=== PATIENT | female | born 1985 | race Caucasian/White ===

== ENCOUNTER 2019-08-21 18:49 | Emergency (ER) | payer OTHER ==
--- NOTE | 2019-08-21 20:11 | RAD REPORT ---
EXAM DESCRIPTION: US - OB Limited - 08/21/2019 8:02 pm CLINICAL HISTORY: VAGINAL BLEEDING age. COMPARISON: No comparisons FINDINGS: A limited examination was requested. A single gestation is identified with crown-rump melissa th of 4.6 cm corresponding to 11 weeks 1 day gestational age. Heart rate is 164, normal. A moderate s ized subchorionic bleed is probably present along the inferior aspect of the sac.
[2019-08-21 20:24] LABS: Absolute Lymphocytes (CBC) 2.7 K/uL (0.7-4.9); Basophils % 0.7 % (0-1.3); Hematocrit 39.9 % (36.0-45.0); MPV 7.8 fL (7.6-11.3); RBC Red Blood Cell Count 4.79 M/uL (3.86-4.86)
[2019-08-21 21:41] LABS: BUN Blood Urea Nitrogen 10 mg/dL (7-18); Bicarbonate 28 mmol/L (21-32); Glucose Level 70 mg/dL (74-106); HCG, Quantitative 34567 mIU/mL (1-3); Potassium 3.8 mmol/L (3.5-5.1); Sodium Level 138 mmol/L (136-145)
--- NOTE | 2019-08-21 22:15 | EDPHYS ---
Physician Documentation [facility] Name: Gracy Lay Age: 33 yrs Sex: Female : 1985 Arrival Date: 08/21/2019 Time: 18:50 Bed 4 Private MD: ED Physician Dank Dolan HPI: 08/21 22:19 This 33 yrs old Female presents to ER via Ambulatory with complaints of tw4 Vaginal Bleeding, + Preg <12wks. 22:19 The patient presents to the emergency department with vaginal bleeding. The estimated tw4 gestational age is 12 weeks. course: care: at a clinic. The patient has not experienced similar symptoms in the past. 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 - Social history:: Smoking status: Patient uses tobacco products, smokes one-half pack cigarettes per day. - Ebola Screening: : No symptoms or risks identified at this time. ROS: 22:19 Constitutional: Negative for fever, chills, and weight loss, Eyes: Negative for injury, tw4 pain, redness, and discharge, Cardiovascular: Negative for chest pain, palpitations, and edema, Respiratory: Negative for shortness of breath, cough, wheezing, and pleuritic chest pain, Abdomen/GI: Negative for abdominal pain, nausea, vomiting, diarrhea, and constipation. 22:19 : Positive for vaginal bleeding, Negative for injury or acute deformity, urinary symptoms, urinary frequency, small amounts, hematuria, pelvic pain, flank pain, burning with urination. Exam: 22:19 Constitutional: This is a well developed, well nourished patient who is awake, alert, tw4 and in no acute distress. Head/Face: Normocephalic, atraumatic. Chest/axilla: Normal chest wall appearance and motion. Nontender with no deformity. No lesions are appreciated. Cardiovascular: Regular rate and rhythm with a normal S1 and S2. No gallops, murmurs, or rubs. Normal PMI, no JVD. No pulse deficits. Respiratory: Lungs have equal breath sounds bilaterally, clear to auscultation and percussion. No rales, rhonchi or wheezes noted. No increased work of breathing, no retractions or nasal flaring. Abdomen/GI: Soft, non-tender, with normal bowel sounds. No distension or tympany. No guarding or rebound. No evidence of tenderness throughout. Back: No spinal tenderness. No costovertebral tenderness. Full range of motion. 22:19 : Pelvic Exam: The exam is refused by the patient/guardian. The risks and consequences are understood by the patient. Vital Signs: 18:52 BP 133 / 89; Pulse 92; Resp 16; Temp 98.1; Pulse Ox 100% on R/A; Weight 113.4 kg; la1 Height 5 ft. 5 in. (165.10 cm); 20:42 BP 126 / 87; Pulse 87; Resp 18; Pulse Ox 97% on R/A; ea 22:09 BP 129 / 90; Pulse 88; Resp 16; Temp 98.2; Pulse Ox 99% on R/A; Pain 0/10; ak1 18:52 Body Mass Index 41.60 (113.40 kg, 165.10 cm) la1 MDM: 19:43 Patient medically screened. tw4 22:19 Differential diagnosis: [place] do[place], ectopic . Data reviewed: vital signs, tw4 nurses notes. Data reviewed: lab test result(s), CBC, white blood cell count, hemoglobin, hematocrit, platelets, electrolytes, sodium, potassium, chloride, serum bicarbonate, BUN, creatinine, serum glucose, radiologic studies, ultrasound. Counseling: I had a detailed discussion with the patient and/or guardian regarding: the historical points, exam findings, and any diagnostic results supporting the discharge/admit diagnosis, lab results, radiology results. Special discussion: I discussed with the patient/guardian in detail that at this point there is no indication for admission to the hospital. It is understood, however, that if the symptoms persist or worsen the patient needs to return immediately for re-evaluation. 08/21 19:22 Order name: Quantitative Hcg [facility] 08/21 19:22 Order name: Abo/rh Typing; Complete Time: 22:17 [facility] 08/21 19:22 Order name: Basic Metabolic Panel [facility] 08/21 19:22 Order name: CBC with Diff 4 08/21 22:15 Order name: Urine Dipstick--Ancillary (enter results) 2 08/21 22:15 Order name: Urine --Ancillary (enter results) 2 08/21 19:22 Order name: Labs collected and sent; Complete Time: 20:10 tw4 08/21 19:22 Order name: NPO; Complete Time: 20:11 4 08/21 19:22 Order name: Urine Dipstick-Ancillary (obtain specimen); Complete Time: 22:09 4 08/21 19:25 Order name: US OB Limited; Complete Time: 21:56 tw4 Administered Medications: No medications were administered Point of Care Testing: Urine : 22:09 hCG Reading: Positive; ak1 Disposition: 08/21/19 22:14 Discharged to Home. Impression: Threatened . - Condition is Stable. - Discharge Instructions: Pelvic Rest, Threatened Miscarriage, Vaginal Bleeding During , First Trimester, Threatened Miscarriage, [id number]. - Work release form, Medication Reconciliation Form, Thank You Letter, Antibiotic Education, Prescription Opioid Use form. - Follow up: Private Physician; When: Upon discharge from the Emergency Department; Reason: Recheck today's complaints, Continuance of care. - Problem is new. - Symptoms have improved. Signatures: Dispatcher [employer] EDMS Denton Crowley RN RN andrew1 Bozena Fernandez RN RN ak1 Dank Dolan MD MD tw4 Corrections: (The following items were deleted from the chart) 20:11 19:22 IV Saline Lock ordered. tw4 ak1 22:33 22:14 08/21/2019 22:14 Discharged to Home. Impression: Threatened . Condition ak1 is Stable. Forms are Medication Reconciliation Form, Thank You Letter, Antibiotic Education, Prescription Opioid Use. Follow up: Private Physician; When: Upon discharge from the Emergency Department; Reason: Recheck today's complaints, Continuance of care. Problem is new. Symptoms have improved. tw4
--- NOTE | 2019-08-21 22:15 | ER ---
Nurse's Notes [facility] Name: Gracy Lay Age: 33 yrs Sex: Female : 1985 Arrival Date: 08/21/2019 Time: 18:50 Bed 4 Private MD: Diagnosis: Threatened Presentation: 08/21 18:53 Presenting complaint: Patient states: I am about 11 weeks and having vaginal la1 bleeding that started today. Transition of care: patient was not received from another setting of care. Onset of symptoms was August 21, 2019. Risk Assessment: Do you want to hurt yourself or someone else? Patient reports no desire to harm self or others. Initial Sepsis Screen: Does the patient meet any 2 criteria? No. Patient's initial sepsis screen is negative. Does the patient have a suspected source of infection? No. Patient's initial sepsis screen is negative. Care prior to arrival: None. 18:53 Method Of Arrival: Ambulatory la1 18:53 Acuity: ERNESTO 3 la1 Triage Assessment: 19:57 General: Appears in no apparent distress. Behavior is calm, cooperative. 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 - Social history:: Smoking status: Patient uses tobacco products, smokes one-half pack cigarettes per day. - Ebola Screening: : No symptoms or risks identified at this time. Screenin:10 Abuse screen: Denies threats or abuse. Denies injuries from another. Nutritional ak1 screening: No deficits noted. Tuberculosis screening: No symptoms or risk factors identified. Fall Risk None identified. Assessment: 19:56 Reassessment: pt in US at this time. General:. ak1 20:08 Obstetrical Assessment: pt c/o vaginal bleeding since 1800. pt stated US told her the ak1 baby was active and with a 156 heart beat. . Pain: Denies pain. : Reports vaginal bleeding that is bright red, with clots, light flow, since 1800 pt denies heavy lifting, denies sexual intercourse. 20:42 Reassessment: Patient and/or family updated on plan of care and expected duration. Pain ea level reassessed. Patient is alert, oriented x 3, equal unlabored respirations, skin warm/dry/pink. 22:33 Reassessment: Patient appears in no apparent distress at this time. No changes from ak1 previously documented assessment. Patient and/or family updated on plan of care and expected duration. Pain level reassessed. Patient is alert, oriented x 3, equal unlabored respirations, skin warm/dry/pink. Patient denies pain at this time. Patient states feeling better. Patient states symptoms have improved. pt has not changed her pad since being in the ER.. Vital Signs: 18:52 BP 133 / 89; Pulse 92; Resp 16; Temp 98.1; Pulse Ox 100% on R/A; Weight 113.4 kg; la1 Height 5 ft. 5 in. (165.10 cm); 20:42 BP 126 / 87; Pulse 87; Resp 18; Pulse Ox 97% on R/A; ea 22:09 BP 129 / 90; Pulse 88; Resp 16; Temp 98.2; Pulse Ox 99% on R/A; Pain 0/10; ak1 18:52 Body Mass Index 41.60 (113.40 kg, 165.10 cm) la1 Vitals: 19:57 Heart Tones N/A. ak1 ED Course: 18:50 Patient arrived in ED. as 18:52 Arm band placed on right wrist. la1 18:53 Triage completed. la1 19:25 Dank Dolan MD is Attending Physician. tw4 19:52 Bozena Fernandez, ELIF is Primary Nurse. ak1 20:02 US OB Limited In Process Unspecified. EDMS 20:08 Initial lab(s) drawn, by me, sent to lab. Missed attempt(s): 22 gauge in right ak1 antecubital area. Bleeding controlled, band aid applied, catheter tip intact. 20:10 Patient has correct armband on for positive identification. Bed in low position. Call ak1 light in reach. Side rails up X 1. Warm blanket given. 20:24 CBC with Diff Sent. ds4 20:24 Basic Metabolic Panel Sent. ds4 20:24 Abo/rh Typing Sent. ds4 20:24 Quantitative Hcg Sent. ds4 20:56 Patient did not have IV access during this emergency room visit. lab called for ak1 recollect. 22:23 No provider procedures requiring assistance completed. ak1 Administered Medications: No medications were administered Point of Care Testing: Urine : 22:09 hCG Reading: Positive; ak1 Outcome: 22:09 Condition: stable ak1 22:14 Discharge ordered by . tw4 22:23 Discharged to home ambulatory, with family. ak1 22:23 Discharge instructions given to patient, Instructed on discharge instructions, follow up and referral plans. safe sex practices, Demonstrated understanding of instructions, follow-up care. 22:33 Patient left the ED. ak1 Signatures: Dispatcher [employer] EDMS Daniela Hunter Donovan ds4 Denton Crowley RN RN la1 Krenek, Amber, RN RN ak1 Minerva Blanco RN RN ea Wadley, Terrence, MD MD tw4
[2019-08-21 22:17] LABS: Urine Blood NEGATIVE (NEG); Urine Glucose NEGATIVE (NEG); Urine Protein NEGATIVE (NEG); Urine Specific Gravity 1.025 (1.005-1.030); Urine pH 6.5 (5.0-7.0)
[2019-08-21 23:33] VITALS: BP 129/90; TEMP 98.2; O2SAT 99
== END 2019-08-21 22:33 | disposition home or self-care (01) ==
LOC: ER 18:49
DX: O20.0 Threatened abortion (principal); O24.911 Unspecified diabetes mellitus in pregnancy, first trimester; O99.331 Smoking (tobacco) complicating pregnancy, first trimester; F17.210 Nicotine dependence, cigarettes, uncomplicated; Z79.4 Long term (current) use of insulin; Z3A.12 12 weeks gestation of pregnancy
CPT/HCPCS: 36415; 76815; 80048; 81003; 81025; 84702; 85025; 86900; 86901; 99284

== ENCOUNTER 2019-10-22 16:32 | Emergency (ER) | payer OTHER ==
--- OUTSIDE RECORDS SUMMARY | 2019-10-22 16:33 | XMS REPORT ---
:1985 [facility] Address [address] [place] [address] [address] [place] [address] Care Team Providers Name Role Phone Unavailable Unavailable Unavailable Problems This patient has no known problems. Allergies, Adverse Reactions, Alerts This patient has no known allergies or adverse reactions. Medications This patient has no known medications. Encounters Start End Encounter Admission Attending Care Care Encounter Date/Time Date/Time Type Type Clinicians Facility Department ID 2019-09-08 2019-09-08 Outpatient [facility] [id number] 09:01:00 09:01:00
--- NOTE | 2019-10-22 17:59 | EDPHYS ---
Physician Documentation [facility] Name: Gracy Lay Age: 34 yrs Sex: Female : 1985 Arrival Date: 10/22/2019 Time: 16:33 Bed 9 Private MD: ED Physician Brody Baumann HPI: 10/22 17:57 This 34 yrs old Female presents to ER via Ambulatory with complaints of Flu kb Symptoms. 17:57 The patient or guardian reports cough, that is intermittent, described as moderate, kb with no sputum, flu symptoms, low-grade fever, myalgias. Onset: The symptoms/episode began/occurred yesterday. Severity of symptoms: At their worst the symptoms were moderate, in the emergency department the symptoms are unchanged. Modifying factors: The symptoms are alleviated by nothing, the symptoms are aggravated by nothing. Associated signs and symptoms: Pertinent positives: earache, fever, rhinorrhea, sore throat. The patient has not experienced similar symptoms in the past. The patient has not recently seen a physician. Pt reports she has had flu like symptoms since yesterday. Sore throat, fever, chills, cough, congestion, bilateral ear pain and runny nose. 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 - Coronavirus screen:: The patient has NOT traveled to [place], [place], or [place] in the past 14 days. Proceed with normal triage process as indicated. The patient has NOT had contact with known/suspected case of Coronavirus? Proceed with normal triage procedures. - Social history:: Smoking status: Patient reports the use of cigarette tobacco products, smokes one-half pack cigarettes per day. - Ebola Screening: : Patient negative for fever greater than or equal to 101.5 degrees Fahrenheit, and additional compatible Ebola Virus Disease symptoms Patient denies exposure to infectious person Patient denies travel to an Ebola-affected area in the 21 days before illness onset No symptoms or risks identified at this time. ROS: 17:56 Neck: Negative for injury, pain, and swelling, Cardiovascular: Negative for chest pain, kb palpitations, and edema, Abdomen/GI: Negative for abdominal pain, nausea, vomiting, diarrhea, and constipation, Back: Negative for injury and pain, : Negative for injury, bleeding, discharge, and swelling, MS/Extremity: Negative for injury and deformity, Skin: Negative for injury, rash, and discoloration, Neuro: Negative for headache, weakness, numbness, tingling, and seizure. 17:56 Constitutional: Positive for body aches, chills, fatigue, fever, malaise. 17:56 ENT: Positive for ear pain, rhinorrhea, sore throat. 17:56 Respiratory: Positive for cough, Negative for dyspnea on exertion, hemoptysis, orthopnea, pleurisy, shortness of breath, sputum production, wheezing. Exam: 17:56 Constitutional: This is a well developed, well nourished patient who is awake, alert, kb and in no acute distress. Head/Face: Normocephalic, atraumatic. Neck: Trachea midline, no thyromegaly or masses palpated, and no cervical lymphadenopathy. Supple, full range of motion without nuchal rigidity, or vertebral point tenderness. No Meningismus. Chest/axilla: Normal chest wall appearance and motion. Nontender with no deformity. No lesions are appreciated. Cardiovascular: Regular rate and rhythm with a normal S1 and S2. No gallops, murmurs, or rubs. Normal PMI, no JVD. No pulse deficits. Respiratory: Lungs have equal breath sounds bilaterally, clear to auscultation and percussion. No rales, rhonchi or wheezes noted. No increased work of breathing, no retractions or nasal flaring. Abdomen/GI: Soft, non-tender, with normal bowel sounds. No distension or tympany. No guarding or rebound. No evidence of tenderness throughout. Skin: Warm, dry with normal turgor. Normal color with no rashes, no lesions, and no evidence of cellulitis. MS/ Extremity: Pulses equal, no cyanosis. Neurovascular intact. Full, normal range of motion. Neuro: Awake and alert, GCS 15, oriented to person, place, time, and situation. Cranial nerves II-XII grossly intact. Motor strength 5/5 in all extremities. Sensory grossly intact. Cerebellar exam normal. Normal gait. 17:56 ENT: External ear(s): are unremarkable, Ear canal(s): are normal, TM's: are normal, Nose: is normal, Mouth: is normal, Posterior pharynx: Airway: normal, no evidence of obstruction, Tonsils: with erythema, Uvula: normal, midline, swelling, that is mild, erythema, that is moderate. Vital Signs: 16:49 BP 125 / 76; Pulse 98; Resp 20; Temp 97.1; Pulse Ox 99% ; Weight 118.39 kg; Height 5 ss ft. 5 in. (165.10 cm); Pain 5/10; 16:49 Body Mass Index 43.43 (118.39 kg, 165.10 cm) ss MDM: 16:55 Patient medically screened. kb 17:56 Data reviewed: vital signs, nurses notes. Data interpreted: Pulse oximetry: on room air kb is 99 %. Interpretation: normal. Counseling: I had a detailed discussion with the patient and/or guardian regarding: the historical points, exam findings, and any diagnostic results supporting the discharge/admit diagnosis, lab results, the need for outpatient follow up, to return to the emergency department if symptoms worsen or persist or if there are any questions or concerns that arise at home. 10/22 16:54 Order name: Flu; Complete Time: 17:53 ss 10/22 16:54 Order name: Strep; Complete Time: 17:53 ss Administered Medications: No medications were administered Disposition: 21:12 Co-signature as Attending Physician, Brody Baumann MD I agree with the assessment and kdr plan of care. Disposition: 10/22/19 17:58 Discharged to Home. Impression: Streptococcal pharyngitis. - Condition is Stable. - Discharge Instructions: Strep Throat, [id number]. - Prescriptions for Amoxicillin 875 mg Oral Tablet - take 1 tablet by ORAL route every 12 hours for 10 days; 20 tablet. - Medication Reconciliation Form, Thank You Letter, Antibiotic Education, Prescription Opioid Use form. - Follow up: Emergency Department; When: As needed; Reason: Worsening of condition. Follow up: Private Physician; When: 2 - 3 days; Reason: Recheck today's complaints, Continuance of care, Re-evaluation by your physician. Signatures: Dispatcher [employer] EDMS Ronak Montenegroistin, CONTINUOUS DRIER HELPER-C CONTINUOUS DRIER HELPER-Ckb Brody Baumann MD MD [facility] Sally Reddy, CONTINUOUS DRIER HELPER-C CONTINUOUS DRIER HELPER-Csnw Verito Virk RN RN ss Corrections: (The following items were deleted from the chart) 18:12 17:58 10/22/2019 17:58 Discharged to Home. Impression: Streptococcal pharyngitis. ss Condition is Stable. Forms are Medication Reconciliation Form, Thank You Letter, Antibiotic Education, Prescription Opioid Use. Follow up: Emergency Department; When: As needed; Reason: Worsening of condition. Follow up: Private Physician; When: 2 - 3 days; Reason: Recheck today's complaints, Continuance of care, Re-evaluation by your physician. kb
--- NOTE | 2019-10-22 17:59 | ER ---
Nurse's Notes [facility] Name: Gracy Lay Age: 34 yrs Sex: Female : 1985 Arrival Date: 10/22/2019 Time: 16:33 Bed 9 Private MD: Diagnosis: Streptococcal pharyngitis Presentation: 10/22 16:42 Presenting complaint: Patient states: Started having cough, congestion, sore throat, ss body aches, ear pain and headache yesterday. Fever unknown. Transition of care: patient was not received from another setting of care. Onset of symptoms was October 21, 2019. Risk Assessment: Do you want to hurt yourself or someone else? Patient reports no desire to harm self or others. Initial Sepsis Screen: Does the patient meet any 2 criteria? No. Patient's initial sepsis screen is negative. Does the patient have a suspected source of infection? No. Patient's initial sepsis screen is negative. Care prior to arrival: None. 16:42 Method Of Arrival: Ambulatory 16:42 Acuity: ERNESTO 4 ss Triage Assessment: 16:49 General: Appears comfortable, Behavior is calm, cooperative. Pain: Complains of pain in ss right ear and left ear Pain does not radiate. Pain currently is 5 out of 10 on a pain scale. at worst was 5 out of 10 on a pain scale. 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 - Coronavirus screen:: The patient has NOT traveled to [place], [place], or [place] in the past 14 days. Proceed with normal triage process as indicated. The patient has NOT had contact with known/suspected case of Coronavirus? Proceed with normal triage procedures. - Social history:: Smoking status: Patient reports the use of cigarette tobacco products, smokes one-half pack cigarettes per day. - Ebola Screening: : Patient negative for fever greater than or equal to 101.5 degrees Fahrenheit, and additional compatible Ebola Virus Disease symptoms Patient denies exposure to infectious person Patient denies travel to an Ebola-affected area in the 21 days before illness onset No symptoms or risks identified at this time. Screenin:07 Abuse screen: Denies threats or abuse. Denies injuries from another. Nutritional ss screening: No deficits noted. Tuberculosis screening: Never had TB. Fall Risk None identified. Assessment: 18:00 General: Appears uncomfortable, Behavior is calm, cooperative, Reports chills for 12-24 ss hours, fever for 12-24 hours, feeling ill for 12-24 hours, fatigue for 12-24 hours. Neuro: Level of Consciousness is awake, alert, obeys commands, Oriented to person, place, time, situation. Cardiovascular: Capillary refill < 3 seconds is brisk in bilateral fingers. Respiratory: Airway is patent Respiratory effort is even, unlabored, Respiratory pattern is regular, symmetrical. EENT: Reports sore throat. Derm: Skin is intact, is healthy with good turgor, Skin is pink, warm \T\ dry. normal. Vital Signs: 16:49 BP 125 / 76; Pulse 98; Resp 20; Temp 97.1; Pulse Ox 99% ; Weight 118.39 kg; Height 5 ss ft. 5 in. (165.10 cm); Pain 5/10; 16:49 Body Mass Index 43.43 (118.39 kg, 165.10 cm) ss ED Course: 16:33 Patient arrived in ED. ag5 16:48 Triage completed. ss 16:51 Arm band placed on right wrist. ss 16:55 Ariadne Montenegro FNP-C is PHCP. kb 16:55 Brody Baumann MD is Attending Physician. kb 17:53 PHCP role handed off by Ariadne Montenegro FNP-C snw 17:53 Sally Reddy FNP-C is PHCP. snw 17:55 Ariadne Montenegro FNP-C is PHCP. kb 18:06 Verito Virk, ELIF is Primary Nurse. ss 18:07 Patient has correct armband on for positive identification. Bed in low position. Call ss light in reach. 18:07 No provider procedures requiring assistance completed. Patient did not have IV access ss during this emergency room visit. Administered Medications: No medications were administered Outcome: 17:58 Discharge ordered by . kb 18:07 Condition: good ss 18:07 Discharge instructions given to patient, family, Instructed on discharge instructions, follow up and referral plans. medication usage, Demonstrated understanding of instructions, follow-up care, medications, Prescriptions given X 1. 18:12 Patient left the ED. Signatures: Ariadne Montenegro, RAHAT-C CERTIFIED GENETIC COUNSELOR-Ckb Sally Reddy FNP-C CERTIFIED GENETIC COUNSELOR-Csnw Verito Virk, ELIF RN Mynor Geller ag5
[2019-10-22 18:26] VITALS: BP 125/76; TEMP 97.1; O2SAT 99
== END 2019-10-22 18:12 | disposition home or self-care (01) ==
LOC: ER 16:32
DX: J02.0 Streptococcal pharyngitis (principal)
CPT/HCPCS: 87081; 87804; 99282

== ENCOUNTER 2023-07-27 18:40 | Emergency (ER) | payer BC, OTHER ==
--- OUTSIDE RECORDS SUMMARY | 2023-07-27 18:48 | XMS REPORT | Continuity of Care Document ---
:1985 Author Organization [facility] t Address [address] [place] [address] [address] [place] [address] Care Team Providers Name Role Phone PCP, UNKNOWN Primary Care Physician Unavailable Dewayne Campuzano Attending Clinician Unavailable Julia Tineo Attending Clinician Unavailable DOMINGO LOVELACE Attending Clinician Unavailable Anuj Mauricio Attending Clinician Unavailable JESSICA GOMEZ Attending Clinician Unavailable Jessica Ingram Attending Clinician Doctor Unassigned, [place] Attending Clinician Unavailable FRITZ ALEGRIA Attending Clinician Unavailable AMAURY FIGUEROA Attending Clinician Unavailable ASHLIE BARRIOS Attending Clinician Unavailable Johanna Sultana DO Attending Clinician Aslhie Barrios MD Attending Clinician Lani Garrison Attending Clinician Unavailable Agustín ASENCIO, Aida Ruth Attending Clinician Unavailable WILDA HSIEH Attending Clinician Unavailable Jordy FLOOR LAYER APPRENTICE, Wilda Attending Clinician Ebrahim FLOOR LAYER APPRENTICE, Destiny Attending Clinician MUNA LIVINGSTON Attending Clinician Unavailable James Watson DO Attending Clinician [place] EATON, Domingo Attending Clinician Dasha EATON, [place] Attending Clinician Enoc Wilder MD Attending Clinician Licha ASENCIO, Deisy Montalvo Attending Clinician Unavailable Only, Jadon Test Attending Clinician Unavailable KNOW, DOES_NOT Attending Clinician Unavailable Chey Perez Attending Clinician SHELBY MENDOZA Attending Clinician Unavailable Dewayne Campuzano Admitting Clinician Unavailable Julia Tineo Admitting Clinician Unavailable DOMINGO LOVELACE Admitting Clinician Unavailable Anuj Mauricio Admitting Clinician Unavailable JESSICA GOMEZ Admitting Clinician Unavailable ASHLIE BARRIOS Admitting Clinician Unavailable Ashlie Barrios MD Admitting Clinician Enoc Wilder MD Admitting Clinician Domingo Lovelace MD Admitting Clinician Payers Payer Name Policy Type Policy Number Effective Date Expiration Date [facility] [id number] 2019 CHOICE MEDICAID 00:00:00 [facility] [id number] 2023 00:00:00 COMMERCIAL [id number] 2023 NON-CONTRACT 00:00:00 GENERIC MEDICAID [facility] [id number] 2019 00:00:00 Problems Condition Condition Condition Status Onset Resolution Last Treating Co mments Source Name Details Category Date Date Treatment Clinician Date Atypical Atypical Disease Active Unive rs chest pain chest pain 8-17 it y of 00:00: [place] 00 Medical Branch Elevated Elevated Disease Active Unive rs brain brain 8-17 ity of [place] c peptide c peptide 00 Medi rocío (BNP) (BNP) Branch level level Severe Severe Disease Active Univers pre-eclamp pre-eclamp 8-16 it y of duyen, duyen, 00:00: [place] 00 Me dical condition condition Bran ch or or complicati complicati on on SOB SOB Disease Active Univers (shortness (shortness 8-16 it y of of breath[place] of breath[place] Anemia due Anemia due Disease Active Overview : Univers to acute to acute 05-12 Formattin ity of blood loss blood loss 00:00: g of this [place] note Medical might be Branch different from the original. Post on 05/04 Tonsillar Tonsillar Disease Active 2019-09 Overview: Univers bleed bleed 0-27 Formattin ity of 00:00: g of this [place] 00 note Medical might be Branch different from the original. Added automatic ally from request for surgery [id number] [id number] Diagnosis Active 2018-092019-09-08 Memoria Active 11-01 09:42:00 l 08/31/2019 00:00: [place] [address] UTI in UTI in Disease Active 2018-09 Overview: Univer s 0-21 Formattin i ty of 00:00: g of this [place] 00 note Medical might be Branch different from the original. Pending silvia Obesity in Obesity in Disease Active 2018-09 U nivers 0-17 ity of 00:00: [place] 00 Medical Branch Diabetes Diabetes Disease Active 2018-09 Overview: Un candi mellitus mellitus 0-17 Formattin ity of complicati complicati 00:00: g of this [facility] ng 00 note Medical , , might be Branch antepartum antepartum different from the original. Currently novolog on sliding scale Hypertensi Hypertensi Disease Active 2018-09 Overview : Univers on in on in 0-17 Formattin ity of , , 00:00: g of this [place] pre-existi pre-existi 00 note Me dical ng, ng, might be Branch antepartum antepartum different from the original. Currently on labetalol History of History of Disease Active 2018-09 Overview : Univers cerclage, cerclage, 0-17 Formattin i ty of currently currently 00:00: [place] of this [place] 00 note Medica l might be Branch different from the original. With 2012 History of History of Disease Active 2018-09 U nivers 0-17 ity of section section 00:00: [place] 00 Medical Branch Multiparit Multiparit Disease Active 2018-09 U nivers y y 0-17 ity of 00:00: Medical Branch History of History of Disease Active 2018-09 Overview : Univers herpes herpes 0-17 Formattin ity of genitalis genitalis 00:00: [place] of this [place] 00 note Medical might be Branch different from the original. suppressi on at 36 weeks Diabetes Diabetes Disease Active 2018-09 Overview: Un candi mellitus mellitus 0-17 Formattin ity of complicati complicati 00:00: g of this [place] ng ng 00 note Medical , , might be Branch antepartum antepartum different from the original. Currently novolog on sliding scale Cervical Cervical Disease Active Overview: Un candi dysplasia dysplasia 3-01 Formattin i ty of 00:00: g of this [place] 00 note Medical might be Branch different from the original. cold knife cone Recurrent Recurrent Disease Active Uni vers boils boils 8-15 ity of 00:00: [place] 00 Medical Branch Lipidosis Lipidosis Disease Active Uni vers due to due to 8-15 ity of diabetes diabetes 00:00: [place] mellitus mellitus 00 Medica l Branch Recurrent Recurrent Disease Active Uni vers boils boils 8-15 ity of 00:00: [place] 00 Medical Branch STEPHANIE STEPHANIE Disease Active Overview: Univer s (obstructi (obstructi Formattin ity of ve sleep ve sleep g of this [place]adon as apnea) apnea) note Medical might be Branch different from the original. on BIPAP GERD GERD Disease Active Univers (gastroeso (gastroeso it y of phageal phageal [place] reflux reflux Medical disease) disease) Branch Tobacco Tobacco Disease Active [facility] use [place] Asthma Asthma Disease Active Univers ity of [facility] Branch Type 2 Type 2 Disease Active Overview: Univer s diabetes diabetes Formattin ity of mellitus mellitus g of this [place] as without without note Medical complicati complicati might be Branch on, on, different without without from the long-term long-term original. 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 Patient Patient Problem Active 2019-09-10 Me gonzaleza currently currently 23:35:57 l Rios n (finding) (finding) Active Problem 09/10/2019 [facility] Diabetes Diabetes Problem Active 2019-09-10 Memoria mellitus mellitus 23:35:57 l (disorder) (disorder) He rmann Active Problem 09/10/2019 [facility] Hypertensi Hypertens Problem Active 2019-09-10 Memoria ve girma 23:35:57 l disorder, disorder, Herm kuldip systemic systemic arterial arterial (disorder) (disorder) Active Problem 09/10/2019 [facility] Allergies, Adverse Reactions, Alerts Allergy Allergy Status Severity Reaction(s) Onset Inactive Treating Comm ents Source Name Type Date Date Clinician hydrocod DA Active U Hives 2022-09 [facility] one 0-18 00:00: 00 acetamin DA Active U Hives 2022-09 [facility] ophen 0-18 00:00: 00 metformi DA Active U Vomiting 2022-09 [facility] n 0-18 00:00: 00 insulin DA Active U Hives 2022-09 [facility] lispro 0-18 00:00: 00 insulin DA Active U Hives 2022-09 [facility] regular 0-18 00:00: 00 insulin DA Active U Hives 2022-09 [facility] regular 0-13 00:00: 00 hydrocod DA Active U Hives 2022-09 [facility] one 0-13 00:00: 00 acetamin DA Active U Hives 2022-09 [facility] ophen 0-13 00:00: 00 metformi DA Active U Vomiting 2022-09 [facility] n 0-13 00:00: 00 insulin DA Active U Hives 2022-09 [facility] lispro 0-13 00:00: 00 METFORMI DRUG Active Med Diarrhea 2021-09 Univ s N INGREDI 0-18 ity of 00:00: [place] 00 Medical [place] Metformi Propensi Active Nausea 2021-09 Univer s n ty to and/or 0-18 ity of adverse Vomiting 00:00: [place] reaction 00 [facility] insulin DA Active [facility] HIVES [facility] lispro 8-07 Clear 00:00: [place] 00 [facility] insulin DA Active MO HIVES [facility] isophane 8-07 Clear (NPH) 00:00: Ce[place] 00 [facility] insulin DA Active MO HIVES [facility] regular 8-07 Clear 00:00: Ceja 00 [facility] insulin DA Active MO HIVES [facility] lispro 7-18 Clear 00:00: Ce[place] 00 [facility] insulin DA Active MO HIVES 2019-09 [facility] isophane 0-26 Clear (NPH) 00:00: Ce[place] 00 [facility] insulin DA Active MO HIVES 2019-09 [facility] regular 0-26 Clear 00:00: Ceja 00 [facility] insulin DA Active MO 2019-09 [facility] isophane 0-26 [place] (NPH) 00:00: d 00 [facility] insulin DA Active MO 2019-09 [facility] regular 0-26 [place] 00:00: d 00 [facility] INSULIN DRUG Active Rash 2013-09 Univers LISPRO INGREDI 2-01 ity of 00:00: [place] 00 [facility] INSULIN DRUG Active Rash 2013-09 Univers NPH 2-01 ity of ISOPH 00:00: [place] U-100 00 [facility] INSULIN DRUG Active Rash 2013-09 Univers REGULAR 2-01 ity of HUMAN 00:00: [place] 00 [facility] Insulin Propensi Active Rash 2013-09 Univers Lispro ty to 2-01 ity of adverse 00:00: [place] reaction 00 [facility] Insulin Propensi Active Rash 2013-09 Univers Nph ty to 2-01 ity of Isoph adverse 00:00: [place] U-100 reaction 00 [facility] Insulin Propensi Active Rash 2013-09 Univers Regular ty to 2-01 ity of Human adverse 00:00: [place] reaction 00 [facility] insulin DA Active U 2013-09 [facility] lispro 1-18 [place] 00:00: d 00 [facility] insulin DA Active U 2013-09 [facility] isophane 1-18 [facility] (NPH) 00:00: d 00 [facility] insulin DA Active U 2013-09 [facility] regular 10-14 [facility] 00:00: d 00 [facility] insulin DA Active U BRUISE, RASH 2013-09 [facility] lispro 10-14 [facility] 00:00: d 00 [facility] insulin DA Active U RASH, BRUISE 2013-09 [facility] isophane 10-14 [facility] (NPH) 00:00: d 00 [facility] insulin DA Active U RASH, BRUISE 2013-09 [facility] regular 10-14 [facility] 00:00: d 00 [facility] HumaLOG HumaLOG Active Memoria l [place] HumuLIN HumuLIN Active Memoria N N l [place] Social History Social Habit Start Date Stop Date Quantity Comments Source History of tobacco 1999-07-13 Cigarette Smoker University of use 00:00:00 [facility] ASSERTION [facility] Gender identity [facility] Sexual [facility] History of Social 2023-06-18 2023-06-18 Univers ity of function 00:00:00 00:00:00 [facility] Alcohol intake 2023-04-30 2023-04-30 Current University of 00:00:00 00:00:00 non-drinker of [facility] alcohol (finding) Branch Exposure to 2022-07-04 2022-07-14 Not sure University SARS-CoV-2 (event) 00:00:00 08:20:00 [facility] Cigarettes smoked 2022-05-12 2022-05-12 Univers ity of current (pack per 00:00:00 00:00:00 ) - Reported Branch Cigarette 2022-05-12 2022-05-12 University of pack-years 00:00:00 00:00:00 [facility] Tobacco use and 2022-05-12 2022-05-12 Smokeless tobacco Un iversity of exposure 00:00:00 00:00:[address] [facility] Tobacco Comment 2022-05-12 2022-05-12 cut back - 4 Univers ity of 00:00:00 00:00:00 cigarettes daily [facility] dical [place] Social History 2019-09-06 2019-09-06 [facility] gina 21:47:11 21:47:11 [birth year] Universit y of 00:00:00 00:00:00 [facility] Smoking Status Start Date Stop Date Source Smokes tobacco daily 2022-05-12 00:00:[address] [facility] Medications Ordered Filled Start Stop Current Ordering Indication Dosage Frequency Signature Comments Components Source Medication Medication Date Date Medication? Clinician (SIG) Name Name lisdexamfet 2022-0 2022- No 40mg Take 40 mg Univers amine 04-30-04 by mouth ity of (VYVANSE) 10:23: 00:00 every [place] 40 mg 27 :00 morning. Medical capsule Branch lisdexamfet 0 2022- No 40mg Take 40 mg Univers amine 04-30 by mouth ity of (VYVANSE) 10:23: 00:00 every [place] 40 mg 27 :00 morning. Medical capsule Branch fenofibrate 0 Yes 145mg Take 1 Uni vers (TRICOR) 8-04 tablet by ity of 145 mg 00:00: mouth in [place] tablet 00 the Medical morning. Branch semaglutide 0 Yes inject Univ ers (OZEMPIC) 1 8-04 under the ity of mg/dose (2 00:00: skin. [place] mg/1.5 mL) 00 Medical PnIj Branch dextroamphe 0 Yes Take by Uni vers tamine-amph 8-04 mouth. ity of etamine 00:00: [place] (MYDAYIS) 00 Medical 12.5 mg Branch CT24 fenofibrate 0 Yes 145mg Take 1 Uni vers (TRICOR) 8-04 tablet by ity of 145 mg 00:00: mouth in [place] tablet 00 the Medical morning. Branch semaglutide 0 Yes inject Univ ers (OZEMPIC) 1 8-04 under the ity of mg/dose (2 00:00: skin. [place] mg/1.5 mL) 00 Medical PnIj Branch dextroamphe 0 Yes Take by Uni vers tamine-amph 8-04 mouth. ity of etamine 00:00: [place] (MYDAYIS) 00 Medical 12.5 mg Branch CT24 fenofibrate 2022-0 Yes 145mg Take 1 Uni vers (TRICOR) 8-04 tablet by ity of 145 mg 00:00: mouth in [place] tablet 00 the Medical morning. Branch semaglutide 3-0 Yes inject Univ ers (OZEMPIC) 1 8-04 under the ity of mg/dose (2 00:00: skin. [place] mg/1.5 mL) 00 Medical PnIj Branch dextroamphe 3-0 Yes Take by Uni vers tamine-amph 8-04 mouth. ity of etamine 00:00: [place] (MYDAYIS) 00 Medical 12.5 [address] Branch [address]24 fenofibrate 3-0 Yes 145mg Take 1 Uni vers (TRICOR) 8-04 tablet by ity of 145 mg 00:00: mouth in [place] tablet 00 the Medical morning. Branch semaglutide 3-0 Yes inject Univ ers (OZEMPIC) 1 8-04 under the ity of mg/dose (2 00:00: skin. [place] mg/1.5 mL) 00 Medical PnIj Branch dextroamphe 3-0 Yes Take by Uni vers tamine-amph 8-04 mouth. ity of etamine 00:00: [place] (MYDAYIS) 00 Medical 12.5 mg Branch [address]24 fenofibrate 3-0 Yes 145mg Take 1 Uni vers (TRICOR) 8-04 tablet by ity of 145 mg 00:00: mouth in [place] tablet 00 the Medical morning. Branch semaglutide 3-0 Yes inject Univ ers (OZEMPIC) 1 8-04 under the ity of mg/dose (2 00:00: skin. [place] mg/1.5 mL) 00 Medical PnIj Branch dextroamphe 3-0 Yes Take by Uni vers tamine-amph 8-04 mouth. ity of etamine 00:00: [place] (MYDAYIS) 00 Medical 12.5 mg Branch CT24 fenofibrate 3-0 Yes 145mg Take 1 Uni vers (TRICOR) 8-04 tablet by ity of 145 mg 00:00: mouth in [place] tablet 00 the Medical morning. Branch semaglutide 3-0 Yes inject Univ ers (OZEMPIC) 1 8-04 under the ity of mg/dose (2 00:00: skin. [place] mg/1.5 mL) 00 Medical PnIj Branch dextroamphe 3-0 Yes Take by Uni vers tamine-amph 8-04 mouth. ity of etamine 00:00: [place] (MYDAYIS) 00 Medical 12.5 mg Branch CT24 fenofibrate 3-0 Yes 145mg Take 1 Uni vers (TRICOR) 8-04 tablet by ity of 145 mg 00:00: mouth in [place] tablet 00 the Medical morning. Branch semaglutide 2022-0 Yes inject Univ ers (OZEMPIC) 1 8-04 under the ity of mg/dose (2 00:00: skin. [place] mg/1.5 mL) 00 Medical PnIj Branch dextroamphe 2022-0 Yes Take by Uni vers tamine-amph 8-04 mouth. ity of etamine 00:00: [place] (MYDAYIS) 00 Medical 12.5 mg Branch CT24 fenofibrate 2022-0 Yes 145mg Take 1 Uni vers (TRICOR) 8-04 tablet by ity of 145 mg 00:00: mouth in [place] tablet 00 the Medical morning. Branch semaglutide 2022-0 Yes inject Univ ers (OZEMPIC) 1 8-04 under the ity of mg/dose (2 00:00: skin. [place] mg/1.5 mL) 00 Medical PnIj Branch dextroamphe 2022-0 Yes Take by Uni vers tamine-amph 8-04 mouth. ity of etamine 00:00: [place] (MYDAYIS) 00 Medical 12.5 mg Branch CT24 aspirin 81 2021-09- No 81mg Take 81 mg Univers mg chewable 0-18 10-18 by mouth ity of tablet 08:59: 00:00 daily. [place] 28 :00 Medical Branch aspirin 81 2021-09- No 81mg Take 81 mg Univers mg chewable 0-18 10-18 by mouth ity of tablet 08:59: 00:00 daily. [place] 28 :00 Medical Branch amitriptyli 2021-09- No 100mg Take 100 Univers ne 100 mg 0-18 10-18 mg by ity of tablet 08:58: 00:00 mouth [place] 36 :00 daily. Medical Branch amitriptyli 2021-09- No 100mg Take 100 Univers ne 100 mg 0-18 10-18 mg by ity of tablet 08:58: 00:00 mouth [place] 36 :00 daily. Medical Branch Fenofibrate 2021-09- No Take by Un candi 160 mg 0-18 10-18 mouth ity of tablet 08:57: 00:00 daily. [place] 31 :00 Medical Branch Fenofibrate 2021-09- No Take by Un candi 160 mg 0-18 10-18 mouth ity of tablet 08:57: 00:00 daily. [place] 31 :00 Medical Branch labetalol 2021-09- No Take by Univ ers HCl 0-18 10-18 mouth. ity of (LABETALOL 08:56: 00:00 [place] ORAL) 30 :00 Medical Branch labetalol 2021-09- No Take by Univ ers HCl 0-18 10-18 mouth. ity of (LABETALOL 08:56: 00:00 [place] ORAL) 30 :00 Medical Branch lisinopriL 2021-09 Yes 40mg Take 40 mg U nivers 40 mg 0-18 by mouth ity of tablet 08:33: in the [place] [address] morning. Medical Branch lisinopriL 2021- Yes 40mg Take 40 mg U nivers 40 mg 0-18 by mouth ity of tablet 08:33: in the [place] [address] morning. Medical Branch lisinopriL 2021- Yes 40mg Take 40 mg U nivers 40 mg 0-18 by mouth ity of tablet 08:33: in the [place] [address] morning. Medical Branch lisinopriL 2021- Yes 40mg Take 40 mg U nivers 40 mg 0-18 by mouth ity of tablet 08:33: in the [place] [address] morning. Medical Branch lisinopriL 2021- Yes 40mg Take 40 mg U nivers 40 mg 0-18 by mouth ity of tablet 08:33: in the [place] [address] morning. Medical Branch lisinopriL 2021- Yes 40mg Take 40 mg U nivers 40 mg 0-18 by mouth ity of tablet 08:33: in the [place] [address] morning. Medical Branch lisinopriL 2021- Yes 40mg Take 40 mg U nivers 40 mg 0-18 by mouth ity of tablet 08:33: in the [place] [address] morning. Medical Branch lisinopriL 2021- Yes 40mg Take 40 mg U nivers 40 mg 0-18 by mouth ity of tablet 08:33: in the [place] [address] morning. Medical Branch lisinopriL 2021-1 Yes 40mg Take 40 mg U nivers 40 mg 0-18 by mouth ity of tablet 08:33: in the [place] [address] morning. Medical Branch lisinopriL 2021-1 Yes 40mg Take 40 mg U nivers 40 mg 0-18 by mouth ity of tablet 08:33: in the [place] [address] morning. Medical Branch dapaglifloz 2-1 Yes 10mg Take 1 Univ ers in 0-18 tablet by ity of (FARXIGA) 00:00: [place] 10 mg 00 the Medical tablet morning. Branch dapaglifloz 2-1 Yes 10mg Take 1 Univ ers in 0-18 tablet by ity of (FARXIGA) 00:00: [place] 10 mg 00 the Medical tablet morning. Branch dapaglifloz 2-1 Yes 10mg Take 1 Univ ers in 0-18 tablet by ity of (FARXIGA) 00:00: [place] 10 mg 00 the Medical tablet morning. Branch dapaglifloz 2-1 Yes 10mg Take 1 Univ ers in 0-18 tablet by ity of (FARXIGA) 00:00: [place] 10 mg 00 the Medical tablet morning. Branch dapaglifloz 2022-1 Yes 10mg Take 1 Univ ers in 0-18 tablet by ity of (FARXIGA) 00:00: [place] 10 mg 00 the Medical tablet morning. Branch dapaglifloz 2-1 Yes 10mg Take 1 Univ ers in 0-18 tablet by ity of (FARXIGA) 00:00: [place] 10 mg 00 the Medical tablet morning. Branch dapaglifloz 2022-1 Yes 10mg Take 1 Univ ers in 0-18 tablet by ity of (FARXIGA) 00:00: [place] 10 mg 00 the Medical tablet morning. Branch dapaglifloz 2022-1 Yes 10mg Take 1 Univ ers in 0-18 tablet by ity of (FARXIGA) 00:00: [place] 10 mg 00 the Medical tablet morning. Branch dapaglifloz 2022-1 Yes 10mg Take 1 Univ ers in 0-18 tablet by ity of (FARXIGA) 00:00: [place] 10 mg 00 the Medical tablet morning. Branch dapaglifloz 2022-1 Yes 10mg Take 1 Univ ers in 0-18 tablet by ity of (FARXIGA) 00:00: [place] 10 mg 00 the Medical tablet morning. Branch labetalol Yes Take by Unive rs HCl 8-18 mouth. ity of (LABETALOL 10:35: [place] ORAL) Medical Branch Fenofibrate Yes Take by Uni vers 160 mg 8-18 mouth ity of tablet 10:35: daily. Medical Branch lisdexamfet Yes 40mg Take 40 mg Univers amine 8-18 by mouth ity of (VYVANSE) 10:35: every [place] 40 mg 04 morning. Medical capsule Branch amitriptyli Yes 100mg Take 100 U nivers ne 100 mg 8-18 mg by ity of tablet 10:35: mouth [place] 04 daily. Medical Branch aspirin 81 Yes 81mg Take 81 mg U nivers mg chewable 8-18 by mouth ity of tablet 10:35: daily. Medical Branch LANSOPRAZOL Yes 15mg Take 15 mg Univers E ORAL 8-18 by mouth ity of 10:35: daily. Medical Branch Yes Take by Univer s vit/iron 8-18 mouth. ity of fum/folic 10:35: [place] ac (RIGHT 04 Medical STEP Branch VITAMINS ORAL) lisdexamfet Yes 40mg Take 40 mg Univers amine 8-18 by mouth ity of (VYVANSE) 10:35: every [place] 40 mg 04 morning. Medical capsule Branch LANSOPRAZOL Yes 15mg Take 15 mg Univers E ORAL 8-18 by mouth ity of 10:35: daily. Medical Branch Yes Take by Univer s vit/iron 8-18 mouth. ity of fum/folic 10:35: [place] ac (RIGHT 04 Medical STEP Branch VITAMINS ORAL) lisdexamfet Yes 40mg Take 40 mg Univers amine 8-18 by mouth ity of (VYVANSE) 10:35: every [place] 40 mg 04 morning. Medical capsule Branch LANSOPRAZOL Yes 15mg Take 15 mg Univers E ORAL 8-18 by mouth ity of 10:35: daily. Medical Branch 2022-0 Yes Take by Univer s vit/iron 8-18 mouth. ity of fum/folic 10:35: [facility] ([address] VITAMINS ORAL) LANSOPRAZOL 0 Yes 15mg Take 15 mg Univers E ORAL 8-18 by mouth ity of 10:35: daily. [address] Yes Take by Univer s vit/iron 8-18 mouth. ity of fum/folic 10:35: [facility] ([address] VITAMINS ORAL) LANSOPRAZOL 0 Yes 15mg Take 15 mg Univers E ORAL 8-18 by mouth ity of 10:35: daily. [address] Yes Take by Univer s vit/iron 8-18 mouth. ity of fum/folic 10:35: [facility] ([address] VITAMINS ORAL) LANSOPRAZOL 0 Yes 15mg Take 15 mg Univers E ORAL 8-18 by mouth ity of 10:35: daily. [address] Yes Take by Univer s vit/iron 8-18 mouth. ity of fum/folic 10:35: [facility] ([address] VITAMINS ORAL) LANSOPRAZOL Yes 15mg Take 15 mg Univers E ORAL 8-18 by mouth ity of 10:35: daily. [address] Yes Take by Univer s vit/iron 8-18 mouth. ity of fum/folic 10:35: [facility] ([address] VITAMINS ORAL) LANSOPRAZOL 0 Yes 15mg Take 15 mg Univers E ORAL 8-18 by mouth ity of 10:35: daily. [address] Yes Take by Univer s vit/iron 8-18 mouth. ity of fum/folic 10:35: [facility] ([address] VITAMINS ORAL) LANSOPRAZOL 0 Yes 15mg Take 15 mg Univers E ORAL 8-18 by mouth ity of 10:35: daily. [address] Yes Take by Univer s vit/iron 8-18 mouth. ity of fum/folic 10:35: [facility] ([address] VITAMINS ORAL) LANSOPRAZOL Yes 15mg Take 15 mg Univers E ORAL 8-18 by mouth ity of 10:35: daily. [place] [address] Medical Branch LANSOPRAZOL Yes 15mg Take 15 mg Univers E ORAL 8-18 by mouth ity of 10:35: daily. [place] [address] Medical Branch Yes Take by Univer s vit/iron 8-18 mouth. ity of fum/folic 10:35: [place] ac (RIGHT 04 Medical STEP Branch VITAMINS ORAL) LANSOPRAZOL Yes 15mg Take 15 mg Univers E ORAL 8-18 by mouth ity of 10:35: daily. [place] [address] Medical [place] Yes Take by Univer s vit/iron 8-18 mouth. ity of fum/folic 10:35: [place] ac (RIGHT 04 Medical STEP Branch VITAMINS ORAL) pioglitazon 2021- No 30mg Take 30 mg Univers e (ACTOS) 05-14 by mouth ity o f 30 mg 08:58: 00:00 daily. [place] tablet 21 :00 Medical Branch insulin 2021- No inject Univers aspart Soln 05-14 under the it y of injection 08:58: 00:00 skin [place] 21 :00 before Medical meals. Branch dapaglifloz 2021- No Take by Un candi in 05-14 mouth ity of (FARXIGA) 08:58: 00:00 daily. [place] 10 mg 21 :00 Medical tablet Branch amLODIPine Yes [id number] 5mg Take 1 U nivers 5 mg tablet 8-18 tablet by ity of 00:00: mouth in [place] 00 the Medical morning. Branch butalbital- Yes [id number] 1{tbl} Take 1 [facility] acetaminoph 8-18 tablet by ity of en-caff 00:00: mouth [place] 50-325-40 00 every 4 Medical mg tablet (four) Branch hours as needed (headaches ). ferrous Yes [id number] 325mg Take 1 Un candi sulfate 325 8-18 tablet by ity of mg (65 mg 00:00: mouth in [facility] iron) 00 the Medical tablet morning Branch and 1 tablet in the evening. glipiZIDE 5 Yes [id number] 2.5mg Take 0.5 [facility] mg tablet 8-18 tablets by ity of 00:00: mouth 2 [place] 00 (two) Medical times [place] daily before breakfast and dinner. amLODIPine 2021- No [id number] 5mg Take 1 [facility] 5 mg tablet 8-18 10-18 tablet by it y of 00:00: 00:00 mouth in [place] 00 :00 the Medical morning. Branch butalbital- 2021- No [id number] 1{tbl} Take 1 [facility] acetaminoph 8-18 10-18 tablet by it y of en-caff 00:00: 00:00 mouth [place] 50-325-40 00 :00 every 4 Medical mg tablet (four) Branch hours as needed (headaches ). ferrous 2021- No [id number] 325mg Take 1 U nivers sulfate 325 8-18 10-18 tablet by it y of mg (65 mg 00:00: 00:00 mouth in [place] iron) 00 :00 the Medical tablet morning Branch and 1 tablet in the evening. glipiZIDE 5 2021- No [id number] 2.5mg Take 0.5 [facility] mg tablet 8-18 10-18 tablets by ity of 00:00: 00:00 mouth 2 [place] 00 :00 (two) Medical times [place] daily before breakfast and dinner. amLODIPine No [id number] 5mg Take 1 [facility] 5 mg tablet 8-18 10-18 tablet by it y of 00:00: 00:00 mouth in [place] 00 :00 the Medical morning. [facility] No [id number] 1{tbl} Take 1 [facility] acetaminoph 8-18 10-18 tablet by it y of en-caff 00:00: 00:00 mouth [place] 50-325-40 00 :00 every 4 Medical mg tablet (four) Branch hours as needed (headaches ). ferrous 2021- No [id number] 325mg Take 1 U nivers sulfate 325 8-18 10-18 tablet by it y of mg (65 mg 00:00: 00:00 mouth in [place] iron) 00 :00 the Medical tablet morning Branch and 1 tablet in the evening. glipiZIDE 5 2021- No [id number] 2.5mg Take 0.5 [facility] mg tablet 05-14-18 tablets by ity of 00:00: 00:00 mouth 2 [place] 00 :00 (two) Medical times Branch daily before breakfast and dinner. magnesium 2021- No 2g/h 2 g/hr (50 U nivers sulfate in 05-13 mL/hr), IV it y of water for 17:15: 05:14 Infusion, [place] injection 00 :00 CONTINUOUS Medi rocío 20 gram/500 , Starting Br anch mL (4 %) IV on Wed infusion 05/13/22 at 1215, Until [place] 05/14/22 at 0014, SOM furosemide 2021- No 20mg 20 mg, Univ ers (LASIX) 05-13 Slow IV ity of injection 15:00: 15:03 Push, [place] 20 mg 00 :00 ONCE, 1 Medical dose, On Branch Wed05/13/22 at 1000, Routine KCL 2021- No 40meq 40 mEq, Univers (KLOR-CON 05-13 Oral, ity of M20) tablet 15:00: 15:04 ONCE, 1 [place] 40 mEq 00 :00 dose, On Medical Wed Branch 05/13/22 at 1000, Routine amLODIPine Yes 5mg 5 mg, Univer s (NORVASC) 05-13 Oral, ity of tablet 5 mg 14:00: DAILY, [place] 00 First dose Medical on Wed Branch 05/13/22 at 0900, Until Discontinu ed, Routine D5W 0.45% Yes 1000mL at 75 Unive rs NaCl 05-13 mL/hr, ity of (1/2NS) IV 13:15: 1,000 mL, [place] infusion 00 IV Medical 1,000 mL Infusion, Branch CONTINUOUS , Starting on Wed05/13/22 at 0815, Until Discontinu ed, Routine ferrous Yes 325mg 325 mg, Univer s sulfate 05-13 Oral, TID ity of tablet 325 13:00: MEALS, [place] mg 00 First dose Medical on Wed Branch 05/13/22 at 0800, Until Discontinu ed, Routine glipiZIDE 2022-0 Yes 2.5mg 2.5 mg, [facility] ers (GLUCOTROL) 05-13 Oral, ity of tablet 2.5 12:30: BIDAC, [place] mg 00 First dose Medical on Wed05/13/22 at 0730, Until Discontinu ed, Routine acetaminoph 2021-0 Yes 650mg 650 mg, Un candi en 05-13 Oral, ity of (TYLENOL) 05:26: Q6HPRN, [place] tablet 650 29 Starting Medic al mg on Wed05/13/22 at 0026, Until Discontinu ed, Routine, Alternate with ibuprofen for pain scale 4-6 ibuprofen 2021-0 Yes 600mg 600 mg, [facility] ers (IBU) 05-13 Oral, ity of tablet 600 05:26: Q6HPRN, [place] mg 29 Starting Medical on Wed05/13/22 at 0026, Until Discontinu ed, Routine, Pain (scale 4-6) aspirin 2021-0 Yes 81mg 81 mg, [facility] chewable 05-13 Oral, QAM ity of tablet 81 02:45: WITH [place] mg 00 BREAKFAST, Medical First dose Branch on Wed05/12/22 at 2145, Until Discontinu ed, Routine labetaloL 0 Yes 200mg 200 mg, [facility] ers (NORMODYNE) 05-13 Oral, Q6H, it y of tablet 200 02:45: First dose [place] mg 00 on Wed Medical 05/12/22 at Branch 2145, Until Discontinu ed, Routine furosemide 0 2021- No 20mg 20 mg, [facility] ers (LASIX) 05-13 Slow IV ity of injection 02:00: 02:13 Push, [place] 20 mg 00 :00 ONCE, 1 Medical dose, On Branch 05/12/22 at 2100, Routine iopamidol 0 2021- No [id number] 60mL 60 mL, Univers (ISOVUE 05-13 Intravenou ity o f 370-500 mL) 01:47: 01:48 s, ONCE, 1 [place] injection 00 :00 dose, On Medica l 60 mL [facility] 05/12/22 at 2100, Routine D5W 0.45% 0 2021- No 1000mL at 75 [facility] ers NaCl 8-16 08-17 mL/hr, ity of (1/2NS) IV 23:00: 01:10 1,000 mL, [place] infusion 00 :26 IV Medical 1,000 mL Infusion, Branch CONTINUOUS , Starting on Wed05/12/22 at 1800, Until Wed05/12/22 at 2010, SOM magnesium 2021-0 202- No 2g/h 2 g/hr (50 U nivers sulfate in 05-12 08-17 mL/hr), IV it y of water for 23:00: 10:59 Infusion, [place] injection 00 :00 CONTINUOUS Medi rocío 20 gram/500 , Starting Br anch mL (4 %) IV on Wed infusion 05/12/22 at 1800, Until Wed05/13/22 at 0559, SOM butalbital- 0 Yes 1{tbl} 1 tablet, [facility] acetaminoph 05-12 Oral, ity of en-caff 22:54: Q4HPRN, [place] (ESGIC) 04 Starting Medical 50-325-40 on Wed Branch mg tablet 1 05/12/22 at tablet 1754, Until Discontinu ed, Routine, headaches calcium 2021-0 Yes 1000mg 1,000 mg, Uni vers gluconate 05-12 Slow IV ity of 100 mg/mL 22:50: Push, PRN [place] as (10%) 12 - SEE Medical injection INSTRUCTIO Bran ch 1,000 mg NS, Starting on Wed05/12/22 at 1750, Until Discontinu ed, Routine, magnesium toxicity magnesium 2021-0 Yes 4g 32.48 mEq Uni vers sulfate 4 -16 (4 g), ity of mEq/mL (50 22:50: Slow IV [place] %) 12 [place], PRN Medical injection - SEE Branch 32.48 mEq INSTRUCTIO NS, Starting on Wed05/12/22 at 1750, Until Discontinu ed, Routine, For seizure activity (patient not on magnesium sulfate) magnesium 2021-0 Yes 2g 16.24 mEq Uni vers sulfate 4 8-16 (2 g), ity of mEq/mL (50 22:50: Slow IV [place] %) 12 [place], PRN Medical injection - SEE Branch 16.24 mEq INSTRUCTIO NS, 2 doses, Starting on Wed05/12/22 at 1750, Until Discontinu ed, Routine, For seizure activity (patient already on magnesium sulfate) insulin Yes inject [facility] aspart Soln 5-10 under the ity of injection 15:11: skin [place] 54 before Medical meals. Branch aspirin 81 0 Yes 81mg Take 81 mg U nivers mg chewable 5-10 by mouth ity of tablet 15:11: daily. [place] [address] Medical [place] 0 Yes Take by Univer s vit/iron 5-10 mouth. ity of fum/folic 15:11: [facility] (RIGHT 54 Medical STEP Branch VITAMINS ORAL) insulin Yes inject Univers aspart Soln 5-10 under the ity of injection 15:11: skin [place] 54 before Medical meals. Branch aspirin 81 0 Yes 81mg Take 81 mg U nivers mg chewable 5-10 by mouth ity of tablet 15:11: daily. [address] 0 Yes Take by Univer s vit/iron 5-10 mouth. ity of fum/folic 15:11: [facility] (RIGHT 54 Medical STEP Branch VITAMINS ORAL) insulin Yes inject Univers aspart Soln 5-10 under the ity of injection 15:11: skin [place] [address] before Medical meals. Branch aspirin 81 0 Yes 81mg Take 81 mg U nivers mg chewable 5-10 by mouth ity of tablet 15:11: daily. [address] Yes Take by Univer s vit/iron 5-10 mouth. ity of fum/folic 15:11: [facility] (RIGHT 54 Medical STEP Branch VITAMINS ORAL) labetalol Yes Take by Unive rs HCl 5-10 mouth. ity of (LABETALOL 15:09: [place] ORAL) Medical Branch labetalol Yes Take by Unive rs HCl 5-10 mouth. ity of (LABETALOL 15:09: [place] ORAL) Medical Branch labetalol Yes Take by Unive rs HCl 5-10 mouth. ity of (LABETALOL 15:09: [place] ORAL) [address] [place] [address] neomycin-po Yes [id number] 3[drp] Place 3 Univers lymyxin-hyd 5-10 Drops in ity of rocortisone 00:00: right ear [place] otic 00 4 (four) Medical solution times Branch daily. neomycin-po Yes [id number] 3[drp] Place 3 Univers lymyxin-hyd 5-10 Drops in ity of rocortisone 00:00: right ear [place] otic 00 4 (four) Medical solution times Branch daily. neomycin-po Yes [id number] 3[drp] Place 3 Univers lymyxin-hyd 5-10 Drops in ity of rocortisone 00:00: right ear [place] otic 00 4 (four) Medical solution times Branch daily. neomycin-po No [id number] 3[drp] Place 3 Univers lymyxin-hyd 5-10 08-18 Drops in ity of rocortisone 00:00: 00:00 right ear [place] otic 00 :00 4 (four) Medical solution times Branch daily. LEVEMIR Yes INJECT 30 Unive rs FLEXTOUCH 4-27 UNITS ity of U-100 00:00: UNDER THE [place] INSULN 100 00 SKIN EVERY Med ical unit/mL (3 MORNING Branch mL) AND 35 injection UNITS UNDER THE SKIN EVERY EVENING. LEVEMIR Yes INJECT 30 Unive rs FLEXTOUCH 4-27 UNITS ity of U-100 00:00: UNDER THE [place] INSULN 100 00 SKIN EVERY Med ical unit/mL (3 MORNING Branch mL) AND 35 injection UNITS UNDER THE SKIN EVERY EVENING. LEVEMIR Yes INJECT 30 Unive rs FLEXTOUCH 4-27 UNITS ity of U-100 00:00: UNDER THE [place] INSULN 100 00 SKIN EVERY Med ical unit/mL (3 MORNING Branch mL) AND 35 injection UNITS UNDER THE SKIN EVERY EVENING. LEVEMIR 2021- No INJECT 30 Univ ers FLEXTOUCH 4-27 08-18 UNITS ity of U-100 00:00: 00:00 UNDER THE [place] INSULN 100 00 :00 SKIN EVERY Med ical unit/mL (3 MORNING Branch mL) AND 35 injection UNITS UNDER THE SKIN EVERY EVENING. NOVOLOG Yes INJECT 50 Unive rs FLEXPEN 4-26 TO 60 ity of U-100 00:00: UNITS [place] INSULIN 100 00 UNDER THE Med ical unit/mL (3 SKIN THREE Bra nch mL) TIMES injection DAILY. NOVOLOG Yes INJECT 50 Unive rs FLEXPEN 4-26 TO 60 ity of U-100 00:00: UNITS [place] INSULIN 100 00 UNDER THE Med ical unit/mL (3 SKIN THREE Bra nch mL) TIMES injection DAILY. NOVOLOG Yes INJECT 50 Unive rs FLEXPEN 4-26 TO 60 ity of U-100 00:00: UNITS [place] INSULIN 100 00 UNDER THE Med ical unit/mL (3 SKIN THREE Bra nch mL) TIMES injection DAILY. NOVOLOG No INJECT 50 Univ ers FLEXPEN 4-26 08-18 TO 60 ity of U-100 00:00: 00:00 UNITS [place] INSULIN 100 00 :00 UNDER THE Med ical unit/mL (3 SKIN THREE Bra nch mL) TIMES injection DAILY. atorvastati 2019-09 Yes 40mg 40 mg, Univ ers n (LIPITOR) 0-28 Oral, QHS, it y of tablet 40 02:00: First dose [place] mg 00 on [facility] 07/23/20 Branch at 2100, Until Discontinu ed, Routine oxyCODONE-a 2019-09 Yes [id number] 1{tbl} Take 1 Un candi cetaminophe 0-28 tablet by ity of n 00:00: mouth [place] (PERCOCET) 00 every 6 Medica l 5-325 mg (six) Branch per tablet hours as needed for Pain (scale 7-10). Indication s: acute pain oxyCODONE-a 2019-09 Yes [id number] 1{tbl} Take 1 Un candi cetaminophe 0-28 tablet by ity of n 00:00: mouth [place] (PERCOCET) 00 every 6 Medica l 5-325 mg (six) Branch per tablet hours as needed for Pain (scale 7-10). Indication s: acute pain oxyCODONE-a 2019-09 Yes 4647 1{tbl} Take 1 Un candi cetaminophe 0-28 tablet by ity of n 00:00: mouth [place] (PERCOCET) 00 every 6 Medica l 5-325 mg (six) Branch per tablet hours as needed for Pain (scale 7-10). Indication s: acute pain oxyCODONE-a 2019-09 Yes 4647 1{tbl} Take 1 Un candi cetaminophe 0-28 tablet by ity of n 00:00: mouth [place] (PERCOCET) 00 every 6 Medica l 5-325 mg (six) Branch per tablet hours as needed for Pain (scale 7-10). Indication s: acute pain oxyCODONE-a 2019-09 Yes 4647 1{tbl} Take 1 Un candi cetaminophe 0-28 tablet by ity of n 00:00: mouth [place] (PERCOCET) 00 every 6 Medica l 5-325 mg (six) Branch per tablet hours as needed for Pain (scale 7-10). Indication s: acute pain oxyCODONE-a 2019-09 Yes 4647 1{tbl} Take 1 Un candi cetaminophe 0-28 tablet by ity of n 00:00: mouth [place] (PERCOCET) 00 every 6 Medica l 5-325 mg (six) Branch per tablet hours as needed for Pain (scale 7-10). Indication s: acute pain oxyCODONE-a 2019-09 No 4647 1{tbl} Take 1 U nivers cetaminophe 0-28 10-18 tablet by it y of n 00:00: 00:00 mouth [place] (PERCOCET) 00 :00 every 6 Medica l 5-325 mg (six) Branch per tablet hours as needed for Pain (scale 7-10). Indication s: acute pain oxyCODONE-a 2019-09 No 4647 1{tbl} Take 1 U nivers cetaminophe 0-28 10-18 tablet by it y of n 00:00: 00:00 mouth [place] (PERCOCET) 00 :00 every 6 Medica l 5-325 mg (six) Branch per tablet hours as needed for Pain (scale 7-10). Indication s: acute pain oxyCODONE-a 2019-09 No 4647 1{tbl} Take 1 U nivers cetaminophe 0-28 10-28 tablet by it y of n 00:00: 00:00 mouth [place] (PERCOCET) 00 :00 every 6 Medica l 5-325 mg (six) Branch per tablet hours as needed for Pain (scale 7-10). Indication s: acute pain pioglitazon 2019-09 Yes 30mg Take 30 mg Univers e (ACTOS) 0-27 by mouth ity of 30 mg 17:33: daily. [place] tablet 16 Medical Branch labetalol 2019-09 Yes Take by Unive rs HCl 0-27 mouth. ity of (LABETALOL 17:33: [place] ORAL) 16 Medical Branch insulin 2019-09 Yes inject Univers aspart Soln 0-27 under the ity of injection 17:33: skin [place] 16 before Medical meals. Branch Fenofibrate 2019-09 Yes Take by Uni vers 160 mg 0-27 mouth ity of tablet 17:33: daily. [place] 16 Medical Branch lisdexamfet 2019-09 Yes 40mg Take 40 mg Univers amine 0-27 by mouth ity of (VYVANSE) 17:33: every [place] 40 mg 16 morning. Medical capsule Branch dapaglifloz 2019-09 Yes Take by Uni vers in 0-27 mouth ity of (FARXIGA) 17:33: daily. [place] 10 mg 16 Medical tablet Branch amitriptyli 2019-09 Yes 100mg Take 100 U nivers ne 100 mg 0-27 mg by ity of tablet 17:33: mouth [place] 16 daily. Medical Branch aspirin 81 2019-09 Yes 81mg Take 81 mg U nivers mg chewable 0-27 by mouth ity of tablet 17:33: daily. [place] [address] Medical Branch LANSOPRAZOL 2019-09 Yes 15mg Take 15 mg Univers E ORAL 0-27 by mouth ity of 17:33: daily. [place] [address] Medical Branch pioglitazon 2019-09 Yes 30mg Take 30 mg Univers e (ACTOS) 0-27 by mouth ity of 30 mg 17:33: daily. [place] tablet 16 Medical Branch labetalol 2019-09 Yes Take by Unive rs HCl 0-27 mouth. ity of (LABETALOL 17:33: [place] ORAL) 16 Medical Branch insulin 2019-09 Yes inject Univers aspart Soln 0-27 under the ity of injection 17:33: skin [place] 16 before Medical meals. Branch Fenofibrate 2019-09 Yes Take by Uni vers 160 mg 0-27 mouth ity of tablet 17:33: daily. [place] [address] Medical Branch lisdexamfet 2019-09 Yes 40mg Take 40 mg Univers amine 0-27 by mouth ity of (VYVANSE) 17:33: every [place] 40 mg 16 morning. Medical capsule Branch dapaglifloz 2019-09 Yes Take by Uni vers in 0-27 mouth ity of (FARXIGA) 17:33: daily. [place] 10 mg 16 Medical tablet Branch amitriptyli 2019-09 Yes 100mg Take 100 U nivers ne 100 mg 0-27 mg by ity of tablet 17:33: mouth [place] 16 daily. Medical Branch aspirin 81 2019-09 Yes 81mg Take 81 mg U nivers mg chewable 0-27 by mouth ity of tablet 17:33: daily. [place] [address] Medical Branch LANSOPRAZOL 2019-09 Yes 15mg Take 15 mg Univers E ORAL 0-27 by mouth ity of 17:33: daily. [place] [address] Medical Branch pioglitazon 2019-09 Yes 30mg Take 30 mg Univers e (ACTOS) 0-27 by mouth ity of 30 mg 17:33: daily. [place] tablet 16 Medical Branch labetalol 2019-09 Yes Take by Unive rs HCl 0-27 mouth. ity of (LABETALOL 17:33: [place] ORAL) 16 Medical Branch insulin 2019-09 Yes inject Univers aspart Soln 0-27 under the ity of injection 17:33: skin [place] 16 before Medical meals. Branch Fenofibrate 2019-09 Yes Take by Uni vers 160 mg 0-27 mouth ity of tablet 17:33: daily. [place] [address] Medical Branch lisdexamfet 2019-09 Yes 40mg Take 40 mg Univers amine 0-27 by mouth ity of (VYVANSE) 17:33: every [place] 40 mg 16 morning. Medical capsule Branch dapaglifloz 2019-09 Yes Take by Uni vers in 0-27 mouth ity of (FARXIGA) 17:33: daily. [place] 10 mg 16 Medical tablet Branch amitriptyli 2019-09 Yes 100mg Take 100 U nivers ne 100 mg 0-27 mg by ity of tablet 17:33: mouth [place] 16 daily. Medical Branch aspirin 81 2019-09 Yes 81mg Take 81 mg U nivers mg chewable 0-27 by mouth ity of tablet 17:33: daily. [place] [address] Medical Branch LANSOPRAZOL 2019-09 Yes 15mg Take 15 mg Univers E ORAL 0-27 by mouth ity of 17:33: daily. [place] [address] Medical Branch pioglitazon 2019-09 Yes 30mg Take 30 mg Univers e (ACTOS) 0-27 by mouth ity of 30 mg 17:33: daily. [place] tablet 16 Medical Branch labetalol 2019-09 Yes Take by Unive rs HCl 0-27 mouth. ity of (LABETALOL 17:33: [place] ORAL) 16 Medical Branch insulin 2019-09 Yes inject Univers aspart Soln 0-27 under the ity of injection 17:33: skin [place] 16 before Medical meals. Branch Fenofibrate 2019-09 Yes Take by Uni vers 160 mg 0-27 mouth ity of tablet 17:33: daily. [place] 16 Medical Branch lisdexamfet 2019-09 Yes 40mg Take 40 mg [facility] amine 0-27 by mouth ity of (VYVANSE) 17:33: every [place] 40 mg 16 morning. Medical capsule Branch dapaglifloz 2019-09 Yes Take by Uni vers in 0-27 mouth ity of (FARXIGA) 17:33: daily. [place] 10 mg 16 Medical tablet Branch amitriptyli 2019-09 Yes 100mg Take 100 U nivers ne 100 mg 0-27 mg by ity of tablet 17:33: mouth [place] 16 daily. Medical Branch aspirin 81 2019-09 Yes 81mg Take 81 mg U nivers mg chewable 0-27 by mouth ity of tablet 17:33: daily. [place] [address] Medical Branch LANSOPRAZOL 2019-09 Yes 15mg Take 15 mg Univers E ORAL 0-27 by mouth ity of 17:33: daily. [place] [address] Medical Branch pioglitazon 2019-09 Yes 30mg Take 30 mg Univers e (ACTOS) 0-27 by mouth ity of 30 mg 17:33: daily. [place] tablet 16 Medical Branch labetalol 2019-09 Yes Take by Unive rs HCl 0-27 mouth. ity of (LABETALOL 17:33: [place] ORAL) 16 Medical Branch insulin 2019-09 Yes inject [facility] aspart Soln 0-27 under the ity of injection 17:33: skin [place] 16 before Medical meals. Branch Fenofibrate 2019-09 Yes Take by Uni vers 160 mg 0-27 mouth ity of tablet 17:33: daily. [place] [address] Medical Branch lisdexamfet 2019-09 Yes 40mg Take 40 mg Univers amine 0-27 by mouth ity of (VYVANSE) 17:33: every [place] 40 mg 16 morning. Medical capsule Branch dapaglifloz 2019-09 Yes Take by Uni vers in 0-27 mouth ity of (FARXIGA) 17:33: daily. [place] 10 mg 16 Medical tablet Branch amitriptyli 2019-09 Yes 100mg Take 100 U nivers ne 100 mg 0-27 mg by ity of tablet 17:33: mouth [place] 16 daily. Medical Branch aspirin 81 2019-09 Yes 81mg Take 81 mg U nivers mg chewable 0-27 by mouth ity of tablet 17:33: daily. [address] LANSOPRAZOL 2019-09 Yes 15mg Take 15 mg Univers E ORAL 0-27 by mouth ity of 17:33: daily. [address] lisinopriL 2019-09 Yes 10mg 10 mg, Unive rs (PRINIVIL,Z 0-27 Oral, ity of ESTRIL) 14:00: DAILY, [place] tablet 10 00 First dose Medi rocío mg on [facility] 07/23/20 at 0900, Until Discontinu ed, Routine fenofibrate 2019-09 Yes 134mg 134 mg, Un candi micronized 0-27 Oral, ity of (LOFIBRA) 14:00: DAILY, [place] capsule 134 00 First dose Me dical mg on [facility] 07/23/20 at 0900, Until Discontinu ed docusate 2019-09 Yes 100mg 100 mg, Unive rs (COLACE) 0-27 Oral, BID, ity o f capsule 100 13:00: First dose [place] mg 00 on [facility] 07/23/20 Branch at 0800, Until Discontinu ed, Routine heparin 2019-09 Yes 5000U 5,000 Univers (porcine) 0-27 Units, ity of injection 13:00: Subcut[place]o [place] 5,000 Units 00 us, Q12H, Med ical First dose Branch on [facility] 07/23/20 at 0800, Until Discontinu ed, Routine pioglitazon 2019-09 Yes 30mg Take 30 mg Univers e (ACTOS) 0-27 by mouth ity of 30 mg 12:33: daily. [place] tablet Medical [place] Fenofibrate 2019-09 Yes Take by Uni vers 160 mg 0-27 mouth ity of tablet 12:33: daily. [address] lisdexamfet 2019-09 Yes 40mg Take 40 mg Univers amine 0-27 by mouth ity of (VYVANSE) 12:33: every [place] 40 mg 16 morning. [facility] capsule Branch dapaglifloz 2019-09 Yes Take by Uni vers in 0-27 mouth ity of (FARXIGA) 12:33: daily. [place] 10 mg 16 Medical tablet Branch amitriptyli 2019- Yes 100mg Take 100 U nivers ne 100 mg 0-27 mg by ity of tablet 12:33: mouth [place] 16 daily. Medical Branch LANSOPRAZOL 2019- Yes 15mg Take 15 mg Univers E ORAL 0-27 by mouth ity of 12:33: daily. [place] [address] Medical Branch pioglitazon 2019- Yes 30mg Take 30 mg Univers e (ACTOS) 0-27 by mouth ity of 30 mg 12:33: daily. [place] tablet 16 Medical Branch Fenofibrate 2019-09 Yes Take by Uni vers 160 mg 0-27 mouth ity of tablet 12:33: daily. [place] [address] Medical Branch lisdexamfet 2019-09 Yes 40mg Take 40 mg Univers amine 0-27 by mouth ity of (VYVANSE) 12:33: every [place] 40 mg 16 morning. Medical capsule Branch dapaglifloz 2019-09 Yes Take by Uni vers in 0-27 mouth ity of (FARXIGA) 12:33: daily. [place] 10 mg 16 Medical tablet Branch amitriptyli 2019- Yes 100mg Take 100 U nivers ne 100 mg 0-27 mg by ity of tablet 12:33: mouth [place] 16 daily. Medical Branch LANSOPRAZOL 2019-09 Yes 15mg Take 15 mg Univers E ORAL 0-27 by mouth ity of 12:33: daily. [place] [address] Medical Branch pioglitazon 2019- Yes 30mg Take 30 mg Univers e (ACTOS) 0-27 by mouth ity of 30 mg 12:33: daily. [place] tablet 16 Medical Branch Fenofibrate 2019-09 Yes Take by Uni vers 160 mg 0-27 mouth ity of tablet 12:33: daily. [place] [address] Medical Branch lisdexamfet 2019- Yes 40mg Take 40 mg Univers amine 0-27 by mouth ity of (VYVANSE) 12:33: every [place] 40 mg 16 morning. Medical capsule Branch dapaglifloz 2019-09 Yes Take by Uni vers in 0-27 mouth ity of (FARXIGA) 12:33: daily. [place] 10 mg 16 Medical tablet Branch amitriptyli 2019- Yes 100mg Take 100 U nivers ne 100 mg 0-27 mg by ity of tablet 12:33: mouth [place] 16 daily. Medical Branch LANSOPRAZOL 2019-09 Yes 15mg Take 15 mg Univers E ORAL 0-27 by mouth ity of 12:33: daily. [place] 16 Medical Branch HYDROcodone 2019-09- No 5mg 5 mg, Univ ers -acetaminop 0-27 10-27 Oral, ity of hen (HYCET) 12:15: 11:14 ONCE, 1 [place] 7.5-325 00 :00 dose, Tu Medical mg/15 mL 07/23/20 Branch solution 5 at 0715, mg Routine, PACU dexamethaso 2019-09 Yes 4mg 4 mg, IV Un candi ne 0-27 Piggyback, ity of (DECADRON 11:00: Q6H, First [place] PHOSPHATE) 00 dose on Medica l 4 mg in Wed Branch NaCl 0.9% 07/23/20 (NS) at 0600, piggyback Until Discontinu ed, 50 mL lactated 2019-09 Yes 1000mL at 42 Univer s ringers IV 0-27 mL/hr, ity of infusion 10:00: 1,000 mL, [place] 1,000 mL 00 IV Medical Infusion, Branch CONTINUOUS , Starting Wed07/23/20 at 0500, Until Discontinu ed, Routine, PACU HYDROmorpho 2019-09 Yes .2mg 0.2 mg, Uni vers ne 0-27 Slow IV ity of (DILAUDID) 09:54: Push, [place] injection 27 Q5MIN PRN, Medi rocío 0.2 mg 10 doses, Branch Starting Wed07/23/20 at 0454, Until Discontinu ed, Routine, Pain (scale 7-10), PACU
Us e approved by (Faculty): PACU USE -ANESTHESI A SERVICE-HY DROMORPHON E INJECTIONS ondansetron 2019-09 Yes 4mg 4 mg, Slow Univers (ZOFRAN 0-27 IV Push, ity of (PF)) 09:54: PRN, 1 [place] injection 4 27 dose, Medical mg Starting Branch e 07/23/20 at 0454, Until Discontinu ed, Routine, Nausea and Vomiting (N/V), PACU FENTanyl PF 2019-09- No 25ug 25 mcg, Un candi (SUBLIMAZE 0-27 10-27 Slow IV ity o f (PF)) 09:54: 10:20 Push, [place] injection 27 :00 Q5MIN PRN, Medi rocío 25 mcg 4 doses, Branch Starting Wed07/23/20 at 0454, Until Wed07/23/20 at 0520, Routine, Pain (scale 4-6), PACU NaCl 0.9% 2019-09 Yes 1000mL at 150 Univ ers (NS) IV 0-27 mL/hr, IV ity of infusion 09:45: Infusion, [place] 1,000 mL 00 CONTINUOUS Medic al , Starting Branch 07/23/20 at 0445, Until Discontinu ed, Routine morpHINE 2019-09- No 2mg 2 mg, Slow Un candi injection 2 07-25 IV Push, ity of mg 09:36: 08:35 Q4HPRN, [place] 13 :13 Starting Medical [facility] 07/23/20 at 0436, Until [place] 07/25/20 at 0335, Routine, Pain (scale 4-6), Pain (scale 7-10) oxyCODONE-a 2019-09 Yes 4647 1{tbl} 1 tablet, Univers cetaminophe 0-27 Oral, ity of n 09:35: Q4HPRN, [place] (PERCOCET) 07 Starting Medic al 5-325 mg [facility] per tablet 07/23/20 1 tablet at 0435, Until Discontinu ed, Routine, Pain (scale 4-6) ondansetron 2019-09 Yes 4mg 4 mg, Slow Univers (ZOFRAN 0-27 IV Push, ity of (PF)) 09:34: Q6HPRN, [place] injection 4 09 Starting Medi rocío mg [facility] Branch 07/23/20 at 0434, Until Discontinu ed, Routine, Nausea and Vomiting (N/V) naloxone 2019-09 Yes .4mg 0.4 mg, Univer s (NARCAN) 0-27 Slow IV ity of injection 09:34: Push, PRN Jadon as 0.4 mg 09 - SEE Medical INSTRUCTIO Branch NS, Starting 07/23/20 at 0434, Until Discontinu ed, Routine, Sedation/R espiratory Depression , See admin instructio ns. oxymetazoli 2019-09 Yes PRN, Univer s ne 0-27 Starting ity of (OXYMETAZOL 09:00: Tue [place] INE HCL) 00 07/23/20 Medical 0.05 % at 0400, Branch nasal spray Until Discontinu ed, Routine, Intra-op methylPREDN 2019-09 Yes [id number] Take by Univers ISolone 0-26 mouth ity of (MEDROL, 00:00: SEE-INSTRU Jadon as EVER,) 4 mg 00 CTIONS. Medica l tablets follow Branch package directions methylPREDN 2019-09 Yes [id number] Take by Univers ISolone 0-26 mouth ity of (MEDROL, 00:00: SEE-INSTRU Jadon as EVER,) 4 mg 00 CTIONS. Medica l tablets follow Branch package directions methylPREDN 2019-09 Yes [id number] Take by Univers ISolone 0-26 mouth ity of (MEDROL, 00:00: SEE-INSTRU Jadon as EVER,) 4 mg 00 CTIONS. Medica l tablets follow Branch package directions methylPREDN 2019-09 Yes [id number] Take by Univers ISolone 0-26 mouth ity of (MEDROL, 00:00: SEE-INSTRU Jadon as EVER,) 4 mg 00 CTIONS. Medica l tablets follow Branch package directions methylPREDN 2019-09 Yes [id number] Take by Univers ISolone 0-26 mouth ity of (MEDROL, 00:00: SEE-INSTRU Jadon as EVER,) 4 mg 00 CTIONS. Medica l tablets follow Branch package directions methylPREDN 2019-09 Yes [id number] Take by Univers ISolone 0-26 mouth ity of (MEDROL, 00:00: SEE-INSTRU Jadon as EVER,) 4 mg 00 CTIONS. Medica l tablets follow Branch package directions methylPREDN 2019-09- No [id number] Take by [facility] ISolone 0-26 08-18 mouth ity of (MEDROL, 00:00: 00:00 SEE-INSTRU [place] EVER,) 4 mg 00 :00 CTIONS. Medica l tablets follow Branch package directions aspirin 81 2019-09 Yes 81mg Take 81 mg U nivers mg chewable 0-23 by mouth ity of tablet 18:36: daily. [address] LANSOPRAZOL 2019-09 Yes 15mg Take 15 mg Univers E ORAL 0-23 by mouth ity of 18:36: daily. [place] [address] Medical Branch pioglitazon 2019-09 Yes 30mg Take 30 mg Univers e (ACTOS) 0-23 by mouth ity of 30 mg 18:36: daily. [place] tablet 38 Medical Branch labetalol 2019-09 Yes Take by Unive rs HCl 0-23 mouth. ity of (LABETALOL 18:36: [place] ORAL) 38 Medical Branch insulin 2019-09 Yes inject Univers aspart Soln 0-23 under the ity of injection 18:36: skin [place] 38 before Medical meals. Branch Fenofibrate 2019-09 Yes Take by Uni vers 160 mg 0-23 mouth ity of tablet 18:36: daily. [place] [address] Medical Branch lisdexamfet 2019-09 Yes 40mg Take 40 mg Univers amine 0-23 by mouth ity of (VYVANSE) 18:36: every [place] 40 mg 38 morning. Medical capsule Branch dapaglifloz 2019-09 Yes Take by Uni vers in 0-23 mouth ity of (FARXIGA) 18:36: daily. [place] 10 mg 38 Medical tablet Branch amitriptyli 2019-09 Yes 100mg Take 100 U nivers ne 100 mg 0-23 mg by ity of tablet 18:36: mouth [place] 38 daily. Medical Branch HYDROcodone 2019-09 2020- No 1{tbl} 1 tablet, Univers -acetaminop 0-23 10-23 Oral, ity of hen (NORCO 16:30: 17:12 ONCE, 1 Jadon as 5) 5-325 mg 00 :00 dose, Wed Med ical tablet 1 07/19/20 Branch tablet at 1130, Routine, PACU labetaloL 2019-09 Yes 5mg 5 mg, Slow Un candi (NORMODYNE) 0-23 IV Push, ity of injection 5 16:25: Q5MIN PRN, [place] mg 14 2 doses, Medical Starting Branch 07/19/20 at 1125, Until Discontinu ed, Routine, For HTN SBP>160 or DBP>90 and HR>80. Treat pain to less than 5/10 first, PACU HYDROmorpho 2019-09 Yes .2mg 0.2 mg, Uni vers ne 0-23 Slow IV ity of (DILAUDID) 16:25: Push, [place] injection 14 Q5MIN PRN, Medi rocío 0.2 mg 10 doses, Branch Starting Wed07/19/20 at 1125, Until Discontinu ed, Routine, Pain (scale 7-10), PACU
Us e approved by (Faculty): PACU USE -ANESTHESI A SERVICE-HY DROMORPHON E INJECTIONS ondansetron 2019-09 Yes 4mg 4 mg, Slow Univers (ZOFRAN 0-23 IV Push, ity of (PF)) 16:25: PRN, 1 [place] injection 4 14 dose, Medical mg Starting Branch Wed07/19/20 at 1125, Until Discontinu ed, Routine, Nausea and Vomiting (N/V), PACU FENTanyl PF 2019-09 2020- No 25ug 25 mcg, Un candi (SUBLIMAZE 0-23 10-23 Slow IV ity o f (PF)) 16:25: 17:21 Push, [place] injection 14 :00 Q5MIN PRN, Medi rocío 25 mcg 4 doses, Branch Starting Wed07/19/20 at 1125, Until Wed07/19/20 at 1221, Routine, Pain (scale 4-6), PACU bacitracin 2019-09 Yes PRN, Univers 500 unit/g 0-23 Starting ity o f ointment 15:58: Fri [place] pkt 00 07/19/20 Medical at 1058, Branch Until Discontinu ed, Routine, Intra-op oxyCODONE-a 2019-09 Yes [id number] 1{tbl} Take 1 Un candi cetaminophe 0-23 tablet by ity of n 00:00: mouth [place] (PERCOCET) 00 every 6 Medica l 5-325 mg (six) Branch per tablet hours as needed for Pain (scale 7-10). Indication s: acute pain oxyCODONE-a 2019-09 Yes 4647 1{tbl} Take 1 Un candi cetaminophe 0-23 tablet by ity of n 00:00: mouth [place] (PERCOCET) 00 every 6 Medica l 5-325 mg (six) Branch per tablet hours as needed for Pain (scale 7-10). Indication s: acute pain oxyCODONE-a 2019-09 2020- No 4647 1{tbl} Take 1 U nivers cetaminophe 0-23 10-28 tablet by it y of n 00:00: 00:00 mouth [place] (PERCOCET) 00 :00 every 6 Medica l 5-325 mg (six) Branch per tablet hours as needed for Pain (scale 7-10). Indication s: acute pain fluticasone 2020-0 Yes [id number] 1{spray Use 1 Univers propionate 06-25 } [place] in ity of 50 00:00: each [place] mcg/actuati 00 nostril 2 Med ical on nasal (two) Branch spray times daily. fluticasone 2020-0 Yes [id number] 1{spray Use 1 Univers propionate 06-25 } [place] in ity of 50 00:00: each [place] mcg/actuati 00 nostril 2 Med ical on nasal (two) Branch spray times daily. fluticasone 2020-0 Yes [id number] 1{spray Use 1 Univers propionate 06-25 } [place] in ity of 50 00:00: each [place] mcg/actuati 00 nostril 2 Med ical on nasal (two) Branch spray times daily. fluticasone 2020-0 Yes [id number] 1{spray Use 1 Univers propionate 06-25 } [place] in ity of 50 00:00: each [place] mcg/actuati 00 nostril 2 Med ical on nasal (two) Branch spray times daily. fluticasone 2020-0 Yes [id number] 1{spray Use 1 Univers propionate 06-25 } [place] in ity of 50 00:00: each [place] mcg/actuati 00 nostril 2 Med ical on nasal (two) Branch spray times daily. fluticasone 2020-0 Yes [id number] 1{spray Use 1 [facility] propionate 06-25 } [place] in ity of 50 00:00: each [place] mcg/actuati 00 nostril 2 Med ical on nasal (two) Branch spray times daily. fluticasone 2020-0 Yes [id number] 1{spray Use 1 [facility] propionate 06-25 } [place] in ity of 50 00:00: each [place] mcg/actuati 00 nostril 2 Med ical on nasal (two) Branch spray times daily. fluticasone 2020-0 Yes [id number] 1{spray Use 1 Univers propionate 06-25 } [place] in ity of 50 00:00: each [place] mcg/actuati 00 nostril 2 Med ical on nasal (two) Branch spray times daily. fluticasone 2020-0 Yes [id number] 1{spray Use 1 Univers propionate 06-25 } [place] in ity of 50 00:00: each [place] mcg/actuati 00 nostril 2 Med ical on nasal (two) Branch spray times daily. fluticasone 2020-0 Yes [id number] 1{spray Use 1 Univers propionate 06-25 } [place] in ity of 50 00:00: each [place] mcg/actuati 00 nostril 2 Med ical on nasal (two) Branch spray times daily. fluticasone 2020-0 Yes [id number] 1{spray Use 1 Univers propionate 06-25 } [place] in ity of 50 00:00: each [place] mcg/actuati 00 nostril 2 Med ical on nasal (two) Branch spray times daily. fluticasone 2020-0 Yes [id number] 1{spray Use 1 Univers propionate 06-25 } [place] in ity of 50 00:00: each [place] mcg/actuati 00 nostril 2 Med ical on nasal (two) Branch spray times daily. fluticasone 2020-0 Yes [id number] 1{spray Use 1 [facility] propionate 06-25 } [place] in ity of 50 00:00: each [place] mcg/actuati 00 nostril 2 Med ical on nasal (two) Branch spray times daily. fluticasone 2020-0 Yes [id number] 1{spray Use 1 [facility] propionate 06-25 } [place] in ity of 50 00:00: each [place] mcg/actuati 00 nostril 2 Med ical on nasal (two) Branch spray times daily. fluticasone 2020-0 Yes [id number] 1{spray Use 1 [facility] propionate 06-25 } [place] in ity of 50 00:00: each [place] mcg/actuati 00 nostril 2 Med ical on nasal (two) Branch spray times daily. fluticasone 2020-0 Yes [id number] 1{spray Use 1 [facility] propionate 06-25 } [place] in ity of 50 00:00: each [place] mcg/actuati 00 nostril 2 Med ical on nasal (two) Branch spray times daily. fluticasone 2020-0 Yes [id number] 1{spray Use 1 [facility] propionate 06-25 } [place] in ity of 50 00:00: each [place] mcg/actuati 00 nostril 2 Med ical on nasal (two) Branch spray times daily. fluticasone 2020-0 Yes [id number] 1{spray Use 1 [facility] propionate 06-25 } [place] in ity of 50 00:00: each [place] mcg/actuati 00 nostril 2 Med ical on nasal (two) Branch spray times daily. fluticasone 2020-0 Yes [id number] 1{spray Use 1 [facility] propionate 06-25 } [place] in ity of 50 00:00: each [place] mcg/actuati 00 nostril 2 Med ical on nasal (two) Branch spray times daily. fluticasone 2020-0 Yes [id number] 1{spray Use 1 [facility] propionate 06-25 } [place] in ity of 50 00:00: each [place] mcg/actuati 00 nostril 2 Med ical on nasal (two) Branch spray times daily. fluticasone 2020-0 Yes [id number] 1{spray Use 1 [facility] propionate 06-25 } [place] in ity of 50 00:00: each [place] mcg/actuati 00 nostril 2 Med ical on nasal (two) Branch spray times daily. fluticasone 2020-0 Yes [id number] 1{spray Use 1 [facility] propionate 06-25 } [place] in ity of 50 00:00: each [place] mcg/actuati 00 nostril 2 Med ical on nasal (two) Branch spray times daily. fluticasone 2020-0 Yes [id number] 1{spray Use 1 Univers propionate 9 } [place] in ity of 50 00:00: each [place] mcg/actuati 00 nostril 2 Med ical on nasal (two) Branch spray times daily. fluticasone 2020-0 Yes [id number] 1{spray Use 1 Univers propionate 9 } [place] in ity of 50 00:00: each [place] mcg/actuati 00 nostril 2 Med ical on nasal (two) Branch spray times daily. fluticasone 2020-0 Yes [id number] 1{spray Use 1 Univers propionate 900 } [place] in ity of 50 00:00: each [place] mcg/actuati 00 nostril 2 Med ical on nasal (two) Branch spray times daily. fluticasone 2019-0 Yes [id number] 1{spray Use 1 [facility] propionate 06-25 } [place] in ity of 50 00:00: each [place] mcg/actuati 00 nostril 2 Med ical on nasal (two) Branch spray times daily. fluticasone 2019-0 Yes [id number] 1{spray Use 1 [facility] propionate 06-25 } [place] in ity of 50 00:00: each [place] mcg/actuati 00 nostril 2 Med ical on nasal (two) Branch spray times daily. fluticasone Yes [id number] 1{spray Use 1 [facility] propionate 06-25 } [place] in ity of 50 00:00: each [place] mcg/actuati 00 nostril 2 Med ical on nasal (two) Branch spray times daily. Hydralazine 2018-09 No Notes: Dk dwight 2-13 (Same as: l 19:44: Apresoline ) Push over 5 minutes Labetalol 2018-09 No 10 mg, 2 Dk dwight 2-13 mL, Route: l 19:44: IVP, Drug form: INJ, Q5Min, Dosing Weight 118, kg, PRN Elevated BP, Start date: 09/08/19 13:44:00 MANAGER SURGICAL, Duration: 5 doses or times, Stop date: 09/09/19 0:00:00 MANAGER SURGICAL, 0 Acetaminoph 2018-09 No Notes: Max Memoria en 2-13 acetaminop l 19:44: hen 4000 [place] 00 mg/day (4 gm/day). (Same as: Tylenol Extra Strength) Ibuprofen 2018-09 No 600 mg, Memor ia 2-13 Route: PO, l 19:44: Drug form: Lance 00 TAB, Q6H, Dosing Weight 118, kg, PRN Pain Score 1-3, Start date: 09/08/19 13:44:00 MANAGER SURGICAL, Duration: 30 day, Stop date: 10/08/19 13:43:00 MANAGER SURGICAL Oxycodone 2018-09 No Notes: Memori a Hydrochlori 2-13 (Same as: l de 5 MG 19:44: Roxicodone Herm kuldip Oral Tablet 00 ) Hydromorpho 2018-09 No Notes: Dk dwight ne 2-13 Same as l 19:44: Dilaudid [place] Flumazenil 2018-09 No Notes: Memor ia 2-13 (Same as: l 19:44: Romazicon) [place] Naloxone 2018-09 No Notes: Memoria 2-13 Same as l 19:44: Narcan [place] Ondansetron 2018-09 No Notes: Dk dwight 2-13 (Same as: l 19:44: Zofran) [place] 00 MEDICATION WASTE Product Size: 4 mg Product Wasted: ___ mg Promethazin 2018-09 No 6.25 mg, Me moria e 2- Route: l 19:44: IVPB, [place] 00 ONCE, Dosing Weight 118, kg, PRN Nausea & Vomiting, Start date: 09/08/19 13:44:00 MANAGER SURGICAL Hydralazine 2018-09 No Notes: Dk dwight 2-13 (Same as: l 19:44: Apresoline [place] ) Push over 5 minutes Labetalol 2018-09 No 10 mg, 2 Dk dwight 2-13 mL, Route: l 19:44: IVP, Drug [place] 00 form: INJ, Q5Min, Dosing Weight 118, kg, PRN Elevated BP, Start date: 09/08/19 13:44:00 MANAGER SURGICAL, Duration: 5 doses or times, Stop date: 09/09/19 0:00:00 MANAGER SURGICAL, 0 Acetaminoph 2018-09 No Notes: Max Memoria en 2-13 acetaminop l 19:44: hen 4000 [place] 00 mg/day (4 gm/day). (Same as: Tylenol Extra Strength) Ibuprofen 2018-09 No 600 mg, Memor ia 2-13 Route: PO, l 19:44: Drug form: [place] 00 TAB, Q6H, Dosing Weight 118, kg, PRN Pain Score 1-3, Start date: 09/08/19 13:44:00 MANAGER SURGICAL, Duration: 30 day, Stop date: 10/08/19 13:43:00 MANAGER SURGICAL Oxycodone 2018-09 No Notes: Memori a Hydrochlori 2-13 (Same as: l de 5 MG 19:44: Roxicodone Herm kuldip Oral Tablet 00 ) Hydromorpho 2018-09 No Notes: Dk [place]ight ne 2-13 Same as l 19:44: Dilaudid Flumazenil 2018-09 No Notes: Memor ia 2-13 (Same as: l 19:44: Romazicon) Naloxone 2018-09 No Notes: Memoria 2-13 Same as l 19:44: Narcan Ondansetron 2018-09 No Notes: Dk dwight 2-13 (Same as: l 19:44: Zofran) MEDICATION WASTE Product Size: 4 mg Product Wasted: ___ mg Promethazin 2018-09 No 6.25 mg, Me moria e 2- Route: l 19:44: IVPB, ONCE, Dosing Weight 118, kg, PRN Nausea & Vomiting, Start date: 09/08/19 13:44:00 MANAGER SURGICAL phenylephri 2018-09 No Route: IV, Memoria ne (ANES) 2-13 Drug form: l 18:59: INJ, ONCE, Stop date: 09/08/19 12:59:00 MANAGER SURGICAL ondansetron 2018-09 No Route: IV, Memoria (ANES) 2-13 Drug form: l 18:59: INJ, ONCE, Stop date: 09/08/19 12:59:00 MANAGER SURGICAL phenylephri 2018-09 No Route: IV, Memoria ne (ANES) 2-13 Drug form: l 18:59: INJ, ONCE, Stop date: 09/08/19 12:59:00 MANAGER SURGICAL ondansetron 2018-09 No Route: IV, Memoria (ANES) 2-13 Drug form: l 18:59: INJ, ONCE, [place] 00 Stop date: 09/08/19 12:59:00 MANAGER SURGICAL dexamethaso 2018-09 No Route: IV, Memoria ne (ANES) 2-13 Drug form: l 18:58: INJ, ONCE, Stop date: 09/08/19 12:58:00 MANAGER SURGICAL dexamethaso 2018-09 No Route: IV, Memoria ne (ANES) 2-13 Drug form: l 18:58: INJ, ONCE, [place] 00 Stop date: 09/08/19 12:58:00 MANAGER SURGICAL fentaNYL 2018-09 No Route: Memoria (ANES) 2-13 INTRATHECA l 18:53: L, Drug [place] 00 form: INJ, ONCE, Stop date: 09/08/19 12:53:00 MANAGER SURGICAL fentaNYL 2018-09 No Route: Memoria (ANES) 2-13 INTRATHECA l 18:53: L, Drug [place] 00 form: INJ, ONCE, Stop date: 09/08/19 12:53:00 MANAGER SURGICAL bupivacaine 2018-09 No Route: Dk dwight (ANES) 2-13 INTRATHECA l 18:25: L, Drug [place] 00 Form: INJ, ONCE, Stop date: 09/08/19 12:25:00 MANAGER SURGICAL bupivacaine 2018-09 No Route: Dk dwight (ANES) 2-13 INTRATHECA l 18:25: L, Drug [place] 00 Form: INJ, ONCE, Stop date: 09/08/19 12:25:00 MANAGER SURGICAL Lactated 2018-09 No Route: IV, Mem oria Ringers 2-13 Total l Injection 17:15: Volume: [place] nn IV (ANES) 00 1,000, 1000 mL Start date: 09/08/19 11:15:00 MANAGER SURGICAL, Stop date: 09/08/19 12:15:00 MANAGER SURGICAL Lactated 2018-09 No Route: IV, Mem oria Ringers 2-13 Total l Injection 17:15: Volume: [place] nn IV (ANES) 00 1,000, 1000 mL Start date: 09/08/19 11:15:00 MANAGER SURGICAL, Stop date: 09/08/19 12:15:00 MANAGER SURGICAL Calcium 2018-09 No 1,000 mL, Memor ia Chloride 2-13 Rate: 75 l 0.0014 15:56: ml/hr, Lance MEQ/ML / 00 Infuse Potassium over: 13.3 Chloride hr, Route: 0.004 IV, Dosing MEQ/ML / Weight 118 Sodium kg, Total Chloride Volume: 0.103 1,000, MEQ/ML / Start Sodium date: Lactate 09/08/19 0.028 9:56:00 MEQ/ML MANAGER SURGICAL, Injectable Duration: Solution 30 day, Stop date: 10/08/19 9:55:00 MANAGER SURGICAL, 2.37, m2, 0 Calcium 2018-09 No 1,000 mL, Memor ia Chloride 2-13 Rate: 75 l 0.0014 15:56: ml/hr, [place] MEQ/ML / 00 Infuse Potassium over: 13.3 Chloride hr, Route: 0.004 IV, Dosing MEQ/ML / Weight 118 Sodium kg, Total Chloride Volume: 0.103 1,000, MEQ/ML / Start Sodium date: Lactate 09/08/19 0.028 9:56:00 MEQ/ML MANAGER SURGICAL, Injectable Duration: Solution 30 day, Stop date: 10/08/19 9:55:00 MANAGER SURGICAL, 2.37, m2, 0 Aspirin 81 2018-09 Yes 81 mg = 1 Me moria MG Enteric 2-11 tab, PO, l Coated 21:40: Daily, # [place] Tablet 00 90 tab, 3 Refill(s) Vitamin D3 2018-09 Yes 50,000 Memor ia 50,000 intl 2-11 IntlUnit = l units oral 21:40: 1 cap, PO, H ermann capsule 00 QTue, # 12 cap, 0 Refill(s) Aspirin 81 2018-09 Yes 81 mg = 1 Me moria MG Enteric 2-11 tab, PO, l Coated 21:40: Daily, # [place] Tablet 00 90 tab, 3 Refill(s) Vitamin D3 2018-09 Yes 50,000 Memor ia 50,000 intl 2-11 IntlUnit = l units oral 21:40: 1 cap, PO, H ermann capsule 00 QTue, # 12 cap, 0 Refill(s) 3 ML 2018-09 Yes 40 unit, Memoria Insulin, 2-11 SUB-Q, l Aspart, 21:39: TID-Before Herm kuldip Human 100 00 Meals, 0 UNT/ML Pen Refill(s) Injector [NovoLog] 3 ML 2018-09 Yes 30 unit, Memoria insulin 2-11 SUB-Q, l detemir 100 21:39: Bedtime, # [place] UNT/ML 00 3 mL, 3 Prefilled Refill(s) Syringe [Levemir] 3 ML 2018-09 Yes 40 unit, Memoria Insulin, 2-11 SUB-Q, l Aspart, 21:39: TID-Before Herm kuldip Human 100 00 Meals, 0 UNT/ML Pen Refill(s) Injector [NovoLog] 3 ML 2018-09 Yes 30 unit, Memoria insulin 2-11 SUB-Q, l detemir 100 21:39: Bedtime, # [place] UNT/ML 00 3 mL, 3 Prefilled Refill(s) Syringe [Levemir] labetalol 2018-09 Yes 100 mg = 1 Me moria 100 mg oral 2-11 tab, PO, l tablet 21:38: BID, # 180 [place] nn 00 tab, 0 Refill(s) labetalol 2018-09 Yes 100 mg = 1 Me moria 100 mg oral 2-11 tab, PO, l tablet 21:38: BID, # 180 [place] nn 00 tab, 0 Refill(s) Nitrofurant 2018-09 Yes [id number] 100mg Take 1 Univers oin&Nit. 0-21 capsule by ity o f [place] 00:[place]: mouth 2 [place] (MACROBID) 00 (two) Medical 100 mg times Branch capsule daily. Nitrofurant 2018-09 Yes [id number] 100mg Take 1 Univers oin&Nit. 0-21 capsule by ity o f [place] 00:[place]: mouth [place] (MACROBID) 00 (two) Medical 100 mg times Branch capsule daily. Nitrofurant 2018-09 Yes [id number] 100mg Take 1 Univers oin&Nit. 0-21 capsule by ity o f [place] 00:00: mouth 2 [place] (MACROBID) 00 (two) Medical 100 mg times Branch capsule daily. Nitrofurant 2018-09 Yes [id number] 100mg Take 1 Univers oin&Nit. 0-21 capsule by ity o f [place] 00:00: mouth 2 [place] (MACROBID) 00 (two) Medical 100 mg times Branch capsule daily. Nitrofurant 2018-09 Yes [id number] 100mg Take 1 Univers oin&Nit. 0-21 capsule by ity o f [place] 00:00: mouth 2 [place] (MACROBID) 00 (two) Medical 100 mg times Branch capsule daily. Nitrofurant 2018-09 Yes [id number] 100mg Take 1 Univers oin&Nit. 0-21 capsule by ity o f [place] 00:00: mouth 2 [place] (MACROBID) 00 (two) Medical 100 mg times Branch capsule daily. Nitrofurant 2018-09 Yes [id number] 100mg Take 1 Univers oin&Nit. 0-21 capsule by ity o f [place] 00:00: mouth 2 [place] (MACROBID) 00 (two) Medical 100 mg times Branch capsule daily. Nitrofurant 2018-09 Yes [id number] 100mg Take 1 Univers oin&Nit. 0-21 capsule by ity o f [place] 00:00: mouth 2 [place] (MACROBID) 00 (two) Medical 100 mg times Branch capsule daily. Nitrofurant 2018-09 Yes [id number] 100mg Take 1 Univers oin&Nit. 0-21 capsule by ity o f [place] 00:00: mouth 2 [place] (MACROBID) 00 (two) Medical 100 mg times Branch capsule daily. Nitrofurant 2018-09 Yes [id number] 100mg Take 1 Univers oin&Nit. 0-21 capsule by ity o f [place] 00:00: mouth 2 [place] (MACROBID) 00 (two) Medical 100 mg times Branch capsule daily. Nitrofurant 2018-09 Yes [id number] 100mg Take 1 Univers oin&Nit. 0-21 capsule by ity o f [place] 00:00: mouth 2 [place] (MACROBID) 00 (two) Medical 100 mg times Branch capsule daily. Nitrofurant 2018-09 Yes [id number] 100mg Take 1 Univers oin&Nit. 0-21 capsule by ity o f [place] 00:00: mouth 2 [place] (MACROBID) 00 (two) Medical 100 mg times Branch capsule daily. Nitrofurant 2018-09 Yes [id number] 100mg Take 1 [facility] oin&Nit. 0-21 capsule by ity o f [place] 00:00: mouth 2 [place] (MACROBID) 00 (two) Medical 100 mg times Branch capsule daily. Nitrofurant 2018-09 Yes [id number] 100mg Take 1 Univers oin&Nit. 0-21 capsule by ity o f [place] 00:00: mouth 2 [place] (MACROBID) 00 (two) Medical 100 mg times Branch capsule daily. Nitrofurant 2018-09 Yes [id number] 100mg Take 1 [facility] oin&Nit. 0-21 capsule by ity o f [place] 00:00: mouth 2 [place] (MACROBID) 00 (two) Medical 100 mg times Branch capsule daily. Nitrofurant 2018-09 Yes [id number] 100mg Take 1 [facility] oin&Nit. 0-21 capsule by ity o f [place] 00:00: mouth 2 [place] (MACROBID) 00 (two) Medical 100 mg times Branch capsule daily. Nitrofurant 2018-09 Yes [id number] 100mg Take 1 [facility] oin&Nit. 0-21 capsule by ity o f [place] 00:00: mouth 2 [place] (MACROBID) 00 (two) Medical 100 mg times Branch capsule daily. Nitrofurant 2018-09- No [id number] 100mg Take 1 Univers oin&Nit. 0-21 08-18 capsule by ity of [place] 00:00: 00:00 mouth 2 [place] as (MACROBID) 00 :00 (two) Medical 100 mg times Branch capsule daily. pioglitazon 2018-09 Yes 30mg Take 30 mg Univers e (ACTOS) 0-17 by mouth ity of 30 mg 18:56: daily. [place] tablet 24 [facility] Branch labetalol 2018-09 Yes Take by Unive rs HCl 0-17 mouth. ity of (LABETALOL 18:56: [place] ORAL) 24 [facility] Branch insulin 2018-09 Yes inject Univers aspart Soln 0-17 under the ity of injection 18:56: skin [place] 24 before Medical meals. Branch pioglitazon 2018-09 Yes 30mg Take 30 mg Univers e (ACTOS) 0-17 by mouth ity of 30 mg 18:56: daily. [place] tablet 24 [facility] Branch labetalol 2018-09 Yes Take by Unive rs HCl 0-17 mouth. ity of (LABETALOL 18:56: [place] ORAL) 24 [facility] Branch insulin 2018-09 Yes inject Univers aspart Soln 0-17 under the ity of injection 18:56: skin [place] 24 before Medical meals. Branch pioglitazon 2018-09 Yes 30mg Take 30 mg Univers e (ACTOS) 0-17 by mouth ity of 30 mg 18:56: daily. [place] tablet 24 [facility] Branch labetalol 2018-09 Yes Take by Unive rs HCl 0-17 mouth. ity of (LABETALOL 18:56: [place] ORAL) 24 [facility] Branch insulin 2018-09 Yes inject Univers aspart Soln 0-17 under the ity of injection 18:56: skin [place] 24 before Medical meals. Branch pioglitazon 2018- Yes 30mg Take 30 mg Univers e (ACTOS) 0-17 by mouth ity of 30 mg 18:56: daily. [place] tablet 24 Medical Branch labetalol 2018-09 Yes Take by Unive rs HCl 0-17 mouth. ity of (LABETALOL 18:56: [place] ORAL) 24 Medical Branch insulin 2018- Yes inject Univers aspart Soln 0-17 under the ity of injection 18:56: skin [place] 24 before Medical meals. Branch pioglitazon 2018-09 Yes 30mg Take 30 mg Univers e (ACTOS) 0-17 by mouth ity of 30 mg 18:56: daily. [place] tablet 24 Medical Branch labetalol 2018-09 Yes Take by Unive rs HCl 0-17 mouth. ity of (LABETALOL 18:56: [place] ORAL) 24 Medical Branch insulin 2018-09 Yes inject Univers aspart Soln 0-17 under the ity of injection 18:56: skin [place] 24 before Medical meals. Branch pioglitazon 2018-09 Yes 30mg Take 30 mg Univers e (ACTOS) 0-17 by mouth ity of 30 mg 18:56: daily. [place] tablet 24 Medical Branch labetalol 2018-09 Yes Take by Unive rs HCl 0-17 mouth. ity of (LABETALOL 18:56: [place] ORAL) 24 Medical Branch insulin 2018-09 Yes inject Univers aspart Soln 0-17 under the ity of injection 18:56: skin [place] 24 before Medical meals. Branch pioglitazon 2018- Yes 30mg Take 30 mg Univers e (ACTOS) 0-17 by mouth ity of 30 mg 18:56: daily. [place] tablet 24 Medical Branch labetalol 2018-09 Yes Take by Unive rs HCl 0-17 mouth. ity of (LABETALOL 18:56: [place] ORAL) 24 [facility] insulin 2018- Yes inject [facility] aspart Soln 0-17 under the ity of injection 18:56: skin [place] 24 before Medical meals. Branch pioglitazon 2018-09 Yes 30mg Take 30 mg [facility] e (ACTOS) 0-17 by mouth ity of 30 mg 18:56: daily. [place] tablet 24 [facility] labetalol 2018-09 Yes Take by [facility] rs HCl 0-17 mouth. ity of (LABETALOL 18:56: [place] ORAL) 24 [facility] insulin 2018-09 Yes inject [facility] aspart Soln 0-17 under the ity of injection 18:56: skin [place] 24 before Medical meals. Branch lancets 2018-09 Yes Check [facility] ers (FREESTYLE 0-17 blood ity of LANCETS) 28 00:00: glucose 4x [place] gauge Misc 00 daily Medical Branch blood sugar 2018-09 Yes Check [facility] diagnostic 0-17 blood ity of (FREESTYLE 00:00: glucose 4x [place] LITE 00 daily Medical STRIPS) Branch strip Blood-Gluco 2018-09 Yes Check [facility] se Meter 0-17 blood ity of (FREESTYLE 00:00: glucose 4x [place] LITE METER) 00 daily Medical Kit Branch lancets 2018-09 Yes Check [facility] ers (FREESTYLE 0-17 blood ity of LANCETS) 28 00:00: glucose 4x [place] gauge Misc 00 daily Medical Branch blood sugar 2018-09 Yes Check [facility] diagnostic 0-17 blood ity of (FREESTYLE 00:00: glucose 4x [place] LITE 00 daily Medical STRIPS) Branch strip Blood-Gluco 2018-09 Yes Check [facility] se Meter 0-17 blood ity of (FREESTYLE 00:00: glucose 4x [place] LITE METER) 00 daily Medical Kit [facility] lancets 2018-09 Yes Check [facility] ers (FREESTYLE 0-17 blood ity of LANCETS) 28 00:00: glucose 4x [place] gauge Misc 00 daily Medical Branch blood sugar 2018-09 Yes Check [facility] diagnostic 0-17 blood ity of (FREESTYLE 00:00: glucose 4x [place] LITE 00 daily Medical STRIPS) Branch strip Blood-Gluco 2018-09 Yes Check [facility] se Meter 0-17 blood ity of (FREESTYLE 00:00: glucose 4x [place] LITE METER) 00 daily Medical Kit Branch lancets 2018-09 Yes Check [facility] ers (FREESTYLE 0-17 blood ity of LANCETS) 28 00:00: glucose 4x [place] gauge Misc 00 daily Medical Branch blood sugar 2018-09 Yes Check [facility] diagnostic 0-17 blood ity of (FREESTYLE 00:00: glucose 4x [place] LITE 00 daily Medical STRIPS) Branch strip Blood-Gluco 2018-09 Yes Check [facility] se Meter 0-17 blood ity of (FREESTYLE 00:00: glucose 4x [place] LITE METER) 00 daily Medical Kit [facility] lancets 2018-09 Yes Check [facility] ers (FREESTYLE 0-17 blood ity of LANCETS) 28 00:00: glucose 4x [place] gauge Misc 00 daily Medical Branch blood sugar 2018-09 Yes Check [facility] diagnostic 0-17 blood ity of (FREESTYLE 00:00: glucose 4x [place] LITE 00 daily Medical STRIPS) Branch strip Blood-Gluco 2018-09 Yes Check [facility] se Meter 0-17 blood ity of (FREESTYLE 00:00: glucose 4x [place] LITE METER) 00 daily Medical Kit Branch lancets 2018-09 Yes Check [facility] ers (FREESTYLE 0-17 blood ity of LANCETS) 28 00:00: glucose 4x [place] gauge Misc 00 daily Medical [facility] blood sugar 2018-09 Yes Check [facility] diagnostic 0-17 blood ity of (FREESTYLE 00:00: glucose 4x [place] LITE 00 daily Medical STRIPS) Branch strip Blood-Gluco 2018-09 Yes Check [facility] se Meter 0-17 blood ity of (FREESTYLE 00:00: glucose 4x [place] LITE METER) 00 daily Medical Kit Branch lancets 2018-09 Yes Check [facility] ers (FREESTYLE 0-17 blood ity of LANCETS) 28 00:00: glucose 4x [place] gauge Misc 00 daily Medical Branch blood sugar 2018-09 Yes Check [facility] diagnostic 0-17 blood ity of (FREESTYLE 00:00: glucose 4x [place] LITE 00 daily Medical STRIPS) Branch strip Blood-Gluco 2018-09 Yes Check [facility] se Meter 0-17 blood ity of (FREESTYLE 00:00: glucose 4x [place] LITE METER) 00 daily Medical Kit Branch lancets 2018-09 Yes Check [facility] ers (FREESTYLE 0-17 blood ity of LANCETS) 28 00:00: glucose 4x [place] gauge Misc 00 daily Medical Branch blood sugar 2018-09 Yes Check [facility] diagnostic 0-17 blood ity of (FREESTYLE 00:00: glucose 4x [place] LITE 00 daily Medical STRIPS) Branch strip Blood-Gluco 2018-09 Yes Check [facility] se Meter 0-17 blood ity of (FREESTYLE 00:00: glucose 4x [place] LITE METER) 00 daily Medical Kit Branch lancets 2018-09 Yes Check [facility] ers (FREESTYLE 0-17 blood ity of LANCETS) 28 00:00: glucose 4x [place] gauge Misc 00 daily Medical Branch blood sugar 2018-09 Yes Check [facility] diagnostic 0-17 blood ity of (FREESTYLE 00:00: glucose 4x [place] LITE 00 daily Medical STRIPS) Branch strip Blood-Gluco 2018-09 Yes Check [facility] se Meter 0-17 blood ity of (FREESTYLE 00:00: glucose 4x [place] LITE METER) daily Medical Kit Branch lancets 2018-09 Yes Check [facility] ers (FREESTYLE 0-17 blood ity of LANCETS) 28 00:00: glucose 4x [place] gauge Misc 00 daily Medical Branch blood sugar 2018-09 Yes Check [facility] diagnostic 0-17 blood ity of (FREESTYLE 00:00: glucose 4x [place] LITE 00 daily Medical STRIPS) Branch strip Blood-Gluco 2018-09 Yes Check [facility] se Meter 0-17 blood ity of (FREESTYLE 00:00: glucose 4x [place] LITE METER) 00 daily Medical Kit Branch lancets 2018-09 Yes Check [facility] ers (FREESTYLE 0-17 blood ity of LANCETS) 28 00:00: glucose 4x [place] gauge Misc 00 daily Medical Branch blood sugar 2018-09 Yes Check [facility] diagnostic 0-17 blood ity of (FREESTYLE 00:00: glucose 4x [place] LITE 00 daily Medical STRIPS) Branch strip Blood-Gluco 2018-09 Yes Check [facility] se Meter 0-17 blood ity of (FREESTYLE 00:00: glucose 4x [place] LITE METER) 00 daily Medical Kit Branch lancets 2018-09 Yes Check [facility] ers (FREESTYLE 0-17 blood ity of LANCETS) 28 00:00: glucose 4x [place] gauge Misc 00 daily Medical Branch blood sugar 2018-09 Yes Check [facility] diagnostic 0-17 blood ity of (FREESTYLE 00:00: glucose 4x [place] LITE 00 daily Medical STRIPS) Branch strip lancets 2018-09 Yes Check [facility] ers (FREESTYLE 0-17 blood ity of LANCETS) 28 00:00: glucose 4x [place] gauge Misc 00 daily Medical Branch blood sugar 2018-09 Yes Check [facility] diagnostic 0-17 blood ity of (FREESTYLE 00:00: glucose 4x [place] LITE 00 daily Medical STRIPS) Branch strip Blood-Gluco 2018-09 Yes Check [facility] se Meter 0-17 blood ity of (FREESTYLE 00:00: glucose 4x [place] LITE METER) 00 daily Medical Kit Branch Blood-Gluco 2018-09 Yes Check [facility] se Meter 0-17 blood ity of (FREESTYLE 00:00: glucose 4x [place] LITE METER) 00 daily Medical Kit Branch lancets 2018-09 Yes Check [facility] ers (FREESTYLE 0-17 blood ity of LANCETS) 28 00:00: glucose 4x [place] gauge Misc 00 daily Medical Branch blood sugar 2018-09 Yes Check [facility] diagnostic 0-17 blood ity of (FREESTYLE 00:00: glucose 4x [place] LITE 00 daily Medical STRIPS) Branch strip Blood-Gluco 2018-09 Yes Check [facility] se Meter 0-17 blood ity of (FREESTYLE 00:00: glucose 4x [place] LITE METER) 00 daily Medical Kit [facility] blood sugar 2018-09 Yes Check [facility] diagnostic 0-17 blood ity of (FREESTYLE 00:00: glucose 4x [place] LITE 00 daily Medical STRIPS) Branch strip Blood-Gluco 2018-09 Yes Check [facility] se Meter 0-17 blood ity of (FREESTYLE 00:00: glucose 4x [place] LITE METER) 00 daily Medical Kit Branch lancets 2018-09 Yes Check [facility] ers (FREESTYLE 0-17 blood ity of LANCETS) 28 00:00: glucose 4x [place] gauge Misc 00 daily Medical Branch blood sugar 2018-09 Yes Check [facility] diagnostic 0-17 blood ity of (FREESTYLE 00:00: glucose 4x [place] LITE 00 daily Medical STRIPS) Branch strip Blood-Gluco 2018-09 Yes Check [facility] se Meter 0-17 blood ity of (FREESTYLE 00:00: glucose 4x [place] LITE METER) 00 daily Medical Kit [facility] blood sugar 2018-09 Yes Check [facility] diagnostic 0-17 blood ity of (FREESTYLE 00:00: glucose 4x [place] LITE 00 daily Medical STRIPS) Branch strip Blood-Gluco 2018-09 Yes Check [facility] se Meter 0-17 blood ity of (FREESTYLE 00:00: glucose 4x [place] LITE METER) 00 daily Medical Kit [place] blood sugar 2018-09 Yes Check [facility] diagnostic 0-17 blood ity of (FREESTYLE 00:00: glucose 4x [place] LITE 00 daily Medical STRIPS) Branch strip Blood-Gluco 2018-09 Yes Check [facility] se Meter 0-17 blood ity of (FREESTYLE 00:00: glucose 4x [place] LITE METER) 00 daily Medical Kit [place] blood sugar 2018-09 Yes Check [facility] diagnostic 0-17 blood ity of (FREESTYLE 00:00: glucose 4x [place] LITE 00 daily Medical STRIPS) Branch strip Blood-Gluco 2018-09 Yes Check [facility] se Meter 0-17 blood ity of (FREESTYLE 00:00: glucose 4x [place] LITE METER) 00 daily Medical Kit [place] blood sugar 2018-09 Yes Check [facility] diagnostic 0-17 blood ity of (FREESTYLE 00:00: glucose 4x [place] LITE 00 daily Medical STRIPS) Branch strip Blood-Gluco 2018-09 Yes Check [facility] se Meter 0-17 blood ity of (FREESTYLE 00:00: glucose 4x [place] LITE METER) 00 daily Medical Kit Branch blood sugar 2018-09 Yes Check [facility] diagnostic 0-17 blood ity of (FREESTYLE 00:00: glucose 4x [place] LITE 00 daily Medical STRIPS) Branch strip Blood-Gluco 2018-09 Yes Check [facility] se Meter 0-17 blood ity of (FREESTYLE 00:00: glucose 4x [place] LITE METER) 00 daily Medical Kit Branch lancets 2018-09 Yes Check [facility] ers (FREESTYLE 0-17 blood ity of LANCETS) 28 00:00: glucose 4x [place] gauge Misc 00 daily Medical Branch blood sugar 2018-09 Yes Check [facility] diagnostic 0-17 blood ity of (FREESTYLE 00:00: glucose 4x [place] LITE 00 daily Medical STRIPS) Branch strip blood sugar 2018-09 Yes Check [facility] diagnostic 0-17 blood ity of (FREESTYLE 00:00: glucose 4x [place] LITE 00 daily Medical STRIPS) Branch strip Blood-Gluco 2018-09 Yes Check [facility] se Meter 0-17 blood ity of (FREESTYLE 00:00: glucose 4x [place] LITE METER) 00 daily Medical Kit Branch Blood-Gluco 2018-09 Yes Check [facility] se Meter 0-17 blood ity of (FREESTYLE 00:00: glucose 4x [place] LITE METER) 00 daily Medical Kit Branch blood sugar 2018-09 Yes Check [facility] diagnostic 0-17 blood ity of (FREESTYLE 00:00: glucose 4x [place] LITE 00 daily Medical STRIPS) Branch strip Blood-Gluco 2018-09 Yes Check [facility] se Meter 0-17 blood ity of (FREESTYLE 00:00: glucose 4x [place] LITE METER) 00 daily Medical Kit Branch blood sugar 2018-09 Yes Check [facility] diagnostic 0-17 blood ity of (FREESTYLE 00:00: glucose 4x [place] LITE 00 daily Medical STRIPS) Branch strip Blood-Gluco 2018-09 Yes Check [facility] se Meter 0-17 blood ity of (FREESTYLE 00:00: glucose 4x [place] LITE METER) 00 daily Medical Kit Branch blood sugar 2018-09 Yes Check [facility] diagnostic 0-17 blood ity of (FREESTYLE 00:00: glucose 4x [place] LITE 00 daily Medical STRIPS) Branch strip Blood-Gluco 2018-09 Yes Check [facility] se Meter 0-17 blood ity of (FREESTYLE 00:00: glucose 4x [place] LITE METER) 00 daily Medical Kit [facility] blood sugar 2018-09 Yes Check [facility] diagnostic 0-17 blood ity of (FREESTYLE 00:00: glucose 4x [place] LITE 00 daily Medical STRIPS) Branch strip Blood-Gluco 2018-09 Yes Check [facility] se Meter 0-17 blood ity of (FREESTYLE 00:00: glucose 4x [place] LITE METER) 00 daily Medical Kit Branch blood sugar 2018-09 Yes Check [facility] diagnostic 0-17 blood ity of (FREESTYLE 00:00: glucose 4x [place] LITE 00 daily Medical STRIPS) Branch strip Blood-Gluco 2018-09 Yes Check [facility] se Meter 0-17 blood ity of (FREESTYLE 00:00: glucose 4x [place] LITE METER) 00 daily Medical Kit Branch lancets 2018-09 Yes Check [facility] ers (FREESTYLE 0-17 blood ity of LANCETS) 28 00:00: glucose 4x [place] gauge Misc 00 daily Medical Branch blood sugar 2018-09 Yes Check [facility] diagnostic 0-17 blood ity of (FREESTYLE 00:00: glucose 4x [place] LITE 00 daily Medical STRIPS) Branch strip Blood-Gluco 2018-09 Yes Check [facility] se Meter 0-17 blood ity of (FREESTYLE 00:00: glucose 4x [place] LITE METER) 00 daily Medical Kit Branch lancets 2018-09- No Check [facility] vers (FREESTYLE 0-17 08-18 blood ity of LANCETS) 28 00:00: 00:00 glucose 4x [place] gauge Misc 00 :00 daily Medical Branch traMADOL Yes [id number] 50mg Take 1 [facility] vers (ULTRAM) 50 1-27 tablet by ity of mg tablet 00:00: mouth [place] 00 every 6 Medical (six) Branch hours as needed for Pain (scale 4-6). traMADOL Yes [id number] 50mg Take 1 [facility] vers (ULTRAM) 50 1-27 tablet by ity of mg tablet 00:00: mouth [place] 00 every 6 Medical (six) Branch hours as needed for Pain (scale 4-6). traMADOL Yes [id number] 50mg Take 1 [facility] vers (ULTRAM) 50 1-27 tablet by ity of mg tablet 00:00: mouth [place] 00 every 6 Medical (six) Branch hours as needed for Pain (scale 4-6). traMADOL 2019-0 Yes [id number] 50mg Take 1 [facility] vers (ULTRAM) 50 1-27 tablet by ity of mg tablet 00:00: mouth [place] 00 every 6 Medical (six) Branch hours as needed for Pain (scale 4-6). traMADOL 2019-0 Yes [id number] 50mg Take 1 [facility] vers (ULTRAM) 50 1-27 tablet by ity of mg tablet 00:00: mouth [place] 00 every 6 Medical (six) Branch hours as needed for Pain (scale 4-6). traMADOL 2019-0 Yes [id number] 50mg Take 1 [facility] vers (ULTRAM) 50 1-27 tablet by ity of mg tablet 00:00: mouth [place] 00 every 6 Medical (six) Branch hours as needed for Pain (scale 4-6). traMADOL 2018-0 Yes [id number] 50mg Take 1 [facility] vers (ULTRAM) 50 1-27 tablet by ity of mg tablet 00:00: mouth [place] 00 every 6 Medical (six) Branch hours as needed for Pain (scale 4-6). traMADOL 2018-0 Yes [id number] 50mg Take 1 [facility] vers (ULTRAM) 50 1-27 tablet by ity of mg tablet 00:00: mouth [place] 00 every 6 Medical (six) Branch hours as needed for Pain (scale 4-6). traMADOL 2018-0 Yes [id number] 50mg Take 1 [facility] vers (ULTRAM) 50 1-27 tablet by ity of mg tablet 00:00: mouth [place] 00 every 6 Medical (six) Branch hours as needed for Pain (scale 4-6). traMADOL 2019-0 Yes [id number] 50mg Take 1 [facility] vers (ULTRAM) 50 1-27 tablet by ity of mg tablet 00:00: mouth [place] 00 every 6 Medical (six) Branch hours as needed for Pain (scale 4-6). traMADOL 2019-0 Yes [id number] 50mg Take 1 [facility] vers (ULTRAM) 50 1-27 tablet by ity of mg tablet 00:00: mouth [place] 00 every 6 Medical (six) Branch hours as needed for Pain (scale 4-6). traMADOL 2019-0 Yes [id number] 50mg Take 1 [facility] vers (ULTRAM) 50 1-27 tablet by ity of mg tablet 00:00: mouth [place] 00 every 6 Medical (six) Branch hours as needed for Pain (scale 4-6). traMADOL Yes [id number] 50mg Take 1 [facility] vers (ULTRAM) 50 1-27 tablet by ity of mg tablet 00:00: mouth [place] 00 every 6 Medical (six) Branch hours as needed for Pain (scale 4-6). traMADOL Yes [id number] 50mg Take 1 [facility] vers (ULTRAM) 50 1-27 tablet by ity of mg tablet 00:00: mouth [place] 00 every 6 Medical (six) Branch hours as needed for Pain (scale 4-6). traMADOL Yes [id number] 50mg Take 1 [facility] vers (ULTRAM) 50 1-27 tablet by ity of mg tablet 00:00: mouth [place] 00 every 6 Medical (six) Branch hours as needed for Pain (scale 4-6). traMADOL Yes [id number] 50mg Take 1 [facility] vers (ULTRAM) 50 1-27 tablet by ity of mg tablet 00:00: mouth [place] 00 every 6 Medical (six) Branch hours as needed for Pain (scale 4-6). traMADOL Yes [id number] 50mg Take 1 [facility] vers (ULTRAM) 50 1-27 tablet by ity of mg tablet 00:00: mouth [place] 00 every 6 Medical (six) Branch hours as needed for Pain (scale 4-6). traMADOL 2021- No [id number] 50mg Take 1 [facility] (ULTRAM) 50 1-27 08-18 tablet by it y of mg tablet 00:00: 00:00 mouth [place] 00 :00 every 6 Medical (six) Branch hours as needed for Pain (scale 4-6). lisinopril 2014-09 Yes [id number] 3 daily U nivers (PRINIVIL,Z 2-15 ity of ESTRIL) 10 00:00: [place] mg tablet 00 Medical Branch lisinopril 2014-09 Yes [id number] 3 daily U nivers (PRINIVIL,Z 2-15 ity of ESTRIL) 10 00:00: [place] mg tablet 00 Medical Branch lisinopril 2014-09 Yes [id number] 3 daily U nivers (PRINIVIL,Z 2-15 ity of ESTRIL) 10 00:00: [place] mg tablet 00 Medical [place] lisinopril 2014-09 Yes [id number] 3 daily U nivers (PRINIVIL,Z 2-15 ity of ESTRIL) 10 00:00: [place] mg tablet Medical [place] lisinopril 2014-09 Yes [id number] 3 daily U nivers (PRINIVIL,Z 2-15 ity of ESTRIL) 10 00:00: [place] mg tablet Medical [place] lisinopril 2014-09 Yes [id number] 3 daily U nivers (PRINIVIL,Z 2-15 ity of ESTRIL) 10 00:00: [place] mg tablet Medical [place] lisinopril 2014-09 Yes [id number] 3 daily U nivers (PRINIVIL,Z 2-15 ity of ESTRIL) 10 00:00: [place] mg tablet [facility] lisinopril 2014-09 Yes [id number] 3 daily U nivers (PRINIVIL,Z 2-15 ity of ESTRIL) 10 00:00: [place] mg tablet [facility] lisinopril 2014-09 Yes [id number] 3 daily U nivers (PRINIVIL,Z 2-15 ity of ESTRIL) 10 00:00: [place] mg tablet [facility] lisinopril 2014-09 Yes [id number] 3 daily U nivers (PRINIVIL,Z 2-15 ity of ESTRIL) 10 00:00: [place] mg tablet [facility] lisinopril 2014-09 Yes [id number] 3 daily U nivers (PRINIVIL,Z 2-15 ity of ESTRIL) 10 00:00: [place] mg tablet Medical [place] lisinopril 2014-09 Yes [id number] 3 daily U nivers (PRINIVIL,Z 2-15 ity of ESTRIL) 10 00:00: [place] mg tablet Medical [place] lisinopril 2014-09 Yes [id number] 3 daily U nivers (PRINIVIL,Z 2-15 ity of ESTRIL) 10 00:00: [place] mg tablet Medical [place] lisinopril 2014-09 Yes [id number] 3 daily U nivers (PRINIVIL,Z 2-15 ity of ESTRIL) 10 00:00: [place] mg tablet Medical [place] lisinopril 2014-09 Yes [id number] 3 daily U nivers (PRINIVIL,Z 2-15 ity of ESTRIL) 10 00:00: [place] mg tablet 00 Medical Branch lisinopril 2014- Yes [id number] 3 daily U nivers (PRINIVIL,Z 2-15 ity of ESTRIL) 10 00:00: [place] mg tablet 00 Medical Branch lisinopril 2014-09 Yes [id number] 3 daily U nivers (PRINIVIL,Z 2-15 ity of ESTRIL) 10 00:00: [place] mg tablet 00 Medical Branch lisinopril 2014-09 2022- No [id number] 3 daily Univers (PRINIVIL,Z 2-15 08-18 ity of ESTRIL) 10 00:00: 00:00 [place] mg tablet 00 :00 Medical Branch blood sugar Yes bid Univer s diagnostic 4-09 ity of (EMBRACE 00:00: [place] PRO TEST 00 Medical STRIPS) Branch strip blood sugar Yes bid Univer s diagnostic 4-09 ity of (EMBRACE 00:00: [place] PRO TEST 00 Medical STRIPS) Branch strip blood sugar Yes bid Univer s diagnostic 4-09 ity of (EMBRACE 00:00: [place] PRO TEST 00 Medical STRIPS) Branch strip blood sugar Yes bid Univer s diagnostic 4-09 ity of (EMBRACE 00:00: [place] PRO TEST 00 Medical STRIPS) Branch strip blood sugar Yes bid Univer s diagnostic 4-09 ity of (EMBRACE 00:00: [place] PRO TEST 00 Medical STRIPS) Branch strip blood sugar Yes bid Univer s diagnostic 4-09 ity of (EMBRACE 00:00: [place] PRO TEST 00 Medical STRIPS) Branch strip blood sugar Yes bid Univer s diagnostic 4-09 ity of (EMBRACE 00:00: [place] PRO TEST 00 Medical STRIPS) Branch strip blood sugar Yes bid Univer s diagnostic 4-09 ity of (EMBRACE 00:00: [place] PRO TEST 00 Medical STRIPS) Branch strip blood sugar Yes bid Univer s diagnostic 4-09 ity of (EMBRACE 00:00: [place] PRO TEST 00 Medical STRIPS) Branch strip blood sugar Yes bid Univer s diagnostic 4-09 ity of (EMBRACE 00:00: [place] PRO TEST 00 Medical STRIPS) Branch strip blood sugar Yes bid Univer s diagnostic 4-09 ity of (EMBRACE 00:00: [place] PRO TEST 00 Medical STRIPS) Branch strip blood sugar Yes bid Univer s diagnostic 4-09 ity of (EMBRACE 00:00: [place] PRO TEST 00 Medical STRIPS) Branch strip blood sugar Yes bid Univer s diagnostic 4-09 ity of (EMBRACE 00:00: [place] PRO TEST 00 Medical STRIPS) Branch strip blood sugar Yes bid Univer s diagnostic 4-09 ity of (EMBRACE 00:00: [place] PRO TEST 00 Medical STRIPS) Branch strip blood sugar Yes bid Univer s diagnostic 4-09 ity of (EMBRACE 00:00: [place] PRO TEST 00 Medical STRIPS) Branch strip blood sugar Yes bid Univer s diagnostic 4-09 ity of (EMBRACE 00:00: [place] PRO TEST 00 Medical STRIPS) Branch strip blood sugar Yes bid Univer s diagnostic 4-09 ity of (EMBRACE 00:00: [place] PRO TEST 00 Medical STRIPS) Branch strip blood sugar Yes bid Univer s diagnostic 4-09 ity of (EMBRACE 00:00: [place] PRO TEST 00 Medical STRIPS) Branch strip blood sugar Yes bid Univer s diagnostic 4-09 ity of (EMBRACE 00:00: [place] PRO TEST 00 Medical STRIPS) Branch strip blood sugar Yes bid Univer s diagnostic 4-09 ity of (EMBRACE 00:00: [place] PRO TEST 00 Medical STRIPS) Branch strip blood sugar Yes bid Univer s diagnostic 4-09 ity of (EMBRACE 00:00: [place] PRO TEST 00 Medical STRIPS) Branch strip blood sugar Yes bid Univer s diagnostic 4-09 ity of (EMBRACE 00:00: [place] PRO TEST 00 Medical STRIPS) Branch strip blood sugar Yes bid Univer s diagnostic 4-09 ity of (EMBRACE 00:00: [place] PRO TEST 00 Medical STRIPS) Branch strip blood sugar Yes bid Univer s diagnostic 4-09 ity of (EMBRACE 00:00: [place] PRO TEST 00 Medical STRIPS) Branch strip blood sugar Yes bid Univer s diagnostic 4-09 ity of (EMBRACE 00:00: [place] PRO TEST 00 Medical STRIPS) Branch strip blood sugar Yes bid Univer s diagnostic 4-09 ity of (EMBRACE 00:00: [place] PRO TEST 00 Medical STRIPS) Branch strip blood sugar Yes bid Univer s diagnostic 4-09 ity of (EMBRACE 00:00: [place] PRO TEST 00 Medical STRIPS) Branch strip blood sugar Yes bid Univer s diagnostic 4-09 ity of (EMBRACE 00:00: [place] PRO TEST 00 Medical STRIPS) Branch strip blood sugar Yes bid Univer s diagnostic 4-09 ity of (EMBRACE 00:00: [place] PRO TEST 00 Medical STRIPS) Branch strip atorvastati Yes 40mg Take 1 Tab Univers n (LIPITOR) 3-26 by mouth ity of 40 mg 00:00: at [place] tablet 00 bedtime. Medical Branch atorvastati Yes 40mg Take 1 Tab Univers n (LIPITOR) 3-26 by mouth ity of 40 mg 00:00: at [place] tablet 00 bedtime. Medical Branch atorvastati Yes 40mg Take 1 Tab Univers n (LIPITOR) 3-26 by mouth ity of 40 mg 00:00: at [place] tablet 00 bedtime. Medical Branch atorvastati 0 Yes 40mg Take 1 Tab Univers n (LIPITOR) 3-26 by mouth ity of 40 mg 00:00: at [place] tablet 00 bedtime. Medical Branch atorvastati 0 Yes 40mg Take 1 Tab Univers n (LIPITOR) 3-26 by mouth ity of 40 mg 00:00: at [place] tablet 00 bedtime. Medical Branch atorvastati 0 Yes 40mg Take 1 Tab Univers n (LIPITOR) 3-26 by mouth ity of 40 mg 00:00: at [place] tablet 00 bedtime. Medical Branch atorvastati 0 Yes 40mg Take 1 Tab Univers n (LIPITOR) 3-26 by mouth ity of 40 mg 00:00: at [place] tablet 00 bedtime. Medical Branch atorvastati 0 Yes 40mg Take 1 Tab Univers n (LIPITOR) 3-26 by mouth ity of 40 mg 00:00: at [place] tablet 00 bedtime. Medical Branch atorvastati 0 Yes 40mg Take 1 Tab Univers n (LIPITOR) 3-26 by mouth ity of 40 mg 00:00: at [place] tablet 00 bedtime. Medical Branch atorvastati 0 Yes 40mg Take 1 Tab Univers n (LIPITOR) 3-26 by mouth ity of 40 mg 00:00: at [place] tablet 00 bedtime. Medical Branch atorvasta Yes 40mg Take 1 Tab Univers n (LIPITOR) 3-26 by mouth ity of 40 mg 00:00: at [place] tablet 00 bedtime. Medical Branch atorvasta Yes 40mg Take 1 Tab Univers n (LIPITOR) 3-26 by mouth ity of 40 mg 00:00: at [place] tablet 00 bedtime. Medical Branch atorvasta Yes 40mg Take 1 Tab Univers n (LIPITOR) 3-26 by mouth ity of 40 mg 00:00: at [place] tablet 00 bedtime. Medical Branch atorvasta Yes 40mg Take 1 Tab Univers n (LIPITOR) 3-26 by mouth ity of 40 mg 00:00: at [place] tablet 00 bedtime. Medical Branch atorvasta Yes 40mg Take 1 Tab Univers n (LIPITOR) 3-26 by mouth ity of 40 mg 00:00: at [place] tablet 00 bedtime. Medical Branch atorvasta Yes 40mg Take 1 Tab Univers n (LIPITOR) 3-26 by mouth ity of 40 mg 00:00: at [place] tablet 00 bedtime. Medical Branch atorvasta Yes 40mg Take 1 Tab Univers n (LIPITOR) 3-26 by mouth ity of 40 mg 00:00: at [place] tablet 00 bedtime. Medical Branch atorvasta Yes 40mg Take 1 Tab Univers n (LIPITOR) 3-26 by mouth ity of 40 mg 00:00: at [place] tablet 00 bedtime. Medical Branch atorvastati 2021- No 40mg Take 1 Tab Univers n (LIPITOR) 3-26 10-18 by mouth ity of 40 mg 00:00: 00:00 at [place] tablet 00 :00 bedtime. Medical Branch atorvastati 2021- No 40mg Take 1 Tab Univers n (LIPITOR) 3-26 10-18 by mouth ity of 40 mg 00:00: 00:00 at [place] tablet 00 :00 bedtime. Medical Branch Vital Signs Vital Name Observation Time Observation Value Comments Source Systolic blood 2023-06-18 18:18:00 138 mm[Hg] [facility]ity [facility] pressure [place] [facility] Diastolic blood 2023-06-18 18:18:00 91 mm[Hg] [facility] rs[facility] pressure [place] [facility] Heart rate 2023-06-18 18:18:00 77 /min [facility] [place] [facility] Body temperature 2023-06-18 18:18:00 36.78 Ann [facility] [place] [facility] Respiratory rate 2023-06-18 18:18:00 18 /min [facility] [place] [facility] Body height 2023-06-18 18:18:00 165.1 cm [facility] [place] [facility] Body weight 2023-06-18 18:18:00 103.692 kg [facility] [place] [facility] BMI 2023-06-18 18:18:00 38.04 kg/m2 [facility] [place] [facility] Oxygen saturation in 2023-06-18 18:18:00 100 /min [facility] Arterial blood by [facility] Pulse oximetry Branch Systolic blood 2023-04-30 14:55:00 110 mm[Hg] Univer sity of pressure [place] [facility] Diastolic blood 2023-04-30 14:55:00 75 mm[Hg] Unive rsity of pressure [place] [facility] Heart rate 2023-04-30 14:55:00 96 /min [facility] [place] [facility] Body temperature 2023-04-30 14:55:00 36.56 [facility] [place] [facility] Respiratory rate 2023-04-30 14:55:00 16 /min [facility] [place] [facility] Body height 2023-04-30 14:55:00 165.1 cm [facility] [place] [facility] Body weight 2023-04-30 14:55:00 107.049 kg [facility] [place] [facility] Branch BMI 2023-04-30 14:55:00 39.27 kg/m2 [facility] Oxygen saturation in 2023-04-30 14:55:00 96 /min [facility] Arterial blood by [employer] rocío Pulse oximetry Branch Systolic blood 2022-07-14 13:38:00 122 mm[Hg] [facility] Diastolic blood 2022-07-14 13:38:00 82 mm[Hg] Unive [facility] Heart rate 2022-07-14 13:38:00 78 /min [facility] Oxygen saturation in 2022-07-14 13:38:00 97 /min [facility] Arterial blood by [facility] rocío Pulse oximetry Branch Systolic blood 2022-05-14 12:30:00 148 mm[Hg] [facility] Diastolic blood 2022-05-14 12:30:00 74 mm[Hg] Unive [facility] Heart rate 2022-05-14 12:30:00 67 /min [facility] Body temperature 2022-05-14 12:30:00 36.61 Ann [facility] Respiratory rate 2022-05-14 12:30:00 16 /min [facility] Oxygen saturation in 2022-05-14 12:30:00 95 /min [facility] Arterial blood by [facility] Pulse oximetry Branch Body weight 2022-05-12 21:44:00 130.182 kg [facility] BMI 2022-05-12 21:44:00 47.76 kg/m2 [facility] Systolic blood 2022-03-18 14:07:00 130 mm[Hg] [facility] Diastolic blood 2022-03-18 14:07:00 80 mm[Hg] [facility]ive [facility] Heart rate 2022-03-18 14:07:00 112 /min [facility] Body temperature 2022-03-18 14:07:00 36.94 Ann [facility] Respiratory rate 2022-03-18 14:07:00 19 /min [facility] Body height 2022-03-18 14:07:00 165.1 cm [facility] Body weight 2022-03-18 14:07:00 129.23 kg [facility] BMI 2022-03-18 14:07:00 47.41 kg/m2 [facility] Oxygen saturation in 2022-03-18 14:07:00 97 /min [facility] Arterial blood by [facility] Pulse oximetry Branch Systolic blood 2022-02-03 20:08:00 124 mm[Hg] [facility] Diastolic blood 2022-02-03 20:08:00 81 mm[Hg] [facility] Heart rate 2022-02-03 20:08:00 93 /min [facility] Body temperature 2022-02-03 20:08:00 36.78 Ann [facility] Respiratory rate 2022-02-03 20:08:00 17 /min [facility] Body height 2022-02-03 20:08:00 165.1 cm [facility] Body weight 2022-02-03 20:08:00 125.788 kg [facility] BMI 2022-02-03 20:08:00 46.15 kg/m2 [facility] Oxygen saturation in 2022-02-03 20:08:00 98 /min [facility]ial blood by [facility] [employer] [facility] rocío Pulse oximetry Branch Respiratory rate 2020-07-23 16:46:00 18 /min [facility] Oxygen saturation in 2020-07-23 16:46:00 97 /min [facility] [place] [facility] Pulse oximetry Branch Body height 2020-07-23 15:35:00 165.1 cm [facility] Body weight 2020-07-23 15:35:00 114.76 kg [facility] BMI 2020-07-23 15:35:00 42.10 kg/m2 [facility] Systolic blood 2020-07-23 13:09:00 133 mm[Hg] [facility] Diastolic blood 2020-07-23 13:09:00 86 mm[Hg] [facility] Heart rate 2020-07-23 13:09:00 104 /min [facility] Body temperature 2020-07-23 13:09:00 36.89 Ann [facility] Systolic blood 2020-07-19 17:55:00 110 mm[Hg] [facility] Diastolic blood 2020-07-19 17:55:00 60 mm[Hg] [facility] Respiratory rate 2020-07-19 17:55:00 16 /min [facility] Oxygen saturation in 2020-07-19 17:55:00 96 /min [facility] Arterial blood by [facility] rocío Pulse oximetry Branch Heart rate 2020-07-19 17:45:00 88 /min [facility] Body temperature 2020-07-19 16:20:00 36 Ann [facility] Body height 2020-07-19 13:38:00 165.1 cm [facility] Body weight 2020-07-19 13:38:00 114.9 kg [facility] BMI 2020-07-19 13:38:00 42.15 kg/m2 [facility] Systolic blood 2020-07-19 17:55:00 110 mm[Hg] [facility] Diastolic blood 2020-07-19 17:55:00 60 mm[Hg] [facility] Respiratory rate 2020-07-19 17:55:00 16 /min [facility] Oxygen saturation in 2020-07-19 17:55:00 96 /min [facility] Arterial blood by [facility] Pulse oximetry Branch Heart rate 2020-07-19 17:45:00 88 /min [facility] Body temperature 2020-07-19 16:20:00 36 Ann [facility] Body height 2020-07-19 13:38:00 165.1 cm [facility] Body weight 2020-07-19 13:38:00 114.9 kg [facility] BMI 2020-07-19 13:38:00 42.15 kg/m2 [facility] Body temperature 2020-06-25 14:28:00 36.67 Ann [facility] Body height 2020-06-25 14:28:00 165.1 cm [facility] Body weight 2020-06-25 14:28:00 114.851 kg [facility] BMI 2020-06-25 14:28:00 42.13 kg/m2 [facility] Body temperature 2020-06-25 14:28:00 36.67 Ann [facility] Body height 2020-06-25 14:28:00 165.1 cm [facility] Body weight 2020-06-25 14:28:00 114.851 kg [facility] BMI 2020-06-25 14:28:00 42.13 kg/m2 [facility] Respitory Rate 2019-09-08 20:46:00 Memori al [facility] Systolic (mm Hg) 2019-09-08 20:46:00 Dk rial Lance Diastolic (mm Hg) 2019-09-08 20:46:00 Mem orial [facility] Heart Rate 2019-09-08 20:46:00 [facility] [place] Respitory Rate 2019-09-08 20:30:00 [facility] [place] Systolic (mm Hg) 2019-09-08 20:30:00 Dk [facility] [place] Diastolic (mm Hg) 2019-09-08 20:30:00 Mem orial [place] Respitory Rate 2019-09-08 20:15:00 Memori al [facility] Systolic (mm Hg) 2019-09-08 20:15:00 Dk rial [place] Diastolic (mm Hg) 2019-09-08 20:15:00 Mem orial [facility] Height 2019-09-08 15:26:00 165.1 cm [facility] [place] Weight 2019-09-08 15:26:00 [facility] [place] BMI Calculated 2019-09-08 15:26:00 Memori [facility] Heart Rate 2019-09-08 15:26:00 [facility] Height 2019-09-06 21:49:00 165.1 cm [facility] [place] Weight 2019-09-06 21:49:00 [facility] [place] BMI Calculated 2019-09-06 21:49:00 [facility] [place] Procedures Procedure Date / Time Performing Clinician Source Performed TRANSTHORACIC ECHO (TTE) 2023-07-02 19:21:00 Jessica Gomez [facility] [place] CONSENT/REFUSAL FOR 2023-06-18 17:14:05 Doctor Unassigned, [facility] DIAGNOSIS AND TREATMENT [place] [facility] TROPONIN I 2022-05-14 13:12:00 Lul [facility] POCT GLUCOSE (AUTOMATED) 2022-05-14 12:55:00 Ashlie Barrios [facility] TROPONIN I 2022-05-14 09:21:00 Lul [facility] BASIC METABOLIC PANEL (NA, 2022-05-14 09:21:00 Dorita Duffy [facility] K, CL, CO2, GLUCOSE, BUN, Medica l Branch CREATININE, CA) N-TERMINAL PRO-BNP 2022-05-14 09:21:00 Fritz Alegria [facility] POCT GLUCOSE (AUTOMATED) 2022-05-14 07:10:00 Ashlie Barrios [facility] TROPONIN I 2022-05-14 04:53:00 Lul [facility] POCT GLUCOSE (AUTOMATED) 2022-05-14 02:13:00 Ashlie Barrios [facility] TROPONIN I 2022-05-14 01:05:00 Lul [facility] TROPONIN I 2022-05-13 21:42:00 Lul [facility] TROPONIN I 2022-05-13 17:19:00 Lul [facility] TRANSTHORACIC ECHO (TTE) 2022-05-13 15:01:00 Forrest Mccarty [facility] TROPONIN I 2022-05-13 13:19:00 Lul [facility] POCT GLUCOSE (AUTOMATED) 2022-05-13 12:35:00 Ashlie Barrios [facility] MAGNESIUM 2022-05-13 09:34:00 Lul [facility] TROPONIN I 2022-05-13 09:34:00 Lul [facility] COMP. METABOLIC PANEL 2022-05-13 09:34:00 Forrest Mccarty [facility] ([id number]) [facility] CBC WITH DIFF 2022-05-13 09:34:00 Lul [facility] N-TERMINAL PRO-BNP 2022-05-13 09:34:00 Forrest Mccarty [facility] TROPONIN I 2022-05-13 05:29:00 Lul fernando [facility] HB ECG ROUTINE & RHYTHM 2022-05-13 05:07:50 Forrest Mccarty [facility] CREATINE KINASE 2022-05-13 02:45:00 Lul [facility] TROPONIN I 2022-05-13 02:45:00 Lul [facility] IRON PANEL 2022-05-13 02:45:00 Lul [facility] PROTHROMBIN TIME / INR 2022-05-13 02:45:00 Forrest Mccarty [facility] PROCALCITONIN 2022-05-13 02:45:00 Lul [facility] CT CHEST PULMONARY 2022-05-13 01:54:51 Adum, Ashlie Holman [facility] ANGIOGRAM Medical Branch POCT GLUCOSE (AUTOMATED) 2022-05-13 01:14:00 Adum, Ashlie Menendez [facility] URINALYSIS 2022-05-13 00:26:00 [facility]W 2022-05-12 23:55:00 Adum, [facility] COVID-19 (ID NOW RAPID 2022-05-12 23:38:00 Adum, Ashlie Holman [facility] TESTING) Medical Branch LAB ONLY COVID 2022-05-12 23:38:00 [facility] & RHYTHM 2022-05-12 23:15:33 Adum, Ashlie Holman [facility] Medical [place] SGOT (ASPARTATE AMINO 2022-05-12 23:11:00 Adum, Ashlie Holman [facility] TRANSFER) Medical Branch CREATININE 2022-05-12 23:11:00 [facility] PHOS[facility]ORUS 2022-05-12 23:11:00 Lul [facility] ALANINE AMINO 2022-05-12 23:11:00 Adum, Ashlie Manda [facility] TRANSFERASE(SGPT Medical Branch LACTATE DEHYDROGENASE 2022-05-12 23:11:00 Adum, Ashlie [facility] URIC ACID 2022-05-12 23:11:00 Adum, [facility] MAGNESIUM 2022-05-12 23:11:00 Lul fernando [facility] FERRITIN SERUM 2022-05-12 23:11:00 Lul [facility] TROPONIN I 2022-05-12 23:11:00 Lul fernando [facility] THYROID STIMULATING 2022-05-12 23:11:00 Forrest Mccarty [facility] HORMONE [facility] Branch BASIC METABOLIC PANEL (NA, 2022-05-12 23:11:00 Forrest Mccarty [facility] K, CL, CO2, GLUCOSE, BUN, Medica Branch CREATININE, CA) LIPID PANEL ([id number])(TOTAL 2022-05-12 23:11:00 Forrest Mccarty [facility] CHOLESTEROL, [facility] TRIGLYCERIDES, HDL) SEDIMENTATION RATE 2022-05-12 23:11:00 Lul fernando [facility] CBC WITH DIFF 2022-05-12 23:11:00 Ashlie Barrios [facility] GLYCOSYLATED HEMOGLOBIN 2022-05-12 23:11:00 Lul [facility] (A1C) [facility] N-TERMINAL PRO-BNP 2022-05-12 23:11:00 Lul fernando [facility] CONSENT/REFUSAL FOR 2022-05-12 21:34:39 Doctor Unassigned, [facility] DIAGNOSIS AND TREATMENT [place] [facility] [id number] 2022-05-04 00:00:00 [facility] [id number] 2022-05-04 00:00:00 [facility] Clear [facility] POCT MOLECULAR STREP 2022-03-18 14:23:00 [facility] TEST 2020-07-23 08:03:00 Cira Anton [facility] HB ABO GROUPING 2020-07-23 07:37:00 Desean Cira [facility] COVID-19 (ID NOW RAPID 2020-07-23 07:35:00 Cira Anton [facility] TESTING) Medical Branch BASIC METABOLIC PANEL (NA, 2020-07-23 07:30:00 Nano Lou [facility] K, CL, CO2, GLUCOSE, BUN, Medica l Branch CREATININE, CA) CBC WITH DIFF 2020-07-23 07:30:[address] [facility] CONSENT/REFUSAL FOR 2020-07-19 13:15:11 Doctor Unassigned, Unive [facility] DIAGNOSIS AND TREATMENT [place] [facility] ASSIGNMENT OF BENEFITS 2020-07-19 13:00:57 [facility] [place] [facility] DAY SURGERY - [place] 2020-07-19 05:01:00 Doctor [facility], [facility] [place] [facility] DISCLOSURE AND CONSENT, 2020-06-25 05:01:00 Doctor Unassigned, U [facility] MEDICAL AND SURGICAL [place] [facility] PROCEDURES [id number] 2020-02-02 00:00:00 MAXBA [facility] [id number] 2020-02-02 00:00:00 MAXBA [facility] Cerclage [facility] section [facility] Cholecystectomy [facility] Cone biopsy of cervix [facility] Encounters Start End Encounter Admission Attending Care Care Encounter Source Date/Time Date/Time Type Type Clinicians Facility Department ID 2023-07-14 Inpatient Elective Justen [facility] Surgical [id number] [facility] 07:15:00 Dewayne Service 09 2022-05-03 Inpatient PAM SilveiraCL MEDI.01 [id number] [facility] 20:29:00 Julia [id number] [facility] 2021-07-26 Emergency [facility] [id number] Univers 01:11:30 [facility] 2021-07-26 Emergency [facility] [id number] Univers 01:10:30 [facility] 2021-07-25 Outpatient Nely LOVELACE [facility] DSU [id number] Univers 20:02:22 DOMINGO [facility] 2020-07-22 Inpatient HCAMN JOVANA [id number] [facility] 09:56:00 05 [facility] 2020-02-01 Inpatient PAM DelacruzCL LD [id number] [facility] 16:55:00 Anuj 60 [facility] 2023-07-14 2023-07-15 Inpatient Elective Justen, [facility] Surgical [id number] [facility] 07:15:00 13:37:[address] [facility] 09 2023-07-02 2023-07-02 Outpatient R [facility] [id number] Univers 13:55:11 23:59:[address] [facility] 2023-07-02 2023-07-02 Hospital [facility] 1.2.840.114 [id number] Univers 13:55:11 23:59:00 Encounter Jessica Holman STEFAN [id number] ity of [place] 4.2.7.2.686 [facility] [id number] [facility] 850 Branch 2023-06-18 2023-06-18 Office [facility] 1.2.840.114 [id number] Univers 13:00:00 13:30:00 Visit Jessica Holman ODALYSPEC [id number] ity of [place] 4.2.7.2.686 [facility] [id number] [facility] AND [address] [facility] 2023-06-18 2023-06-18 Outpatient R [facility] [id number] Univers 13:00:00 13:00:[address] [facility] 2023-06-18 2023-06-18 Orders Doctor VANESSA 1.2.840.114 [id number] Univers 00:00:00 00:00:00 Only Unassigned, KAREN [id number] ity of [place] [facility] 4.2.7.2.686 Jadon [id number] [facility] 009 Branch 2023-06-18 2023-06-18 Telephone [facility] [id number] Univers 00:00:00 00:00:00 Jessica Holman ODALYSPEC [id number] ity of [place] 4.2.7.2.686 [facility] [id number] [facility] AND [address] [facility] 2023-06-18 2023-06-18 Patient [facility] 1.2.840.114 [id number] Univers 00:00:00 00:00:00 Secure Msg Jessica Holman MULTISPEC [id number] it[place] [id number] [facility] AND [address] DIABETES CLINIC 2023-04-30 2023-04-30 [facility] [id number] Univers 10:00:00 10:46:57 JESSICA [facility] 2023-04-30 2023-04-[address] [facility] 1.2.840.114 [id number] Univers 10:00:00 10:46:57 Visit Jessica Holman [facility] 350.1.13.10 it y of [place].2.[place].2.686 [place] [id number] [address] OFFICE BUILDING 2023-03-26 2023-03-26 Outpatient R HENRY [facility] [id number] Univers 10:30:00 10:30:00 SINJU [facility] 2022-07-14 2022-07-14 Outpatient R ARNIE [facility] [id number] Univers 08:40:00 16:25:08 JESSICA [facility] 2022-07-14 2022-07-14 [facility] 1.2.840.114 [id number] Univers 08:40:00 16:25:08 Visit Jessica Holman [facility] [id number] i ty of [place] 4.2.7.2.686 [facility] [id number] Md dical [address] 2022-06-30 2022-06-30 Outpatient R RAJI [facility] [id number] Univers 14:00:00 14:00:00 SENDIL [facility] 2022-05-12 2022-05-14 Outpatient X MELLO [facility] MANUEL [id number] Univers 16:49:00 10:35:00 ASHLIE [facility] 2022-05-12 2022-05-14 Emergency Johanna Sultana [facility] 1.2.8 40.114 [id number] Univers 16:49:00 10:35:00 Ashlie [facility] [id number] ity [facility] 4.2.7.2.686 [facility] [id number] [facility] 083 Branch 2022-05-04 2022-05-07 Inpatient EM Maximos, HCACL OBPP [id number] [facility] 14:51:00 12:52:00 Anuj 13 [facility] 2022-05-04 2022-05-07 Inpatient EM Maximos, HCACL OBPP [id number] [facility] 14:51:00 12:52:00 Anuj [id number] [facility] 2022-04-13 2022-04-14 Emergency EM Garrison, HCACL GELA [id number] [facility] 21:27:00 00:23:00 Lani 90 [facility] 2022-04-13 2022-04-13 Emergency EM Maximos, HCACL [facility] [id number] [facility] 21:27:00 21:27:00 Anuj [id number] [facility] 2022-03-19 2022-03-19 Telephone VANESSA Randolph [id number] Univers 00:00:00 00:00:00 Aida JONES 350.1.13.10 i ty [facility] 4.2.7.2.686 Jadon as [id number] [facility] 019 Branch 2022-03-18 2022-03-18 Outpatient R JORDY [facility] [id number] Univers 09:00:00 09:50:[address] [facility] 2022-03-18 2022-03-18 Urgent Jordy, [facility] 1.2.840.114 [id number] Univers 09:00:00 09:20:00 Care [facility] [id number] it y of [place] 4.2.7.2.686 Jadon as KIKE?BLEA [id number] [address] MEDICAL OFFICE BUILDING 2022-02-03 2022-02-03 Urgent Wilda Hsieh [facility] 1.2.840.114 [id number] Univers 15:20:00 15:40:00 [facility] 350.1.13.10 ity of [place] 4.2.7.2.686 Jadon as KIKE?BLEA [id number] Md jas [facility] [address] MEDICAL OFFICE BUILDING 2022-02-03 2022-02-03 Outpatient R JORDY [facility] [id number] Univers 15:20:00 15:20:00 [facility]DA [facility] 2020-12-27 2020-12-27 [facility] [id number] Univers 09:40:00 09:40:00 MUNA [facility] 2020-12-17 2020-12-[address] [facility] 1.2.840.114 [id number] Univers 00:00:00 00:00:00 Outreach James MCDANIEL 350.1.13.10 i ty of [facility] 4.2.7.2.[place] [id number] Md jas [address] 2020-07-24 2020-07-24 Telephone [facility] 1.2.840.114 [id number] Univers 00:00:00 00:00:00 Domingo DENISE 350.1.13.10 i ty of [facility] [place].7.2.[place] [id number] [facility] [address] 2020-07-23 2020-07-23 [facility] 1.2.8 40.114 [id number] Univers 00:18:00 12:33:00 Enoc Wilder 350.1.13.10 ity of [facility] 4.2.7.2.686 Jadon as [id number] [facility] [address] [place] 2020-07-22 2020-07-22 Telephone [facility] 1.2.840.114 [id number] Univers 00:00:00 00:00:00 Domingo DENISE 350.1.13.10 i ty of [facility] [place].7.2.[place] [id number] [facility] [address] 2020-07-19 2020-07-19 [facility] Yani Lovelace [id number] 08:00:00 13:15:00 Encounter Domingo Jones 350.1.13.10 Hospital 4.2.7.2.686 [id number] [facility] 2020-07-19 2020-07-19 [facility] Yani Lovelace [id number] [facility] 08:00:00 13:15:00 Encounter Domingo Jones 350.1.13.10 ity of Hospital 4.2.7.2.686 Jadon as [id number] [facility] [address] 2020-07-19 2020-07-19 Orders Doctor VANESSA 1.2.840.114 [id number] Univers 00:00:00 00:00:00 Only Unassigned, KAREN 350.1.13.10 ity of [place] [facility] 4.2.7.2.686 Jadon as [id number] [address] 2020-07-16 2020-07-16 Letter VANESSA Hurt 1.2.840.114 [id number] 00:00:00 00:00:00 (Out) Deisy Montalvo KAREN 350.1.13.10 HOSPITAL 4.2.7.2.686 [id number] 2020-07-16 2020-07-16 Letter VANESSA Hurt 1.2.840.114 [id number] Univers 00:00:00 00:00:00 (Out) Deisy ALVAREZY 350.1.13.10 it y of HOSPITAL 4.2.7.2.686 Jadon as [id number] [facility] [address] [place] 2020-07-16 2020-07-16 Patient Doctor VANESSA 1.2.840.114 [id number] Univers 00:00:00 00:00:00 Secure Msg Unassigned, KAREN 350.1.13.10 ity of [place] [facility] 4.2.7.2.686 Jadon as [id number] [address] 2020-07-15 2020-07-15 Laboratory Only, Jadon [facility] 1.2.840.114 [id number] 10:33:00 10:48:00 Only Test HEALTH 350.1.13.10 [place] 4.2.7.2.686 [facility] [id number] Primary & 357 Specialty Care 2020-07-15 2020-07-15 Laboratory Only, Jadon Test [facility] 1.2.840. 114 [id number] Univers 10:33:00 10:48:00 Only Domingo Lovelace HEALTH 350.1.13.10 ity of [place] 4.2.7.[address] [place] [address] [id number] [facility] Primary & 357 Branch Specialty Care 2020-07-15 2020-07-15 Outpatient Nely ALBANIA [facility] [id number] Univers 10:30:00 10:30:[address] [facility] 2020-07-01 2020-07-[address] [facility] 1.2.840.114 [id number] 00:00:00 00:00:00 Domingo HEALTH 350.1.13.[address] [place] [address] [place] [address] [id number] Primary & 144 Specialty Care 2020-07-01 2020-07-[address] [facility] 1.2.840.114 [id number] Univers 00:00:00 00:00:00 Domingo HEALTH 350.1.13.10 it y of [place] 4.2.7.[address] [place] [address] [id number] [facility] Primary & 144 Branch Specialty Care 2020-06-25 2020-06-[address] [facility] 1.2.840.114 [id number] 09:21:31 14:48:47 Visit Domingo HEALTH 350.1.13.10 [place] [address] [place] [address] [id number] Primary & 144 Specialty Care 2020-06-25 2020-06-[address] [facility] 1.2.840.114 [id number] [address] [facility] 09:21:31 14:48:47 Visit [facility] [id number] it y of [place] [id number] [place] [address] [phone] [facility] 2020-06-25 2020-06-25 [facility] [id number] [facility] 09:30:00 09:30:[address] [facility] 2020-06-25 2020-06-25 Orders Doctor MENDEZ [id number] [facility] 00:00:00 00:00:00 Only Unassigned, KAREN 350.1.13.10 ity of [place] [facility] 4.2.7.2.686 Jadon as [phone] [address] 2020-04-27 2020-04-27 Outpatient REJI, PAMCL ADMI [id number] [facility] 11:34:00 11:34:00 [facility]NOT [facility] 2019-09-08 2019-09-09 [facility] [id number] [facility] 15:01:00 05:59:00 Surgery [facility] 00 [facility] 2019-09-08 2019-09-09 Day Critical access hospital [id number] [facility] 15:01:00 05:59:[address] 2019-09-08 2019-09-08 Outpatient Chey Perez [facility] [id number] 09:01:00 23:59:00 M 00 2019-09-08 2019-09-08 Outpatient [facility] 7500 [facility] 09:01:00 09:01:00 2019-07-13 2019-07-13 [facility] [id number] [facility] 13:30:00 15:18:41 SHELBY herrera o f [facility] Results Test Description Test Time Test Comments Results Result Comments Source Glucose Fingerstick 2023-07-14 12:19:00 Test Item Value Reference Range Interpretation Comme nts Glucose Fingerstick (test code = 189 mg/dL 70-115 CONCESSIONIST MARICRUZ Pughy WGLUC) ELIF or Glucose [id number] 10:06:00 Test Item Value Reference Range Interpretation Comments Glucose Fingerstick 175 mg/dL 70-115 CONCESSIONIST Nancie (test code = WGLUC) Boris Glucose [id number] 07:17:00 Test Item Value Reference Range Interpretation Comments Glucose Fingerstick 102 mg/dL 70-115 CONCESSIONIST [place] (test code = WGLUC) Eshiet XR chest [id number] 12:57:00 [facility] [address] [place], [place] [address] Patient Name: TARSHA DE LA TORRE Medical Record#: [id number] Address: [address] [place] [address] City/State/Zip: [place] [address]: Dewayne Campuzano MD Insurance: [employer] are /Age/Sex: 1985/37/F Self Pay Admit/Reg Date: 07/07/[address]: Dewayne Campuzano MD Location: [facility]/ PCP: PCP,UNKNOWN Date of Service: 07/09/23 Order (s): XR ch est 1V CPT Code: 32168 Report Number: [id number] Reason for Exam: PRE OP Location Code: D4 EXAMINATION: XR CHEST 1 VIEW CLINICAL INDICATION: Female, 37 years year old with PRE OP COMPARISON: None. FINDINGS: Single view(s) of the chest submitted. Support Devices: None. Heart: Cardiac silhouette is normal in size. Mediastinum: Mediastinal contours are normal. Lungs: Pulmonary vessels are normal in size. Suspected trace left pleural effusion or atelectasis/scarring. No other focal consolidation. Pleura: No pleural effusion is identified. No pneumothorax is present. Bones: Visualized skeleton is intact. IMPRESSION: Suspected trace left pleural effusion or atelectasis/scarring. No evidence of focalconsolidation. Electronically signed by: Hernesto Reddy MD 07/09/2023 12:55 PM CDT Dictated By: Hernesto Reddy MD 07/09/23 1236 Signed By: Hernesto Reddy MD 07/09/23 1257 TD/TT: 07/09/23 1236 Tech: TSM07 cc: BENEDICTO; PCPUNK* PCP,UNKNOWN ; JANUSZ [facility] Blood Count Auto Diff 2023-07-09 12:15:00 Test Item Value Reference Range Interpretation Comments White Blood Count (test code = 6.3 x10 3/uL 4.4-10.5 N WBCT) Red Blood Count (test code = 4.52 x10 6/uL 3.75-5.20 N RBC) Hemoglobin (test code = HGBT) 12.3 g/dL 12.2-14.8 N Hematocrit (test code = HCTT) 37.0 % 36.5-44.4 N Mean Corpuscular Volume (test 81.90 fL 80.00-100.00 N code = MCV) Mean Corpuscular Hemoglobin 27.2 pg 27.0-32.5 N (test code = MCH) Mean Corpuscular HGB Conc (test 33.20 g/dL 32.00-37.50 N code = MCHC) RDW Coefficient of Variation 12.8 % 11.5-14.5 N (test code = RDWCV) Platelet Count (test code = 272 x10 3/uL 140.0-440.0 N PLTT) Mean Platelet Volume (test code 8.9 fL = MPV) Immature Granulocytes % (Auto) 0.5 % 0.0-5.0 N (test code = IMMGRAN%) Neutrophils % (Auto) (test code 60.2 % 36.0-70.0 N = NE%) Lymphocytes % (Auto) (test code 30.0 % 12.0-44.0 N = LY%) Monocytes % (Auto) (test code = 7.3 % 0.0-11.0 N MO%) Eosinophils % (Auto) (test code 1.4 % 0.0-7.0 N = EO%) Basophils % (Auto) (test code = 0.6 % 0.0-2.0 N BA%) Immature Granulocytes # (Auto) 0.03 x10 3/uL (test code = IMMGRAN#) Neutrophils # (Auto) (test code 3.8 x10 3/uL 1.6-7.4 N = NE#) Lymphocytes # (Auto) (test code 1.89 x10 3/uL 0.50-4.60 N = LY#) Monocytes # (Auto) (test code = 0.46 x10 3/uL 0.00-1.20 N MO#) Eosinophils # (Auto) (test code 0.09 x10 3/uL 0.00-0.74 N = EO#) Basophils # (Auto) (test code = 0.04 x10 3/uL 0.00-0.21 N BA#) nRBC Abs (test code = NRBCA) 0 nRBC Pct (test code = NRBCP) 0 % Prothrombin Time [id number] 12:15:00 Test Item Value Reference Range Interpretation Comments Prothrombin Time 11.1 Seconds 9.3-12.1 N (test code = PT) INR (test code = 1.1 ratio 0.9-1.2 N Reference I nterval is INR) for non-anticoagula robert patients.Sugges robert INR Therapeutic Range for Vitamin K antogonistthera py:LEV ELS OFTHERAPY INDICATIONS TAR GET INR RANGEStanda rd Dose Venous Thrombosis, 2.0 - 3.0 Atrial Fibrilla tion, Pulmonary Embolism.High D ose Valvular Heart Disease, 2.5 - 3.5 Mechanical Hear t, Intracardiac Thrombosis. Partial Thromboplastin [id number] 12:15:00 Test Item Value Reference Range Interpretation Comments Partial Thromboplastin Time 30.9 Seconds 23.9-32.8 N (test code = PTT) HCG, Serum Qual (LAB)2023-07-09 12:15:00 Test Item Value Reference Range Interpretation Comments HCG, Serum Qual (LAB) (test code = Negative Negative HCGQ) Basic Metabolic [id number] 12:15:00 Test Item Value Reference Range Interpretation Comments SODIUM (test code = 137.0 mmol/L 136.0-145.0 N NA) Potassium,K (test 3.9 mmol/L 3.0-5.1 N code = K) Chloride (test code 107 mmol/L 98-107 N = CL) Carbon Dioxide (test 26 mmol/L 20-31 N code = CO2) Anion Gap (test code 4 mmol/L 5-15 L = GAP) Blood Urea Nitrogen 14 mg/dL 9-23 N (test code = BUN) Creatinine (test 0.68 mg/dL 0.55-1.02 N code = CREATT) Creatinine Clr Calc 137.10 mL/min Pharmacy (test code = CRCLPHA) Estimated Glomerular 116 See_Comment Reporte d eGFR is Filt Rate (test code based o n the CKD-EPI = EGFR.XX) 2020 equation thatdoes not us e a race coefficien t. Additional information can be found at:[email or web address] cb_eg fr_summary_[email or web address] r5.pd f ([email or web address]) [Automated mess age] The system Exhibition [employer] generated this result transmit robert reference range : >=90 ml/min/1.7 3m2. The reference r silvestre was not used to interpret this result as normal/abnormal . BUN/Creatinine Ratio 21 ratio 10-20 H (test code = BCRATIO) Glucose (test code = 105 mg/dL 74-106 N GLU) Osmolality,Calculate 284.0 d (test code = OSMOC) Calcium (test code = 9.2 mg/dL 8.3-10.6 N CA) Transthoracic echo (TTE)2023-07-02 21:22:05 Test Item Value Reference Range Interpretation Comments Height (test code = 65 in 6201836767) Weight (test code = 228 lbs 7026199882) Systolic BP (test code = 124 mmHg 4074207693) Diastolic BP (test code 74 mmHg = 9765545310) Heart Rate (test code = 103 bpm 6974891371) BSA (test code = 2.09 m2 3182429843) Ao root diam (test code 2.90 cm = 6011029667) Aortic root (test code = 2.9 cm 0169996900) Ao root annulus (test 2.9 cm code = 7154231120) LA size (test code = 3.8 cm 8690719172) LVIDD (test code = 4.20 cm 8015780574) Left Ventricular End 78.2 mL Diastolic Volume by Teichholz Method (test code = 8808285) IVS (test code = 1.04 cm 2037358352) Interventricular Septum 1.04 cm Diastolic Thickness by 2D (test code = 5101993) LVPWD (test code = 1.01 cm 7121682432) PW (test code = 1.01 cm 0.6-1.3 5895869465) EF(Teich) (test code = 57.60 % 3181068234) LVIDS (test code = 2.90 cm 7640666785) Left Ventricular End 33.1 mL Systolic Volume by Teichholz Method (test code = 5836845) FS (test code = 30 % 6745316691) EF - 2D (test code = 57.60 % 76048074) LVOT diameter (test code 2.02 cm = 6688041059) LVOT area (test code = 3.20 cm2 9692211016) MV Prop V (test code = 82.90 cm/s 7491145258) MV Peak E Nile (test code 68.7 cm/s = 5328099465) MV Peak A Nile (test code 79.7 cm/s = 9963101851) E/A ratio (test code = 0.86 ratio 4976621534) E wave decelartion time 0.11 s (test code = 5632628107) LAV(MOD-sp4) (test code 38.50 mL = 9360482932) Aortic valve mean 99.7 cm/s velocity (test code = 2717422605) Ao peak nile (test code = 138.4 cm/s 0933824313) Ao VTI (test code = 24.9 cm 2676120418) Ao max PG (test code = 7.70 mm[Hg] 7124213758) AV peak gradient (test 7.7 mmHg code = 6659549273) AV mean gradient (test 4.4 mmHg code = 3635996690) LVOT stroke volume (test 72.50 cm3 code = 3541115881) LVOT peak nile (test code 123.2 cm/s = 7304840063) LVOT mn grad (test code 2.7 mmHg = 6757261179) AV LVOT peak gradient 6.1 mmHg (test code = 7506667391) LVOT peak VTI (test code 22.6 cm = 7355055970) AV area by cont VTI 2.9 cm2 (test code = 5806135053) AV area peak nile (test 2.9 cm2 code = 9062856285) LV V1 mean (test code = 75.50 cm/s 7785394567) AV valve area (test code 2.90 cm2 = 5837953618) Tapse (test code = 1.97 cm 0416643496) Radiology Study observation (narrative) (test code = 02030-6) COLE (test code = COLE) ?Left?Ventricle: Left ventricle size is normal. Normal wall thickness. Normal wall motion. Normal systolic function with a visually estimated EF of 60 - 65%. Indeterminate diastolic function. ?Pericardium: No pericardial effusion. ?Tricuspid?Valve: Insufficient tricuspid regurgitation jet to estimate RVSP . ?RA pressure is 0-5 mmHg. Left VentricleLeft ventricle size is normal. Normal wall thickness. Normal wall motion. Normal systolic function with a visually estimated EF of 60 - 65%. Indeterminate diastolic function.Right VentricleRight ventricle size is normal. Normal systolic function.Left AtriumLeft atrium size is normal.Right AtriumRight atrium size is normal.IVC/SVCIVC diameter is less than or equal to 21 mm and decreases greater than 50% during inspiration; therefore the estimated right atrial pressure is normal (~0-5 mmHg).Mitral ValveMitral valve structure is normal. Trace transvalvular regurgitation.Tricusp id ValveTricuspid valve structure is normal. Trace transvalvular regurgitation. Insufficient tricuspid regurgitation jet to estimate RVSP . RA pressure is 0-5 mmHg.Aortic ValveAortic valve opens well.Pulmonic ValveNot well visualized. Trace transvalvular regurgitation.Ascendi ng AortaNormal sized aorta.PericardiumNo pericardial effusion.Study DetailsStudy quality was adequate. A complete echocardiogram was performed using 2D, color flow Doppler and spectral Doppler. The apical, parasternal and subcostal views were obtained. [facility] GLUCOSE (AUTOMATED)2022-05-14 13:19:04 Test Item Value Reference Range Interpretation Comments POCT GLU (test code = 8404453765) 151 mg/dL 70-110 H Lab Interpretation (test code = Abnormal 45937-9) [facility] GLUCOSE (AUTOMATED)2022-05-14 07:12:21 Test Item Value Reference Range Interpretation Comments POCT GLU (test code = 8719423155) 138 mg/dL 70-110 H Lab Interpretation (test code = Abnormal 84051-0) [facility] GLUCOSE (AUTOMATED)2022-05-14 02:16:08 Test Item Value Reference Range Interpretation Comments POCT GLU (test code = 0627744379) 99 mg/dL 70-110 Lab Interpretation (test code = Normal 95231-5) [facility] 17:18:18 Test Item Value Reference Range Interpretation Comments Height (test code = in 6163766627) Weight (test code = lbs 0958393564) Systolic BP (test code = mmHg 2161295130) Diastolic BP (test code mmHg = 1898004433) Heart Rate (test code = bpm 6862429465) BSA (test code = 2.31 m2 8703174136) Ao root annulus (test 3.1 cm code = 4233261154) Ao root diam (test code 3.10 cm = 1746679658) Aortic root (test code = 3.1 cm 5560477691) LVOT diameter (test code 2.01 cm = 0109620883) LVIDD (test code = 5.40 cm 0109665326) IVS (test code = 1.32 cm 0902702658) Interventricular Septum 1.32 cm Diastolic Thickness by 2D (test code = 3654377) LVPWD (test code = 1.33 cm 2203728976) PW (test code = 1.33 cm 0.6-1.3 6297508701) EF(Teich) (test code = 64.60 % 0221124590) LVIDS (test code = 3.50 cm 6880803781) FS (test code = 36 % 5717397725) EF - 2D (test code = 64.60 % 63867852) LA size (test code = 3.9 cm 8906833945) Pulmonic Regurgitant End 119.4 cm/s Max Velocity (test code = 0192194193) LAV(MOD-sp4) (test code 68.20 mL = 6859458387) E wave decelartion time 0.19 s (test code = 1684072380) MV Peak E Nile (test code 113.2 cm/s = 4279648633) MV stenosis pressure 1/2 58.2 ms time (test code = 8344965868) MV Peak A Nile (test code 101.2 cm/s = 9458894496) E/A ratio (test code = ratio 0964938812) MV Prop V (test code = 61.70 cm/s 7254463107) MV E/e' septal (test 10.9 cm/s code = 2438348323) Tapse (test code = 2.5 cm 7994147853) LVOT stroke volume (test 92.80 cm3 code = 8411182188) LVOT peak nile (test code 146.8 cm/s = 0392309530) LVOT mn grad (test code mmHg = 9714444552) AV LVOT peak gradient mmHg (test code = 3189006707) LVOT peak VTI (test code 29.4 cm = 2163628673) LV V1 mean (test code = 85.40 cm/s 2384247774) Aortic valve mean 139.0 cm/s velocity (test code = 0878964869) Ao peak nile (test code = 212.2 cm/s 5076064324) Ao VTI (test code = 42.9 cm 9290201961) AV area by cont VTI 2.2 cm2 (test code = 9961260465) AV area peak nile (test 2.2 cm2 code = 9209499830) Ao max PG (test code = 18.00 mm[Hg] 2129805056) AV peak gradient (test mmHg code = 5011012660) AV valve area (test code 2.16 cm2 = 8580150389) AV mean gradient (test mmHg code = 7294598486) Radiology Study observation (narrative) (test code = 09093-6) COLE (test code = COLE) Formatting of this result is different from the original. ?Left?Ventricle: Left ventricle size is normal. Normal wall thickness. Normal wall motion. Normal systolic function with a visually estimated EF of 60 - 65%. Indeterminate diastolic function. ?Tricuspid?Valve: Insufficient regurgant jet to estimate RVSP. ?RA pressure is 0-5 mmHg. ?Pericardium: Trivial pericardial effusion present. Left VentricleLeft ventricle size is normal. Normal wall thickness. Normal wall motion. Normal systolic function with a visually estimated EF of 60 - 65%. Indeterminate diastolic function.Right VentricleRight ventricle size is normal. Normal systolic function.Left AtriumLeft atrium size is normal.Right AtriumRight atrium size is normal. There is a prominent Eustachian valve.Mitral ValveMitral valve structure is normal. Trace transvalvular regurgitation.Tricusp id ValveTricuspid valve structure is normal. Trace transvalvular regurgitation. Insufficient regurgant jet to estimate RVSP. RA pressure is 0-5 mmHg.Aortic ValveAortic valve opens well.Pulmonic ValveNot well visualized. Mild transvalvular regurgitation.Ascendi ng AortaAorta is normal in size.PericardiumTrivi al pericardial effusion present.Study DetailsStudy quality was adequate. A complete echocardiogram was performed using 2D, color flow Doppler and spectral Doppler. [facility]22-[facility]13 12:47:19 Test Item Value Reference Range Interpretation Comments POCT GLU (test code = 7375910818) 178 mg/dL 70-110 H Lab Interpretation (test code = Abnormal 80397-5) [facility] [id number] 06:26:48 Test Item Value Reference Interpretation Comments Range TROPONIN I (test 0.006 ng/mL See_Comment [Automated code = 8088545075) message] The system which generated this result transmitted reference range : <=0.034. The reference range was not used to interpret this result as normal/abnormal . COLE (test code = Reference (Normal) COLE) Range (defined by the 99th percentile reference limit): <= 0.034 ng/mL Note: Cardiac troponin begins to rise 3-4 hours after the onset of ischemia. Repeat in 4-6 hours if the sample was drawn within 3-4 hours of the onset of the symptom and found normal. Diagnosis of myocardial injury is made with acute changes in cTn concentrations with at least one serial sample above the 99th percentile upper reference limit (URL), taken together with the patient's clinical presentation. Biotin has been reported to cause a negative bias, interpret results relative to patient's use of biotin. Lab Interpretation Normal (test code = 84868-6) [facility]ERR[facility]IN [id number] 01:57:20 Test Item Value Reference Range Interpretation Comments FERRITIN (test code = 46.4 ng/mL 6-137 0793273104) COLE (test code = COLE) Biotin has been reported to cause a negative bias, interpret results relative to patient's use of biotin. Lab Interpretation (test Normal code = 91244-9) [facility] HospitalGLYCOSYLATED [facility]EMOGLOBIN (A1C)2022-05-13 01:56:35 Test Item Value Reference Range Interpretation Comments HGB A1C (test code = 6.7 % 4-5.7 H 4548-4) COLE (test code = COLE) Reference RangesNormal: <5.7%Prediabetes: 5.7 - 6.4%Diabetes: > 6.5% Lab Interpretation (test Abnormal code = 19036-0) [facility] HospitalTHY[facility]ID STIMULATING [id number] 01:52:23 Test Item Value Reference Range Interpretation Comments TSH (test code = See_Comment [Automated message] 2554036303) The system Exhibition A generated this result transmitted ref erence range: 0.45 - 4 .70 mIU/L. The refe rence range was not u sed to interpret this result as normal/abnor mal. Lab Interpretation (test Normal code = 06564-2) [facility] HospitalSEDIMENTATION [id number] 01:38:29 Test Item Value Reference Range Interpretation Comments ESR (test code = See_Comment H [Automated message] 9618541653) The system [employer]hibition A generated this result transmitted ref erence range: 0 - 20 m m/HR. The reference r silvestre was not used to interpret this result as normal/abnor mal. Lab Interpretation (test Abnormal code = 37773-5) [facility]TR[facility] [id number] 01:34:20 Test Item Value Reference Interpretation Comments Range TROPONIN I (test 0.007 ng/mL See_Comment [Automated code = 3260146814) message] The system which generated this result transmitted reference range : <=0.034. The reference range was not used to interpret this result as normal/abnormal . COLE (test code = Reference (Normal) COLE) Range (defined by the 99th percentile reference limit): <= 0.034 ng/mL Note: Cardiac troponin begins to rise 3-4 hours after the onset of ischemia. Repeat in 4-6 hours if the sample was drawn within 3-4 hours of the onset of the symptom and found normal. Diagnosis of myocardial injury is made with acute changes in cTn concentrations with at least one serial sample above the 99th percentile upper reference limit (URL), taken together with the patient's clinical presentation. Biotin has been reported to cause a negative bias, interpret results relative to patient's use of biotin. Lab Interpretation Normal (test code = 79605-7) [facility] HospitalN-TERMINAL [id number] 01:31:17 Test Item Value Reference Range Interpretation Comments NT-proBNP (test code 436 pg/mL See_Comment H [Autom ated = 5956187786) message] The system which generated this result transmitted reference range : <=125. The reference range was not used to interpret this result as normal/abnormal . COLE (test code = COLE) Biotin has been reported to cause a negative bias, interpret results relative to patient's use of biotin. Lab Interpretation Abnormal (test code = 53378-4) [facility] HospitalLIPID PANEL (17152)(TOTAL CHOLESTEROL, TRIGLYCERIDES, HDL)2022-05-13 01:22:20 Test Item Value Reference Range Interpretation Comments CHOL (test code = 172 mg/dL 120-200 6100217133) HDL (test code = 35 mg/dL See_Comment L [Automated message] 2777303997) The system Exhibition A generated this result transmit robert reference range : >=50. The refer ence range was not u sed to interpret th is result as normal/abnormal . HDLC RATIO (test code = See_Comment H [Au tomated message] 9434517383) The system Exhibition A generated this result transmit robert reference range : <=4.5. The refe rence range was not u sed to interpret th is result as normal/abnormal . TRIG (test code = 322 mg/dL 30-170 H 6958812528) LDL CHOL (test code = 73 mg/dL See_Comment [Auto mated message] 67464-6) The system Exhibition A generated this result transmit robert reference range : <=160. The refe rence range was not u sed to interpret th is result as normal/abnormal . VLDL (test code = 64 mg/dL 5-60 H 7017983897) Lab Interpretation (test Abnormal code = 19769-6) [facility]UM2022-08-17 01:22:00 Test Item Value Reference Range Interpretation Comments MAGNESIUM (test code = 2072691458) 1.6 mg/dL 1.7-2.4 L Lab Interpretation (test code = Abnormal 21173-8) [facility] (NA, K, CL, CO2, GLUCOSE, BUN, CREATININE, CA)2022-05-13 01:22:00 Test Item Value Reference Range Interpretation Comments NA (test code = 139 mmol/L 135-145 2586565748) K (test code = 4.0 mmol/L 3.5-5 6887131428) CL (test code = 108 mmol/L 98-108 7650582346) CO2 TOTAL (test code 26 mmol/L 23-31 = 6156410501) AGAP (test code = 2-16 9612771317) BUN (test code = 16 mg/dL 7-23 8239378593) GLUCOSE (test code = 109 mg/dL 70-110 7466056502) CREATININE (test code 0.65 mg/dL 0.5-1.04 = 2808003410) CALCIUM (test code = 8.7 mg/dL 8.6-10.6 1120804279) eGFR (test code = mL/min/1.73m2 5344876313) COLE (test code = COLE) Association of Glomerular Filtration Rate (GFR) and Staging of Kidney Disease* + + +- +| GFR (mL/min/1.73 m2) ?| With Kidney Damage ?| ?Without Kidney Damage+ ------+ ----+ ------+| ?>90 ?| ?Stage one ?| ? Normal ?+ -+ + -+| ?60-89 ?| ?Stage two ?| ? Decreased GFR ? + + +- +| ?30-59 ?| ?Stage three ?| ? Stage three ? + + +- +| ?15-29 ?| ?Stage four ? | ? Stage four ?+ -+ + -+| ?<15 (or dialysis) ? ?| ?Stage five ? | ? Stage five ?+ -+ + -+ *Each stage assumes the associated GFR level has been in effect for at least three months. ?Stages 1 to 5, with or without kidney disease, indicate chronic kidney disease. Notes: Determination of stages one and two (with eGFR >59mL/min/1.73 m2) requires estimation of kidney damage for at least three months as defined by structural or functional abnormalities of the kidney, manifested by either:Pathological abnormalities or Markers of kidney damage (including abnormalities in the composition of the blood or urine or abnormalities in imaging tests). [facility]2022-[facility]-17 01:21:39 Test Item Value Reference Range Interpretation Comments PHOSPHORUS (test code = 9900552725) 4.1 mg/dL 2.5-5 Lab Interpretation (test code = Normal 03552-8) [facility]2022-05-13 01:16:45 Test Item Value Reference Range Interpretation Comments POCT GLU (test code = 7870521972) 134 mg/dL 70-110 H Lab Interpretation (test code = Abnormal 59411-1) [facility] HospitalCBC with [id number] 00:55:21 Test Item Value Reference Range Interpretation Comments WBC (test code = See_Comment [Automated 6690-2) message] The sy stem which generated this result transmitted reference range : 4.30 - 11.10 10*3/?L. The reference range was not used to interpret this result as normal/abnormal . RBC (test code = See_Comment L [Automated 789-8) message] The sy stem which generated this result transmitted reference range : 3.93 - 5.25 10*6/?L. The reference range was not used to interpret this result as normal/abnormal . HGB (test code = 7.6 g/dL 11.6-15 L 718-7) HCT (test code = 24.7 % 35.7-45.2 L 4544-3) MCV (test code = 81.8 fL 80.6-95.5 787-2) MCH (test code = 25.2 pg 25.9-32.8 L 785-6) MCHC (test code = 30.8 g/dL 31.6-35.1 L 786-4) RDW-SD (test code = 42.4 fL 39-49.9 35290-1) RDW-CV (test code = 14.7 % 12-15.5 788-0) PLT (test code = See_Comment H [Automated 777-3) message] The sy stem which generated this result transmitted reference range : 166 - 358 10*3/ ?L. The reference r silvestre was not used to interpret this result as normal/abnormal . MPV (test code = 9.6 fL 9.5-12.9 54149-6) NRBC/100 WBC (test See_Comment [Automat ed code = 0946431448) message] The system which generated this result transmitted reference range : 0.0 - 10.0 /100 WBCs. The refer ence range was not u sed to interpret th is result as normal/abnormal . NRBC x10^3 (test code See_Comment [Auto mated = 2389460395) message] The s ystem which generated this result transmitted reference range : 10*3/?L. The reference range was not used to interpret this result as normal/abnormal . SEG % (test code = 57 % 33-76 20159-1) BAND % (test code = 7 % 0-1 H 47591-1) LYMPH % (test code = 21 % 14-54 02759-6) MONO % (test code = 8 % 0-4 H 82072-9) EOS % (test code = 7 % 0-3 H 70267-6) ANC (test code = 5.38 10*3/uL 1.88-7.09 753-4) POLYCHROMASIA (test 2+ See_Comment [Automa robert code = 74659-2) message] The system which generated this result transmitted reference range : 2+. The referen ce range was not u sed to interpret th is result as normal/abnormal . TOXIC CHANGES (test Present A code = 803-7) Lab Interpretation Abnormal (test code = 11762-5) [facility]2022-[facility]-13 00:20:12 Test Item Value Reference Range Interpretation Comments LDH (test code = 9166769994) 404 U/L 120-246 H Lab Interpretation (test code = Abnormal 72840-1) [facility] Hospital[facility] Acid [id number] 00:19:52 Test Item Value Reference Range Interpretation Comments URIC ACID (test code = 6389392783) 5.2 mg/dL 2.9-6 Lab Interpretation (test code = Normal 20513-4) [facility] (Asparate Amino Transfer)2022-05-13 00:19:52 Test Item Value Reference Range Interpretation Comments AST(SGOT) (test code = 7821058618) 32 U/L 13-40 Lab Interpretation (test code = Normal 80306-6) [facility]o Transferase (SGPT)2022-05-13 00:19:52 Test Item Value Reference Range Interpretation Comments ALTv (test code = 1742-6) 37 U/L 5-35 H Lab Interpretation (test code = Abnormal 32642-2) [facility] HospitalCreatinine [id number] 00:19:32 Test Item Value Reference Range Interpretation Comments CREATININE (test code 0.66 mg/dL 0.5-1.04 = 3381974096) eGFR (test code = mL/min/1.73m2 8493682965) COLE (test code = COLE) Association of Glomerular Filtration Rate (GFR) and Staging of Kidney Disease* + + +- +| GFR (mL/min/1.73 m2) ?| With Kidney Damage ?| ?Without Kidney Damage+ ------+ ----+ ------+| ?>90 ?| ?Stage one ?| ? Normal ?+ -+ + -+| ?60-89 ?| ?Stage two ?| ? Decreased GFR ? + + +- +| ?30-59 ?| ?Stage three ?| ? Stage three ? + + +- +| ?15-29 ?| ?Stage four ? | ? Stage four ?+ -+ + -+| ?<15 (or dialysis) ? ?| ?Stage five ? | ? Stage five ?+ -+ + -+ *Each stage assumes the associated GFR level has been in effect for at least three months. ?Stages 1 to 5, with or without kidney disease, indicate chronic kidney disease. Notes: Determination of stages one and two (with eGFR >59mL/min/1.73 m2) requires estimation of kidney damage for at least three months as defined by structural or functional abnormalities of the kidney, manifested by either:Pathological abnormalities or Markers of kidney damage (including abnormalities in the composition of the blood or urine or abnormalities in imaging tests). [facility]2022-[facility] 14:11:00 Test Item Value Reference Range Interpretation Comments SURGICAL (test code = SR) R UN DATE: 05/06/22 [place] - LAB PAGE 1 RUN TIME: 1411 Specimen Inquiry RUN USER: INTERFACE P ATIENT: TARSHA SAUCEDO LOC: [place] U #: [id number] AGE/SX: 36/F ROOM: [facility] RE05/04/22REG DR: Anuj Mauricio MD : 86 BED: 1 DIS: STATUS: ADM IN TLOC: SPEC #: [id number] RECD: 05/05/22 STATUS: GORDY RE #: [id number] MARIANO: 05/04/22- SUBM DR: Anuj Mauricio MD ENTERED: 05/05/22 SP TYPE: SURGICAL OTHR DR: Julia Tineo MD ORDERED: 45417/2, 02443, ANATOMIC SPEC COPIES TO: Julia Tineo MD [address] [place] [address] Anuj Mauricio MD [address] [facility] [address] [place] [address] PROCEDURES: 18170 (05/05/22) 22009 (05/05/22) TISSUES: 2. FALLOPIAN TUBE NOS - BI LAT A. 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 Fallopian tube, left, tubal ligation: Complete cross-section of fallopian tube. Fallopian tube, right, tubal ligation: Complete cross-section of fallopian tube. GROSS DESCRIPTION Received in formalin labeled placenta is a 690 g 17 x 15 x 3.4 cm placenta. The fetalsurface is bluegray with winding vessels on the surface. The maternal surface is partiallydisrupted with adherent hemorrhage. The marginally inserted three-vessel umbilical cordmeasures 17 cm in length 1.2 cm in diameter with increased twisting. The membranes arethickened and cloudy. The parenchyma is beefy red without identified lesions. Submitted(A) membranes (B) umbilical cord (C)-(E) parenchyma. Received in formalin labeled left fallopian tube is a 2.1 cm in length 1.1 cm in diameterfallopian tube segment submitted (F). Received in formalin labeled right fallopian tube CONTINUED ON NEXT PAGE R UN DATE: 05/06/22 [place] - LAB PAGE 2 RUN TIME: 1411 Specimen Inquiry RUN USER: INTERFACE S PEC #: [id number] PATIENT: TARSHA SAUCEDO #[id number] (Continued) GROSS DESCRIPTION (Continued) segment is a 2.1 cm in length 1 cm in diameter fallopian tube segment (G). Technical component performed at [facility],[address] [place] [address], [place] [address] Unless gross only, the diagnosis is based upon microscopic examination.Immunohistochemistr y: This test was developed and its performance characteristicsdetermined by this laboratory. It has not been approved nor does it need approvalby the [place] FDA. Appropriate positive and negative controls are reviewed and judgedto be acceptable. This laboratory is certified under the Clinical Laboratory ImprovementAmendments (CLIA-88) as qualified to perform high complexity clinical laboratory testing. MICROSCOPIC DESCRIPTION Sections of the umbilical cord reveal three vessels without significant inflammation. Thefetal membranes are unremarkable. The surface of the placenta does not show asignificant inflammatory infiltrate. Maturation is appropriate for gestational age. The underlying maternal decidua beneath theplacenta contains a mixed inflammatory infiltrate. The bilateral fallopian tubes are seen in complete cross-section. CLINICAL INFORMATION IUP @ 36.3 ADRI, SUNI TYPE 2 Signed SIGNATURE ON FILE Damien Olson Tim NICOLE 05/06/22 1411 END OF REPORT COMPREHENSIVE METABOLIC [id number] 08:29:00 Test Item Value Reference Range Interpretation Comments SODIUM (test code = NA) 133 mEq/L 134-147 L POTASSIUM (test code = 4.7 mEq/L 3.4-5.0 K) CHLORIDE (test code = 106 mEq/L 100-108 N CL) CARBON DIOXIDE (test 22 mEq/l 21-33 N code = CO2) ANION GAP (test code = 10 0-20 N GAP) GLUCOSE (test code = 181 mg/dL 70-110 H GLU) BLOOD UREA NITROGEN 11 mg/dL 7-18 (test code = BUN) GLOMERULAR FILTRATION 81.6 105-110 L Units of measure = RATE (test code = GFR) ml/mi n/1.73 m2 CREATININE (test code = 0.8 mg/dL 0.6-1.3 CREAT) TOTAL PROTEIN (test 5.0 g/dL 6.4-8.2 L code = PROT) ALBUMIN (test code = 2.40 g/dL 3.4-5.0 L ALB) CALCIUM (test code = 8.5 mg/dL 8.0-10.5 N CA) BILIRUBIN TOTAL (test 0.30 mg/dL 0.0-1.0 N code = BILT) SGOT/AST (test code = 29 IUnit/L 15-37 N AST) SGPT/ALT (test code = 22 IUnit/L 30-65 L ALT) ALKALINE PHOSPHATASE 87 IUnit/L 20-125 N TOTAL (test code = ALKP) CBC W/AUTO [id number] 07:26:00 Test Item Value Reference Range Interpretation Comments WHITE BLOOD CELL (test code = 13.2 x10 3/uL 4.5-11.0 H WBC) RED BLOOD CELL (test code = 3.14 x10 6/uL 3.54-5.02 L RBC) HEMOGLOBIN (test code = HGB) 8.1 g/dL 11.0-15.0 L HEMATOCRIT (test code = HCT) 24.6 % 33.0-45.0 L MEAN CELL VOLUME (test code = 78.3 fL 81.0-99.0 L MCV) MEAN CELL HGB (test code = 25.8 pg 27.0-33.0 L MCH) MEAN CELL HGB CONCETRATION 32.9 g/dL 33.0-37.0 L (test code = MCHC) RED CELL DISTRIBUTION WIDTH CV 13.3 % 11.5-14.5 N (test code = RDW) RED CELL DISTRIBUTION WIDTH SD 37.5 fL 37.0-54.0 N (test code = RDW-SD) PLATELET COUNT (test code = 199 x10 3/uL 150-400 N PLT) MEAN PLATELET VOLUME (test 11.1 fL 7.0-9.0 H code = MPV) NEUTROPHIL % (test code = NT%) 77.0 % 56.0-77.0 N IMMATURE GRANULOCYTE % (test 0.9 % 0.0-2.0 N code = IG%) LYMPHOCYTE % (test code = LY%) 14.0 % 14.0-32.0 N MONOCYTE % (test code = MO%) 7.7 % 4.8-9.0 N EOSINOPHIL % (test code = EO%) 0.1 % 0.3-3.7 L BASOPHIL % (test code = BA%) 0.3 % 0.0-2.0 N NUCLEATED RBC % (test code = 0.0 % 0-0 N NRBC%) NEUTROPHIL # (test code = NT#) 10.19 x10 3/uL 2.0-7.6 H IMMATURE GRANULOCYTE # (test 0.12 x10 3/uL 0.00-0.03 H code = IG#) LYMPHOCYTE # (test code = LY#) 1.86 x10 3/uL 1.0-3.8 N MONOCYTE # (test code = MO#) 1.02 x10 3/uL 0.1-0.8 H EOSINOPHIL # (test code = EO#) 0.01 x10 3/uL 0.0-0.2 N BASOPHIL # (test code = BA#) 0.04 x10 3/uL 0.0-0.2 N NUCLEATED RBC # (test code = 0.00 x10 3/uL 0.0-0.1 N NRBC#) MANUAL DIFF REQUIRED (test NO code = MDIFF) RAPID PLASMA [id number] 11:17:00 Test Item Value Reference Range Interpretation Comments RAPID PLASMA REAGIN (test code = NONREACTIVE NONREACTIVE RPR) AG HEPATITIS B [id number] 11:17:00 Test Item Value Reference Range Interpretation Comments AG HEPATITIS B SURFACE NON REACTIVE INDEX NonReactive (test code = HBSAG) AB HIV 1 11:17:00 Test Item Value Reference Range Interpretation Comments AB HIV 1 2 (test code = WMA09HL) Nonreactive Nonreactive URINALYSIS [id number] 20:08:00 Test Item Value Reference Range Interpretation Comments UA COLOR (test code = COLU) YELLOW YEL/STRAW UA APPEARANCE (test code = APPU) CLEAR CLEAR UA GLUCOSE DIPSTICK (test code = NEGATIVE NEGATIVE DGLUU) UA BILIRUBIN DIPSTICK (test code NEGATIVE NEGATIVE = BILU) UA KETONE DIPSTICK (test code = 1+ NEGATIVE A KETU) UA SPECIFIC GRAVITY (test code = 1.019 1.005-1.030 N SGU) UA BLOOD DIPSTICK (test code = NEGATIVE NEGATIVE ARUNA) UA PH DIPSTICK (test code = ERIC) 6.0 5.0-7.0 N UA PROTEIN DIPSTICK (test code = 1+ NEGATIVE A PROU) UA UROBILINIOGEN DIPSTICK (test 2.0 mg/dL 0.2-1.0 A code = URO) UA NITRITE DIPSTICK (test code = NEGATIVE NEGATIVE MARK) UA LEUKOCYTE ESTERASE DIPSTICK NEGATIVE NEGATIVE (test code = LEUU) UA RBC (test code = RBCU) 0-3 RBC/HPF 0-3 UA WBC NO REFLEX (test code = 0-3 WBC/HPF 0-3 WBCUCL) UA BACTERIA (test code = BACU) TRACE /HPF NONE SEEN UA SQUAMOUS CELLS (test code = 0-5 /HPF NONE SEEN SQU) UA MUCUS (test code = MUCU) TRACE /LPF NONE SEEN UR PROTEIN/CREATININE [id number] 20:08:00 Test Item Value Reference Range Interpretation Comments UR PROTEIN RANDOM 63 mg/dL (test code = PROTU) UR CREATININE 98.4 mg/dL The Reference Range and RANDOM (test code Method Per formance = CREATU) specificationsh ave not been establishe d for this fluid. The test resultshould be correlated into the clinical contex t forinterpretati on. PROTEIN/CREATININE 0.64 RATIO (test code = P/CRATIO) COMPREHENSIVE METABOLIC [id number] 20:05:00 Test Item Value Reference Range Interpretation Comments SODIUM (test code = NA) 138 mEq/L 134-147 N POTASSIUM (test code = 3.9 mEq/L 3.4-5.0 N K) CHLORIDE (test code = 108 mEq/L 100-108 N CL) CARBON DIOXIDE (test 20 mEq/l 21-33 L code = CO2) ANION GAP (test code = 14 0-20 N GAP) GLUCOSE (test code = 73 mg/dL 70-110 N GLU) BLOOD UREA NITROGEN 8 mg/dL 7-18 N (test code = BUN) GLOMERULAR FILTRATION 140.4 105-110 H Units of measure = RATE (test code = GFR) ml/mi n/1.73 m2 CREATININE (test code = 0.5 mg/dL 0.6-1.3 L CREAT) TOTAL PROTEIN (test 6.4 g/dL 6.4-8.2 N code = PROT) ALBUMIN (test code = 3.10 g/dL 3.4-5.0 L ALB) CALCIUM (test code = 8.8 mg/dL 8.0-10.5 N CA) BILIRUBIN TOTAL (test 0.40 mg/dL 0.0-1.0 N code = BILT) SGOT/AST (test code = 22 IUnit/L 15-37 N AST) SGPT/ALT (test code = 22 IUnit/L 30-65 L ALT) ALKALINE PHOSPHATASE 112 IUnit/L 20-125 N TOTAL (test code = ALKP) URIC [id number] 20:05:00 Test Item Value Reference Range Interpretation Comments URIC ACID (test code = URIC) 5.6 mg/dL 2.6-7.2 N LACTIC DEHYDROGENASE(LDH)2022-05-03 20:05:00 Test Item Value Reference Range Interpretation Comments LACTIC DEHYDROGENASE(LDH) (test 187 IUnits/L 84-246 N code = LDH) CBC W/AUTO [id number] 19:48:00 Test Item Value Reference Range Interpretation Comments WHITE BLOOD CELL (test code = 8.6 x10 3/uL 4.5-11.0 N WBC) RED BLOOD CELL (test code = 4.18 x10 6/uL 3.54-5.02 N RBC) HEMOGLOBIN (test code = HGB) 10.8 g/dL 11.0-15.0 L HEMATOCRIT (test code = HCT) 32.9 % 33.0-45.0 L MEAN CELL VOLUME (test code = 78.7 fL 81.0-99.0 L MCV) MEAN CELL HGB (test code = MCH) 25.8 pg 27.0-33.0 L MEAN CELL HGB CONCETRATION 32.8 g/dL 33.0-37.0 L (test code = MCHC) RED CELL DISTRIBUTION WIDTH CV 13.2 % 11.5-14.5 N (test code = RDW) RED CELL DISTRIBUTION WIDTH SD 37.6 fL 37.0-54.0 N (test code = RDW-SD) PLATELET COUNT (test code = 228 x10 3/uL 150-400 N PLT) MEAN PLATELET VOLUME (test code 10.6 fL 7.0-9.0 H = MPV) NEUTROPHIL % (test code = NT%) 63.0 % 56.0-77.0 N IMMATURE GRANULOCYTE % (test 0.9 % 0.0-2.0 N code = IG%) LYMPHOCYTE % (test code = LY%) 24.7 % 14.0-32.0 N MONOCYTE % (test code = MO%) 9.6 % 4.8-9.0 H EOSINOPHIL % (test code = EO%) 1.3 % 0.3-3.7 N BASOPHIL % (test code = BA%) 0.5 % 0.0-2.0 N NUCLEATED RBC % (test code = 0.0 % 0-0 N NRBC%) NEUTROPHIL # (test code = NT#) 5.40 x10 3/uL 2.0-7.6 N IMMATURE GRANULOCYTE # (test 0.08 x10 3/uL 0.00-0.03 H code = IG#) LYMPHOCYTE # (test code = LY#) 2.12 x10 3/uL 1.0-3.8 N MONOCYTE # (test code = MO#) 0.82 x10 3/uL 0.1-0.8 H EOSINOPHIL # (test code = EO#) 0.11 x10 3/uL 0.0-0.2 N BASOPHIL # (test code = BA#) 0.04 x10 3/uL 0.0-0.2 N NUCLEATED RBC # (test code = 0.00 x10 3/uL 0.0-0.1 N NRBC#) MANUAL DIFF REQUIRED (test code NO = MDIFF) [id number] 23:13:00 Test Item Value Reference Range Interpretation Comments FIBRONECTIN (test code = FFN) NEGATIVE NEGATIVE URINALYSIS [id number] 22:31:00 Test Item Value Reference Range Interpretation Comments UA COLOR (test code = COLU) YELLOW YEL/STRAW UA APPEARANCE (test code = APPU) SL CLOUDY CLEAR UA GLUCOSE DIPSTICK (test code = 1+ NEGATIVE A DGLUU) UA BILIRUBIN DIPSTICK (test code NEGATIVE NEGATIVE = BILU) UA KETONE DIPSTICK (test code = 1+ NEGATIVE A KETU) UA SPECIFIC GRAVITY (test code = 1.020 1.005-1.030 N SGU) UA BLOOD DIPSTICK (test code = NEGATIVE NEGATIVE ARUNA) UA PH DIPSTICK (test code = ERIC) 6.0 5.0-7.0 N UA PROTEIN DIPSTICK (test code = 1+ NEGATIVE A PROU) UA UROBILINIOGEN DIPSTICK (test 0.2 mg/dL 0.2-1.0 code = URO) UA NITRITE DIPSTICK (test code = NEGATIVE NEGATIVE MARK) UA LEUKOCYTE ESTERASE DIPSTICK NEGATIVE NEGATIVE (test code = LEUU) UA RBC (test code = RBCU) 0-3 RBC/HPF 0-3 UA WBC NO REFLEX (test code = 0-3 WBC/HPF 0-3 WBCUCL) UA BACTERIA (test code = BACU) 1+ /HPF NONE SEEN A UA SQUAMOUS CELLS (test code = 6-10 /HPF NONE SEEN A SQU) UA CALCIUM OXALATE CRYSTALS (test 2+ /HPF NONE SEEN A code = CAOXU) UA MUCUS (test code = MUCU) TRACE /LPF NONE SEEN POCT MOLECULAR [id number] 14:30:37 Test Item Value Reference Range Interpretation Comments POCT Molecular Strep (test code = Negative Negative 98680-3) Lab Interpretation (test code = Normal 80542-2) [facility] - ONCE [id number] 08:18:24 Test Item Value Reference Range Interpretation Comments ABO & RH (test code O POSITIVE Performe d at [facility] = 20) Laboratory Serv [facility] s [id number] Free: [phone] A No. [id number] IAT (test code = Negative Performed a t [facility] 1185) Laboratory [facility] s [address]Rbld Free: [phone] A No. [id number] [facility] Metabolic Panel (NA, K, CL, CO2, GLUCOSE, BUN, CREATININE, CA)2020-07-23 08:06:00 Test Item Value Reference Range Interpretation Comments NA (test code = 136 mmol/L 135-145 9516035426) K (test code = 4.9 mmol/L 3.5-5 1195433014) CL (test code = 102 mmol/L 98-108 1687278358) CO2 TOTAL (test code = 24 mmol/L 23-31 2568458530) AGAP (test code = 2-16 4389847823) BUN (test code = 14 mg/dL 7-23 6923787775) GLUCOSE (test code = 197 mg/dL 70-110 H 6640153815) CREATININE (test code = 0.41 mg/dL 0.5-1.04 L 0086527233) CALCIUM (test code = 9.5 mg/dL 8.6-10.6 4257849673) eGFR Calculation mL/min/1.73m2 (Non-) (test code = 8684261030) eGFR Calculation mL/min/1.73m2 () (test code = 6426811235) COLE (test code = COLE) Association of Glomerular Filtration Rate (GFR) and Staging of Kidney Disease* + --+ --+ ------+| GFR (mL/min/1.73 m2) ?| With Kidney Damage ?| ?Without Kidney Damage+ --------+ --------+ +| ?>90 ?| ?Stage one ?| ? Normal ?+ ---+ ---+ -------+| ?60-89 ?| ?Stage two ?| ? Decreased GFR ? + --+ --+ ------+| ?30-59 ?| ?Stage three ?| ? Stage three ? + --+ --+ ------+| ?15-29 ?| ?Stage four ? | ? Stage four ?+ ---+ ---+ -------+| ?<15 (or dialysis) ? ?| ?Stage five ? | ? Stage five ?+ ---+ ---+ -------+ *Each stage assumes the associated GFR level has been in effect for at least three months. ?Stages 1 to 5, with or without kidney disease, indicate chronic kidney disease. Notes: Determination of stages one and two (with eGFR >59mL/min/1.73 m2) requires estimation of kidney damage for at least three months as defined by structural or functional abnormalities of the kidney, manifested by either:Pathological abnormalities or Markers of kidney damage (including abnormalities in the composition of the blood or urine or abnormalities in imaging tests). Lab Interpretation Abnormal (test code = 21022-5) [facility] HospitalPOCT [id number] 08:03:00 Test Item Value Reference Range Interpretation Comments POCT PREG (test code = 1605) Negative On board controls acceptable with Present C Line (test code = 3574) POCT PREG LOT # (test code = HCG 8064690 3575) POCT PREG TEST DATE (test 09/26/2021 code = 3576) Lab Interpretation (test code = Normal 68246-2) [facility] HospitalCOVID[facility] (ID NOW RAPID TESTING)2020-07-23 08:01:00 Test Item Value Reference Range Interpretation Comments SARS-CoV-2 Rapid ID NOW Not Detected Not Detected (test code = 23431-4) COLE (test code = COLE) ID NOW COVID-19 Assay is an isothermal nucleic acid amplification test intended for the qualitative detection of nucleic acid from SARS-CoV-2 viral RNA in nasopharyngeal (CHEMICAL PROCESS OPERATOR) specimens. It is used under Emergency Use Authorization (EUA) by FDA. The limit of detection (LOD) of the assay is 125 Genome Equivalents/mL. A positive result is indicative of the presence of SARS-CoV-2 RNA. ?Clinical correlation with patient history and other diagnostic information is necessary to determine patient infection status. A negative (Not Detected) result does not preclude SARS-CoV-2 infection. In patients with clinical symptoms and other tests that are consistent with SARS-CoV-2 infection, negative results should be treated as presumptive negative and a new specimen should be tested with alternative PCR molecular test. Invalid: Please collect a new specimen for repeat patient testing if clinically indicated. Lab Interpretation Normal (test code = 50592-8) [facility] HospitalCB with [id number] 07:37:00 Test Item Value Reference Range Interpretation Comments WBC (test code = See_Comment H [Automated 6608-2) message] The system which generated this result transmit robert reference range : 4.30 - 11.10 10*3/?L. The reference range was not used to interpret this result as normal/abnormal . RBC (test code = See_Comment [Automated 189-8) message] The system which generated this result transmit robert reference range : 3.93 - 5.25 10*6/?L. The reference range was not used to interpret this result as normal/abnormal . HGB (test code = 13.7 g/dL 11.6-15 718-7) HCT (test code = 39.7 % 35.7-45.2 4544-3) MCV (test code = 81.7 fL 80.6-95.5 787-2) MCH (test code = 28.2 pg 25.9-32.8 785-6) MCHC (test code = 34.5 g/dL 31.6-35.1 786-4) RDW-SD (test code = 36.6 fL 39-49.9 L 87403-8) RDW-CV (test code = 12.3 % 12-15.5 788-0) PLT (test code = See_Comment [Automated 777-3) message] The system which generated this result transmit robert reference range : 166 - 358 10*3/ ?L. The reference range was not u sed to interpret th is result as normal/abnormal . MPV (test code = 9.5 fL 9.5-12.9 55110-2) NRBC/100 WBC (test See_Comment [Automat ed code = 4153846445) message] The system which generated this result transmit robert reference range : 0.0 - 10.0 /100 WBCs. The reference range was not used to interpret this result as normal/abnormal . NRBC x10^3 (test code <0.01 See_Comment [Auto mated = 6505142121) message] The system which generated this result transmit robert reference range : 10*3/?L. The reference range was not used to interpret this result as normal/abnormal . GRAN MAT (NEUT) % 86.1 % (test code = 770-8) IMM GRAN % (test code 1.10 % = 1596053117) LYMPH % (test code = 10.6 % 736-9) MONO % (test code = 1.7 % 5905-5) EOS % (test code = 0.2 % 713-8) BASO % (test code = 0.3 % 706-2) GRAN MAT x10^3(ANC) 11.47 10*3/uL 1.88-7.09 H (test code = 8844976769) IMM GRAN x10^3 (test 0.15 10*3/uL 0-0.06 H code = 7697323080) LYMPH x10^3 (test code 1.42 10*3/uL 1.32-3.29 = 731-0) MONO x10^3 (test code 0.23 10*3/uL 0.33-0.92 L = 742-7) EOS x10^3 (test code = 0.03 10*3/uL 0.03-0.39 711-2) BASO x10^3 (test code 0.04 10*3/uL 0.01-0.07 = 704-7) Lab Interpretation Abnormal (test code = 40452-4) [facility] PLASMA [id number] 10:47:00 Test Item Value Reference Range Interpretation Comments RAPID PLASMA REAGIN (test code = NONREACTIVE NONREACTIVE RPR) AG HEPATITIS B [id number] 10:47:00 Test Item Value Reference Range Interpretation Comments AG HEPATITIS B SURFACE NON REACTIVE INDEX NonReactive (test code = HBSAG) AB HIV 1 10:47:00 Test Item Value Reference Range Interpretation Comments AB HIV 1 2 (test code = NONREACTIVE INDEX NONREACTIVE HVL10BN) [id number] 09:00:00 Test Item Value Reference Range Interpretation Comments GLUBED (test code = 110 MG/DL 70-110 N Performe d by certified GLUBED) automation operator at [facility] CBC W/AUTO [id number] 08:53:00 Test Item Value Reference Range Interpretation Comments WHITE BLOOD CELL (test code = 10.28 x10 3/uL 4.5-11.0 N WBC) RED BLOOD CELL (test code = 3.49 x10 6/uL 3.54-5.02 L RBC) HEMOGLOBIN (test code = HGB) 9.6 g/dL 11.0-15.0 L HEMATOCRIT (test code = HCT) 30.0 % 33.0-45.0 L MEAN CELL VOLUME (test code = 86.0 fL 81.0-99.0 N MCV) MEAN CELL HGB (test code = 27.5 pg 27.0-33.0 N MCH) MEAN CELL HGB CONCETRATION 32.0 g/dL 33.0-37.0 L (test code = MCHC) RED CELL DISTRIBUTION WIDTH CV 13.9 % 11.5-14.5 N (test code = RDW) RED CELL DISTRIBUTION WIDTH SD 43.5 fL 37.0-54.0 N (test code = RDW-SD) PLATELET COUNT (test code = 223 x10 3/uL 150-400 N PLT) MEAN PLATELET VOLUME (test 10.2 fL 7.0-9.0 H code = MPV) NEUTROPHIL % (test code = NT%) 70.5 % 56.0-77.0 N IMMATURE GRANULOCYTE % (test 1.0 % 0.0-2.0 N code = IG%) LYMPHOCYTE % (test code = LY%) 16.1 % 14.0-32.0 N MONOCYTE % (test code = MO%) 9.8 % 4.8-9.0 H EOSINOPHIL % (test code = EO%) 2.2 % 0.3-3.7 N BASOPHIL % (test code = BA%) 0.4 % 0.0-2.0 N NUCLEATED RBC % (test code = 0.0 % 0-0 N NRBC%) NEUTROPHIL # (test code = NT#) 7.24 x10 3/uL 2.0-7.6 N IMMATURE GRANULOCYTE # (test 0.10 x10 3/uL 0.00-0.03 H code = IG#) LYMPHOCYTE # (test code = LY#) 1.66 x10 3/uL 1.0-3.8 N MONOCYTE # (test code = MO#) 1.01 x10 3/uL 0.1-0.8 H EOSINOPHIL # (test code = EO#) 0.23 x10 3/uL 0.0-0.2 H BASOPHIL # (test code = BA#) 0.04 x10 3/uL 0.0-0.2 N NUCLEATED RBC # (test code = 0.00 x10 3/uL 0.0-0.1 N NRBC#) MANUAL DIFF REQUIRED (test NO code = MDIFF) COMPREHENSIVE METABOLIC [id number] 07:55:00 Test Item Value Reference Range Interpretation Comments SODIUM (test code = NA) 141 mEq/L 134-147 N POTASSIUM (test code = 4.5 mEq/L 3.4-5.0 N K) CHLORIDE (test code = 109 mEq/L 100-108 H CL) CARBON DIOXIDE (test 26 mEq/L 21-33 N code = CO2) ANION GAP (test code = 11 0-20 N GAP) GLUCOSE (test code = 92 mg/dL 70-110 N GLU) BLOOD UREA NITROGEN 9 mg/dL 7-18 N (test code = BUN) GLOMERULAR FILTRATION 183.8 105-110 H Units of measure = RATE (test code = GFR) ml/mi n/1.73 m2 CREATININE (test code = 0.4 mg/dL 0.6-1.3 L CREAT) TOTAL PROTEIN (test 5.3 g/dL 6.4-8.2 L code = PROT) ALBUMIN (test code = 2.10 g/dL 3.4-5.0 L ALB) CALCIUM (test code = 8.4 mg/dL 8.0-10.5 N CA) BILIRUBIN TOTAL (test 0.4 MG/DL <1.5 N code = BILT) SGOT/AST (test code = 19 IUnit/L 15-37 N AST) SGPT/ALT (test code = 21 IUnit/L 15-65 N ALT) ALKALINE PHOSPHATASE 57 IUnit/L 20-125 N TOTAL (test code = ALKP) RAPID PLASMA [id number] 22:04:00 Test Item Value Reference Range Interpretation Comments RAPID PLASMA REAGIN (test code = RPR) NONREACTIVE AG HEPATITIS B [id number] 22:04:00 Test Item Value Reference Range Interpretation Comments AG HEPATITIS B SURFACE NON REACTIVE INDEX NonReactive (test code = HBSAG) AB HIV 1 22:04:00 Test Item Value Reference Range Interpretation Comments AB HIV 1 2 (test code = NONREACTIVE INDEX NONREACTIVE [id number]) [id number] 21:29:00 Test Item Value Reference Range Interpretation Comments GLUBED (test code = 149 MG/DL 70-110 H Performe d by certified GLUBED) automation operator at [facility] [id number] 18:04:00 Test Item Value Reference Range Interpretation Comments GLUBED (test code = 106 MG/DL 70-110 N Performe d by certified GLUBED) automation operator at [facility] [id number] 14:19:00 Test Item Value Reference Range Interpretation Comments GLUBED (test code = 86 MG/DL 70-110 N Performe d by certified GLUBED) automation operator at [facility] CORD VENOUS BLOOD [id number] 13:42:00 Test Item Value Reference Range Interpretation Comments CORD VENOUS PH (test code = PHCV) 7.33 7.25-7.45 N CORD VENOUS PCO2 (test code = 43 mmHg 27-49 N PCO2CV) CORD VENOUS PO2 (test code = 32 mmHg 17-41 N PO2CV) CORD VENOUS HCO3 (test code = 22.6 MMOL/L 12-28 N HCO3CV) CORD VENOUS BASE EXCESS (test -3.0 mmol/L -8.0-0.00 N code = BEXCV) CORD VENOUS 02 SAT (test code = 57 % O2SCV) CORD ARTERIAL BLOOD [id number] 13:39:00 Test Item Value Reference Range Interpretation Comments CORD BLOOD PH (test code = PH/C) 7.15 7.18-7.38 LL CORD BLOOD PCO2 (test code = 73 mmHg 32-66 H PCO2/C) CORD BLOOD PO2 (test code = 13 mmHg 6-30 N PO2/C) CORD BLOOD HCO3 (test code = 26 mmol/L 17-27 N HCO3/C) BASE EXCESS CORD (test code = -3.0 mmol/L -8.0-0.0 N BISHOP/C) O2 SATURATION (test code = O2S/C) 9 % 72-77 L RAPID PLASMA [id number] 11:42:00 Test Item Value Reference Range Interpretation Comments RAPID PLASMA REAGIN (test code = RPR) NONREACTIVE AG HEPATITIS B [id number] 11:42:00 Test Item Value Reference Range Interpretation Comments AG HEPATITIS B SURFACE NON REACTIVE INDEX NonReactive (test code = HBSAG) AB HIV 1 11:42:00 Test Item Value Reference Range Interpretation Comments AB HIV 1 2 (test code = [id number]) INDEX NONREACTIVE CBC W/AUTO [id number] 11:09:00 Test Item Value Reference Range Interpretation Comments WHITE BLOOD CELL (test code = 10.10 x10 3/uL 4.5-11.0 N WBC) RED BLOOD CELL (test code = 4.06 x10 6/uL 3.54-5.02 N RBC) HEMOGLOBIN (test code = HGB) 11.2 g/dL 11.0-15.0 N HEMATOCRIT (test code = HCT) 34.0 % 33.0-45.0 N MEAN CELL VOLUME (test code = 83.7 fL 81.0-99.0 N MCV) MEAN CELL HGB (test code = 27.6 pg 27.0-33.0 N MCH) MEAN CELL HGB CONCETRATION 32.9 g/dL 33.0-37.0 L (test code = MCHC) RED CELL DISTRIBUTION WIDTH CV 13.8 % 11.5-14.5 N (test code = RDW) RED CELL DISTRIBUTION WIDTH SD 42.4 fL 37.0-54.0 N (test code = RDW-SD) PLATELET COUNT (test code = 235 x10 3/uL 150-400 N PLT) MEAN PLATELET VOLUME (test 9.6 fL 7.0-9.0 H code = MPV) NEUTROPHIL % (test code = NT%) 69.1 % 56.0-77.0 N IMMATURE GRANULOCYTE % (test 1.3 % 0.0-2.0 N code = IG%) LYMPHOCYTE % (test code = LY%) 20.0 % 14.0-32.0 N MONOCYTE % (test code = MO%) 7.2 % 4.8-9.0 N EOSINOPHIL % (test code = EO%) 2.0 % 0.3-3.7 N BASOPHIL % (test code = BA%) 0.4 % 0.0-2.0 N NUCLEATED RBC % (test code = 0.0 % 0-0 N NRBC%) NEUTROPHIL # (test code = NT#) 6.98 x10 3/uL 2.0-7.6 N IMMATURE GRANULOCYTE # (test 0.13 x10 3/uL 0.00-0.03 H code = IG#) LYMPHOCYTE # (test code = LY#) 2.02 x10 3/uL 1.0-3.8 N MONOCYTE # (test code = MO#) 0.73 x10 3/uL 0.1-0.8 N EOSINOPHIL # (test code = EO#) 0.20 x10 3/uL 0.0-0.2 N BASOPHIL # (test code = BA#) 0.04 x10 3/uL 0.0-0.2 N NUCLEATED RBC # (test code = 0.00 x10 3/uL 0.0-0.1 N NRBC#) MANUAL DIFF REQUIRED (test NO code = MDIFF) Coronavirus 2019 nCoV [id number] 10:49:00 Test Item Value Reference Range Interpretation Comments Coronavirus 2019 nCoV Bedside (test Negative Negative code = COVNONPUIBED) Acknowledged? [id number] 09:53:00 Test Item Value Reference Range Interpretation Comments GLUBED (test code = 91 MG/DL 70-110 N Performe d by certified GLUBED) automation operator at [facility] [id number] 08:00:00 Test Item Value Reference Range Interpretation Comments GLUBED (test code = 87 MG/DL 70-110 N Performe d by certified GLUBED) automation operator at [facility] [id number] 08:00:00 Test Item Value Reference Range Interpretation Comments GLUBED (test code = 79 MG/DL 70-110 N Performe d by certified GLUBED) automation operator at [facility] [id number] 08:00:00 Test Item Value Reference Range Interpretation Comments GLUBED (test code = 166 MG/DL 70-110 H Performe d by certified GLUBED) automation operator at [facility]"
--- NOTE | 2023-07-27 20:57 | RAD REPORT ---
EXAM DESCRIPTION: US - Extremity Nonvascular Complete - 07/27/2023 7:54 pm CLINICAL HISTORY: Drainage from wound COMPARISON: None. TECHNIQUE: Real-time sonographic evaluation of the upper abdominal wall, region of incision. FINDINGS: Subcutaneous swelling with heterogeneous hyperechoic subcutaneous fat signal underlying th e incision. A lobulated hypoechoic tract extends obliquely into the depth of the subcutaneous soft ti ssues, not reaching the underlying musculature, measuring 2.0 x 0.8 x 0.6 cm. Mild adjacent hypervasc ularity. IMPRESSION: Hypoechoic tract extends obliquely into the subcutaneous soft tissues, suggestive of a s inus tract, with adjacent mild inflammatory changes. No other suspicious fluid collections.
--- NOTE | 2023-07-27 21:16 | EDPHYS ---
Physician Documentation [facility] Name: Gracy Logan Age: 37 yrs Sex: Female : 1985 Arrival Date: 07/27/2023 Time: 18:40 Bed 10 Private MD: Desire Madera C ED Physician Jonah Long HPI: 07/27 20:00 This 37 yrs old Female presents to ER via Ambulatory with complaints of Wound Infection.cp 20:00 The patient presents with cellulitis of the abdomen, right side surgical incision. cp 20:00 Description: erythematous, discharge. Onset: The symptoms/episode began/occurred today. cp Associated signs and symptoms: Pertinent positives: discharge, erythema, Pertinent negatives: fever, vomiting. Severity of symptoms: in the emergency department the symptoms are unchanged, despite home interventions. Patient reports having gastric bypass surgery 2 weeks ago. Historical: - Allergies: 19:00 insulin humalin; hb 19:00 insulin humalog; hb 19:00 metformin; hb - PMHx: 19:00 HERPES; Hypertension; Sleep Apnea; Diabetes - NIDDM; hb - Immunization history:: Adult Immunizations up to date. - Social history:: Smoking status: Patient denies any tobacco usage or history of. ROS: 20:05 Constitutional: Negative for body aches, chills, fever, poor PO intake, cp 20:05 Respiratory: Negative for cough, shortness of breath, wheezing, cp 20:05 Abdomen/GI: Negative for abdominal pain, vomiting, diarrhea, constipation, 20:05 Skin: Positive for cellulitis, of the abdomen, 20:05 Neuro: Negative for altered mental status, headache, 20:05 All other systems are negative, Exam: 20:10 Constitutional: The patient appears in no acute distress, alert, awake, non-toxic, well cp developed, well nourished, overweight 20:10 Head/Face: Normocephalic, atraumatic. cp 20:10 Eyes: Periorbital structures: appear normal, Conjunctiva: normal, no exudate, no injection, Lids and lashes: appear normal, bilaterally, 20:10 ENT: External ear(s): are unremarkable, Nose: is normal, Mouth: Lips: moist, Oral mucosa: moist, Posterior pharynx: is normal, airway is patent, 20:10 Chest/axilla: Inspection: normal, 20:10 Cardiovascular: Rate: normal, 20:10 Respiratory: the patient does not display signs of respiratory distress, Respirations: normal, no use of accessory muscles, no retractions, 20:10 Abdomen/GI: Inspection: area of surrounding erythema noted to right surgical incision, small amount purulent material expressed, mild tenderness to palpation, 20:10 Neuro: Orientation: to person, place \T\ time. Mentation: is normal, Vital Signs: 18:58 BP 123 / 85; Pulse 93; Resp 16; Temp 98.1(TE); Pulse Ox 100% on R/A; Weight 95.25 kg; hb Height 5 ft. 5 in. ; Pain 1/10; 21:27 BP 122 / 87; Pulse 89; Resp 16; Pulse Ox 99% ; cp4 18:58 Body Mass Index 34.95 (95.25 kg, 165.1 cm) hb 18:58 Pain Scale: Adult hb MDM: 19:07 Patient medically screened. cp 21:15 Data reviewed: vital signs, nurses notes, radiologic studies, ultrasound. cp 21:15 Differential diagnosis: abscess, cellulitis, seroma. I considered the following cp discharge prescriptions or medication management in the emergency department Medications were administered in the Emergency Department. See MAR. Care significantly affected by the following chronic conditions: Diabetes. Counseling: I had a detailed discussion with the patient and/or guardian regarding the historical points, exam findings, and any diagnostic results supporting the discharge/admit diagnosis, radiology results, the need for outpatient follow up, surgery, to return to the emergency department if symptoms worsen or persist or if there are any questions or concerns that arise at home. 07/27 19:55 Order name: Extremity Nonvascular Complete; Complete Time: 21:09 EDNC 07/27 21:11 Interpretation: Report reviewed. cp Administered Medications: 21:27 Drug: Bactrim - Trimethoprim-Sulfamethoxazole PO (40mg - 200mg / 5mL) 4 tsp PO once cp4 Route: PO; Disposition Summary: 07/27/23 21:16 Discharge Ordered Notes: Location: Home cp Problem: new cp Symptoms: have improved cp Condition: Stable cp Diagnosis - Cellulitis of abdominal wall cp Followup: cp - With: Private Physician - When: 2 - 3 days - Reason: Wound Recheck Discharge Instructions: - Discharge Summary Sheet cp - Cellulitis, Adult cp Forms: - Medication Reconciliation Form cp - Thank You Letter cp - Antibiotic Education cp - Prescription Opioid Use cp - Patient Portal Instructions cp - Leadership Thank You Letter cp Prescriptions: - Zofran 4 mg Oral Tablet - take 1 tablet ORAL route every 12 hours As needed; 20 tablet; Refills: 0, cp Product Selection Permitted - sulfamethoxazole-trimethoprim 200-40 mg/5 mL Oral suspension - take 20 milliliter ORAL route every 12 hours for 10 days; 400 milliliter; cp Refills: 0, Product Selection Permitted Signatures: Dispatcher [employer] EDMS Jonah Hudson PA PA cp Karen Valdez, RN RN Norma Richardson cp4 Corrections: (The following items were deleted from the chart) 19:55 19:08 Abdomen Limited+.HUMAIRA ordered. EDNC EDMS
--- NOTE | 2023-07-27 21:16 | ER ---
Nurse's Notes [facility] Name: Gracy Logan Age: 37 yrs Sex: Female : 1985 Arrival Date: 07/27/2023 Time: 18:40 Bed 10 Private MD: Desire Madera C Diagnosis: Cellulitis of abdominal wall Presentation: 07/27 18:58 Chief complaint: Had gastric bypass [address] Dewayne Campuzano, concerned for hb infection of surgical site wounds, reports drainage and redness from site. Coronavirus screen: At this time, the client does not indicate any symptoms associated with coronavirus-19. Ebola Screen: No symptoms or risks identified at this time. Initial Sepsis Screen: Does the patient meet any 2 criteria? No. Patient's initial sepsis screen is negative. Does the patient have a suspected source of infection? No. Patient's initial sepsis screen is negative. Risk Assessment: Do you want to hurt yourself or someone else? Patient reports no desire to harm self or others. Onset of symptoms was July 27, 2023. 18:58 Method Of Arrival: Ambulatory hb 18:58 Acuity: ERNESTO 4 hb Historical: - Allergies: 19:00 insulin humalin; hb 19:00 insulin humalog; hb 19:00 metformin; hb - PMHx: 19:00 HERPES; Hypertension; Sleep Apnea; Diabetes - NIDDM; hb - Immunization history:: Adult Immunizations up to date. - Social history:: Smoking status: Patient denies any tobacco usage or history of. Screenin:00 [facility] ED Fall Risk Assessment (Adult) History of falling in the last 3 months, cp4 including since admission No falls in past 3 months (0 pts) Confusion or Disorientation No (0 pts) Intoxicated or Sedated No (0 pts) Impaired Gait No (0 pts) Mobility Assist Device Used No (0 pt) Altered Elimination No (0 pt) Score/Fall Risk Level 0 - 2 = Low Risk Oriented to surroundings, Maintained a safe environment, Educated pt \T\ family on fall prevention, incl call for assistance when getting out of bed, Hourly rounding (assess needs \T\ fall precautionary measures) done. Abuse screen: Denies threats or abuse. Nutritional screening: No deficits noted. Tuberculosis screening: No symptoms or risk factors identified. Assessment: 21:00 General: Appears in no apparent distress. Behavior is calm, cooperative, appropriate cp4 for age. Pain: Complains of pain in abdomen. Vital Signs: 18:58 BP 123 / 85; Pulse 93; Resp 16; Temp 98.1(TE); Pulse Ox 100% on R/A; Weight 95.25 kg; hb Height 5 ft. 5 in. ; Pain 1/10; 21:27 BP 122 / 87; Pulse 89; Resp 16; Pulse Ox 99% ; cp4 18:58 Body Mass Index 34.95 (95.25 kg, 165.1 cm) hb 18:58 Pain Scale: Adult hb ED Course: 18:45 Patient arrived in ED. im 18:45 Desire Madera MD is Private Physician. im 18:45 Constantine Madera MD is Private Physician. im 18:50 Jonah Hudson PA is PHCP. cp 18:50 Jonah Long MD is Attending Physician. cp 19:00 Triage completed. hb 19:01 Arm band placed on. hb 19:55 Extremity Nonvascular Complete In Process Unspecified. EDMS 21:00 Norma Richardson is Primary Nurse. cp4 21:00 Bed in low position. Call light in reach. Side rails up X 1. cp4 21:27 Provided Education on: wound infection. cp4 21:27 No provider procedures requiring assistance completed. Patient did not have IV access cp4 during this emergency room visit. Administered Medications: 21:27 Drug: Bactrim - Trimethoprim-Sulfamethoxazole PO (40mg - 200mg / 5mL) 4 tsp PO once cp4 Route: PO; Medication: 21:00 VIS not applicable for this client. cp4 Outcome: 21:16 Discharge ordered by MD. cp 21:27 Discharged to home ambulatory, cp4 21:27 Condition: stable 21:27 Discharge instructions given to patient, Instructed on discharge instructions, follow up and referral plans. medication usage, Demonstrated understanding of instructions, follow-up care, medications, Prescriptions given X 2, 21:33 Patient left the ED. cp4 Signatures: Dispatcher [employer] EDVA Jonah Hudson PA PA cp Baxter, Heather, RN RN Sheron Tello Norma Richardson cp4
[2023-07-27] MEDS ORDERED: SULFAMETH/TRIMETHOPRIM 200 MG/5 ML UDBOT ONE (21:34)
[2023-07-27 21:37] VITALS: TEMP 98.1
[2023-07-27 21:38] VITALS: BP 122/87; O2SAT 99
== END 2023-07-27 21:33 | disposition home or self-care (01) ==
LOC: ER 18:40
DX: L03.311 Cellulitis of abdominal wall (principal); Z98.84 Bariatric surgery status; Z88.8 Allergy status to other drugs, medicaments and biological substances
CPT/HCPCS: 76881; 99283

== ENCOUNTER 2025-02-09 07:22 | Emergency (ER) | payer BC ==
--- OUTSIDE RECORDS SUMMARY | 2025-02-09 07:30 | XMS REPORT | Continuity of Care Document ---
Author Name Unknown Address [address] [facility]. [address] [place] [address] [facility] Address [address] [facility]. [address] [place] [address] Care Team Providers Care Coat Joiner Name Role Phone PCP, UNKNOWN Primary Care Physician Unavailab Dewayne Newsome Attending Clinician Unavailable Julia Tineo Attending Clinician UnavailDOMINGO Lai Attending Clinician Unavailable Anuj Mauricio Attending Clinician UnavailGeetha Gottlieb Attending Clinician Doctor Unassigned, [place] Attending Clinician U navailable JESSICA GAITAN Attending Clinician Unavailable Arnie INTEGRATION SOLUTION ARCHITECT, Jessica Holman Attending Clinician [phone] FRITZ ALEGRIA Attending Clinician Unavaila justina FIGUEROA KAMRONPETR Attending Clinician Unavailable ASHLIE BARRIOS Attending Clinician Unavailable Johanna Sultana DO Attending Clinician [phone] Ashlie Barrios MD Attending Clinician [phone] Lani Garrison Attending Clinician Unavailable Agustín ASENCIO, Aida Ruth Attending Clinician Unavaila WILDA Rainey Attending Clinician Unavailable Jordy INTEGRATION SOLUTION ARCHITECT, Wilda Attending Clinician [phone] Margaret GIANG, Destiny Attending Clinician [phone] MUNA LIVINGSTON Attending Clinician Unavailable James Watson DO Attending Clinician [phone] Domingo Lovelace MD Attending Clinician [phone] Paradise Lou MD Attending Clinician [phone] Enoc Wilder MD Attending Clinician [phone] Licha ASENCIO, Deisy Montalvo Attending Clinician Unavailab le Only, Jadon Test Attending Clinician Unavailable KNOW, DOES_NOT Attending Clinician Unavailable SHELBY MENDOZA Attending Clinician Unavail able Dewayne Campuzano Admitting Clinician Unavailable Julia Tineo Admitting Clinician Unavaila DOMINGO Thomas Admitting Clinician Unavailable Anuj Mauricio Admitting Clinician UnavailJESSICA Ramirez Admitting Clinician Unavailable ASHLIE BARRIOS Admitting Clinician Unavailable Ashlie Barrios MD Admitting Clinician [phone] Enoc Wilder MD Admitting Clinician [phone] Domingo Lovelace MD Admitting Clinician [phone] Payers Payer Name Policy Type Policy Number Effective Date Expirati on Date Source [employer] MEDICAID [id number] 2019 00:00:00 [place] [id number] 2019 00:00:00 Problems Condition Name Condition Details Condition Category Status Onset Date Resolution Date Last Treatment Date Treating Clinician Comments Source Atypical chest pain Atypical chest pain Disease Active 05-13 00:00: 00 [facility] Elevated brain natriureti c peptide (BNP) level Elevated brain natriureti c peptide (BNP) level Disease Active 05-13 00:00: 00 [facility] Elevated brain natriureti c peptide (BNP) level Elevated brain natriureti c peptide (BNP) level Disease Active 05-13 00:00: 00 [facility] Severe pre-eclamp duyen, condition or complicati on Severe pre-eclamp duyen, condition or complicati on Disease Active 05-12 00:00: 00 [facility] SOB (shortness of breath) SOB (shortness of breath) Disease Active 05-12 00:00: 00 [facility] Anemia due to acute blood loss Anemia due to acute blood loss Disease Active 05-12 00:00: 00 Overview: Formattin g of this note might be different from the original. Post on 05/04 [facility] Tonsillar bleed Tonsillar bleed Disease Active 2019-09 0 00:00: 00 Overview: Formattin g of this note might be different from the original. Added automatic ally from request for surgery [id number] [facility] O09.299 O09.299 Active 08/31/2019 [facility] Diagnosis Active 2018-09 2 00:00: 00 2019-09-08 09:42:00 Derek Lucas UTI in UTI in Disease Active 2018-09 0 00:00: 00 Overview: Formattin g of this note might be different from the original. Pending silvia [facility] Diabetes mellitus complicati ng , antepartum Diabetes mellitus complicati ng , antepartum Disease Active 2018-09 0 00:00: 00 Overview: Formattin g of this note might be different from the original. Currently novolog on sliding scale [facility] Hypertensi on in , pre-existi ng, antepartum Hypertensi on in , pre-existi ng, antepartum Disease Active 2018-09 00:00: 00 Overview: Formattin g of this note might be different from the original. Currently on labetalol [facility] History of cerclage, currently History of cerclage, currently Disease Active 2018-09 00:00: 00 Overview: Formattin g of this note might be different from the original. With 2013 [facility] History of section History of section Disease Active 2018-09 00:00: 00 [facility] Multiparit y Multiparit y Disease Active 2018-09 00:00: 00 [facility] History of herpes genitalis History of herpes genitalis Disease Active 2018-09 00:00: 00 Overview: Formattin g of this note might be different from the original. suppressi on at 36 weeks [facility] Diabetes mellitus complicati ng , antepartum Diabetes mellitus complicati ng , antepartum Disease Active 2018-09 00:00: 00 Overview: Formattin g of this note might be different from the original. Currently novolog on sliding scale [facility] Cervical dysplasia Cervical dysplasia Disease Active 11-25 00:00: 00 Overview: Formattin g of this note might be different from the original. 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 Problem Active 2019-09-10 23:35:57 Derek Lucas Diabetes mellitus (disorder) Diabetes mellitus (disorder) Active Problem 09/10/2019 [facility] Problem Active 2019-09-10 23:35:57 Derek Lucas Hypertensi ve disorder, systemic arterial (disorder) Hypertensi ve disorder, systemic arterial (disorder) Active Problem 09/10/2019 [facility] Problem Active 2019-09-10 23:35:57 Derek Lucas STEPHANIE (obstructi ve sleep apnea) STEPHANIE (obstructi ve sleep apnea) Disease Active Overview: Formattin g of this note might be different from the original. on BIPAP [facility] GERD (gastroeso phageal reflux disease) GERD (gastroeso phageal reflux disease) Disease Active [facility] Tobacco use in Tobacco use in Disease Active [facility] Asthma Asthma Disease Active [facility] Obesity in Obesity in Disease Resolve d 2018-0917 00:00: 00 2022-05-12 00:00:00 2022-05-12 19:07:09 [facility] Encounter for contracept girma management , unspecifie d type Encounter for contracept girma management , unspecifie d type Disease Resolve d 01-17 00:00: 00 2019-07-13 00:00:00 2019-07-13 14:18:58 [facility] Encounter for Nexplanon removal Encounter for Nexplanon removal Disease Resolve d 01-17 00:00: 00 2019-07-13 00:00:00 2019-07-13 14:19:01 [facility] Diabetes mellitus type 2, uncontroll ed, without complicati ons Diabetes mellitus type 2, uncontroll ed, without complicati ons Disease Resolve d 8-15 00:00: 00 2019-07-13 00:00:00 2022-04-12 00:19:14 Overview: Formattin g of this note might be different from the original. ICD10 Diagnosis Term Button Puncher Utility [facility] Morbid obesity Morbid obesity Disease Resolve d 2019-07-13 00:00:00 2019-07-13 14:19:44 [facility] Essential hypertensi on, benign Essential hypertensi on, benign Disease Resolve d 2019-07-13 00:00:00 2019-07-13 14:19:33 [facility] Allergies, Adverse Reactions, Alerts Allergy Name Allergy Type Status Severity Reaction(s) Onset Date Inactive Date Treating Clinician Comments Source hydrocod one DA Active U Hives 2023-1 0-18 00:00: 00 [facility] acetamin ophen DA Active U Hives 1 0-18 00:00: 00 [facility] metformi n DA Active U Vomiting 1 0-18 00:00: 00 [facility] insulin lispro DA Active U Hives 1 0-18 00:00: 00 [facility] insulin regular DA Active U Hives 1 0-18 00:00: 00 [facility] metformi n DA Active U Vomiting 2022-09 0-13 00:00: 00 [facility] insulin lispro DA Active U Hives 1 0-13 00:00: 00 [facility] insulin regular DA Active U Hives 2022-09 0-13 00:00: 00 [facility] hydrocod one DA Active U Hives 2022-09 0-13 00:00: 00 [facility] acetamin ophen DA Active U Hives 2022-09 0-13 00:00: 00 [facility] METFORMI N DRUG INGREDI Active Med Diarrhea 2021-09 0-18 00:00: 00 [facility] Metformi n Propensi ty to adverse reaction s Active Nausea and/or Vomiting 2021-09 0-18 00:00: 00 [facility] insulin lispro DA Active MO HIVES 2021-0 8-07 00:00: 00 [facility] insulin isophane (NPH) DA Active MO HIVES 2021-0 8-07 00:00: 00 [facility] insulin regular DA Active MO HIVES 2-0 8-07 00:00: 00 [facility] insulin lispro DA Active MO HIVES 2021-0 7-18 00:00: 00 [facility] insulin isophane (NPH) DA Active MO HIVES 2019-1 0-26 00:00: 00 [facility] insulin regular DA Active MO HIVES 2019-1 0-26 00:00: 00 [facility] insulin isophane (NPH) DA Active MO 2019-1 0-26 00:00: 00 [facility] insulin regular DA Active MO 2019-1 0-26 00:00: 00 [facility] INSULIN LISPRO DRUG INGREDI Active Rash 2013-09 00:00: 00 [facility] INSULIN NPH ISOPH U-100 HUMAN DRUG Active Rash 2013-09 00:00: 00 [facility] INSULIN REGULAR HUMAN DRUG Active Rash 2013-09 00:00: 00 [facility] Insulin Lispro Propensi ty to adverse reaction s Active Rash 2013-09 00:00: 00 [facility] Insulin Nph Isoph U-100 Human Propensi ty to adverse reaction s Active Rash 2013-09 00:00: 00 [facility] Insulin Regular Human Propensi ty to adverse reaction s Active Rash 2013-09 00:00: 00 [facility] insulin lispro DA Active U 2013-09 00:00: 00 [facility] insulin isophane (NPH) DA Active U 2013-09 00:00: 00 [facility] insulin regular DA Active U 2013-09 00:00: 00 [facility] insulin lispro DA Active U BRUISE, RASH 2013-09 00:00: 00 [facility] insulin isophane (NPH) DA Active U RASH, BRUISE 2013-09 00:00: 00 [facility] insulin regular DA Active U RASH, BRUISE 2013-09 00:00: 00 [facility] HumaLOG HumaLOG Active Derek Lucas HumuLIN N HumuLIN N Active Memoria lena Lucas Social History Social Habit Start Date Stop Date Quantity Comments Source History of tobacco use 1999-07-13 00:00:00 Cigarette Smoker [facility] ASSERTION [facility] History of Social function 2023-06-18 00:00:00 2023-06-18 00:00:00 [facility] Alcohol intake 2023-04-30 00:00:00 2023-04-30 00:00:00 Current non-drinker of alcohol (finding) [facility] Exposure to SARS-CoV-2 (event) 2022-07-04 00:00:00 2022-07-14 08:20:00 Not sure [facility] Social History 2019-09-06 21:47:11 2019-09-06 21:47:11 [facility] Cigarettes smoked current (pack per day) - Reported 2011-10-13 00:00:00 2011-10-13 00:00:00 [facility] Cigarette pack-years 2011-10-13 00:00:00 2011-10-13 00:00:00 [facility] Tobacco use and exposure 2011-10-13 00:00:00 2011-10-13 00:00:00 Smokeless tobacco non-user [facility] Tobacco Comment 2011-10-13 00:00:00 2011-10-13 00:00:00 10/13/2011 -cut back to 4 cigarettes daily [facility] Alcoholic beverage intake 2011-10-13 00:00:00 2011-10-13 00:00:00 Current non-drinker of alcohol (finding) [facility] Sex assigned at 1985 00:00:00 1985 00:00:00 [facility] Smoking Status Start Date Stop Date Source Smokes tobacco daily 2011-10-13 00:00:00 [facility] Medications Ordered Medication Name Filled Medication Name Start Date Stop Date Current Medication? Ordering Clinician Indication Dosage Frequency Signature (SIG) Comments Components Source lisdexamfet amine (VYVANSE) 40 mg capsule 04-30 10:23: 27 04-30 00:00 :00 No 40mg Take 40 mg by mouth every morning. [facility] fenofibrate (TRICOR) 145 mg tablet 04-30 00:00: 00 Yes 145mg Take 1 tablet by mouth in the morning. [facility] semaglutide (OZEMPIC) 1 mg/dose (2 mg/1.5 mL) PnIj 04-30 00:00: 00 Yes inject under the skin. [facility] dextroamphe tamine-amph etamine (MYDAYIS) 12.5 mg CT24 04-30 00:00: 00 Yes Take by mouth. [facility] aspirin 81 mg chewable tablet 2021-09 08:59: 28 07-14 00:00 :00 No 81mg Take 81 mg by mouth daily. [facility] amitriptyli ne 100 mg tablet 2021-09 08:58: 36 07-14 00:00 :00 No 100mg Take 100 mg by mouth daily. [facility] Fenofibrate 160 mg tablet 2021-09 08:57: 31 07-14 00:00 :00 No Take by mouth daily. [facility] labetalol HCl (LABETALOL ORAL) 2021-09 08:56: 30 07-14 00:00 :00 No Take by mouth. [facility] lisinopriL 40 mg tablet 2021-09 08:33: 27 Yes 40mg Take 40 mg by mouth in the morning. [facility] dapaglifloz in (FARXIGA) 10 mg tablet 2021-09 00:00: 00 Yes 10mg Take 1 tablet by mouth in the morning. [facility] labetalol HCl (LABETALOL ORAL) 05-14 10:35: 04 Yes Take by mouth. [facility] Fenofibrate 160 mg tablet 05-14 10:35: 04 Yes Take by mouth daily. [facility] lisdexamfet amine (VYVANSE) 40 mg capsule 05-14 10:35: 04 Yes 40mg Take 40 mg by mouth every morning. [facility] amitriptyli ne 100 mg tablet 05-14 10:35: 04 Yes 100mg Take 100 mg by mouth daily. [facility] aspirin 81 mg chewable tablet 05-14 10:35: 04 Yes 81mg Take 81 mg by mouth daily. [facility] pioglitazon e (ACTOS) 30 mg tablet 05-14 08:58: 21 05-14 00:00 :00 No 30mg Take 30 mg by mouth daily. [facility] insulin aspart Soln injection 05-14 08:58: 21 05-14 00:00 :00 No inject under the skin before meals. [facility] dapaglifloz in (FARXIGA) 10 mg tablet 05-14 08:58: 21 05-14 00:00 :00 No Take by mouth daily. [facility] amLODIPine 5 mg tablet 05-14 00:00: 00 07-14 00:00 :00 No [id number] 5mg Take 1 tablet by mouth in the morning. [facility] butalbital- acetaminoph en-caff 50-325-40 mg tablet 05-14 00:00: 00 07-14 00:00 :00 No [id number] 1{tbl} Take 1 tablet by mouth every 4 (four) hours as needed (headaches ). [facility] ferrous sulfate 325 mg (65 mg iron) tablet 05-14 00:00: 00 07-14 00:00 :00 No [id number] 325mg Take 1 tablet by mouth in the morning and 1 tablet in the evening. [facility] glipiZIDE 5 mg tablet 05-14 00:00: 00 07-14 00:00 :00 No [id number] 2.5mg Take 0.5 tablets by mouth 2 (two) times daily before breakfast and dinner. [facility] magnesium sulfate in water for injection 20 gram/500 mL (4 %) IV infusion 05-13 17:15: 00 05-14 05:14 :00 No 2g/h 2 g/hr (50 mL/hr), IV Infusion, CONTINUOUS , Starting on Wed05/13/22 at 1215, Until Wed05/14/22 at 0014, SOM [facility] furosemide (LASIX) injection 20 mg 05-13 15:00: 00 05-13 15:03 :00 No 20mg 20 mg, Slow IV Push, ONCE, 1 dose, On Wed05/13/22 at 1000, Routine [facility] KCL (KLOR-CON M20) tablet 40 mEq 05-13 15:00: 00 05-13 15:04 :00 No 40meq 40 mEq, Oral, ONCE, 1 dose, On Wed05/13/22 at 1000, Routine [facility] amLODIPine (NORVASC) tablet 5 mg 05-13 14:00: 00 Yes 5mg 5 mg, Oral, DAILY, First dose on Wed05/13/22 at 0900, Until Discontinu ed, Routine [facility] D5W 0.45% NaCl (1/2NS) IV infusion 1,000 mL 05-13 13:15: 00 Yes 1000mL at 75 mL/hr, 1,000 mL, IV Infusion, CONTINUOUS , Starting on Wed05/13/22 at 0815, Until Discontinu ed, Routine [facility] ferrous sulfate tablet 325 mg 05-13 13:00: 00 Yes 325mg 325 mg, Oral, TID MEALS, First dose on Wed05/13/22 at 0800, Until Discontinu ed, Routine [facility] glipiZIDE (GLUCOTROL) tablet 2.5 mg 05-13 12:30: 00 Yes 2.5mg 2.5 mg, Oral, BIDAC, First dose on Wed05/13/22 at 0730, Until Discontinu ed, Routine [facility] acetaminoph en (TYLENOL) tablet 650 mg 05-13 05:26: 29 Yes 650mg 650 mg, Oral, Q6HPRN, Starting on Wed05/13/22 at 0026, Until Discontinu ed, Routine, Alternate with ibuprofen for pain scale 4-6 [facility] ibuprofen (IBU) tablet 600 mg 05-13 05:26: 29 Yes 600mg 600 mg, Oral, Q6HPRN, Starting on Wed05/13/22 at 0026, Until Discontinu ed, Routine, Pain (scale 4-6) [facility] aspirin chewable tablet 81 mg 05-13 02:45: 00 Yes 81mg 81 mg, Oral, QAM WITH BREAKFAST, First dose on Wed05/12/22 at 2145, Until Discontinu ed, Routine [facility] labetaloL (NORMODYNE) tablet 200 mg 05-13 02:45: 00 Yes 200mg 200 mg, Oral, Q6H, First dose on Wed05/12/22 at 2145, Until Discontinu ed, Routine [facility] furosemide (LASIX) injection 20 mg 05-13 02:00: 00 05-13 02:13 :00 No 20mg 20 mg, Slow IV Push, ONCE, 1 dose, On Wed05/12/22 at 2100, Routine [facility] iopamidol (ISOVUE 370-500 mL) injection 60 mL 05-13 01:47: 00 05-13 01:48 :00 No [id number] 60mL 60 mL, Intravenou s, ONCE, 1 dose, On Wed05/12/22 at 2100, Routine [facility] D5W 0.45% NaCl (1/2NS) IV infusion 1,000 mL 05-12 23:00: 00 05-13 01:10 :26 No 1000mL at 75 mL/hr, 1,000 mL, IV Infusion, CONTINUOUS , Starting on Wed05/12/22 at 1800, Until Wed05/12/22 at 2010, SOM [facility] magnesium sulfate in water for injection 20 gram/500 mL (4 %) IV infusion 05-12 23:00: 00 05-13 10:59 :00 No 2g/h 2 g/hr (50 mL/hr), IV Infusion, CONTINUOUS , Starting on Wed05/12/22 at 1800, Until Wed05/13/22 at 0559, SOM [facility] butalbital- acetaminoph en-caff (ESGIC) 50-325-40 mg tablet 1 tablet 05-12 22:54: 04 Yes 1{tbl} 1 tablet, Oral, Q4HPRN, Starting on Wed05/12/22 at 1754, Until Discontinu ed, Routine, headaches [facility] calcium gluconate 100 mg/mL (10%) injection 1,000 mg 05-12 22:50: 12 Yes 1000mg 1,000 mg, Slow IV Push, PRN - SEE INSTRUCTIO NS, Starting on Wed05/12/22 at 1750, Until Discontinu ed, Routine, magnesium toxicity [facility] magnesium sulfate 4 mEq/mL (50 %) injection 32.48 mEq 05-12 22:50: 12 Yes 4g 32.48 mEq (4 g), Slow IV Push, PRN - SEE INSTRUCTIO NS, Starting on Wed05/12/22 at 1750, Until Discontinu ed, Routine, For seizure activity (patient not on magnesium sulfate) [facility] magnesium sulfate 4 mEq/mL (50 %) injection 16.24 mEq 05-12 22:50: 12 Yes 2g 16.24 mEq (2 g), Slow IV Push, PRN - SEE INSTRUCTIO NS, 2 doses, Starting on Wed05/12/22 at 1750, Until Discontinu ed, Routine, For seizure activity (patient already on magnesium sulfate) [facility] insulin aspart Soln injection 02-03 15:11: 54 Yes inject under the skin before meals. [facility] aspirin 81 mg chewable tablet 02-03 15:11: 54 Yes 81mg Take 81 mg by mouth daily. [facility] vit/iron fum/folic ac (RIGHT STEP VITAMINS ORAL) 02-03 15:11: 54 Yes Take by mouth. [facility] labetalol HCl (LABETALOL ORAL) 02-03 15:09: 38 Yes Take by mouth. [facility] neomycin-po lymyxin-hyd rocortisone otic solution 02-03 00:00: 00 05-14 00:00 :00 No [id number] 3[drp] Place 3 Drops in right ear 4 (four) times daily. [facility] LEVEMIR FLEXTOUCH U-100 INSULN 100 unit/mL (3 mL) injection 4- 00:00: 00 05-14 00:00 :00 No INJECT 30 UNITS UNDER THE SKIN EVERY MORNING AND 35 UNITS UNDER THE SKIN EVERY EVENING. [facility] NOVOLOG FLEXPEN U-100 INSULIN 100 unit/mL (3 mL) injection 01-20 00:00: 00 05-14 00:00 :00 No INJECT 50 TO 60 UNITS UNDER THE SKIN THREE TIMES DAILY. [facility] atorvastati n (LIPITOR) tablet 40 mg 2019-09 02:00: 00 Yes 40mg 40 mg, Oral, QHS, First dose on Wed07/23/20 at 2100, Until Discontinu ed, Routine [facility] oxyCODONE-a cetaminophe n (PERCOCET) 5-325 mg per tablet 2019-09 00:00: 00 07-14 00:00 :00 No [id number] 1{tbl} Take 1 tablet by mouth every 6 (six) hours as needed for Pain (scale 7-10). Indication s: acute pain [facility] pioglitazon e (ACTOS) 30 mg tablet 2019-09 17:33: 16 Yes 30mg Take 30 mg by mouth daily. [facility] labetalol HCl (LABETALOL ORAL) 2019-09 17:33: 16 Yes Take by mouth. [facility] insulin aspart Soln injection 2019-09 17:33: 16 Yes inject under the skin before meals. [facility] Fenofibrate 160 mg tablet 2019-09 17:33: 16 Yes Take by mouth daily. [facility] lisdexamfet amine (VYVANSE) 40 mg capsule 2019-09 17:33: 16 Yes 40mg Take 40 mg by mouth every morning. [facility] dapaglifloz in (FARXIGA) 10 mg tablet 2019-09 17:33: 16 Yes Take by mouth daily. [facility] amitriptyli ne 100 mg tablet 2019-09 17:33: 16 Yes 100mg Take 100 mg by mouth daily. [facility] aspirin 81 mg chewable tablet 2019-09 17:33: 16 Yes 81mg Take 81 mg by mouth daily. [facility] LANSOPRAZOL E ORAL 2019-09 17:33: 16 Yes 15mg Take 15 mg by mouth daily. [facility] lisinopriL (PRINIVIL,Z ESTRIL) tablet 10 mg 2019-09 14:00: 00 Yes 10mg 10 mg, Oral, DAILY, First dose on Wed07/23/20 at 0900, Until Discontinu ed, Routine [facility] fenofibrate micronized (LOFIBRA) capsule 134 mg 2019-09 14:00: 00 Yes 134mg 134 mg, Oral, DAILY, First dose on Wed07/23/20 at 0900, Until Discontinu ed [facility] docusate (COLACE) capsule 100 mg 2019-09 13:00: 00 Yes 100mg 100 mg, Oral, BID, First dose on Wed07/23/20 at 0800, Until Discontinu ed, Routine [facility] heparin (porcine) injection 5,000 Units 2019-09 13:00: 00 Yes 5000U 5,000 Units, Subcutaneo us, Q12H, First dose on Wed07/23/20 at 0800, Until Discontinu ed, Routine [facility] pioglitazon e (ACTOS) 30 mg tablet 2019-09 12:33: 16 Yes 30mg Take 30 mg by mouth daily. [facility] Fenofibrate 160 mg tablet 2019-09 12:33: 16 Yes Take by mouth daily. [facility] lisdexamfet amine (VYVANSE) 40 mg capsule 2019-09 12:33: 16 Yes 40mg Take 40 mg by mouth every morning. [facility] dapaglifloz in (FARXIGA) 10 mg tablet 2019-09 12:33: 16 Yes Take by mouth daily. [facility] amitriptyli ne 100 mg tablet 2019-09 12:33: 16 Yes 100mg Take 100 mg by mouth daily. [facility] LANSOPRAZOL E ORAL 2019-09 12:33: 16 Yes 15mg Take 15 mg by mouth daily. [facility] HYDROcodone -acetaminop hen (HYCET) 7.5-325 mg/15 mL solution 5 mg 2019-09 12:15: 00 07-23 11:14 :00 No 5mg 5 mg, Oral, ONCE, 1 dose, Wed07/23/20 at 0715, Routine, PACU [facility] dexamethaso ne (DECADRON PHOSPHATE) 4 mg in NaCl 0.9% (NS) piggyback 2019-09 11:00: 00 Yes 4mg 4 mg, IV Piggyback, Q6H, First dose on Wed07/23/20 at 0600, Until Discontinu ed, 50 mL [facility] lactated ringers IV infusion 1,000 mL 2019-09 10:00: 00 Yes 1000mL at 42 mL/hr, 1,000 mL, IV Infusion, CONTINUOUS , Starting Wed07/23/20 at 0500, Until Discontinu ed, Routine, PACU [facility] HYDROmorpho ne (DILAUDID) injection 0.2 mg 2019-09 09:54: 27 Yes .2mg 0.2 mg, Slow IV Push, Q5MIN PRN, 10 doses, Starting Wed07/23/20 at 0454, Until Discontinu ed, Routine, Pain (scale 7-10), PACU
Us e approved by (Faculty): PACU USE -ANESTHESI A SERVICE-HY DROMORPHON E INJECTIONS [facility] ondansetron (ZOFRAN (PF)) injection 4 mg 2019-09 09:54: 27 Yes 4mg 4 mg, Slow IV Push, PRN, 1 dose, Starting Wed07/23/20 at 0454, Until Discontinu ed, Routine, Nausea and Vomiting (N/V), PACU [facility] FENTanyl PF (SUBLIMAZE (PF)) injection 25 mcg 2019-09 09:54: 27 07-23 10:20 :00 No 25ug 25 mcg, Slow IV Push, Q5MIN PRN, 4 doses, Starting Wed07/23/20 at 0454, Until Wed07/23/20 at 0520, Routine, Pain (scale 4-6), PACU [facility] NaCl 0.9% (NS) IV infusion 1,000 mL 2019-09 09:45: 00 Yes 1000mL at 150 mL/hr, IV Infusion, CONTINUOUS , Starting Wed07/23/20 at 0445, Until Discontinu ed, Routine [facility] morpHINE injection 2 mg 2019-09 09:36: 13 07-25 08:35 :13 No 2mg 2 mg, Slow IV Push, Q4HPRN, Starting Wed07/23/20 at 0436, Until Mildred 07/25/20 at 0335, Routine, Pain (scale 4-6), Pain (scale 7-10) [facility] oxyCODONE-a cetaminophe n (PERCOCET) 5-325 mg per tablet 1 tablet 2019-09 09:35: 07 Yes [id number] 1{tbl} 1 tablet, Oral, Q4HPRN, Starting Wed07/23/20 at 0435, Until Discontinu ed, Routine, Pain (scale 4-6) [facility] ondansetron (ZOFRAN (PF)) injection 4 mg 2019-09 09:34: 09 Yes 4mg 4 mg, Slow IV Push, Q6HPRN, Starting Wed07/23/20 at 0434, Until Discontinu ed, Routine, Nausea and Vomiting (N/V) [facility] naloxone (NARCAN) injection 0.4 mg 2019-09 09:34: 09 Yes .4mg 0.4 mg, Slow IV Push, PRN - SEE INSTRUCTIO NS, Starting Wed07/23/20 at 0434, Until Discontinu ed, Routine, Sedation/R espiratory Depression , See admin instructio ns. [facility] oxymetazoli ne (OXYMETAZOL INE HCL) 0.05 % nasal spray 2019-09 09:00: 00 Yes PRN, Starting Wed07/23/20 at 0400, Until Discontinu ed, Routine, Intra-op [facility] methylPREDN ISolone (MEDROL, EVER,) 4 mg tablets 2019-09 00:00: 00 05-14 00:00 :00 No [id number] Take by mouth SEE-INSTRU CTIONS. follow package directions [facility] pioglitazon e (ACTOS) 30 mg tablet 2019-09 18:36: 38 Yes 30mg Take 30 mg by mouth daily. [facility] labetalol HCl (LABETALOL ORAL) 2019-09 18:36: 38 Yes Take by mouth. [facility] insulin aspart Soln injection 2019-09 18:36: 38 Yes inject under the skin before meals. [facility] Fenofibrate 160 mg tablet 2019-09 18:36: 38 Yes Take by mouth daily. [facility] lisdexamfet amine (VYVANSE) 40 mg capsule 2019-09 18:36: 38 Yes 40mg Take 40 mg by mouth every morning. [facility] dapaglifloz in (FARXIGA) 10 mg tablet 2019-09 18:36: 38 Yes Take by mouth daily. [facility] amitriptyli ne 100 mg tablet 2019-09 18:36: 38 Yes 100mg Take 100 mg by mouth daily. [facility] aspirin 81 mg chewable tablet 2019-09 18:36: 38 Yes 81mg Take 81 mg by mouth daily. [facility] LANSOPRAZOL E ORAL 2019-09 18:36: 38 Yes 15mg Take 15 mg by mouth daily. [facility] HYDROcodone -acetaminop hen (NORCO 5) 5-325 mg tablet 1 tablet 2019-09 16:30: 00 07-19 17:12 :00 No 1{tbl} 1 tablet, Oral, ONCE, 1 dose, Wed07/19/20 at 1130, Routine, PACU [facility] labetaloL (NORMODYNE) injection 5 mg 2019-09 16:25: 14 Yes 5mg 5 mg, Slow IV Push, Q5MIN PRN, 2 doses, Starting Wed07/19/20 at 1125, Until Discontinu ed, Routine, For HTN SBP>160 or DBP>90 and HR>80. Treat pain to less than 5/10 first, PACU [facility] HYDROmorpho ne (DILAUDID) injection 0.2 mg 2019-09 16:25: 14 Yes .2mg 0.2 mg, Slow IV Push, Q5MIN PRN, 10 doses, Starting Wed07/19/20 at 1125, Until Discontinu ed, Routine, Pain (scale 7-10), PACU
Us e approved by (Faculty): PACU USE -ANESTHESI A SERVICE-HY DROMORPHON E INJECTIONS [facility] ondansetron (ZOFRAN (PF)) injection 4 mg 2019-09 16:25: 14 Yes 4mg 4 mg, Slow IV Push, PRN, 1 dose, Starting Wed07/19/20 at 1125, Until Discontinu ed, Routine, Nausea and Vomiting (N/V), PACU [facility] FENTanyl PF (SUBLIMAZE (PF)) injection 25 mcg 2019-09 16:25: 14 07-19 17:21 :00 No 25ug 25 mcg, Slow IV Push, Q5MIN PRN, 4 doses, Starting Wed07/19/20 at 1125, Until Wed07/19/20 at 1221, Routine, Pain (scale 4-6), PACU [facility] bacitracin 500 unit/g ointment pkt 2019-09 15:58: 00 Yes PRN, Starting Wed07/19/20 at 1058, Until Discontinu ed, Routine, Intra-op [facility] oxyCODONE-a cetaminophe n (PERCOCET) 5-325 mg per tablet 2019-09 00:00: 00 07-24 00:00 :00 No [id number] 1{tbl} Take 1 tablet by mouth every 6 (six) hours as needed for Pain (scale 7-10). Indication s: acute pain [facility] fluticasone propionate 50 mcg/actuati on nasal spray 06-25 00:00: 00 Yes [id number] 1{spray } Use 1 [place] in each nostril 2 (two) times daily. [facility] Hydralazine 2018-09 19:44: 00 No Notes: (Same as: Apresoline ) Push over 5 minutes Derek Lucas Labetalol 2018-09 19:44: 00 No 10 mg, 2 mL, Route: IVP, Drug form: INJ, Q5Min, Dosing Weight 118, kg, PRN Elevated BP, Start date: 09/08/19 13:44:00 [employer]ICAL LEAD, Duration: 5 doses or times, Stop date: 09/09/19 0:00:00 [employer] SE[employer] TECH[employer]ICAL LEAD, 0 Derek Lucas Acetaminoph en 2018-09 19:44: 00 No Notes: Max acetaminop hen 4000 mg/day (4 gm/day). (Same as: Tylenol Extra Strength) Derek Lucas Ibuprofen 2018-09 19:44: 00 No 600 mg, Route: PO, Drug form: TAB, Q6H, Dosing Weight 118, kg, PRN Pain Score 1-3, Start date: 09/08/19 13:44:00 [employer]ICAL LEAD, Duration: 30 day, Stop date: 10/08/19 13:43:00 [employer]CH[employer]ICAL LEAD Derek Lucas Oxycodone Hydrochlori de 5 MG Oral Tablet 2018-09 19:44: 00 No Notes: (Same as: Roxicodone ) Derek Lucas Hydromorpho ne 2018-09 19:44: 00 No Notes: Same as Dilaudid Derek Lucas Flumazenil 2018-09 19:44: 00 No Notes: (Same as: Romazicon) Derek Lucas Naloxone 2018-09 19:44: 00 No Notes: Same as Narcan Derek Lucas Ondansetron 2018-09 19:44: 00 No Notes: (Same as: Zofran) MEDICATION WASTE Product Size: 4 mg Product Wasted: ___ mg Derek Lucas Promethazin e 2018-09 19:44: 00 No 6.25 mg, Route: IVPB, ONCE, Dosing Weight 118, kg, PRN Nausea & Vomiting, Start date: 09/08/19 13:44:00 [employer] LEAD Derek Lucas phenylephri ne ([facility]) 2018-09 18:59: 00 No Route: IV, Drug form: INJ, ONCE, Stop date: 09/08/19 12:59:00 [employer] SECTION TECH[employer]ICAL LEAD Derek Lucas ondansetron ([facility]) 2018-09 18:59: 00 No Route: IV, Drug form: INJ, ONCE, Stop date: 09/08/19 12:59:00 [employer] SECTION TECH[employer]ICAL LEAD Derek Lucas dexamethaso ne ([facility]) 2018-09 18:58: 00 No Route: IV, Drug form: INJ, ONCE, Stop date: 09/08/19 12:58:00 [employer]GAN[employer] SECTION TECHNICAL LEAD Derek Lucas fentaNYL ([facility]) 2018-09 18:53: 00 No Route: INTRATHECA L, Drug form: INJ, ONCE, Stop date: 09/08/19 12:53:00 [employer]GANIC SECTION TECHNICAL LEAD Derek Lucas bupivacaine ([facility]) 2018-09 18:25: 00 No Route: INTRATHECA L, Drug Form: INJ, ONCE, Stop date: 09/08/19 12:25:00 [employer]GAN[employer] SECTION TECHNICAL LEAD Derek Lucas Lactated Ringers Injection IV ([facility]) 1000 mL 2018-09 17:15: 00 No Route: IV, Total Volume: 1,000, Start date: 09/08/19 11:15:00 [employer] SECTION TECHNICAL LEAD, Stop date: 09/08/19 12:15:00 [employer] SE[employer] TECH[employer]ICAL LEAD Derek Lucas Calcium Chloride 0.0014 MEQ/ML / Potassium Chloride 0.004 MEQ/ML / Sodium Chloride 0.103 MEQ/ML / Sodium Lactate 0.028 MEQ/ML Injectable Solution 2018-09 15:56: 00 No 1,000 mL, Rate: 75 ml/hr, Infuse over: 13.3 hr, Route: IV, Dosing Weight 118 kg, Total Volume: 1,000, Start date: 09/08/19 9:56:00 [employer] SE[employer] TECHNICAL LEAD, Duration: 30 day, Stop date: 10/08/19 9:55:00 [employer]IC SECTION TECHNICAL LEAD, 2.37, m2, 0 Derek Lucas Aspirin 81 MG Enteric Coated Tablet 2018-09 21:40: 00 Yes 81 mg = 1 tab, PO, Daily, # 90 tab, 3 Refill(s) Derek Lucas Vitamin D3 50,000 intl units oral capsule 2018-09 21:40: 00 Yes 50,000 IntlUnit = 1 cap, PO, QTue, # 12 cap, 0 Refill(s) Derek Lucas 3 ML Insulin, Aspart, Human 100 UNT/ML Pen Injector [NovoLog] 2018-09 21:39: 00 Yes 40 unit, SUB-Q, TID-Before Meals, 0 Refill(s) Derek Lucas 3 ML insulin detemir 100 UNT/ML Prefilled Syringe [Levemir] 2018-09 21:39: 00 Yes 30 unit, SUB-Q, Bedtime, # 3 mL, 3 Refill(s) Derek Lucas labetalol 100 mg oral tablet 2018-09 21:38: 00 Yes 100 mg = 1 tab, PO, BID, # 180 tab, 0 Refill(s) Derek Lucas Nitrofurant oin&Nit. Macrocryst (MACROBID) 100 mg capsule 2018-09 00:00: 00 05-14 00:00 :00 No [id number] 100mg Take 1 capsule by mouth 2 (two) times daily. [facility] pioglitazon e (ACTOS) 30 mg tablet 2018-09 18:56: 24 Yes 30mg Take 30 mg by mouth daily. [facility] labetalol HCl (LABETALOL ORAL) 2018-09 18:56: 24 Yes Take by mouth. [facility] insulin aspart Soln injection 2018-09 18:56: 24 Yes inject under the skin before meals. [facility] lancets (FREESTYLE LANCETS) 28 gauge Misc 2018-09 00:00: 00 Yes Check blood glucose 4x daily [facility] Blood-Gluco se Meter (FREESTYLE LITE METER) Kit 2018-09 00:00: 00 Yes Check blood glucose 4x daily [facility] blood sugar diagnostic (FREESTYLE LITE STRIPS) strip 2018-09 00:00: 00 Yes Check blood glucose 4x daily [facility] Blood-Gluco se Meter (FREESTYLE LITE METER) Kit 2018-09 00:00: 00 Yes [id number] Check blood glucose 4x daily [facility] blood sugar diagnostic (FREESTYLE LITE STRIPS) strip 2018-09 00:00: 00 Yes [id number] Check blood glucose 4x daily [facility] Blood-Gluco [facility] Meter (FREESTYLE LITE METER) Kit 2018-09 00:00: 00 Yes [id number] Check blood glucose 4x daily [facility] lancets (FREESTYLE LANCETS) 28 gauge Misc 2018-09 00:00: 00 05-14 00:00 :00 No [id number] Check blood glucose 4x daily [facility] traMADOL (ULTRAM) 50 mg tablet 10-23 00:00: 00 05-14 00:00 :00 No [id number] 50mg Take 1 tablet by mouth every 6 (six) hours as needed for Pain (scale 4-6). [facility] lisinopril (PRINIVIL,Z ESTRIL) 10 mg tablet 2014-09 00:00: 00 05-14 00:00 :00 No [id number] 3 daily [facility] blood sugar diagnostic (EMBRACE PRO TEST STRIPS) strip 01-03 00:00: 00 Yes bid [facility] blood sugar diagnostic (EMBRACE PRO TEST STRIPS) strip 01-03 00:00: 00 Yes bid [facility] atorvastati n (LIPITOR) 40 mg tablet 12-20 00:00: 00 07-14 00:00 :00 No 40mg Take 1 Tab by mouth at bedtime. [facility] Vital Signs Vital Name Observation Time Observation Value Comments S laurie Systolic blood pressure 2023-06-18 18:18:00 138 mm[Hg] [facility] Diastolic blood pressure 2023-06-18 18:18:00 91 mm[Hg] [place] [facility] Heart rate 2023-06-18 18:18:00 77 /min [facility] Body temperature 2023-06-18 18:18:00 36.78 [facility] Respiratory rate 2023-06-18 18:18:00 18 /min [facility] Body height 2023-06-18 18:18:[address] [facility] Body weight 2023-06-18 18:18:[address] [facility] BMI 2023-06-18 18:18:00 38.04 kg/m2 [facility] Oxygen saturation in Arterial blood by Pulse oximetry 2023-06-18 18:18:00 100 /min [facility] Systolic blood pressure 2023-04-30 14:55:00 110 mm[Hg] [facility] Diastolic blood pressure 2023-04-30 14:55:00 75 mm[Hg] [facility] Heart rate 2023-04-30 14:55:00 96 /min [facility] Body temperature 2023-04-30 14:55:00 36.56 [facility] Respiratory rate 2023-04-30 14:55:00 16 /min [facility] Body height 2023-04-30 14:55:[address] [facility] Body weight 2023-04-30 14:55:[address] [facility] BMI 2023-04-30 14:55:00 39.27 kg/m2 [facility] Oxygen saturation in Arterial blood by Pulse oximetry 2023-04-30 14:55:00 96 /min [facility] Systolic blood pressure 2022-07-14 13:38:00 122 mm[Hg] [facility] Diastolic blood pressure 2022-07-14 13:38:00 82 mm[Hg] [facility] Heart rate 2022-07-14 13:38:00 78 /min [facility] Oxygen saturation in Arterial blood by Pulse oximetry 2022-07-14 13:38:00 97 /min [facility] Systolic blood pressure 2022-05-14 12:30:00 148 mm[Hg] [facility] Diastolic blood pressure 2022-05-14 12:30:00 74 mm[Hg] [facility] Heart rate 2022-05-14 12:30:00 67 /min [facility] Body temperature 2022-05-14 12:30:00 36.61 [facility] Respiratory rate 2022-05-14 12:30:00 16 /min [facility] Oxygen saturation in Arterial blood by Pulse oximetry 2022-05-14 12:30:00 95 /min [facility] Body weight 2022-05-12 21:44:[address] [facility] BMI 2022-05-12 21:44:00 47.76 kg/m2 [facility] Systolic blood pressure 2022-03-18 14:07:00 130 mm[Hg] [facility] Diastolic blood pressure 2022-03-18 14:07:00 80 mm[Hg] [facility] Heart rate 2022-03-18 14:07:00 112 /min [facility] Body temperature 2022-03-18 14:07:00 36.94 [facility] Respiratory rate 2022-03-18 14:07:00 19 /min [facility] Body height 2022-03-18 14:07:[address] [facility] Body weight 2022-03-18 14:07:[address] [facility] BMI 2022-03-18 14:07:00 47.41 kg/m2 [facility] Oxygen saturation in Arterial blood by Pulse oximetry 2022-03-18 14:07:00 97 /min [facility] Systolic blood pressure 2022-02-03 20:08:00 124 mm[Hg] [facility] Diastolic blood pressure 2022-02-03 20:08:00 81 mm[Hg] [facility] Heart rate 2022-02-03 20:08:00 93 /min [facility] Body temperature 2022-02-03 20:08:00 36.78 [facility] Respiratory rate 2022-02-03 20:08:00 17 /min [facility] Body height 2022-02-03 20:08:00 165.1 cm [facility] Body weight 2022-02-03 20:08:[address] [facility] BMI 2022-02-03 20:08:00 46.15 kg/m2 [facility] Oxygen saturation in Arterial blood by Pulse oximetry 2022-02-03 20:08:00 98 /min [facility] Respiratory rate 2020-07-23 16:46:00 18 /min [facility] Oxygen saturation in Arterial blood by Pulse oximetry 2020-07-23 16:46:00 97 /min [facility] Body height 2020-07-23 15:35:00 165.1 cm [facility] Body weight 2020-07-23 15:35:[address] [facility] BMI 2020-07-23 15:35:00 42.10 kg/m2 [facility] Systolic blood pressure 2020-07-23 13:09:00 133 mm[Hg] [facility] Diastolic blood pressure 2020-07-23 13:09:00 86 mm[Hg] [facility] Heart rate 2020-07-23 13:09:00 104 /min [facility] Body temperature 2020-07-23 13:09:00 36.89 [facility] Systolic blood pressure 2020-07-19 17:55:00 110 mm[Hg] [facility] Diastolic blood pressure 2020-07-19 17:55:00 60 mm[Hg] [facility] Respiratory rate 2020-07-19 17:55:00 16 /min [facility] Oxygen saturation in Arterial blood by Pulse oximetry 2020-07-19 17:55:00 96 /min [facility] Heart rate 2020-07-19 17:45:00 88 /min [facility] Body temperature 2020-07-19 16:20:00 36 Ann [facility] Body height 2020-07-19 13:38:00 165.1 cm [facility] Body weight 2020-07-19 13:38:00 114.9 kg [facility] BMI 2020-07-19 13:38:00 42.15 kg/m2 [facility] Systolic blood pressure 2020-07-19 17:55:00 110 mm[Hg] [facility] Diastolic blood pressure 2020-07-19 17:55:00 60 mm[Hg] [facility] Respiratory rate 2020-07-19 17:55:00 16 /min [facility] Oxygen saturation in Arterial blood by Pulse oximetry 2020-07-19 17:55:00 96 /min [facility] Heart rate 2020-07-19 17:45:00 88 /min [facility] Body temperature 2020-07-19 16:20:00 36 Ann [facility] Body height 2020-07-19 13:38:[address] [facility] Body weight 2020-07-19 13:38:[address] [facility] BMI 2020-07-19 13:38:00 42.15 kg/m2 [facility] Body temperature 2020-06-25 14:28:00 36.67 [facility] Body height 2020-06-25 14:28:[address] [facility] Body weight 2020-06-25 14:28:[address] [facility] BMI 2020-06-25 14:28:00 42.13 kg/m2 [facility] Body temperature 2020-06-25 14:28:00 36.67 [facility] Body height 2020-06-25 14:28:[address] [facility] Body weight 2020-06-25 14:28:[address] [facility] BMI 2020-06-25 14:28:00 42.13 kg/m2 [facility] Respitory Rate 2019-09-08 20:46:00 M emost[facility] [place] Systolic (mm Hg) 2019-09-08 20:46:00 [facility] Diastolic (mm Hg) 2019-09-08 20:46:00 [facility] [place] Heart Rate 2019-09-08 20:46:00 Jasmeet mcwilliams [place] Respitory Rate 2019-09-08 20:30:00 [facility] [place] Systolic (mm Hg) 2019-09-08 20:30:00 [facility] Diastolic (mm Hg) 2019-09-08 20:30:00 [facility] Respitory Rate 2019-09-08 20:15:00 [facility] [place] Systolic (mm Hg) 2019-09-08 20:15:00 [facility] [place] Diastolic (mm Hg) 2019-09-08 20:15:00 [facility] Height 2019-09-08 15:26:00 165.1 cm [facility] [place] Weight 2019-09-08 15:26:00 [facility] [place] BMI Calculated 2019-09-08 15:26:00 [facility] [place] Heart Rate 2019-09-08 15:26:00 [facility] [place] Height 2019-09-06 21:49:00 165.1 cm [facility] [place] Weight 2019-09-06 21:49:00 [facility] BMI Calculated 2019-09-06 21:49:00 [facility] [place] Procedures Procedure Date / Time Performed Performing Clinician Source TRANSTHORACIC ECHO (TTE) COMPLETE 2023-07-02 19:21:00 Jessica Gaitan [facility] CONSENT/REFUSAL FOR DIAGNOSIS AND TREATMENT 2023-06-18 17:14:05 Doctor Unassigned, [facility] TROPONIN I 2022-05-14 13:12:00 Forrest Mccarty [facility] POCT GLUCOSE (AUTOMATED) 2022-05-14 12:55:00 Ana Barrios [facility] TROPONIN I 2022-05-14 09:21:[address] [facility] BASIC METABOLIC PANEL (NA, K, CL, CO2, GLUCOSE, BUN, CREATININE, CA) 2022-05-14 09:21:00 Dorita Duffy [facility] N-TERMINAL PRO-BNP 2022-05-14 09:21:00 Fritz Alegria [facility] POCT GLUCOSE (AUTOMATED) 2022-05-14 07:10:00 Ana Barrios [facility] TROPONIN I 2022-05-14 04:53:00 Forrest Mccarty [facility] POCT GLUCOSE (AUTOMATED) 2022-05-14 02:13:00 Sophie Ana mccain Lena [facility] TROPONIN I 2022-05-14 01:05:00 Lul fernando [facility] TROPONIN I 2022-05-13 21:42:00 Forrest Mccarty [facility] TROPONIN I 2022-05-13 17:19:00 Forrest Mccarty [facility] TRANSTHORACIC ECHO (TTE) COMPLETE 2022-05-13 15:01:00 Lul fernando [facility] TROPONIN I 2022-05-13 13:19:00 Forrest Mccarty [facility] POCT GLUCOSE (AUTOMATED) 2022-05-13 12:35:00 Sophie Ana mccain Lena [facility] MAGNESIUM 2022-05-13 09:34:00 Lul fernando [facility] TROPONIN I 2022-05-13 09:34:00 Lul fernando [facility] COMP. METABOLIC PANEL ([id number]) 2022-05-13 09:34:00 Forrest Mccarty [facility] CBC WITH DIFF 2022-05-13 09:34:00 Forrest Mccarty [facility] N-TERMINAL PRO-BNP 2022-05-13 09:34:00 Lul [facility] TROPONIN I 2022-05-13 05:29:00 Forrest Mccarty [facility] HB ECG ROUTINE & RHYTHM STRIP 2022-05-13 05:07:50 Forrest Mccarty [facility] PROCALCITONIN 2022-05-13 02:45:00 Forrest Mccarty [facility] CREATINE KINASE 2022-05-13 02:45:00 Forrest Mccarty [facility] TROPONIN I 2022-05-13 02:45:00 Forrest Mccarty [facility] IRON PANEL 2022-05-13 02:45:00 Lul fernando [facility] PROTHROMBIN TIME / INR 2022-05-13 02:45:00 Daniel Mccarty [facility] CT CHEST PULMONARY ANGIOGRAM 2022-05-13 01:54:51 Adum, Ashlie Holman [facility] POCT GLUCOSE (AUTOMATED) 2022-05-13 01:14:00 Adum, Ana Holman [facility] URINALYSIS 2022-05-13 00:26:00 Adum, Ashlie Holman [facility] XR CHEST 1 VW 2022-05-12 23:55:00 Adum, Ashlie Holman [facility] COVID-19 (ID NOW RAPID TESTING) 2022-05-12 23:38:00 Adum, Ashlie Holman [facility] LAB ONLY COVID INTERPRETATION 2022-05-12 23:38:00 Adum, Ashlie Holman [facility] HB ECG ROUTINE & RHYTHM STRIP 2022-05-12 23:15:33 Adum, Ashlie Holman [facility] SGOT (ASPARTATE AMINO TRANSFER) 2022-05-12 23:11:00 Adum, Ashlie Holman [facility] CREATININE 2022-05-12 23:11:00 Adum, Ashlie Holman [facility] PHOSPHORUS 2022-05-12 23:11:00 Lul fernando [facility] ALANINE AMINO TRANSFERASE(SGPT 2022-05-12 23:11:00 Adum, Ashlie Holman [facility] LACTATE DEHYDROGENASE 2022-05-12 23:11:00 Adum, Ashlie Holman [facility] URIC ACID 2022-05-12 23:11:00 Adum, Ashlie Holman [facility] MAGNESIUM 2022-05-12 23:11:00 Forrest Mccarty [facility] FERRITIN SERUM 2022-05-12 23:11:[address] [facility] TROPONIN I 2022-05-12 23:11:00 Lul fernando [facility] THYROID STIMULATING HORMONE 2022-05-12 23:11:00 Forrest Mccarty [facility] BASIC METABOLIC PANEL (NA, K, CL, CO2, GLUCOSE, BUN, CREATININE, CA) 2022-05-12 23:11:00 Forrest Mccarty [facility] LIPID PANEL ([id number])(TOTAL CHOLESTEROL, TRIGLYCERIDES, HDL) 2022-05-12 23:11:00 Forrest Mccarty [facility] SEDIMENTATION RATE 2022-05-12 23:11:00 Lul [facility] CBC WITH DIFF 2022-05-12 23:11:00 Ashlie Barrios [facility] GLYCOSYLATED HEMOGLOBIN (A1C) 2022-05-12 23:11:00 Lul [facility] N-TERMINAL PRO-BNP 2022-05-12 23:11:00 Lul [facility] CONSENT/REFUSAL FOR DIAGNOSIS AND TREATMENT 2022-05-12 21:34:39 Doctor Unassigned, [facility] [id number] 2022-05-04 00:00:00 [facility] [id number] 2022-05-04 00:00:00 [facility] POCT MOLECULAR STREP 2022-03-18 14:23:00 Wilda Spence [facility] POCT TEST 2020-07-23 08:03:00 Desean Cira [facility] HB ABO GROUPING 2020-07-23 07:37:[address] [facility] COVID-19 (ID NOW RAPID TESTING) 2020-07-23 07:35:00 Cira Anton [facility] BASIC METABOLIC PANEL (NA, K, CL, CO2, GLUCOSE, BUN, CREATININE, CA) 2020-07-23 07:30:00 Paradise Lou [facility] CBC WITH DIFF 2020-07-23 07:30:00 Paradise Lou [facility] CONSENT/REFUSAL FOR DIAGNOSIS AND TREATMENT 2020-07-19 13:15:11 Doctor Unassigned, [facility] ASSIGNMENT OF BENEFITS 2020-07-19 13:00:57 Docto r Unassigned, [facility] DAY SURGERY - [place] 2020-07-19 05:01:00 Doct or Unassigned, [facility] DISCLOSURE AND CONSENT, MEDICAL AND SURGICAL PROCEDURES 2020-06-25 05:01:00 Doctor Unassigned, [facility] [id number] 2020-02-02 00:00:00 [facility] [id number] 2020-02-02 00:00:00 [facility] DATA GENERATION COMPLEX 2011-10-21 20:35:00 Geetha Longoria [facility] NM GASTRIC EMPTYING 2011-10-21 19:05:00 Pedro Longoria [facility] GASTRIC EMPTYING MEAL 2011-10-21 15:05:00 Lito Longoria [facility] Cerclage [facility] R[facility] section [facility] Cholecystectomy [facility] biopsy of cervix [place] [facility] [facility] Encounters Start Date/Time End Date/Time Encounter Type Admission Type Attending [facility] Care Facility Care Department Encounter ID Source 2023-07-14 07:15:00 Inpatient Elective Dewayne Campuzano [facility] [id number] [facility] 2022-05-03 20:29:00 Inpatient Julia Silveira HCACL MEDI.01 [id number] [facility] 2021-07-26 01:11:30 Emergency [facility] [id number] [facility] 2021-07-26 01:10:30 Emergency [facility] [id number] [facility] 2021-07-25 20:02:22 Outpatient [facility] [id number] [facility] 2020-07-22 09:56:00 Inpatient HCAMN JOVANA [id number] [facility] 2020-02-01 16:55:00 Inpatient Anuj Delacruz HCACL LD [id number] [facility] 2011-10-21 00:00:00 2024-11-11 05:40:43 Orders Only Geetha Longoria [facility] 1.2.840.114 350.1.13.10 4.2.7.2.686 [id number] [facility] 2023-07-14 07:15:00 2023-07-15 13:37:00 Inpatient Elective Dewayne Campuzano [facility] [id number] [facility] 2023-07-06 00:00:00 2023-07-06 00:00:00 Patient Secure Msg Doctor Unassigned, [place] [facility] 1.0.114 350.1.13.10 4.2.7.2.686 [id number] [facility] 2023-07-02 13:55:11 2023-07-02 23:59:00 Outpatient R JESSICA GAITAN [facility] [id number] [facility] 2023-07-02 13:55:11 2023-07-02 23:59:00 Hospital Encounter Jessica Gaitan [facility] 1.0.114 350.1.13.10 4.2.7.2.686 [id number] [facility] 2023-06-18 13:00:00 2023-06-18 13:30:00 Office Visit Jessica Gaitan [facility] 1..114 350.1.13.10 4.2.7.2.686 [id number] [facility] 2023-06-18 13:00:00 2023-06-18 13:00:00 Outpatient R JESSICA GAITAN [facility] [id number] [facility] 2023-06-18 00:00:00 2023-06-18 00:00:00 Orders Only Doctor Unassigned, [place] [facility] 1.0.114 350.1.13.10 4.2.7.2.686 [id number] [facility] 2023-06-18 00:00:00 2023-06-18 00:00:00 Telephone Jessica Gaitan [facility] 1.2840.114 350.1.13.10 4.2.7.2.686 [id number] [facility] 2023-06-18 00:00:00 2023-06-18 00:00:00 Patient Secure Msg Arnie [facility] 1.2840.114 350.1.13.10 4.2.7.2.686 [id number] [facility] 2023-04-30 10:00:00 2023-04-30 10:46:57 Outpatient R ARNIEJESSICA [facility] [id number] [facility] 2023-04-30 10:00:00 2023-04-30 10:46:57 Office Visit Arnie Jessica Holman [facility] 1..840.114 350.1.13.10 4.2.7.2.686 [id number] [facility] 2023-03-26 10:30:00 2023-03-26 10:30:00 Outpatient R AMAURY FIGUEROA [facility] [id number] [facility] 2022-07-14 08:40:00 2022-07-14 16:25:08 Outpatient R JESSICA GAITAN [facility] [id number] [facility] 2022-07-14 08:40:00 2022-07-14 16:25:08 Office Visit ThomaspatoJessica [facility] 1..840.114 350.1.13.10 4.2.7.2.686 [id number] [facility] 2022-06-30 14:00:00 2022-06-30 14:00:00 Outpatient R FRITZ ALEGRIA [facility] [id number] [facility] 2022-05-12 16:49:00 2022-05-14 10:35:00 Outpatient X ASHLIE [facility]OS [facility] [id number] [facility] 2022-05-12 16:49:00 2022-05-14 10:35:00 Emergency Johanna Sultana Vivian [facility] ..840.114 350.1.13.10 4.2.7.2.686 [id number] [facility] 2022-05-04 14:51:00 2022-05-07 12:52:00 Inpatient EM Anuj Mauricio HCACL OBPP [id number] [facility] 2022-05-04 14:51:00 2022-05-07 12:52:00 Inpatient EM Anuj Mauricio HCACL OBPP [id number] [facility] 2022-04-13 21:27:00 2022-04-14 00:23:00 Emergency EM Lani Garrison HCACL GELA [id number] [facility] 2022-04-13 21:27:00 2022-04-13 21:27:00 Emergency EM Anuj Mauricio HCACL HCACL [id number] [facility] 2022-03-19 00:00:00 2022-03-19 00:00:00 Telephone Aida Randolph [facility] .840.114 350.1.13.10 4.2.7.2.686 [id number] [facility] 2022-03-18 09:00:00 2022-03-18 09:50:49 Outpatient R WILDA SPENCE [facility] [id number] [facility] 2022-03-18 09:00:00 2022-03-18 09:20:00 Urgent Care Wilda Spence [facility]?JUSTINADesire [facility] 1..840.114 350.1.13.10 4.2.7.2.686 [id number] [facility] 2022-02-03 15:20:00 2022-02-03 15:40:00 Urgent Care Wilda Spence, Destiny [facility] 1.2.840.114 350.1.13.10 4.2.7.2.686 [id number] [facility] 2022-02-03 15:20:00 2022-02-03 15:20:00 Outpatient R JORDY WILDA [facility] [id number] [facility] 2020-12-27 09:40:00 2020-12-27 09:40:00 Outpatient Nely MUNA LIVINGSTON [facility] [id number] [facility] 2020-12-17 00:00:00 2020-12-17 00:00:00 Patient Outreach James Watson [facility] 1.2.840.114 350.1.13.10 4.2.7.2.686 [id number] [facility] 2020-07-24 00:00:00 2020-07-24 00:00:00 Telephone Domingo Lovelace [facility] 1.2.840.114 350.1.13.10 4.2.7.2.686 [id number] [facility] 2020-07-23 00:18:00 2020-07-23 12:33:00 Emergency [facility] [place], [facility] 1.2840.114 350.1.13.10 4.2.7.2.686 [id number] [facility] 2020-07-22 00:00:00 2020-07-22 00:00:00 Telephone Domingo Lovelace [facility] 1.2.840.114 350.1.13.10 4.2.7.2.686 [id number] [facility] 2020-07-19 08:00:00 2020-07-19 13:15:00 Hospital Encounter [facility] 1.2.840.114 350.1.13.10 4.2.7.2.686 [id number] 2020-07-19 08:00:00 2020-07-19 13:15:00 Hospital Encounter [facility] 1.2.840.114 350.1.13.10 4.2.7.2.686 [id number] [facility] 2020-07-19 00:00:00 2020-07-19 00:00:00 Orders Only Doctor Unassigned, [place] [facility] 1.2.840.114 350.1.13.10 4.2.7.2.686 [id number] [facility] 2020-07-16 00:00:00 2020-07-16 00:00:00 Letter (Out) [facility] 1.2.840.114 350.1.13.10 4.2.7.2.686 [id number] [id number] 2020-07-16 00:00:00 2020-07-16 00:00:00 Letter (Out) [facility] 1.2.840.114 350.1.13.10 4.2.7.2.686 [id number] [facility] 2020-07-16 00:00:00 2020-07-16 00:00:00 Patient Secure Msg Doctor Unassigned, [place] [facility] 1.2.840.114 350.1.13.10 4.2.7.2.686 [id number] [facility] 2020-07-15 10:33:00 2020-07-15 10:48:00 Laboratory Only Only, Jadon Test [facility] 1.2.840.114 350.1.13.10 4.2.7.2.686 [id number] 2020-07-15 10:33:00 2020-07-15 10:48:00 Laboratory Only Only, Jadon LovelaceCount includes the [facility] 1.2.840.114 350.1.13.10 4.2.7.2.686 [id number] [facility] 2020-07-15 10:30:00 2020-07-15 10:30:00 Outpatient Nely LOVELACE [facility] [id number] [facility] 2020-07-01 00:00:00 2020-07-01 00:00:00 Telephone [place] [facility] 1.2.840.114 350.1.13.10 4.2.7.2.686 [id number] 2020-07-01 00:00:00 2020-07-01 00:00:00 Telephone [place] Counts include 234 beds at the [facility] 1.2.840.114 350.1.13.10 4.2.7.2.686 [id number] [facility] 2020-06-25 09:21:31 2020-06-27 14:48:47 Office Visit [place] Counts include 234 beds at the [facility] 1.2.840.114 350.1.13.10 4.2.7.2.686 [id number] 2020-06-25 09:21:31 2020-06-27 14:48:47 Office Visit [place] includes the [facility] 1.2.840.114 350.1.13.10 4.2.7.2.686 [id number] [facility] 2020-06-25 09:30:00 2020-06-25 09:30:00 Outpatient Nely LOVELACE [facility] [id number] [facility] 2020-06-25 00:00:00 2020-06-25 00:00:00 Orders Only Doctor Unassigned, [place] [facility] 1.2.840.114 350.1.13.10 4.2.7.2.686 [id number] [facility] 2020-04-27 11:34:00 2020-04-27 11:34:00 Outpatient KNOW, DOES_NOT HCACL ADMI [id number] [facility] 2019-09-08 15:01:00 2019-09-09 05:59:00 Day Surgery nullFlavo r [facility] [id number] [facility] 2019-09-08 09:01:00 2019-09-08 09:01:00 Outpatient [facility] [address] [facility] 2019-07-13 13:30:00 2019-07-13 15:18:41 Outpatient R DELISA MENDOZAOLA [facility] [id number] [facility] Results Test Description Test Time Test Comments Results Result Co mments Source Glucose [id number] 10:06:00* Test Item Value Reference Range Interpretation Comme nts Glucose Fingerstick (test code = WGLUC) 175 mg/dL 70-115 CODING COMPLIANCE MANAGER Mar glendy Boris Glucose [id number] 07:17:00* Test Item Value Reference Range Interpretation Comme nts Glucose Fingerstick (test code = WGLUC) 102 mg/dL 70-115 CODING COMPLIANCE MANAGER Ble ssing Eshiet XR chest [id number] 12:57:00[facility] [address] [place], [place] [address] Patient Name: GRACY LOGAN Medical Record#: [id number] Address: [address] [place] [address] City/State/Zip: [place] [address]: Dewayne Campuzano MD Insurance: [employer] are /Age/Sex: 1985/37/F Self Pay Admit/Reg Date: 07/07/[address]: Dewayne Campuzano MD Location: [facility]/ PCP: PCP,UNKNOWN Date of Service: 07/09/23 Order (s):XR chest 1V CPT Code: 32809 Report Number: [id number] Reason for Exam: PRE OP Location Code: [...] pleural effusion or atelectasis/scarring. No evidence of focal consolidation. Electronically signed by: Hernesto Reddy MD 07/09/2023 12:55 PM CDT Dictated By: Hernesto Reddy MD 07/09/23 1236 Signed By: Hernesto Reddy MD 07/09/23 1257 TD/TT: 07/09/23 1236 Tech: TSM07 cc: CHARI07; PCPUNK* PCP,UNKNOWN ; ALVINA Beverlyrothrombin Time [id number] 12:15:00* Test Item Value Reference Range Interpretation Comme nts Prothrombin Time (test code = PT) 11.1 Seconds 9.3-12.1 N INR (test code = INR) 1.1 ratio 0.9-1.2 N Reference Interv al is for non-anticoagulated patients.Suggested INR Therapeutic Range for Vitamin K antogonisttherapy:LEV ELS OFTHERAPY INDICATIONS TARGET INR RANGEStandard Dose Venous Thrombosis, 2.0 - 3.0 Atrial Fibrillation, Pulmonary Embolism.High Dose Valvular Heart Disease, 2.5 - 3.5 Mechanical Heart, Intracardiac Thrombosis. Partial Thromboplastin [id number] 12:15:00* Test Item Value Reference Range Interpretation Comme nts Partial Thromboplastin Time (test code = PTT) 30.9 Seconds 23.9-32.8 N HCG, Serum Qual (LAB)2023-07-09 12:15:00* Test Item Value Reference Range Interpretation Comme nts HCG, Serum Qual (LAB) (test code = HCGQ) Negative Negative Basic Metabolic [id number] 12:15:00* Test Item Value Reference Range Interpretation Comme nts SODIUM (test code = NA) 137.0 mmol/L 136.0-145.0 N Potassium,K (test code = K) 3.9 mmol/L 3.0-5.1 N Chloride (test code = CL) 107 mmol/L 98-107 N Carbon Dioxide (test code = CO2) 26 mmol/L 20-31 N Anion Gap (test code = GAP) 4 mmol/L 5-15 L Blood Urea Nitrogen (test code = BUN) 14 mg/dL 9-23 N Creatinine (test code = CREATT) 0.68 mg/dL 0.55-1.02 N Creatinine Clr Calc Pharmacy (test code = CRCLPHA) 137.10 mL/min Estimated Glomerular Filt Rate (test code = EGFR.XX) 116 See_Comment Reported eGFR is based on the CKD-EPI 2020 equation thatdoes not use a race coefficient. Additional information canbe found at:[email or web address]_xm [email or web address].pd f ([email or web address].org) [Automated message] The system which generated this result transmitted reference range: >=90 ml/min/1.73m2. The reference range was not used to interpret this result as normal/abnormal. BUN/Creatinine Ratio (test code = BCRATIO) 21 ratio 10-20 H Glucose (test code = GLU) 105 mg/dL 74-106 N Osmolality,Calculate d (test code = OSMOC) 284.0 Calcium (test code = CA) 9.2 mg/dL 8.3-10.6 N Complete Blood Count Auto [id number] 12:15:00* Test Item Value Reference Range Interpretation Comme nts White Blood Count (test code = WBCT) 6.3 x10 3/uL 4.4-10.5 N Red Blood Count (test code = RBC) 4.52 x10 6/uL 3.75-5.20 N Hemoglobin (test code = HGBT) 12.3 g/dL 12.2-14.8 N Hematocrit (test code = HCTT) 37.0 % 36.5-44.4 N Mean Corpuscular Volume (yuko t code = MCV) 81.90 fL 80.00-100.00 N Mean Corpuscular Hemoglobin (test code = MCH) 27.2 pg 27.0-32.5 N Mean Corpuscular HGB Conc (t est code = MCHC) 33.20 g/dL 32.00-37.50 N RDW Coefficient of Variation (test code = RDWCV) 12.8 % 11.5-14.5 N Platelet Count (test code = PLTT) 272 x10 3/uL 140.0-440.0 N Mean Platelet Volume (test c ode = MPV) 8.9 fL Immature Granulocytes % (Aut o) (test code = IMMGRAN%) 0.5 % 0.0-5.0 N Neutrophils % (Auto) (test c ode = NE%) 60.2 % 36.0-70.0 N Lymphocytes % (Auto) (test c ode = LY%) 30.0 % 12.0-44.0 N Monocytes % (Auto) (test cod e = MO%) 7.3 % 0.0-11.0 N Eosinophils % (Auto) (test c ode = EO%) 1.4 % 0.0-7.0 N Basophils % (Auto) (test cod e = BA%) 0.6 % 0.0-2.0 N Immature Granulocytes # (Aut o) (test code = IMMGRAN#) 0.03 x10 3/uL Neutrophils # (Auto) (test c ode = NE#) 3.8 x10 3/uL 1.6-7.4 N Lymphocytes # (Auto) (test c ode = LY#) 1.89 x10 3/uL 0.50-4.60 N Monocytes # (Auto) (test cod e = MO#) 0.46 x10 3/uL 0.00-1.20 N Eosinophils # (Auto) (test c ode = EO#) 0.09 x10 3/uL 0.00-0.74 N Basophils # (Auto) (test cod e = BA#) 0.04 x10 3/uL 0.00-0.21 N nRBC Abs (test code = NRBCA) 0 nRBC Pct (test code = NRBCP) 0 % Transthoracic echo (TTE)2023-07-02 21:22:05* Test Item Value Reference Range Interpretation Comme nts Height (test code = 6742502683) 65 in Weight (test code = 1581933784) 228 lbs Systolic BP (test code = 8422374435) 124 mmHg Diastolic BP (test code = 9262562956) 74 mmHg Heart Rate (test code = 8815060643) 103 bpm BSA (test code = 9945901953) 2.09 m2 Ao root diam (test code = 9000345576) 2.90 cm Aortic root (test code = 3128265567) 2.9 cm Ao root annulus (test code = 8940769926) 2.9 cm LA size (test code = 6739134121) 3.8 cm LVIDD (test code = 6094590763) 4.20 cm Left Ventricular End Diastolic Volume by Teichholz Method (test code = 9018797) 78.2 mL IVS (test code = 7211470802) 1.04 cm Interventricular Septum Diastolic Thickness by 2D (test code = 3551581) 1.04 cm LVPWD (test code = 6918181664) 1.01 cm PW (test code = 7905448693) 1.01 cm 0.6-1.1 EF(Teich) (test code = 9628778763) 57.60 % LVIDS (test code = 6234447151) 2.90 cm Left Ventricular End Systolic Volume by Teichholz Method (test code = 9453234) 33.1 mL FS (test code = 9203015551) 30 % EF - 2D (test code = 56680195) 57.60 % LVOT diameter (test code = 7932004336) 2.02 cm LVOT area (test code = 5114154312) 3.20 cm2 MV Prop V (test code = 9673956338) 82.90 cm/s MV Peak E Nile (test code = 0215592939) 68.7 cm/s MV Peak A Nile (test code = 2581655069) 79.7 cm/s E/A ratio (test code = 5924756245) 0.86 ratio E wave decelartion time (test code = 0497499369) 0.11 s LAV(MOD-sp4) (test code = 1866522106) 38.50 mL Aortic valve mean velocity (test code = 2669300560) 99.7 cm/s Ao peak nile (test code = 8329818203) 138.4 cm/s Ao VTI (test code = 2288718197) 24.9 cm Ao max PG (test code = 3121888268) 7.70 mm[Hg] AV peak gradient (test code = 1450745644) 7.7 mmHg AV mean gradient (test code = 8912998617) 4.4 mmHg LVOT stroke volume (test code = 6486012702) 72.50 cm3 LVOT peak nile (test code = 9755428027) 123.2 cm/s LVOT mn grad (test code = 1365823629) 2.7 mmHg AV LVOT peak gradient (test code = 5759100847) 6.1 mmHg LVOT peak VTI (test code = 8898633793) 22.6 cm AV area by cont VTI (test code = 8872748043) 2.9 cm2 AV area peak nile (test code = 3175226621) 2.9 cm2 LV V1 mean (test code = 4238459971) 75.50 cm/s AV valve area (test code = 8858037525) 2.90 cm2 Tapse (test code = 7664698046) 1.97 cm Radiology Study observation (narrative) (test code = 91539-0) COLE (test code = COLE) ?Left?Ventricle: Left [...] apical, parasternal and subcostal views were obtained. [facility] GLUCOSE (AUTOMATED)2022-05-14 13:19:04* Test Item Value Reference Range Interpretation Comme nts POCT GLU (test code = 2499671948) 151 mg/dL 70-110 H Lab Interpretation (test cod e = 93184-5) Abnormal [facility] GLUCOSE (AUTOMATED)2022-05-14 07:12:21* Test Item Value Reference Range Interpretation Comme nts POCT GLU (test code = 2309686183) 138 mg/dL 70-110 H Lab Interpretation (test cod e = 49042-0) Abnormal [facility] GLUCOSE (AUTOMATED)2022-05-14 02:16:08* Test Item Value Reference Range Interpretation Comme nts POCT GLU (test code = 4017172203) 99 mg/dL 70-110 Lab Interpretation (test cod e = 81505-0) [facility] 17:18:18* Test Item Value Reference Range Interpretation Comme nts Height (test code = 1476316245) in Weight (test code = 1174454203) lbs Systolic BP (test code = 6813860428) mmHg Diastolic BP (test code = 7165498304) mmHg Heart Rate (test code = 5702673538) bpm BSA (test code = 4273345331) 2.31 m2 Ao root annulus (test code = 2950001797) 3.1 cm Ao root diam (test code = 8781054237) 3.10 cm Aortic root (test code = 7617400928) 3.1 cm LVOT diameter (test code = 8257355953) 2.01 cm LVIDD (test code = 4043256247) 5.40 cm IVS (test code = 0216249948) 1.32 cm Interventricular Septum Diastolic Thickness by 2D (test code = 5617857) 1.32 cm LVPWD (test code = 4728475813) 1.33 cm PW (test code = 1458522393) 1.33 cm 0.6-1.1 EF(Teich) (test code = 6515694169) 64.60 % LVIDS (test code = 5778442723) 3.50 cm FS (test code = 3788523511) 36 % EF - 2D (test code = 06905503) 64.60 % LA size (test code = 8012263292) 3.9 cm Pulmonic Regurgitant End Max Velocity (test code = 8645300772) 119.4 cm/s LAV(MOD-sp4) (test code = 3691229054) 68.20 mL E wave decelartion time (test code = 4847129071) 0.19 s MV Peak E Nile (test code = 3073000612) 113.2 cm/s MV stenosis pressure 1/2 time (test code = 5629815444) 58.2 ms MV Peak A Nile (test code = 2099588669) 101.2 cm/s E/A ratio (test code = 3115305800) ratio MV Prop V (test code = 1239260915) 61.70 cm/s MV E/e' septal (test code = 8415214637) 10.9 cm/s Tapse (test code = 0209140000) 2.5 cm LVOT stroke volume (test code = 7608629948) 92.80 cm3 LVOT peak nile (test code = 5655752613) 146.8 cm/s LVOT mn grad (test code = 7150165803) mmHg AV LVOT peak gradient (test code = 4957913304) mmHg LVOT peak VTI (test code = 9980617542) 29.4 cm LV V1 mean (test code = 3608235928) 85.40 cm/s Aortic valve mean velocity (test code = 8619851050) 139.0 cm/s Ao peak nile (test code = 8425424992) 212.2 cm/s Ao VTI (test code = 4780492060) 42.9 cm AV area by cont VTI (test code = 4110615758) 2.2 cm2 AV area peak nile (test code = 3443010261) 2.2 cm2 Ao max PG (test code = 0799270751) 18.00 mm[Hg] AV peak gradient (test code = 3593964078) mmHg AV valve area (test code = 2462157279) 2.16 cm2 AV mean gradient (test code = 4303717003) mmHg Radiology Study observation (narrative) (test code = 03396-5) COLE (test code = COLE) Formatting of [...] 2D, color flow Doppler and spectral Doppler. [facility] 12:47:19* Test Item Value Reference Range Interpretation Comme nts POCT GLU (test code = 3976121956) 178 mg/dL 70-110 H Lab Interpretation (test cod e = 98454-3) [facility]normal [facility] [id number] 06:26:48* Test Item Value Reference Range Interpretation Comments TROPONIN I (test code = 6835274030) 0.006 ng/mL See_Comment [Automated message] The system which generated this result transmitted reference range: <=0.034. The reference range was not used to interpret this result as normal/abnormal. COLE (test code = COLE) Reference (Normal) Range (defined by the 99th percentile reference [...] patient's use of biotin. Lab Interpretation (test code = 78157-4) Normal [facility] [id number] 01:57:20* Test Item Value Reference Range Interpretation Comme nts FERRITIN (test code = 0312816070) 46.4 ng/mL 6-137 COLE (test code = COLE) Biotin has been reported to cause a negative bias, interpret results relative to patient's use of biotin. Lab Interpretation (test code = 24697-1) Normal [facility] (A1C)2022-05-13 01:56:35* Test Item Value Reference Range Interpretation Comme nts HGB A1C (test code = 4548-4) 6.7 % 4-5.7 H COLE (test code = COLE) Reference RangesNormal: <5.7%Prediabetes: 5.7 - 6.4%Diabetes: > 6.5% Lab Interpretation (test code = 18096-0) Abnormal [facility] STIMULATING [id number] 01:52:23 * Test Item Value Reference Range Interpretation Comme nts TSH (test code = 0279781123) See_Comment [Automated [employer]] The system which generated this result transmitted reference range: 0.45 - 4.70 mIU/L. The reference range was not used to interpret this result as normal/abnormal. Lab Interpretation (test code = 87109-2) Normal [facility] Hospital[facility]EDIMENTATION [id number] 01:38:29* Test Item Value Reference Range Interpretation Comme nts ESR (test code = 2809883394) See_Comment H [Automated [employer]] The system which generated this result transmitted reference range: 0 - 20 mm/HR. The reference range was not used to interpret this result as normal/abnormal. Lab Interpretation (test code = 45286-9) [facility] [id number] 01:34:20* Test Item Value Reference Range Interpretation Comments TROPONIN I (test code = 9601719873) 0.007 ng/mL See_Comment [Automated message] The system which generated this result transmitted reference range: <=0.034. The reference range was not used to interpret this result as normal/abnormal. COLE (test code = COLE) Reference (Normal) Range (defined by the 99th percentile reference [...] patient's use of biotin. Lab Interpretation (test code = 83763-4) [id number] 01:31:17* Test Item Value Reference Range Interpretation Comme nts NT-proBNP (test code = 0309923663) 436 pg/mL See_Comment H [Automated message] The system which generated this result transmitted reference range: <=125. The reference range was not used to interpret this result as normal/abnormal. COLE (test code = COLE) Biotin has been reported to cause a negative bias, interpret results relative to patient's use of biotin. Lab Interpretation (test code = 67039-8) [facility]normal [facility] (67265)(TOTAL CHOLESTEROL, TRIGLYCERIDES, HDL)2022-05-13 01:22:20* Test Item Value Reference Range Interpretation Comme nts CHOL (test code = 8010979764) 172 mg/dL 120-200 HDL (test code = 4885753266) 35 mg/dL See_Comment L [[employer]ated [employer]] The system which generated this result transmitted reference range: >=50. The reference range was not used to interpret this result as normal/abnormal. HDLC RATIO (test code = 0785002149) See_Comment H [[employer]] The system which generated this result transmitted reference range: <=4.5. The reference range was not used to interpret this result as normal/abnormal. TRIG (test code = 9093630004) 322 mg/dL 30-170 H LDL CHOL (test code = 43574-5) 73 mg/dL See_Comment [Automated messa ge] The system which generated this result transmitted reference range: <=160. The reference range was not used to interpret this result as normal/abnormal. VLDL (test code = 2248359858) 64 mg/dL 5-60 H Lab Interpretation (test code = 75552-2) [facility]* Test Item Value Reference Range Interpretation Comme nts MAGNESIUM (test code = 8837772339) 1.6 mg/dL 1.7-2.4 L Lab Interpretation (test cod e = 94986-1) Abnormal [facility] METABOLIC PANEL (NA, K, CL, CO2, GLUCOSE, BUN, CREATININE, CA)2022-05-13 01:22:00* Test Item Value Reference Range Interpretation Comme nts NA (test code = 5478508805) 139 mmol/L 135-145 K (test code = 4521598113) 4.0 mmol/L 3.5-5 CL (test code = 9063232900) 108 mmol/L 98-108 CO2 TOTAL (test code = 6960268648) 26 mmol/L 23-31 AGAP (test code = 7318357941) 2-16 BUN (test code = 0869767039) 16 mg/dL 7-23 GLUCOSE (test code = 8665373004) 109 mg/dL 70-110 CREATININE (test code = 9691488265) 0.65 mg/dL 0.5-1.04 CALCIUM (test code = 7267558033) 8.7 mg/dL 8.6-10.6 eGFR (test code = 0546192525) mL/min/1.73m2 COLE (test code = COLE) Association of [...] or urine or abnormalities in imaging tests). [facility] 01:21:39* Test Item Value Reference Range Interpretation Comme nts PHOSPHORUS (test code = 0085652698) 4.1 mg/dL 2.5-5 Lab Interpretation (test cod e = 85556-5) Normal [facility]ATED)2022-05-13 01:16:45* Test Item Value Reference Range Interpretation Comme nts POCT GLU (test code = 3161594007) 134 mg/dL 70-110 H Lab Interpretation (test cod e = 68984-7) [facility]normal [facility]CBC with Mfmmlzweeami9717-16-77 00:55:21* Test Item Value Reference Range Interpretation Comme nts WBC (test code = 6690-2) See_Comment [Automated messa ge] The system which generated this result transmitted reference range: 4.30 - 11.10 10*3/?L. The reference range was not used to interpret this result as normal/abnormal. RBC (test code = 789-8) See_Comment L [Automated messa ge] The system which generated this result transmitted reference range: 3.93 - 5.25 10*6/?L. The reference range was not used to interpret this result as normal/abnormal. HGB (test code = 718-7) 7.6 g/dL 11.6-15 L HCT (test code = 4544-3) 24.7 % 35.7-45.2 L MCV (test code = 787-2) 81.8 fL 80.6-95.5 MCH (test code = 785-6) 25.2 pg 25.9-32.8 L MCHC (test code = 786-4) 30.8 g/dL 31.6-35.1 L RDW-SD (test code = 87660-9) 42.4 fL 39-49.9 RDW-CV (test code = 788-0) 14.7 % 12-15.5 PLT (test code = 777-3) See_Comment H [Automated messa ge] The system which generated this result transmitted reference range: 166 - 358 10*3/?L. The reference range was not used to interpret this result as normal/abnormal. MPV (test code = 07254-0) 9.6 fL 9.5-12.9 NRBC/100 WBC (test code = 5772752404) See_Comment [Automated me ssage] The system which generated this result transmitted reference range: 0.0 - 10.0 /100 WBCs. The reference range was not used to interpret this result as normal/abnormal. NRBC x10^3 (test code = 6750146865) See_Comment [Automated messa ge] The system which generated this result transmitted reference range: 10*3/?L. The reference range was not used to interpret this result as normal/abnormal. SEG % (test code = 02130-6) 57 % 33-76 BAND % (test code = 80947-7) 7 % 0-1 H LYMPH % (test code = 42417-0) 21 % 14-54 MONO % (test code = 31912-3) 8 % 0-4 H EOS % (test code = 00211-9) 7 % 0-3 H ANC (test code = 753-4) 5.38 10*3/uL 1.88-7.09 POLYCHROMASIA (test code = 48280-8) 2+ See_Comment [Automated messa ge] The system which generated this result transmitted reference range: 2+. The reference range was not used to interpret this result as normal/abnormal. TOXIC CHANGES (test code = 803-7) Present A Lab Interpretation (test code = 17075-4) Abnormal [facility] HospitalLactate Dehydrogenase (LDH)2022-05-13 00:20:12 * Test Item Value Reference Range Interpretation Comme [facility] LDH (test code = 9241832647) 404 U/L 120-246 H Lab Interpretation (test cod e = 40737-3) Abnormal [facility] HospitalUric Acid Zwhdu3397-27-91 00:19:52* Test Item Value Reference Range Interpretation Comme [facility] URIC ACID (test code = 0374475250) 5.2 mg/dL 2.9-6 Lab Interpretation (test cod e = 51734-9) Normal [facility] HospitalSGOT (Asparate Amino Transfer)2022-05-13 00:19:52* Test Item Value Reference Range Interpretation Comme [facility] AST(SGOT) (test code = 1102501270) 32 U/L 13-40 Lab Interpretation (test cod e = 65129-2) Normal [facility] HospitalAlanine Amino Transferase (SGPT)2022-05-13 00:19:52* Test Item Value Reference Range Interpretation Comme [facility] ALTv (test code = 1742-6) 37 U/L 5-35 H Lab Interpretation (test cod e = 05198-3) Abnormal [facility] HospitalCreatinine [id number] 00:19:32* Test Item Value Reference Range Interpretation Comme [facility] CREATININE (test code = 5567116466) 0.66 mg/dL 0.5-1.04 eGFR (test code = 5754661940) mL/min/1.73m2 COLE (test code = COLE) Association of [...] or urine or abnormalities in imaging tests). [facility]ICAL2022-[facility]-10 14:11:00* Test Item Value Reference Range Interpretation Comme nts SURGICAL (test code = SR) R UN DATE: 05/06/22 [place] - LAB PAGE 1 RUN TIME: 1411 Specimen Inquiry RUN USER: INTERFACE P ATIENT: GRACY SAUCEDO LOC: [place] U #: [id number] AGE/SX: 36/F ROOM: [facility] RE[facility] DR: Anuj Mauricio MD : 86 BED: 1 DIS: STATUS: ADM IN TLOC: SPEC #: [id number] RECD: 05/05/22 STATUS: GORDY PEDRO #: [id number] MARIANO: 05/04/22 DR: Anuj Mauricio MD ENTERED: 05/05/22 SP TYPE: SURGICAL OTHR DR: Julia Tineo MD ORDERED: 60440/2, 92858, ANATOMIC SPEC COPIES TO: Julia Tineo MD [address] [place] [id number] Anuj Mauricio MD [address] [facility] [address] [place] [address] PROCEDURES: 86829 (05/05/22) 95597 (05/05/22) TISSUES: 2. FALLOPIAN TUBE NOS - [...] ON NEXT PAGE R UN DATE: 05/06/22 [place] - LAB PAGE 2 RUN TIME: 1411 Specimen Inquiry RUN USER: INTERFACE S PEC #: [id number] PATIENT: GRACY SAUCEDO #[id number] (Continued) GROSS DESCRIPTION (Continued) segment is a 2.1 cm in length 1 cm in diameter fallopian tube segment (G). Technical component performed at [facility],[address] [place] [address], [place] [address] Unless gross only, the diagnosis is based [...] complete cross-section. CLINICAL INFORMATION IUP @ 36.3 TN, DM TYPE 2 Signed SIGNATURE ON FILE Damien Olson DO 05/06/22 1411 END OF REPORT COMPREHENSIVE METABOLIC [id number] 08:29:00* Test Item Value Reference Range Interpretation Comme nts SODIUM (test code = NA) 133 mEq/L 134-147 L POTASSIUM (test code = K) 4.7 mEq/L 3.4-5.0 CHLORIDE (test code = CL) 106 mEq/L 100-108 N CARBON DIOXIDE (test code = CO2) 22 mEq/l 21-33 N ANION GAP (test code = GAP) 10 0-20 N GLUCOSE (test code = GLU) 181 mg/dL 70-110 H BLOOD UREA NITROGEN (test code = BUN) 11 mg/dL 7-18 GLOMERULAR FILTRATION RATE (test code = GFR) 81.6 105-110 L Units of measure = ml/min/1.73 m2 CREATININE (test code = CREAT) 0.8 mg/dL 0.6-1.3 TOTAL PROTEIN (test code = PROT) 5.0 g/dL 6.4-8.2 L ALBUMIN (test code = ALB) 2.40 g/dL 3.4-5.0 L CALCIUM (test code = CA) 8.5 mg/dL 8.0-10.5 N BILIRUBIN TOTAL (test code = BILT) 0.30 mg/dL 0.0-1.0 N SGOT/AST (test code = AST) 29 IUnit/L 15-37 N SGPT/ALT (test code = ALT) 22 IUnit/L 30-65 L ALKALINE PHOSPHATASE TOTAL (test code = ALKP) 87 IUnit/L 20-125 N CBC W/AUTO [id number] 07:26:00* Test Item Value Reference Range Interpretation Comme nts WHITE BLOOD CELL (test code = WBC) 13.2 x10 3/uL 4.5-11.0 H RED BLOOD CELL (test code = RBC) 3.14 x10 6/uL 3.54-5.02 L HEMOGLOBIN (test code = HGB) 8.1 g/dL 11.0-15.0 L HEMATOCRIT (test code = HCT) 24.6 % 33.0-45.0 L MEAN CELL VOLUME (test code = MCV) 78.3 fL 81.0-99.0 L MEAN CELL HGB (test code = MCH) 25.8 pg 27.0-33.0 L MEAN CELL HGB CONCETRATION (test code = MCHC) 32.9 g/dL 33.0-37.0 L RED CELL DISTRIBUTION WIDTH CV (test code = RDW) 13.3 % 11.5-14.5 N RED CELL DISTRIBUTION WIDTH SD (test code = RDW-SD) 37.5 fL 37.0-54.0 N PLATELET COUNT (test code = PLT) 199 x10 3/uL 150-400 N MEAN PLATELET VOLUME (test code = MPV) 11.1 fL 7.0-9.0 H NEUTROPHIL % (test code = NT%) 77.0 % 56.0-77.0 N IMMATURE GRANULOCYTE % (test code = IG%) 0.9 % 0.0-2.0 N LYMPHOCYTE % (test code = LY%) 14.0 % 14.0-32.0 N MONOCYTE % (test code = MO%) 7.7 % 4.8-9.0 N EOSINOPHIL % (test code = EO%) 0.1 % 0.3-3.7 L BASOPHIL % (test code = BA%) 0.3 % 0.0-2.0 N NUCLEATED RBC % (test code = NRBC%) 0.0 % 0-0 N NEUTROPHIL # (test code = NT#) 10.19 x10 3/uL 2.0-7.6 H IMMATURE GRANULOCYTE # (test code = IG#) 0.12 x10 3/uL 0.00-0.03 H LYMPHOCYTE # (test code = LY#) 1.86 x10 3/uL 1.0-3.8 N MONOCYTE # (test code = MO#) 1.02 x10 3/uL 0.1-0.8 H EOSINOPHIL # (test code = EO#) 0.01 x10 3/uL 0.0-0.2 N BASOPHIL # (test code = BA#) 0.04 x10 3/uL 0.0-0.2 N NUCLEATED RBC # (test code = NRBC#) 0.00 x10 3/uL 0.0-0.1 N MANUAL DIFF REQUIRED (test code = MDIFF) NO RAPID PLASMA [id number] 11:17:00* Test Item Value Reference Range Interpretation Comme nts RAPID PLASMA REAGIN (test co de = RPR) NONREACTIVE NONREACTIVE AG HEPATITIS B [id number] 11:17:00* Test Item Value Reference Range Interpretation Comme nts AG HEPATITIS B SURFACE (test code = HBSAG) NON REACTIVE INDEX NonReactive AB HIV 1 11:17:00* Test Item Value Reference Range Interpretation Comme nts AB HIV 1 2 (test code = APV17WK) Nonreactive Nonreactive URINALYSIS [id number] 20:08:00* Test Item Value Reference Range Interpretation Comme nts UA COLOR (test code = COLU) YELLOW YEL/STRAW UA APPEARANCE (test code = APPU) CLEAR CLEAR UA GLUCOSE DIPSTICK (test co de = DGLUU) NEGATIVE NEGATIVE UA BILIRUBIN DIPSTICK (test code = BILU) NEGATIVE NEGATIVE UA KETONE DIPSTICK (test cod e = KETU) 1+ NEGATIVE A UA SPECIFIC GRAVITY (test co de = SGU) 1.019 1.005-1.030 N UA BLOOD DIPSTICK (test code = ARUNA) NEGATIVE NEGATIVE UA PH DIPSTICK (test code = ERIC) 6.0 5.0-7.0 N UA PROTEIN DIPSTICK (test co de = PROU) 1+ NEGATIVE A UA UROBILINIOGEN DIPSTICK (t est code = URO) 2.0 mg/dL 0.2-1.0 A UA NITRITE DIPSTICK (test co de = MARK) NEGATIVE NEGATIVE UA LEUKOCYTE ESTERASE DIPSTI CK (test code = LEUU) NEGATIVE NEGATIVE UA RBC (test code = RBCU) 0-3 RBC/HPF 0-3 UA WBC NO REFLEX (test code = WBCUCL) 0-3 WBC/HPF 0-3 UA BACTERIA (test code = BACU) TRACE /HPF NONE SEEN UA SQUAMOUS CELLS (test code = SQU) 0-5 /HPF NONE SEEN UA MUCUS (test code = MUCU) TRACE /LPF NONE SEEN UR PROTEIN/CREATININE [id number] 20:08:00* Test Item Value Reference Range Interpretation Comme nts UR PROTEIN RANDOM (test code = PROTU) 63 mg/dL UR CREATININE RANDOM (test code = CREATU) 98.4 mg/dL The Reference Ra nge and Method Performance specificationshave not been established for this fluid. The test resultshould be correlated into the clinical context forinterpretation. PROTEIN/CREATININE RATIO (test code = P/CRATIO) 0.64 COMPREHENSIVE METABOLIC [id number] 20:05:00* Test Item Value Reference Range Interpretation Comme nts SODIUM (test code = NA) 138 mEq/L 134-147 N POTASSIUM (test code = K) 3.9 mEq/L 3.4-5.0 N CHLORIDE (test code = CL) 108 mEq/L 100-108 N CARBON DIOXIDE (test code = CO2) 20 mEq/l 21-33 L ANION GAP (test code = GAP) 14 0-20 N GLUCOSE (test code = GLU) 73 mg/dL 70-110 N BLOOD UREA NITROGEN (test code = BUN) 8 mg/dL 7-18 N GLOMERULAR FILTRATION RATE (test code = GFR) 140.4 105-110 H Units of measure = ml/min/1.73 m2 CREATININE (test code = CREAT) 0.5 mg/dL 0.6-1.3 L TOTAL PROTEIN (test code = PROT) 6.4 g/dL 6.4-8.2 N ALBUMIN (test code = ALB) 3.10 g/dL 3.4-5.0 L CALCIUM (test code = CA) 8.8 mg/dL 8.0-10.5 N BILIRUBIN TOTAL (test code = BILT) 0.40 mg/dL 0.0-1.0 N SGOT/AST (test code = AST) 22 IUnit/L 15-37 N SGPT/ALT (test code = ALT) 22 IUnit/L 30-65 L ALKALINE PHOSPHATASE TOTAL (test code = ALKP) 112 IUnit/L 20-125 N URIC [id number] 20:05:00* Test Item Value Reference Range Interpretation Comme nts URIC ACID (test code = URIC) 5.6 mg/dL 2.6-7.2 N LACTIC DEHYDROGENASE(LDH)2022-05-03 20:05:00* Test Item Value Reference Range Interpretation Comme nts LACTIC DEHYDROGENASE(LDH) (t est code = LDH) 187 IUnits/L 84-246 N CBC W/AUTO [id number] 19:48:00* Test Item Value Reference Range Interpretation Comme nts WHITE BLOOD CELL (test code = WBC) 8.6 x10 3/uL 4.5-11.0 N RED BLOOD CELL (test code = RBC) 4.18 x10 6/uL 3.54-5.02 N HEMOGLOBIN (test code = HGB) 10.8 g/dL 11.0-15.0 L HEMATOCRIT (test code = HCT) 32.9 % 33.0-45.0 L MEAN CELL VOLUME (test code = MCV) 78.7 fL 81.0-99.0 L MEAN CELL HGB (test code = MCH) 25.8 pg 27.0-33.0 L MEAN CELL HGB CONCETRATION (test code = MCHC) 32.8 g/dL 33.0-37.0 L RED CELL DISTRIBUTION WIDTH CV (test code = RDW) 13.2 % 11.5-14.5 N RED CELL DISTRIBUTION WIDTH SD (test code = RDW-SD) 37.6 fL 37.0-54.0 N PLATELET COUNT (test code = PLT) 228 x10 3/uL 150-400 N MEAN PLATELET VOLUME (test c ode = MPV) 10.6 fL 7.0-9.0 H NEUTROPHIL % (test code = NT%) 63.0 % 56.0-77.0 N IMMATURE GRANULOCYTE % (test code = IG%) 0.9 % 0.0-2.0 N LYMPHOCYTE % (test code = LY%) 24.7 % 14.0-32.0 N MONOCYTE % (test code = MO%) 9.6 % 4.8-9.0 H EOSINOPHIL % (test code = EO%) 1.3 % 0.3-3.7 N BASOPHIL % (test code = BA%) 0.5 % 0.0-2.0 N NUCLEATED RBC % (test code = NRBC%) 0.0 % 0-0 N NEUTROPHIL # (test code = NT#) 5.40 x10 3/uL 2.0-7.6 N IMMATURE GRANULOCYTE # (test code = IG#) 0.08 x10 3/uL 0.00-0.03 H LYMPHOCYTE # (test code = LY#) 2.12 x10 3/uL 1.0-3.8 N MONOCYTE # (test code = MO#) 0.82 x10 3/uL 0.1-0.8 H EOSINOPHIL # (test code = EO#) 0.11 x10 3/uL 0.0-0.2 N BASOPHIL # (test code = BA#) 0.04 x10 3/uL 0.0-0.2 N NUCLEATED RBC # (test code = NRBC#) 0.00 x10 3/uL 0.0-0.1 N MANUAL DIFF REQUIRED (test c ode = MDIFF) NO [id number] 23:13:00* Test Item Value Reference Range Interpretation Comme nts FIBRONECTIN (test code = FFN) NEGATIVE NEGATIVE URINALYSIS [id number] 22:31:00* Test Item Value Reference Range Interpretation Comme nts UA COLOR (test code = COLU) YELLOW YEL/STRAW UA APPEARANCE (test code = APPU) SL CLOUDY CLEAR UA GLUCOSE DIPSTICK (test co de = DGLUU) 1+ NEGATIVE A UA BILIRUBIN DIPSTICK (test code = BILU) NEGATIVE NEGATIVE UA KETONE DIPSTICK (test cod e = KETU) 1+ NEGATIVE A UA SPECIFIC GRAVITY (test co de = SGU) 1.020 1.005-1.030 N UA BLOOD DIPSTICK (test code = ARUNA) NEGATIVE NEGATIVE UA PH DIPSTICK (test code = ERIC) 6.0 5.0-7.0 N UA PROTEIN DIPSTICK (test co de = PROU) 1+ NEGATIVE A UA UROBILINIOGEN DIPSTICK (t est code = URO) 0.2 mg/dL 0.2-1.0 UA NITRITE DIPSTICK (test co de = MARK) NEGATIVE NEGATIVE UA LEUKOCYTE ESTERASE DIPSTI CK (test code = LEUU) NEGATIVE NEGATIVE UA RBC (test code = RBCU) 0-3 RBC/HPF 0-3 UA WBC NO REFLEX (test code = WBCUCL) 0-3 WBC/HPF 0-3 UA BACTERIA (test code = BACU) 1+ /HPF NONE SEEN A UA SQUAMOUS CELLS (test code = SQU) 6-10 /HPF NONE SEEN A UA CALCIUM OXALATE CRYSTALS (test code = CAOXU) 2+ /HPF NONE SEEN A UA MUCUS (test code = MUCU) TRACE /LPF NONE SEEN POCT MOLECULAR [id number] 14:30:37* Test Item Value Reference Range Interpretation Comme nts POCT Molecular Strep (test c ode = 14012-7) Negative Negative Lab Interpretation (test cod e = 40917-9) Normal [facility] - ONCE [id number] 08:18:24* Test Item Value Reference Range Interpretation Comme nts ABO & RH (test code = 20) O POSITIVE Performed at [facility] Laboratory Services [facility] Blood [address] Free: [phone] No. [id number] IAT (test code = 1185) Negative Performed at [facility] Laboratory Services [facility] Blood [address] Free: [phone] No. [id number] [facility] (NA, K, CL, CO2, GLUCOSE, BUN, CREATININE, CA)2020-07-23 08:06:00* Test Item Value Reference Range Interpretation Comme nts NA (test code = 4516141199) 136 mmol/L 135-145 K (test code = 0967152119) 4.9 mmol/L 3.5-5 CL (test code = 2660225102) 102 mmol/L 98-108 CO2 TOTAL (test code = 0737751145) 24 mmol/L 23-31 AGAP (test code = 4429705097) 2-16 BUN (test code = 7582769193) 14 mg/dL 7-23 GLUCOSE (test code = 1458018174) 197 mg/dL 70-110 H CREATININE (test code = 0313832781) 0.41 mg/dL 0.5-1.04 L CALCIUM (test code = 1315148674) 9.5 mg/dL 8.6-10.6 eGFR Calculation (Non-) (test code = 2987788771) mL/min/1.73m2 eGFR Calculation () (test code = 1495404200) mL/min/1.73m2 COLE (test code = COLE) Association of [...] or abnormalities in imaging tests). Lab Interpretation (test code = 06871-4) Abnormal [facility] [id number] 08:03:00* Test Item Value Reference Range Interpretation Comme nts POCT PREG (test code = 1605) Negative On board controls acceptable with C Line (test code = 3574) Present POCT PREG LOT # (test code = 3575) HCG [id number] POCT PREG TEST DATE ( test code = 3576) 09/26/2021 Lab Interpretation (test cod e = 69629-9) Normal [facility]OVID[facility] (ID NOW RAPID TESTING)2020-07-23 08:01:00* Test Item Value Reference Range Interpretation Comme nts SARS-CoV-2 Rapid ID NOW (test code = 60175-7) Not Detected Not Detected COLE (test code = COLE) ID NOW COVID-19 As say is an isothermal nucleic acid amplification test intended for the qualitative detection of nucleic acid from SARS-CoV-2 viral RNA in nasopharyngeal (SENIOR T[employer]ASURY CONSULTANT) specimens. It is used under Emergency Use [...] patient testing if clinically indicated. Lab Interpretation (test code = 97285-5) Normal [facility] HospitalCB with [id number] 07:37:00* Test Item Value Reference Range Interpretation Comme nts WBC (test code = 6690-2) See_Comment H [Automated message] The system which generated this result transmitted reference range: 4.30 - 11.10 10*3/?L. The reference range was not used to interpret this result as normal/abnormal. RBC (test code = 789-8) See_Comment [Automated message] The system which generated this result transmitted reference range: 3.93 - 5.25 10*6/?L. The reference range was not used to interpret this result as normal/abnormal. HGB (test code = 718-7) 13.7 g/dL 11.6-15 HCT (test code = 4544-3) 39.7 % 35.7-45.2 MCV (test code = 787-2) 81.7 fL 80.6-95.5 MCH (test code = 785-6) 28.2 pg 25.9-32.8 MCHC (test code = 786-4) 34.5 g/dL 31.6-35.1 RDW-SD (test code = 05394-7) 36.6 fL 39-49.9 L RDW-CV (test code = 788-0) 12.3 % 12-15.5 PLT (test code = 777-3) See_Comment [Automated message] The system which generated this result transmitted reference range: 166 - 358 10*3/?L. The reference range was not used to interpret this result as normal/abnormal. MPV (test code = 28452-8) 9.5 fL 9.5-12.9 NRBC/100 WBC (test code = 4967110838) See_Comment [Automated message] The system which generated this result transmitted reference range: 0.0 - 10.0 /100 WBCs. The reference range was not used to interpret this result as normal/abnormal. NRBC x10^3 (test code = 5621747902) <0.01 See_Comment [Automated message] The system which generated this result transmitted reference range: 10*3/?L. The reference range was not used to interpret this result as normal/abnormal. GRAN MAT (NEUT) % (test code = 770-8) 86.1 % IMM GRAN % (test code = 2500190231) 1.10 % LYMPH % (test code = 736-9) 10.6 % MONO % (test code = 5905-5) 1.7 % EOS % (test code = 713-8) 0.2 % BASO % (test code = 706-2) 0.3 % GRAN MAT x10^3(ANC) (test code = 0032158139) 11.47 10*3/uL 1.88-7.09 H IMM GRAN x10^3 (test code = 8802317482) 0.15 10*3/uL 0-0.06 H LYMPH x10^3 (test code = 731-0) 1.42 10*3/uL 1.32-3.29 MONO x10^3 (test code = 742-7) 0.23 10*3/uL 0.33-0.92 L EOS x10^3 (test code = 711-2) 0.03 10*3/uL 0.03-0.39 BASO x10^3 (test code = 704-7) 0.04 10*3/uL 0.01-0.07 Lab Interpretation (test code = 87978-2) Abnormal [facility] HospitalRAD [facility]MA [id number] 10:47:00* Test Item Value Reference Range Interpretation Comme nts RAPID PLASMA REAGIN (test co de = RPR) NONREACTIVE NONREACTIVE AG HEPATITIS B [id number] 10:47:00* Test Item Value Reference Range Interpretation Comme nts AG HEPATITIS B SURFACE (test code = HBSAG) NON REACTIVE INDEX NonReactive AB HIV 1 10:47:00* Test Item Value Reference Range Interpretation Comme nts AB HIV 1 2 (test code = FIB45YY) NONREACTIVE INDEX NONREACTIVE [id number] 09:00:00* Test Item Value Reference Range Interpretation Comme nts GLUBED (test code = GLUBED) 110 MG/DL 70-110 N Performed by cer tified roll operator at [facility] CBC W/AUTO [id number] 08:53:00* Test Item Value Reference Range Interpretation Comme nts WHITE BLOOD CELL (test code = WBC) 10.28 x10 3/uL 4.5-11.0 N RED BLOOD CELL (test code = RBC) 3.49 x10 6/uL 3.54-5.02 L HEMOGLOBIN (test code = HGB) 9.6 g/dL 11.0-15.0 L HEMATOCRIT (test code = HCT) 30.0 % 33.0-45.0 L MEAN CELL VOLUME (test code = MCV) 86.0 fL 81.0-99.0 N MEAN CELL HGB (test code = MCH) 27.5 pg 27.0-33.0 N MEAN CELL HGB CONCETRATION (test code = MCHC) 32.0 g/dL 33.0-37.0 L RED CELL DISTRIBUTION WIDTH CV (test code = RDW) 13.9 % 11.5-14.5 N RED CELL DISTRIBUTION WIDTH SD (test code = RDW-SD) 43.5 fL 37.0-54.0 N PLATELET COUNT (test code = PLT) 223 x10 3/uL 150-400 N MEAN PLATELET VOLUME (test code = MPV) 10.2 fL 7.0-9.0 H NEUTROPHIL % (test code = NT%) 70.5 % 56.0-77.0 N IMMATURE GRANULOCYTE % (test code = IG%) 1.0 % 0.0-2.0 N LYMPHOCYTE % (test code = LY%) 16.1 % 14.0-32.0 N MONOCYTE % (test code = MO%) 9.8 % 4.8-9.0 H EOSINOPHIL % (test code = EO%) 2.2 % 0.3-3.7 N BASOPHIL % (test code = BA%) 0.4 % 0.0-2.0 N NUCLEATED RBC % (test code = NRBC%) 0.0 % 0-0 N NEUTROPHIL # (test code = NT#) 7.24 x10 3/uL 2.0-7.6 N IMMATURE GRANULOCYTE # (test code = IG#) 0.10 x10 3/uL 0.00-0.03 H LYMPHOCYTE # (test code = LY#) 1.66 x10 3/uL 1.0-3.8 N MONOCYTE # (test code = MO#) 1.01 x10 3/uL 0.1-0.8 H EOSINOPHIL # (test code = EO#) 0.23 x10 3/uL 0.0-0.2 H BASOPHIL # (test code = BA#) 0.04 x10 3/uL 0.0-0.2 N NUCLEATED RBC # (test code = NRBC#) 0.00 x10 3/uL 0.0-0.1 N MANUAL DIFF REQUIRED (test code = MDIFF) NO COMPREHENSIVE METABOLIC [id number] 07:55:00* Test Item Value Reference Range Interpretation Comme nts SODIUM (test code = NA) 141 mEq/L 134-147 N POTASSIUM (test code = K) 4.5 mEq/L 3.4-5.0 N CHLORIDE (test code = CL) 109 mEq/L 100-108 H CARBON DIOXIDE (test code = CO2) 26 mEq/L 21-33 N ANION GAP (test code = GAP) 11 0-20 N GLUCOSE (test code = GLU) 92 mg/dL 70-110 N BLOOD UREA NITROGEN (test code = BUN) 9 mg/dL 7-18 N GLOMERULAR FILTRATION RATE (test code = GFR) 183.8 105-110 H Units of measure = ml/min/1.73 m2 CREATININE (test code = CREAT) 0.4 mg/dL 0.6-1.3 L TOTAL PROTEIN (test code = PROT) 5.3 g/dL 6.4-8.2 L ALBUMIN (test code = ALB) 2.10 g/dL 3.4-5.0 L CALCIUM (test code = CA) 8.4 mg/dL 8.0-10.5 N BILIRUBIN TOTAL (test code = BILT) 0.4 MG/DL <1.5 N SGOT/AST (test code = AST) 19 IUnit/L 15-37 N SGPT/ALT (test code = ALT) 21 IUnit/L 15-65 N ALKALINE PHOSPHATASE TOTAL (test code = ALKP) 57 IUnit/L 20-125 N RAPID PLASMA [id number] 22:04:00* Test Item Value Reference Range Interpretation Comme nts RAPID PLASMA REAGIN (test code = RPR) NONREACTI VE AG HEPATITIS B [id number] 22:04:00* Test Item Value Reference Range Interpretation Comme nts AG HEPATITIS B SURFACE (test code = HBSAG) NON REACTIVE INDEX NonReactive AB HIV 1 22:04:00* Test Item Value Reference Range Interpretation Comme nts AB HIV 1 2 (test code = [id number]) NONREACTIVE INDEX NONREACTIVE [id number] 21:29:00* Test Item Value Reference Range Interpretation Comme nts GLUBED (test code = GLUBED) 149 MG/DL 70-110 H Performed by cer tified roll operator at [facility] [id number] 18:04:00* Test Item Value Reference Range Interpretation Comme nts GLUBED (test code = GLUBED) 106 MG/DL 70-110 N Performed by cer tified roll operator at [facility] [id number] 14:19:00* Test Item Value Reference Range Interpretation Comme nts GLUBED (test code = GLUBED) 86 MG/DL 70-110 N Performed by cer tified roll operator at [facility] CORD VENOUS BLOOD [id number] 13:42:00* Test Item Value Reference Range Interpretation Comme nts CORD VENOUS PH (test code = PHCV) 7.33 7.25-7.45 N CORD VENOUS PCO2 (test code = PCO2CV) 43 mmHg 27-49 N CORD VENOUS PO2 (test code = PO2CV) 32 mmHg 17-41 N CORD VENOUS HCO3 (test code = HCO3CV) 22.6 MMOL/L 12-28 N CORD VENOUS BASE EXCESS (yuko t code = BEXCV) -3.0 mmol/L -8.0-0.00 N CORD VENOUS 02 SAT (test cod e = O2SCV) 57 % CORD ARTERIAL BLOOD [id number] 13:39:00* Test Item Value Reference Range Interpretation Comme nts CORD BLOOD PH (test code = PH/C) 7.15 7.18-7.38 LL CORD BLOOD PCO2 (test code = PCO2/C) 73 mmHg 32-66 H CORD BLOOD PO2 (test code = PO2/C) 13 mmHg 6-30 N CORD BLOOD HCO3 (test code = HCO3/C) 26 mmol/L 17-27 N BASE EXCESS CORD (test code = BISHOP/C) -3.0 mmol/L -8.0-0.0 N O2 SATURATION (test code = O2S/C) 9 % 72-77 L RAPID PLASMA [id number] 11:42:00* Test Item Value Reference Range Interpretation Comme nts RAPID PLASMA REAGIN (test code = RPR) NONREACTI VE AG HEPATITIS B [id number] 11:42:00* Test Item Value Reference Range Interpretation Comme nts AG HEPATITIS B SURFACE (test code = HBSAG) NON REACTIVE INDEX NonReactive AB HIV 1 11:42:00* Test Item Value Reference Range Interpretation Comme nts AB HIV 1 2 (test code = IXV41RU) INDEX NONREACTIVE CBC W/AUTO [id number] 11:09:00* Test Item Value Reference Range Interpretation Comme nts WHITE BLOOD CELL (test code = WBC) 10.10 x10 3/uL 4.5-11.0 N RED BLOOD CELL (test code = RBC) 4.06 x10 6/uL 3.54-5.02 N HEMOGLOBIN (test code = HGB) 11.2 g/dL 11.0-15.0 N HEMATOCRIT (test code = HCT) 34.0 % 33.0-45.0 N MEAN CELL VOLUME (test code = MCV) 83.7 fL 81.0-99.0 N MEAN CELL HGB (test code = MCH) 27.6 pg 27.0-33.0 N MEAN CELL HGB CONCETRATION (test code = MCHC) 32.9 g/dL 33.0-37.0 L RED CELL DISTRIBUTION WIDTH CV (test code = RDW) 13.8 % 11.5-14.5 N RED CELL DISTRIBUTION WIDTH SD (test code = RDW-SD) 42.4 fL 37.0-54.0 N PLATELET COUNT (test code = PLT) 235 x10 3/uL 150-400 N MEAN PLATELET VOLUME (test code = MPV) 9.6 fL 7.0-9.0 H NEUTROPHIL % (test code = NT%) 69.1 % 56.0-77.0 N IMMATURE GRANULOCYTE % (test code = IG%) 1.3 % 0.0-2.0 N LYMPHOCYTE % (test code = LY%) 20.0 % 14.0-32.0 N MONOCYTE % (test code = MO%) 7.2 % 4.8-9.0 N EOSINOPHIL % (test code = EO%) 2.0 % 0.3-3.7 N BASOPHIL % (test code = BA%) 0.4 % 0.0-2.0 N NUCLEATED RBC % (test code = NRBC%) 0.0 % 0-0 N NEUTROPHIL # (test code = NT#) 6.98 x10 3/uL 2.0-7.6 N IMMATURE GRANULOCYTE # (test code = IG#) 0.13 x10 3/uL 0.00-0.03 H LYMPHOCYTE # (test code = LY#) 2.02 x10 3/uL 1.0-3.8 N MONOCYTE # (test code = MO#) 0.73 x10 3/uL 0.1-0.8 N EOSINOPHIL # (test code = EO#) 0.20 x10 3/uL 0.0-0.2 N BASOPHIL # (test code = BA#) 0.04 x10 3/uL 0.0-0.2 N NUCLEATED RBC # (test code = NRBC#) 0.00 x10 3/uL 0.0-0.1 N MANUAL DIFF REQUIRED (test code = MDIFF) NO Coronavirus 2019 nCoV [id number] 10:49:00* Test Item Value Reference Range Interpretation Comme nts Coronavirus 2019 nCoV Bedsid e (test code = COVNONPUIBED) Negative Negative Acknowledged? [id number] 09:53:00* Test Item Value Reference Range Interpretation Comme nts GLUBED (test code = GLUBED) 91 MG/DL 70-110 N Performed by cer tified roll operator at [facility] [id number] 08:00:00* Test Item Value Reference Range Interpretation Comme nts GLUBED (test code = GLUBED) 87 MG/DL 70-110 N Performed by cer tified roll operator at [facility] [id number] 08:00:00* Test Item Value Reference Range Interpretation Comme nts GLUBED (test code = GLUBED) 79 MG/DL 70-110 N Performed by cer tified roll operator at [facility] [id number] 08:00:00* Test Item Value Reference Range Interpretation Comme nts GLUBED (test code = GLUBED) 166 MG/DL 70-110 H Performed by cer tifLamppost roll operator at [facility] DATA GENERATION [id number] 21:38:00DATA GENERATION COMPLEX*.*.*.*.*.*.*.*.*.*.*.*.*.*FINAL*.*.*.*.*.*.*.*.*.*.*.*.*.*.*INDICATION: A 25 yof pmhx morbid obesity, DM,STEPHANIE, GERD, EGD 10/08/2011 noted retained food products from prior night. ?Pt with c/o indigestion type sx wakes her up during night. ? Please evaluate for gastroparesis. SOLID GASTRIC EMPTYING, LOW FAT MEAL: Following the administration of 1 mCi 99 mTc sulfur colloid in a low fat "Eggbeater" meal, serial scintiphotos were obtained of the stomach over four hours. ?Percent retention at 1h was 79%, at 2h was 61%, and at 4h was 5%. - - - - - - - - - - - - - - - - - - - -- - - - - - - - - - - - - - - - - - - - - - - - - - - - - - - - - - - - - - - - - NORMAL VALUES (Melchor damian al, AJG [id number])Time ? Percent [id number] ? <902h? <604h ? <10- - - - - - - - - - - - - - - - - - - - - - - - - - - - - - - - - - - - - - - - - - - - - - - - - - - - - - - - - - - - - IMPRESSION: Unr [facility]arkable [facility] [id number] 21:38:00GASTRIC EMPTYING STUDY*.*.*.*.*.*.*.*.*.*.*.*.*.*FINAL*.*.*.*.*.*.*.*.*.*.*.*.*.*.*INDICATION: A 25yof pmhx morbid obesity, DM,STEPHANIE, GERD, EGD 10/08/2011 noted retained food products from prior night.?Pt with c/o indigestion type sx wakes her up during night. ? Please evaluate for gastroparesis. SOLID GASTRIC EMPTYING, LOW FAT MEAL: Following the administration of 1 mCi 99 mTc sulfur colloid in alow fat "Eggbeater" meal, serial scintiphotos were obtained of the stomach over four hours. ?Percent retention at 1h was 79%, at 2h was 61%, and at 4h was 5%. - - - - - - - - - - - - - - - - - - - - - - - - - - - - - - - - - - - - - - - - - - - - - - - - - - - - - - - - - - - - - NORMAL VALUES (Melchor et al, AJG [id number])Time ? Percent zdztpqlob8k ? <902h ? <604h ? <10- - - - - - - - - - - - - - - - - - -- - - - - - - - - - - - - - - - - - - - - - - - - - - - - - - - - - - - - - - - - - IMPRESSION: Unre markable [facility] [id number] 21:38:00GASTRIC EMPTYING MEAL*.*.*.*.*.*.*.*.*.*.*.*.*.*FINAL*.*.*.*.*.*.*.*.*.*.*.*.*.*.*INDICATION: A 25 yof pmhx morbid obesity, DM,STEPHANIE, GERD, EGD 10/08/2011 noted retained food products from prior night. ?Pt with c/o indigestion type sx wakes her up during night. ? Please evaluate for gastroparesis. SOLID GASTRIC EMPTYING, LOW FAT MEAL: Following the administration of 1 mCi 99 mTc sulfur colloid in a low fat "Eggbeater" meal, serial scintiphotos were obtained of the stomach over four hours. ?Percentretention at 1h was 79%, at 2h was 61%, and at 4h was 5%. - - - - - - - - - - - - - - - - - - - - -- - - - - - - - - - - - - - - - - - - - - - - - - - - - - - - - - - - - - - - - NORMAL VALUES (Tochristel et al, AJG [id number];1458)Time ? Percent eurbnaleq2j ? <902h ? <604h ? <10- - - - - - - - - - - - - - - - - - - - - - - - - - - - - - - - - - - - - - - - - - - - - - - - - - - - - - - - - - - - - IMPRESSION: Day diego [facility] Notes Date/Time Note Provider Source 2023-07-15 10:43:00 [facility] enter [address] [place] [address] Discharge Summary Signed Patient: Gracy Logan Medical Record#: [id number] : 1985 Acct:[id number] Age/Sex: 37 / F Admit/Reg Date: 07/14/23 Loc: SJM5S Room: VP117-I Report Number: [id number] Attending Dr: Dewayne Campuzano MD DS: Providers Primary Care Provider: PcpMd Ena Attending physician on admission: Dewayne Campuzano Consults: 07/14/23 07:15 Physical Therapy Consult Routine Comment: Physician Instructions: Reason For Exam: post op Weight Bearing Status: Full weight bearing Potential discharge today?: No Fall Risk Score Total: 1 07/15/23 07:15 Nutrition Consult Routine Physician Instructions: Reason for Nutrition Consult: Diet education (specify) Specify Diet Education or Other Reason for Consult: Bariatric full liquid diet x 1 week Attending physician on discharge: Dewayne Campuzano Discharging clinician: Dewayne Campuzano DS: Diagnosis - Discharge Diagnosis (1) Morbid obesity due to excess calories Status: Chronic DS: Summary Date of Admit: 07/14/23 07:15 Date of Encounter: 07/15/23 Date of Discharge: 07/15/23 Hospital course: The patient underwent lap lala en y gastric bypass with lap hiatal hernia repair on 07/14/23 and was stable for discharge on 07/15/23, tolerating a liquid diet and ambulating. - Time Spent with Patient Total time spent providing and/or coordinating discharge services: - Attestation Attestation: I have reviewed all pertinent laboratory findings. Confirm Results Attestation: Yes Results check: Pass Exam Vital signs: Temp Pulse Resp BP Pulse Ox O2 Flow Rate 36.4 C L 63 20 115/79 100 2 07/15/23 07:56 07/15/23 07:56 07/15/23 07:56 07/15/23 07:56 07/15/23 07:56 07/14/23 11:45 Body Mass Index (BMI): 38.3 Body Habitus: obese General Appearance: no acute distress - Abdominal Exam Comments: soft, incisions c/d/i DS: Data Did Patient have any Procedures?: Yes Procedures Performed: Lap lala en y gastric bypass and lap hiatal hernia repair Does Patient have Pending Results?: No Result Diagrams: 07/09/23 12:15 07/09/23 12:15 Labs on Day of Discharge: Labs on Day of Discharge 07/14/23 12:19 POC Glucose 189 Discharge Plan - Medications Prescriptions: No Action dexmethylphenidate [Focalin XR] 15 mg Capsule,Er Biphasic 50-50 15 mg PO DAILY ergocalciferol (vitamin D2) [Vitamin D2] 1,250 mcg (50,000 unit) Capsule 1,250 mcg PO QWEEK Farxiga 10 mg Tablet 10 mg PO DAILY fenofibrate 160 mg Tablet 160 mg PO DAILY lisinopril 40 mg Tablet 40 mg PO DAILY lorazepam 0.5 mg Tablet 0.5 mg PO TID PRN (Reason: Anxiety) Ozempic 2 mg/dose (8 mg/3 mL) pen injector 2 mg subcut Q7D - Follow up Plan Follow up with: Dewayne Campuzano MD [Staff Physician] - Pcp-Md Woodruff MD [Primary Care Provider] - - Disposition Disposition: Home or Self-Care - Discharge Orders Discharge Orders: Discharge (Routine); Ordered 07/15/23 Ordered By: Dewayne Campuzano - Discharge Data Reason For Visit: MORBID OBESITY Primary Care Provider: PcpMd Ena Admit Provider: Dewayne Campuzano Attending Provider: Dewayne Campuzano Admit Date/Time: 07/14/23 07:15 - Patient/Caregiver Discharge Instructions Discharge Diagnosis:: Morbid obesity Condition: Good Diet: Bariatric If OTHER Diet, Please specify:: Full liquids x 1 week Activity Restrictions: No lifting more than 15 pounds x 2 weeks - Discharge Information Print Language: Kenyan Quality - Smoking Status Smoking Status: Never tobacco user [place] Initiatives - Inpatient LOS Unforeseen circumstances resulted in INP LOS < 2 midnights: Yes Inp LOS < 2 Midnights due to:: Inpatient ONLY Procedure Dictated By: Dewayne Campuzano MD Signed By: Dewayne Campuzano MD 07/15/23 1045 DD/ 104 TD/TT: 07/15/23 1043 Laborer General: BENEDICTO cc: BENEDICTO; PCPNO* PcpMd [facility] [place]; Dewayne Campuzano MD [place] 2023-07-14 09:40:00 [facility] enter [address] [place] [address] Bariatric Surgery Op Note Signed Patient: Gracy Logan Medical Record#: [id number] : 1985 Acct:[id number] Age/Sex: 37 / F ADM Date: 07/14/23 Loc: [facility] Room: [place] [address] Report Number: [id number]: Dewayne Campuzano MD Bariatric Surgery Op Note Date of Procedure: 07/14/23 Pre-operative diagnosis: Morbid obesity, BMI 38, HTN, DM type 2, Dyslipidemia, Hiatal hernia, GERD Post-operative diagnosis: same as preoperative diagnosis Procedure Performed: Laparoscopic lala en y gastric bypass. Laparoscopic hiatal hernia repair Primary Surgeon: Dewayne Campuzano MD, FACS Finishing Powder Press Operator: LEONARDA Chester (needed due to complexity of case) Consent Obtained: obtained Time Out Performed: Yes Anesthesia: general Detailed Description of Procedure: The patient was intubated and placed under anesthesia. She was positioned supine with both arms abducted. She was steriley prepped and draped in the usual fashion. A pre op pause was performed. A 5-mm left subcostal incision was made and a Veress needle inserted to insufflate the abdomen. Four additional trocars were placed in the standard positions. A liver retractor was used to expose the stomach. The gastrohepatic ligament was incised via the pars flaccida technique and a hiatal hernia was reduced from the right and left mala of the diaphragm. Adhesions were lysed in the thoracic cavity and the hiatal hernia was repaired with 2-0 Surgidac suture in an interrupted fashion. The left gastric pedicle was identified the descending branches of the left gastric vessels were ligated using the [place] Ligasure device. The left gastric pedicle was preserved. A 60 mm blue load Ethicon stapler was used to divide the stomach at a 90 degree angle at the lesser curvature of the stomach to begin the formation of the gastric pouch. Several more firings were completed to make the gastric pouch about 25 mL in volume. The proximal staple line was oversewn with surgidac in a continuous fashion. The small intestine was divided 50 cm distal to the ligament of Trietz with a white load 60 mm stapler. I measured the lala limb 150 cm distal to this spot and performed an end to side jejuno- jejunostomy using a white load stapler. The common enterotomy site was stapled off with a white load as well. Anti-obstruction sutures were placed on either end of the anastomosis using Surgidac suture. The mesenteric defect was closed with surgidac suture in a continuous fashion. I incised the greater omentum with the [place] ligasure device to decrease tension on the lala limb. The lala limb was brought up to the gastric pouch and a posterior layer between the pouch and the lala limb was performed using surgidac suture in a Lembert fashion. Enterotomies were made in the pouch and lala limb and a linear anastomosis was created using a blue load stapler at 3 cm. The common enterotomy site was oversewn from either end in a continuous fashion over an endoscope (as a bougie) using Polysorb suture. Christophe solution was applied over the anastomisis. Leon's defect was closed in a continuous fashion using surgidac suture. We verified hemostasis. A TAP block was done using Exparel. The large port site was closed with vicryl suture using the Neoclose device. We desufflated the abdomen, removed the trocars, and closed the port sites with monocryl suture. We used local anesthesia the skin incision sites. All surgical sponge and instrument counts were correct. Type of wound, type 2, clean-contaminated. The patient tolerated the procedure well. Wound Class: CC - clean-contaminated Estimated Blood Loss: 20 mL Dictated By: Dewayne Campuzano MD Dictated By: Signed By: Dewayne Campuzano MD 07/14/2344 DD/ 9 TD/TT: 07/14/23939 Laborer General: BENEDICTO cc: BENEDICTO; PCPNO* Pcp-Md [facility] Woodruff; Dewayne Campuzano MD [place] 2022-05-07 21:50:00 [facility] OB Disch REPORT#:[id number] REPORT STATUS: Signed DATE:05/07/22 TIME: 2149 PATIENT: GRACY SAUCEDO UNIT #: [id number] ROOM/BED: [place] [address] : [birth year] AGE: 36 SEX: F ATTEND: Anuj Mauricio MD ADM AUTHOR: Anuj Mauricio MD * ALL edits or amendments must be made on the electronic/computer document * Objective Physical Exam Lungs: unlabored breathing Discharge Summary General Assessment: nml progress Hospital course: repeat admit, nml postop/postpart care Discharge condition: stable Discharge to: Home/Self Care Discharge diagnosis: full-term uncomp delivery Plan: routine care, discharge today Discharge Instructions Instructions: routine instr sheet given Diet: Resume Home Diet/Feeds Activity: Resume Normal Activity Additional discharge routines: None Discharge meds: Stop taking the following medications: LABETALOL (TRANDATE) 100 MG TAB 100 MILLIGRAM ORAL EVERY 6 HOURS. Continue taking these medications: PNV WITH FE FUMARATE/FA () 1 EACH TAB 1 TABLET ORAL DAILY. INSULIN ASPART (NovoLOG) 100 UNIT/ML VIAL 90-100 UNITS SUBCUTANEOUS DIRECTED. ALBUTEROL (PROAIR HFA 90 MCG/ACT 8.5 GM) (Unknown Strength) INHALER Unknown Dose INSULIN DETEMIR (LEVEMIR) 100 UNIT/ML VIAL 85 UNITS SUBCUTANEOUS TWICE DAILY. Start taking the following new medications: ACETAMINOPHEN/CODEINE (TYLENOL WITH CODEINE #3 300/30 MG) 300 MG-30 MG TAB 1 TABLET ORAL EVERY 4 HOURS NEEDED. as needed for ACUTE PAIN Qty = 30 No Refills at 2152 RPT #:[id number] END OF REPORT [facility] 2022-05-07 21:48:00 [facility] ([facility]) OB Postpart Progr Note REPORT#:[id number] REPORT STATUS: Signed DATE:05/07/22 TIME: 2147 PATIENT: GRACY SAUCEDO UNIT #: [id number] ROOM/BED: [place] [address] : [birth year] AGE: 36 SEX: F ATTEND: Anuj Mauricio MD ADM AUTHOR: Anuj Mauricio MD * ALL edits or amendments must be made on the electronic/computer document * Subjective Subjective Status/Day: post operative (d3) Patient reports: Patient reports: Yes no complaints, Yes normal lochia, Yes pain management effective, Yes tolerating po well, Yes voiding well, Yes voiding without pain, Yes tolerating ambulation, Yes flatus Objective Nursing Documentation Review Nursing Data: The data set between the solid lines has been imported from nursing documentation. Any exceptions have been noted below under Provider comments. Feeding preference: Post hemorrhage risk score: High Risk for Hemorrhage. Provider comments on imported nursing data: [] General VS: Vital Signs: Date Time Temp Pulse Resp B/P B/P Pulse O2 O2 Flow FiO2 Mean Ox Delivery Rate 05/07 0755 36.6 87 16 138/83 99 05/07 0020 36.6 90 17 144/89 97 PATIENT WEIGHT: Weight (lb): 294 Weight (oz): 8.6 Weight (kg): 133.600 Physical Exam Abdomen: soft, no abnormal tenderness, no guarding Incision site: well approximated edges, no drainage, no inflammation Uterus: involution appropriate, non-tender Fundus: firm, below the umbilicus Lochia: normal Lower extremities: Edema: none Romina's sign: negative Calf tenderness: negative Diagnosis, Assessment Plan Diagnosis, Assessment Plan Assessment: nml progress Plan: routine care, discharge today at 2150 RPT #:[id number] END OF REPORT [facility] 2022-05-06 11:38:00 [facility] ([facility]) OB Postpart Progr Note REPORT#:[id number] REPORT STATUS: Signed DATE:05/06/22 TIME: 1138 PATIENT: GRACY SAUCEDO UNIT #: [id number] ROOM/BED: [place] [address] : [birth year] AGE: 36 SEX: F ATTEND: Anuj Mauricio MD ADM AUTHOR: Anuj Mauricio MD * ALL edits or amendments must be made on the electronic/computer document * Subjective Subjective Status/Day: post operative (d2) Patient reports: Patient reports: Yes no complaints, Yes normal lochia, Yes pain management effective, Yes tolerating po well, Yes voiding well, Yes voiding without pain, Yes tolerating ambulation, Yes flatus Objective Nursing Documentation Review Nursing Data: The data set between the solid lines has been imported from nursing documentation. Any exceptions have been noted below under Provider comments. Feeding preference: Post hemorrhage risk score: High Risk for Hemorrhage. Provider comments on imported nursing data: [] General VS: Vital Signs: Date Time Temp Pulse Resp B/P B/P Pulse O2 O2 Flow FiO2 Mean Ox Delivery Rate 05/06 0735 36.5 83 16 132/86 98 05/06 0019 36.7 82 17 147/79 97 05/05 2018 36.8 103 17 124/78 98 05/05 1600 36.6 69 18 127/79 98 05/05 1204 36.9 85 17 117/76 98 PATIENT WEIGHT: Weight (lb): 294 Weight (oz): 8.6 Weight (kg): 133.600 Physical Exam Abdomen: soft, no abnormal tenderness, no guarding Incision site: well approximated edges, no drainage, no inflammation Uterus: involution appropriate, non-tender Fundus: firm, below the umbilicus Lochia: normal Lower extremities: Edema: none Romina's sign: negative Calf tenderness: negative Blood Loss Blood loss at delivery: Blood loss at delivery: Cause of the bleeding: Management that was provided: QBL at delivery: EBL at delivery: Diagnosis, Assessment Plan Diagnosis, Assessment Plan Assessment: nml progress Plan: routine care at 1139 RPT #:[id number] END OF REPORT [facility] 2022-05-05 16:54:00 [facility] ([facility]) OB Postpart Progr Note REPORT#:[id number] REPORT STATUS: Signed DATE:05/05/22 TIME: 1654 PATIENT: GRACY SAUCEDO UNIT #: [id number] ROOM/BED: [place] [address] : [birth year] AGE: 36 SEX: F ATTEND: Anuj Mauricio MD ADM AUTHOR: Anuj Mauricio MD * ALL edits or amendments must be made on the electronic/computer document * Subjective Subjective Status/Day: post operative (d1) Patient reports: Patient reports: Yes no complaints, Yes normal lochia, Yes pain management effective, Yes tolerating po well, Yes voiding well, Yes voiding without pain, Yes tolerating ambulation, Yes flatus Objective Nursing Documentation Review Nursing Data: The data set between the solid lines has been imported from nursing documentation. Any exceptions have been noted below under Provider comments. Feeding preference: Post hemorrhage risk score: High Risk for Hemorrhage. Provider comments on imported nursing data: [] General VS: Vital Signs: Date Time Temp Pulse Resp B/P B/P Pulse O2 O2 Flow FiO2 Mean Ox Delivery Rate 08/ 1204 36.9 85 17 117/76 98 08/09 1120 80 96 08/09 1030 74 95 08/09 0908 76 98 08/09 0800 36.7 75 18 125/83 97 08/09 0410 36.6 76 18 136/83 97 08/09 0000 36.8 77 20 136/82 96 08/08 2220 36.8 79 16 128/79 97 08/08 2058 108.0 08/08 2058 71 144/83 08/08 2055 76 94 08/08 2053 69 94 08/08 2050 75 94 08/08 2048 81 94 08/08 2044 75 93 08/08 2043 73 95 08/08 2038 71 94 08/08 2036 78 94 08/08 2033 76 94 08/08 2029 75 94 08/08 2028 76 92 08/08 2023 79 94 08/08 2017 78 94 08/08 2014 112.0 08/08 2014 67 148/87 08/08 2012 70 94 08/08 2011 65 93 08/08 2007 69 93 08/08 2005 72 94 08/08 2002 73 94 08/08 2000 71 94 08/08 2000 106.0 08/08 2000 75 141/84 08/08 1958 74 95 08/08 1956 68 93 08/08 1953 71 94 08/08 1948 71 94 08/08 1945 104.0 08/08 1945 64 142/79 08/08 1943 69 93 08/08 1942 69 93 08/08 1938 76 95 08/08 1936 70 94 08/08 1933 68 93 08/08 1931 67 94 08/08 1930 112.0 08/08 1930 68 150/87 08/08 1928 61 95 08/08 1923 62 95 08/08 1918 61 95 08/08 1917 62 94 08/08 1915 112.0 08/08 1915 60 148/88 08/08 1913 66 96 08/08 1912 116.0 08/08 1912 61 151/91 08/08 1908 68 97 08/08 1903 75 94 08/08 1858 61 94 08/08 1853 69 95 08/08 1851 65 94 08/08 1848 65 94 08/08 1846 110.0 08/08 1846 65 156/80 08/08 1845 67 94 08/08 1843 77 96 08/08 1838 60 93 08/08 1837 56 92 08/08 1833 58 94 08/08 1832 58 94 08/08 1830 95.0 08/08 1830 59 142/66 08/08 1828 52 94 08/08 1826 59 94 08/08 1823 59 93 08/08 1821 54 94 08/08 1818 62 93 08/08 1816 103.0 08/08 1816 62 144/76 08/08 1815 69 94 08/08 1813 65 93 08/08 1808 63 95 08/08 1805 67 94 08/08 1803 73 95 08/08 1800 95.0 08/08 1800 74 136/67 94 08/08 1758 70 94 08/08 1755 68 94 08/08 1753 70 95 08/08 1749 67 94 08/08 1748 94.0 08/08 1748 69 135/65 95 08/08 1741 63 94 08/08 1737 62 94 08/08 1736 36.7 08/08 1736 89.0 08/08 1736 59 130/62 98 PATIENT WEIGHT: Weight (lb): 294 Weight (oz): 8.6 Weight (kg): 133.600 Physical Exam Abdomen: soft, no abnormal tenderness, no guarding Incision site: well approximated edges, no drainage, no inflammation Uterus: involution appropriate, non-tender Fundus: firm, below the umbilicus Lochia: normal Lower extremities: Edema: none Romina's sign: negative Calf tenderness: negative Result Findings/Data: Laboratory Tests: 05/05 0500 Chemistry Sodium (134 - 147 mEq/L) 133 L Potassium (3.4 - 5.0 mEq/L) 4.7 Chloride (100 - 108 mEq/L) 106 Carbon Dioxide (21 - 33 mEq/l) 22 Anion Gap (0 - 20) 10 BUN (7 - 18 mg/dL) 11 Creatinine (0.6 - 1.3 mg/dL) 0.8 Glomerular Filtr Rate (105 - 110) 81.6 L Glucose (70 - 110 mg/dL) 181 H Calcium (8.0 - 10.5 mg/dL) 8.5 Total Bilirubin (0.0 - 1.0 mg/dL) 0.30 AST (15 - 37 IUnit/L) 29 ALT (30 - 65 IUnit/L) 22 L Total Alk Phosphatase (20 - 125 IUnit/L) 87 Total Protein (6.4 - 8.2 g/dL) 5.0 L Albumin (3.4 - 5.0 g/dL) 2.40 L Hematology WBC (4.5 - 11.0 x10 3/uL) 13.2 H RBC (3.54 - 5.02 x10 6/uL) 3.14 L Hgb (11.0 - 15.0 g/dL) 8.1 L Hct (33.0 - 45.0 %) 24.6 L MCV (81.0 - 99.0 fL) 78.3 L MCH (27.0 - 33.0 pg) 25.8 L MCHC (33.0 - 37.0 g/dL) 32.9 L RDW (11.5 - 14.5 %) 13.3 Plt Count (150 - 400 x10 3/uL) 199 MPV (7.0 - 9.0 fL) 11.1 H Neut % (Auto) (56.0 - 77.0 %) 77.0 Lymph % (Auto) (14.0 - 32.0 %) 14.0 Adams % (Auto) (4.8 - 9.0 %) 7.7 Eos % (Auto) (0.3 - 3.7 %) 0.1 L Baso % (Auto) (0.0 - 2.0 %) 0.3 Neut # (Auto) (2.0 - 7.6 x10 3/uL) 10.19 H Lymph # (Auto) (1.0 - 3.8 x10 3/uL) 1.86 Adams # (Auto) (0.1 - 0.8 x10 3/uL) 1.02 H Eos # (Auto) (0.0 - 0.2 x10 3/uL) 0.01 Baso # (Auto) (0.0 - 0.2 x10 3/uL) 0.04 Abs Immat Gran (auto) (0.00 - 0.03 x10 3/uL) 0.12 H Add Manual Diff NO Immature Gran % (0.0 - 2.0 %) 0.9 Nucleated RBC % (0 - 0 %) 0.0 Nucleated RBCs # (Man) (0.0 - 0.1 x10 3/uL) 0.00 Diagnosis, Assessment Plan Diagnosis, Assessment Plan Assessment: nml progress Plan: routine care at 1654 RPT #:[id number] END OF REPORT [facility] 2022-05-05 08:43:00 [facility] ([facility]) Pain Management Progress Note REPORT#:[id number] REPORT STATUS: Signed DATE:05/05/22 TIME: 842 PATIENT: GRACY SAUCEDO UNIT #: [id number] ROOM/BED: [place] [address] : 86 AGE: 36 SEX: F ATTEND: Anuj Mauricio MD ADM AUTHOR: Kristi Shepherd MD * ALL edits or amendments must be made on the electronic/computer document * Objective General VS/I O: POD # 1 Chief Complaint: abdominal pain, s/p section Duramorph spinal Patient seen and examined Moving legs Current pain scale 1/10 Pain relieved by rest and pain medications Current patient activity level resting in bed No side effects noted. Assessment and plan: Pain is well controlled. Ambulating in her room this morning. Discontinue anesthesia service. Vital Signs Date Temp Pulse Resp B/P B/P Mean Pulse Ox FiO2 05/04-05/05 36.6-36.8 52-81 16-20 128-156/62-91 89.0-116.0 92-98 Last Documented: Result Date Time Pulse Ox 97 05/05 0410 B/P 136/83 05/05 0410 Temp 36.6 05/05 0410 Pulse 76 05/05 0410 Resp 18 05/05 0410 B/P Mean 108.0 05/048 24 hour I O ending at 0700: 05/05 0700 05/04 1900 Intake Total 500 1584 Output Total 500 200 Balance 0 1384 Weight 4.040 Blood Loss 415 Quantification Method Intake, Other 500 1584 Output, Other 500 200 PATIENT WEIGHT: Weight (lb): 294 Weight (oz): 8.6 Weight (kg): 133.600 at 0845 [facility] #:[id number] END OF REPORT [facility] 2022-05-04 20:42:00 [id number] [place] [address] PATIENT NAME: GRACY SAUCEDO ADMIT DATE: 05/04/22 ACCOUNT NO: [id number] ROOM NO: [facility] AGE: 36 REPORT TYPE: OPERATIVE REPORT SEX: F ADMITTING PHYSICIAN:Anuj Mauricio MD ATTENDING PHYSICIAN:Anuj Mauricio MD OPERATION DATE: PROCEDURE: Repeat low transverse section with bilateral tubal ligation. SURGEON: Anuj Mauricio MD HIM CODER: LEONARDA Evans PREOPERATIVE DIAGNOSES: 1. Intrauterine at term. 2. History of 2 prior sections, for repeat. 3. Preeclampsia superimposed on chronic hypertension. 4. Insulin-dependent diabetes. 5. Obesity with BMI over 45. 6. History of incompetent cervix, status post cerclage removal. 7. Multiparous, desires sterilization. POSTOPERATIVE DIAGNOSES: 1. Intrauterine at term. 2. History of 2 prior sections, for repeat. 3. Preeclampsia superimposed on chronic hypertension. 4. Insulin-dependent diabetes. 5. Obesity with BMI over 45. 6. History of incompetent cervix, status post cerclage removal. 7. Multiparous, desires sterilization. FINDINGS: 1. Viable female infant in vertex presentation with scores 8 and 9. 2. weight 4040 g. 3. Normal fallopian tubes and ovaries. ESTIMATED BLOOD LOSS: 400 mL. COMPLICATIONS: None. PATHOLOGY: Placenta, cord segment, and tubal segments. ANESTHESIA: Spinal with Duramorph. PROCEDURE IN DETAIL: After discussing risks and benefits of the procedure with the patient and answering her questions, she was taken to the operating room, where anesthesia was administered and found to be adequate. The patient was PATIENT NAME: GRACY SAUCEDO prepped and draped in normal sterile fashion in a supine position with a leftward tilt. Pfannenstiel skin incision was made with a scalpel and carried down to underlying layer of fascia with the scalpel. The fascia was nicked in the midline and the fascial incision was extended bilaterally using the Kline scissors. The superior aspect of the fascial incision was grasped with 2 Bertha clamps, elevated, and underlying layer of rectus muscles were dissected off sharply with the Kline scissors. The same was repeated on the inferior aspect of the fascial incision where it was grasped with 2 Bertha clamps, elevated, and underlying layer of rectus muscles were dissected off sharply with the Kline scissors. The muscles were in the midline. The peritoneum was identified and entered bluntly. The peritoneal incision was then extended superiorly and inferiorly with good visualization of bladder. The bladder blade was inserted and the vesicouterine fascia was dissected to create the bladder flap. The bladder blade was repositioned and the lower uterine segment was incised with a scalpel in a low transverse fashion. Incision was extended bilaterally in a blunt fashion. The infant's head was delivered atraumatically and the mouth and nose suctioned. The 's torso was then delivered and the cord was clamped and cut. The infant was handed off to the waiting pediatric nurse. The placenta was delivered manually. The uterus was then exteriorized and cleared of all clots and debris. Uterine incision was then reapproximated with 0 Vicryl in a running-locked fashion with excellent hemostasis. The uterus was returned to the abdomen and the gutters were cleared of all clots and debris. The bladder blade was reinserted and the hysterotomy was re-examined and found to be hemostatic and was covered with a piece of Interceed adhesion barrier. The bladder blade was removed and the fascia was reapproximated with 0 Vicryl in a running fashion with excellent closure. The skin was closed with bess. The procedure was terminated. All laps, needles, and instrument counts were correct x2 at the end of procedure. The patient was taken to recovery room in stable condition. Dictated By: Anuj Mauricio MD WT: OP:KAEL/MAJOR/NTS Conf#: [id number]/DID#: [id number] Authenticated by Anuj Mauricio MD On 05/10/2022 03:52:06 PM at 0352 PATIENT NAME: GRACY SAUCEDO [facility] 2022-05-04 20:35:00 [facility] ([facility]) Brief Op Note REPORT#:[id number] REPORT STATUS: Signed DATE:05/04/22 TIME: 2034 PATIENT: RGACY SAUCEDO UNIT #: [id number] ROOM/BED: [place] [address] : 86 AGE: 36 SEX: F ATTEND: Anuj Mauricio MD ADM AUTHOR: Anuj Mauricio MD * ALL edits or amendments must be made on the electronic/computer document * Op/Inv Proc Note - Brief Pre-procedure diagnosis: IUP at term Hx of c/s*2 SANDRA IDDM Sterilization Post-procedure diagnosis: same as pre procedure dx Procedures performed: LTCS with BTL Primary Surgeon: Daniel [employer] Operator(s): LEONARDA Evans Findings: VFI in vtx presentation FW: 4040 grams Complications: none Estimated blood loss in ml's: 400 Specimens removed/altered: Placenta and cord segment at 2040 RPT #:[id number] END OF REPORT [facility] 2022-05-04 20:30:00 [facility] ([facility]) DT History Physical REPORT#:[id number] REPORT STATUS: Signed DATE:05/04/22 TIME: 2029 PATIENT: GRACY SAUCEDO UNIT #: [id number] ROOM/BED: [place] [address] : 86 AGE: 36 SEX: F ATTEND: Anuj Mauricio MD ADM AUTHOR: Anuj Mauricio MD * ALL edits or amendments must be made on the electronic/computer document * History Physical History Physical Chief complaint: elevated BP HPI: 36 yo @ 36 2/7 wks with HTN, T2DM, asthma, hx of prior c/s x 2 who presents to [facility] reporting elevated BP at home. pt reports BP at home wre 160s/ 100s. also reports CERNA since earlier today. Denies leaking of fluid or vaginal bleeding. Reports active FM. ; occ ctx PNC at my office complicated by cervical insufficiency with cerclage placement ( removed 1.5 weeks ago) Pre-existing medical conditions include: HTN, T2DM (both since 2010); asthma. history: : 4 Term: 2 : 1 Living children: 3 x 1 C/S x 2, BBB 10#7oz Past medical history: asthma, diabetes mellitus, hypertension Past surgical history: x 2, cholecystectomy, tonsils/adenoids, CKC ( 2008), cerclage with removal x 3 Social history: no alcohol use, no tobacco use, no drug use, former tobacco use- 2 ppd which pt stopped in November 2021 x 20 years; currently vapes 1/2 PPD equivalent during Family history MOTHER (DM, HTN, STROKE, HEART DISEASE). Age 50-60. GRANDMOTHER (H/O CANCER). ; Cause: Age older than 85 years. Relation not specified for: Family History: Cancer Family History: Diabetes Family History: Heart disease Family History: Stroke Family history MOTHER (DM, HTN, STROKE, HEART DISEASE). Age 50-60. GRANDMOTHER (H/O CANCER). ; Cause: Age older than 85 years. Relation not specified for: Family History: Cancer Family History: Diabetes Family History: Heart disease Family History: Stroke Medications: Home Medications: Medication Dose/Rte/Freq Days Qty Entered Last Max Daily Dose Reviewed PNV WITH FE 1 TAB PO DAILY 02/01/20 FUMARATE/FA 1845 () Strength: 1 EACH TAB INSULIN ASPART (NovoLOG) 90-100 UNITS SUBQ 02/01/20 Strength: 100 UNIT/ML VIAL ASDIR 1846 ALBUTEROL (Unknown Dose) 04/13/22 (PROAIR HFA 90 MCG/ACT 2147 8.5 GM) Strength: (Unknown Strength) INHALER INSULIN DETEMIR 85 UNITS SUBQ BID 05/03/22 (LEVEMIR) 1818 Strength: 100 UNIT/ML VIAL LABETALOL (TRANDATE) 100 MG PO Q6HR 05/03/22 Strength: 100 MG TAB 1818 stopped ASA 1 week ago Allergies Coded Allergies: insulin isophane (NPH) (From HUMULIN N NPH U-100 INSULIN) (Intermediate, HIVES 05/03/22) insulin lispro (From HUMALOG U-100 INSULIN) (Intermediate, HIVES 05/03/22) insulin regular (From HUMULIN R REGULAR U-100 INSULN) (Intermediate, HIVES 05/03) Review of Systems GI: Reports: abdominal pain (some ctx). : Reports: . Denies: vaginal bleeding, vaginal discharge. Neuro: headache. Denies: syncope, vision change. All systems rev neg: except as marked Objective General VS: First Documented: Result Date Time Pulse Ox 97 05/03 182 Pulse 82 05/03 1822 B/P 142/86 05/03 182 B/P Mean 109.0 05/03 1823 Temp 98.0 05/03 1828 Resp 18 05/03 1828 Vital Signs: Date Time Temp Pulse Resp B/P B/P Pulse O2 O2 Flow FiO2 Mean Ox Delivery Rate 05/03 2024 110.0 05/03 2024 84 147/84 05/03 2009 99.0 05/03 2009 84 138/71 05/03 192 117.0 05/03 192 82 154/92 05/03 184 82 98 05/03 1842 73 99 05/03 1839 106.0 05/03 183 83 139/84 05/03 183 81 98 05/03 1835 81 94 05/03 1832 86 96 05/03 182 98.0 18 05/03 182 81 96 05/03 182 109.0 05/03 182 78 142/86 05/03 182 82 97 PATIENT WEIGHT: Weight (lb): 294 Weight (oz): 8.6 Weight (kg): 133.600 Physical Exam HEENT: normocephalic w/o injury, pupils equal Lungs: unlabored breathing Neuro: Exam: alert, oriented x3, normal speech Abdomen: gravid, soft, no abnormal tenderness, no guarding, no rebound tenderness Uterine activity: Monitor: toco Frequency (description): irregular FHR evaluation: Baseline: 140 bpm Variability: moderate 6-25 bpm Accelerations: 15 X 15 Decelerations: none FHR category: category 1 Lower extremities: Edema: trace Calf tenderness: negative Results Findings/Data: Laboratory Tests: 05/03 05/03 1845 1800 Chemistry Sodium (134 - 147 mEq/L) 138 Potassium (3.4 - 5.0 mEq/L) 3.9 Chloride (100 - 108 mEq/L) 108 Carbon Dioxide (21 - 33 mEq/l) 20 L Anion Gap (0 - 20) 14 BUN (7 - 18 mg/dL) 8 Creatinine (0.6 - 1.3 mg/dL) 0.5 L Glomerular Filtr Rate (105 - 110) 140.4 H Glucose (70 - 110 mg/dL) 73 Uric Acid (2.6 - 7.2 mg/dL) 5.6 Calcium (8.0 - 10.5 mg/dL) 8.8 Total Bilirubin (0.0 - 1.0 mg/dL) 0.40 AST (15 - 37 IUnit/L) 22 ALT (30 - 65 IUnit/L) 22 L Total Alk Phosphatase (20 - 125 IUnit/L) 112 Lactate Dehydrogenase (84 - 246 IUnits/L) 187 Total Protein (6.4 - 8.2 g/dL) 6.4 Albumin (3.4 - 5.0 g/dL) 3.10 L Hematology WBC (4.5 - 11.0 x10 3/uL) 8.6 RBC (3.54 - 5.02 x10 6/uL) 4.18 Hgb (11.0 - 15.0 g/dL) 10.8 L Hct (33.0 - 45.0 %) 32.9 L MCV (81.0 - 99.0 fL) 78.7 L MCH (27.0 - 33.0 pg) 25.8 L MCHC (33.0 - 37.0 g/dL) 32.8 L RDW (11.5 - 14.5 %) 13.2 Plt Count (150 - 400 x10 3/uL) 228 MPV (7.0 - 9.0 fL) 10.6 H Neut % (Auto) (56.0 - 77.0 %) 63.0 Lymph % (Auto) (14.0 - 32.0 %) 24.7 Adams % (Auto) (4.8 - 9.0 %) 9.6 H Eos % (Auto) (0.3 - 3.7 %) 1.3 Baso % (Auto) (0.0 - 2.0 %) 0.5 Neut # (Auto) (2.0 - 7.6 x10 3/uL) 5.40 Lymph # (Auto) (1.0 - 3.8 x10 3/uL) 2.12 Adams # (Auto) (0.1 - 0.8 x10 3/uL) 0.82 H Eos # (Auto) (0.0 - 0.2 x10 3/uL) 0.11 Baso # (Auto) (0.0 - 0.2 x10 3/uL) 0.04 Abs Immat Gran (auto) (0.00 - 0.03 x10 3/uL) 0.08 H Add Manual Diff NO Immature Gran % (0.0 - 2.0 %) 0.9 Nucleated RBC % (0 - 0 %) 0.0 Nucleated RBCs # (Man) (0.0 - 0.1 x10 3/uL) 0.00 Urines Urine Color (YEL/STRAW) YELLOW Urine Appearance (CLEAR) CLEAR Urine pH (5.0 - 7.0) 6.0 Ur Specific [place] (1.005 - 1.030) 1.019 Urine Protein (NEGATIVE) 1+ H Urine Glucose (UA) (NEGATIVE) NEGATIVE Urine Ketones (NEGATIVE) 1+ H Urine Blood (NEGATIVE) NEGATIVE Urine Nitrite (NEGATIVE) NEGATIVE Urine Bilirubin (NEGATIVE) NEGATIVE Urine Urobilinogen (0.2 - 1.0 mg/dL) 2.0 H Ur Leukocyte Esterase (NEGATIVE) NEGATIVE Urine RBC (0 - 3 RBC/HPF) 0-3 Urine WBC (0 - 3 WBC/HPF) 0-3 Ur Squamous Epith Cells (NONE SEEN /HPF) 0-5 Urine Bacteria (NONE SEEN /HPF) TRACE Urine Mucus (NONE SEEN /LPF) TRACE Ur Random Creatinine (mg/dL) 98.4 U Random Total Protein (mg/dL) 63 Protein/Creatinin Ratio 0.64 Diagnosis, Assessment Plan Diagnosis, Assessment Plan Free Text A P: A: 36 y/o G2103 @ 36w2 with elevated BP hx of chtn with SANDRA 2. t2DM 3. asthma 4. BMI > 45 5. serial bp elevated with UPcr: 0.6 5. tylenol prn CERNA 6. insulin regimen 7. repeat c/s for SANDRA at 2034 RPT #:[id number] END OF REPORT [facility] 2022-05-03 18:28:00 [facility] ([facility]) OB Medical Screening Exam REPORT#:[id number] REPORT STATUS: Signed DATE:05/03/22 TIME: 1827 PATIENT: GRCAY SAUCEDO UNIT #: [id number] ROOM/BED: [place] [address] : 86 AGE: 36 SEX: F ATTEND: Julia Tineo MD ADM AUTHOR: Julia Tineo MD * ALL edits or amendments must be made on the electronic/computer document * Medical Screening Exam Provider Attestation Attestation: The QMP MSE reviewed. Comments: MD notified at 18:30 MD at bedside at 18:32 pt is a 36y/o @ 36w2 with chtn, t2 DM, asthma, BMI > 45 presents with elevated BP at home 160s/100s and CERNA earlier today and mildly alleviated without any meds, but still present. no RUQ pain, no blurry vision. Is on Labetol 100 mh po QID and last took at 2 pm (has been taking timely) PNC with Dr. Mauricio at 2113 RPT #:[id number] END OF REPORT [facility] 2022-05-03 18:28:00 [facility] ([facility]) [facility] Evaluation Note REPORT#:[id number] REPORT STATUS: Signed DATE:05/03/22 TIME: 1827 PATIENT: GRACY SAUCEDO UNIT #: [id number] ROOM/BED: [place] [address] : 86 AGE: 36 SEX: F ATTEND: Julia Tineo MD ADM AUTHOR: Julia Tineo MD * ALL edits or amendments must be made on the electronic/computer document * [facility] History Notes: Chief complaint: elevated BP HPI: 36 yo @ 36 2/7 wks with HTN, T2DM, asthma, hx of prior c/s x 2 who presents to [facility] reporting elevated BP at home. pt reports BP at home wre 160s/ 100s. also reports CERNA since earlier today. Denies leaking of fluid or vaginal bleeding. Reports active FM. ; occ ctx PNC with Dr. Mauricio complicated by cervical insufficiency with cerclage placement (removed 1.5 weeks ago) Pre-existing medical conditions include: HTN, T2DM (both since 2010); asthma. history: : 4 Term: 2 : 1 Living children: 3 x 1 C/S x 2, BBB 10#7oz Past medical history: asthma, diabetes mellitus, hypertension Past surgical history: x 2, cholecystectomy, tonsils/adenoids, CKC ( 2008), cerclage with removal x 3 Social history: no alcohol use, no tobacco use, no drug use, former tobacco use- 2 ppd which pt stopped in November 2021 x 20 years; currently vapes 1/2 PPD equivalent during Family history MOTHER (DM, HTN, STROKE, HEART DISEASE). Age 50-60. GRANDMOTHER (H/O CANCER). ; Cause: Age older than 85 years. Relation not specified for: Family History: Cancer Family History: Diabetes Family History: Heart disease Family History: Stroke Family history MOTHER (DM, HTN, STROKE, HEART DISEASE). Age 50-60. GRANDMOTHER (H/O CANCER). ; Cause: Age older than 85 years. Relation not specified for: Family History: Cancer Family History: Diabetes Family History: Heart disease Family History: Stroke Medications: Home Medications: Medication Dose/Rte/Freq Days Qty Entered Last Max Daily Dose Reviewed PNV WITH FE 1 TAB PO DAILY 02/01/20 FUMARATE/FA 1845 () Strength: 1 EACH TAB INSULIN ASPART (NovoLOG) 90-100 UNITS SUBQ 02/01/20 Strength: 100 UNIT/ML VIAL ASDIR 1846 ALBUTEROL (Unknown Dose) 04/13/22 (PROAIR HFA 90 MCG/ACT 7 8.5 GM) Strength: (Unknown Strength) INHALER INSULIN DETEMIR 85 UNITS SUBQ BID 05/03/22 (LEVEMIR) 181 Strength: 100 UNIT/ML VIAL LABETALOL (TRANDATE) 100 MG PO Q6HR 05/03/22 Strength: 100 MG TAB 1818 stopped ASA 1 week ago Allergies Coded Allergies: insulin isophane (NPH) (From HUMULIN N NPH U-100 INSULIN) (Intermediate, HIVES 05/03/22) insulin lispro (From HUMALOG U-100 INSULIN) (Intermediate, HIVES 05/03/22) insulin regular (From HUMULIN R REGULAR U-100 INSULN) (Intermediate, HIVES 05/03) Review of Systems GI: Reports: abdominal pain (some ctx). : Reports: . Denies: vaginal bleeding, vaginal discharge. Neuro: headache. Denies: syncope, vision change. All systems rev neg: except as marked Objective General VS: First Documented: Result Date Time Pulse Ox 97 05/03 182 Pulse 82 05/03 182 B/P 142/86 05/03 182 B/P Mean 109.0 05/03 1823 Temp 98.0 05/03 1828 Resp 18 05/03 1828 Vital Signs: Date Time Temp Pulse Resp B/P B/P Pulse O2 O2 Flow FiO2 Mean Ox Delivery Rate 05/03 2024 110.0 05/03 2024 84 147/84 05/03 2009 99.0 05/03 2009 84 138/71 05/03 192 117.0 05/03 192 82 154/92 05/03 184 82 98 05/03 184 73 99 05/03 1839 106.0 05/03 1839 83 139/84 05/03 183 81 98 05/03 183 81 94 05/03 183 86 96 05/03 182 98.0 18 05/03 182 81 96 05/03 1823 109.0 05/03 1823 78 142/86 05/03 1822 82 97 PATIENT WEIGHT: Weight (lb): 294 Weight (oz): 8.6 Weight (kg): 133.600 Physical Exam HEENT: normocephalic w/o injury, pupils equal Lungs: unlabored breathing Neuro: Exam: alert, oriented x3, normal speech Abdomen: gravid, soft, no abnormal tenderness, no guarding, no rebound tenderness Uterine activity: Monitor: toco Frequency (description): irregular FHR evaluation: Baseline: 140 bpm Variability: moderate 6-25 bpm Accelerations: 15 X 15 Decelerations: none FHR category: category 1 Lower extremities: Edema: trace Calf tenderness: negative Results Findings/Data: Laboratory Tests: 05/03 05/03 1845 1800 Chemistry Sodium (134 - 147 mEq/L) 138 Potassium (3.4 - 5.0 mEq/L) 3.9 Chloride (100 - 108 mEq/L) 108 Carbon Dioxide (21 - 33 mEq/l) 20 L Anion Gap (0 - 20) 14 BUN (7 - 18 mg/dL) 8 Creatinine (0.6 - 1.3 mg/dL) 0.5 L Glomerular Filtr Rate (105 - 110) 140.4 H Glucose (70 - 110 mg/dL) 73 Uric Acid (2.6 - 7.2 mg/dL) 5.6 Calcium (8.0 - 10.5 mg/dL) 8.8 Total Bilirubin (0.0 - 1.0 mg/dL) 0.40 AST (15 - 37 IUnit/L) 22 ALT (30 - 65 IUnit/L) 22 L Total Alk Phosphatase (20 - 125 IUnit/L) 112 Lactate Dehydrogenase (84 - 246 IUnits/L) 187 Total Protein (6.4 - 8.2 g/dL) 6.4 Albumin (3.4 - 5.0 g/dL) 3.10 L Hematology WBC (4.5 - 11.0 x10 3/uL) 8.6 RBC (3.54 - 5.02 x10 6/uL) 4.18 Hgb (11.0 - 15.0 g/dL) 10.8 L Hct (33.0 - 45.0 %) 32.9 L MCV (81.0 - 99.0 fL) 78.7 L MCH (27.0 - 33.0 pg) 25.8 L MCHC (33.0 - 37.0 g/dL) 32.8 L RDW (11.5 - 14.5 %) 13.2 Plt Count (150 - 400 x10 3/uL) 228 MPV (7.0 - 9.0 fL) 10.6 H Neut % (Auto) (56.0 - 77.0 %) 63.0 Lymph % (Auto) (14.0 - 32.0 %) 24.7 Adams % (Auto) (4.8 - 9.0 %) 9.6 H Eos % (Auto) (0.3 - 3.7 %) 1.3 Baso % (Auto) (0.0 - 2.0 %) 0.5 Neut # (Auto) (2.0 - 7.6 x10 3/uL) 5.40 Lymph # (Auto) (1.0 - 3.8 x10 3/uL) 2.12 Adams # (Auto) (0.1 - 0.8 x10 3/uL) 0.82 H Eos # (Auto) (0.0 - 0.2 x10 3/uL) 0.11 Baso # (Auto) (0.0 - 0.2 x10 3/uL) 0.04 Abs Immat Gran (auto) (0.00 - 0.03 x10 3/uL) 0.08 H Add Manual Diff NO Immature Gran % (0.0 - 2.0 %) 0.9 Nucleated RBC % (0 - 0 %) 0.0 Nucleated RBCs # (Man) (0.0 - 0.1 x10 3/uL) 0.00 Urines Urine Color (YEL/STRAW) YELLOW Urine Appearance (CLEAR) CLEAR Urine pH (5.0 - 7.0) 6.0 Ur Specific [place] (1.005 - 1.030) 1.019 Urine Protein (NEGATIVE) 1+ H Urine Glucose (UA) (NEGATIVE) NEGATIVE Urine Ketones (NEGATIVE) 1+ H Urine Blood (NEGATIVE) NEGATIVE Urine Nitrite (NEGATIVE) NEGATIVE Urine Bilirubin (NEGATIVE) NEGATIVE Urine Urobilinogen (0.2 - 1.0 mg/dL) 2.0 H Ur Leukocyte Esterase (NEGATIVE) NEGATIVE Urine RBC (0 - 3 RBC/HPF) 0-3 Urine WBC (0 - 3 WBC/HPF) 0-3 Ur Squamous Epith Cells (NONE SEEN /HPF) 0-5 Urine Bacteria (NONE SEEN /HPF) TRACE Urine Mucus (NONE SEEN /LPF) TRACE Ur Random Creatinine (mg/dL) 98.4 U Random Total Protein (mg/dL) 63 Protein/Creatinin Ratio 0.64 Diagnosis, Assessment Plan Diagnosis, Assessment Plan Free Text A P: A: 36 y/o G2103 @ 36w2 with elevated BP hx of chtn, r/o SANDRA 2. t2DM 3. asthma 4. BMI > 45 P1. serial bp elevated with UPcr: 0.6 2. will start 24 hour urine 3. admit to [facility] 4. deliver if with severe features 5. tylenol prn CERNA 6. insulin regimen 7. NPO after midnight- plan to sign off to Dr. Mauricio in am and he can further manage consider repeat c/s if SANDRA or sooner if clinically indicated Plan discussed with: patient, spouse/partner, nurse at 2126 RPT #:[id number] END OF REPORT [facility] 2022-04-13 22:27:00 [facility] ([facility] Evaluation Note REPORT#:[id number] REPORT STATUS: Signed DATE:04/13/22 TIME: 2226 PATIENT: GRACY SAUCEDO UNIT #: [id number] ROOM/BED: : 86 AGE: 36 SEX: F ATTEND: Anuj Mauricio MD ADM DT: AUTHOR: Lani Garrison MD * ALL edits or amendments must be made on the electronic/computer document * [facility] History Chief complaint: uterine contractions HPI: 36 yo @ 33 3/7 wks presents to [facility] c/o ctxs since 1630 this afternoon. Denies leaking of fluid or vaginal bleeding. Reports active FM. Denies recent IC. Last seen in the office on 04/09/22 reports cervical length 2.1 cm by USG. history: : 4 Term: 2 : 1 Living children: 3 Current : Comments: PNC with Dr. Mauricio complicated by cervical insufficiency with cerclage placement. Pre-existing medical conditions include: HTN, T2DM, asthma. Past medical history: asthma, diabetes mellitus, hypertension Past surgical history: , cholecystectomy, tonsils/adenoids Social history: no alcohol use, no tobacco use, no drug use, former tobacco use- 2 ppd which pt stopped in November 2021, currently vapes Family history MOTHER (DM, HTN, STROKE, HEART DISEASE). Age 50-60. GRANDMOTHER (H/O CANCER). ; Cause: Age older than 85 years. Relation not specified for: Family History: Cancer Family History: Diabetes Family History: Heart disease Family History: Stroke Medications: Home Medications: Medication Dose/Rte/Freq Days Qty Entered Last Max Daily Dose Reviewed OMEGA-3 FATTY ACIDS 1,000 MG PO DAILY 02/01/20 04/13/22 (FISH OIL) 1844 2145 Strength: 1,000 MG CAP PNV WITH FE 1 TAB PO DAILY 02/01/20 04/13/22 FUMARATE/FA 1844 2145 () Strength: 1 EACH TAB ASPIRIN 81 MG PO DAILY 02/01/20 Strength: 81 MG TAB.CHEW 1844 LABETALOL (TRANDATE) 100 MG PO TID 02/01/20 04/13/22 Strength: 100 MG TAB 1844 2145 INSULIN DETEMIR 68 UNITS SUBQ AC BK 02/01/20 (LEVEMIR) 1845 Strength: 100 UNIT/ML VIAL INSULIN ASPART (NovoLOG) 90-100 UNITS SUBQ 02/01/20 04/13/22 Strength: 100 UNIT/ML ASDIR 1845 2145 VIAL INSULIN DETEMIR 82 SUBQ BEDTIME 04/13/22 04/13/22 (LEVEMIR) 2145 2145 Strength: 100 UNIT/ML VIAL ALBUTEROL (Unknown Dose) 04/13/22 04/13/22 (PROAIR HFA 90 MCG/ACT 2146 2146 8.5 GM) Strength: (Unknown Strength) INHALER ACETAMINOPHEN/CODEINE 1 TAB PO 30 02/05/20 (TYLENOL WITH CODEINE Q4H PRN PRN 0933 #3 300/30 MG) ABDOMINAL CRAMPS Strength: 300 MG-30 MG TAB Allergies Coded Allergies: insulin isophane (NPH) (From HUMULIN N NPH U-100 INSULIN) (Intermediate, HIVES 07/22/20) insulin lispro (From HUMALOG U-100 INSULIN) (Intermediate, HIVES 04/13/22) insulin regular (From HUMULIN R REGULAR U-100 INSULN) (Intermediate, HIVES 07/22) Review of Systems Additional notes: Constitutional-denies fever, COVID-19 infection in February 2022 (states at home rapid test now negative) HEENT-denies visual changes Cardiopulmonary-denies chest pain, edema, cough, reports occ SOB secondary to asthma GI-denies N/V, diarrhea, RUQ pain -denies flank pain, dysuria Neuro-denies headache Objective General VS: Last Documented: Result Date Time Pulse Ox 97 04/13 2155 Pulse 92 04/13 2155 Vital Signs Date Temp Pulse Resp B/P B/P Mean Pulse Ox FiO2 04/13 92-103 96-97 PATIENT WEIGHT: Weight (lb): Weight (oz): Weight (kg): Physical Exam Additional comments: Gen-pleasant F in NAD, accompanied by FOB Psych-A O x 3, appropriate mood affect HEENT-anicteric sclerae, EOMI Lungs-clear Heart-RRR Abd-obese, gravid, soft nontender SSE-slight white discharge, no bleeding, no pooling SVE-Cl/50%/-4 Ext-no edema toco-irregular ctxs (difficult to picker operator consistently) EFM-FHTs category I Results Findings/Data: Laboratory Tests: 04/13 2150 Urines Urine Color (YEL/STRAW) YELLOW Urine Appearance (CLEAR) SL CLOUDY Urine pH (5.0 - 7.0) 6.0 Ur Specific [place] (1.005 - 1.030) 1.020 Urine Protein (NEGATIVE) 1+ H Urine Glucose (UA) (NEGATIVE) 1+ H Urine Ketones (NEGATIVE) 1+ H Urine Blood (NEGATIVE) NEGATIVE Urine Nitrite (NEGATIVE) NEGATIVE Urine Bilirubin (NEGATIVE) NEGATIVE Urine Urobilinogen (0.2 - 1.0 mg/dL) 0.2 Ur Leukocyte Esterase (NEGATIVE) NEGATIVE Urine RBC (0 - 3 RBC/HPF) 0-3 Urine WBC (0 - 3 WBC/HPF) 0-3 Ur Squamous Epith Cells (NONE SEEN /HPF) 6-10 H Calcium Oxalate Crystal (NONE SEEN /HPF) 2+ H Urine Bacteria (NONE SEEN /HPF) 1+ H Urine Mucus (NONE SEEN /LPF) TRACE Diagnosis, Assessment Plan Diagnosis, Assessment Plan Free Text A P: A: 1. 33 3/7 wk gestation with threatened PTL-current cerclage in place, FFN neg , reassuring FHTs, no significant change in uterine activity following administration of IVFs 2 h observation in [place] 2. Co-morbidities include morbid obesity, HTN, T2DM, asthma, hx tobacco use-BP stable, 1+ protein P: d/c home with PTL precautions Counseled pt to contact OB office in am keep scheduled appt with OB on 04/16/22 Plan of care d/w pt, FOB RN-all questions answered Yvonne Garrison MD at 0018 RPT #:[id number] END OF REPORT [facility] 2022-04-13 22:26:00 [facility] ([facility]) OB Medical Screening Exam REPORT#:[id number] REPORT STATUS: Signed DATE:04/13/22 TIME: 2225 PATIENT: GRACY SAUCEDO UNIT #: [id number] ROOM/BED: : 86 AGE: 36 SEX: F ATTEND: Anuj Mauricio MD ADM DT: AUTHOR: Lani Garrison MD * ALL edits or amendments must be made on the electronic/computer document * See Addendum Medical Screening Exam Provider Attestation Attestation: The QMP MSE reviewed. Comments: 36 yo @ 33 3/7 wks evaluated for ctxs Yvonne Garrison MD at 2227 Addendum 1: 04/13/222235 by Lani Garrison MD Called to see pt @ 2204 Provider at bedside @ 2212 Yvonne Garrison MD at 0010 RPT #:[id number] END OF REPORT [facility] 2020-07-22 10:45:00 [facility] ([facility]) EMERGENCY PROVIDER REPORT REPORT#:[id number] REPORT STATUS: Signed DATE:07/22/20 TIME: 1045 PATIENT: GRACY SAUCEDO UNIT #: [id number] ROOM/BED: AGE: 34 SEX: F PCP PHYS: No Primary or Family Physician SERVICE AUTHOR: lEise Herndon SENIOR TREASURY CONSULTANT * ALL edits or amendments must be made on the electronic/computer document * HPI-Sore Throat General Confirmed Patient Yes Initial Greet Date/Time 07/22/20 1015 PCP [facility] Presentation Chief Complaint coughed blood Hx Obtained From Patient Onset Occurred Today Symptom Duration Brief Location Pharynx Severity: Onset Mild Severity: Current Mild Associated with Reports: Cough. Denies: Fever, Headache, Reduced oral intake, Restricted neck movement. Context Related History Reports: Tonsillectomy. Free Text HPI Notes Free Text HPI Notes 34-year-old female presents emergency room states that she "coughed blood" this morning and could "feel the blood running in her throat." Patient had tonsillectomy done 2 days ago at [facility], did not call her surgeon. Reports symptoms have resolved. Review of Systems ROS Statements All systems rev neg except as marked. Focused Review of Systems Constitutional Denies: Chills, Fever. Ears/Nose/Throat Reports: Sore throat. Respiratory Reports: Cough, non-productive. Denies: Pleuritic pain, Shortness of breath, Wheezing. Past Medical History - Adult Stated Complaint throat surgery now bleeding Allergies Coded Allergies: insulin isophane (NPH) (From HUMULIN N NPH U-100 INSULIN) (Intermediate, HIVES 07/22/20) insulin regular (From HUMULIN R REGULAR U-100 INSULN) (Intermediate, HIVES 07/22) Home Medications Active Scripts ACETAMINOPHEN/CODEINE (TYLENOL WITH CODEINE #3 300/30 MG) 1 TAB PO Q4H PRN PRN ABDOMINAL CRAMPS ACETAMINOPHEN/CODEINE (TYLENOL WITH CODEINE #3 300/30 MG) 1 TAB PO Q4H PRN PRN ABDOMINAL CRAMPS #30 TABS Prov: 02/05/20 Reported Medications OMEGA-3 FATTY ACIDS (FISH OIL) 1,000 MG PO DAILY PNV WITH FE FUMARATE/FA () 1 TAB PO DAILY ASPIRIN 81 MG PO DAILY LABETALOL (TRANDATE) 100 MG PO BID INSULIN DETEMIR (LEVEMIR) 44 UNITS SUBQ BEDTIME INSULIN ASPART (NovoLOG) 65 UNITS SUBQ ASDIR Calculated suicide risk level: No risk Review of Nursing Notes Rev avail, and agree Past Medical History: Reports: Diabetes mellitus, Hypertension. Past Surgical History: Reports: Cholecystectomy, . Additional Surgical History ear tubes, cervical cerclage Smoking status for patients 13 years old or older: Current every day smoker Physical Exam Vital Signs Vital Signs First Documented: Result Date Time Pulse Ox 97 07/22 1011 B/P 149/92 07/22 1011 B/P Mean 111 07/22 101 O2 Delivery Room air 07/22 1011 Temp 36.7 07/22 1011 Pulse 85 07/22 1011 Resp 20 07/22 101 Last Documented: Result Date Time Pulse Ox 97 07/22 1011 B/P 149/92 07/22 101 B/P Mean 111 07/22 101 O2 Delivery Room air 07/22 1011 Temp 36.7 07/22 1011 Pulse 85 07/22 1011 Resp 20 07/22 101 Review of Vital Signs Reviewed Focused PE General/Const General/Const Awake, Alert, No acute distress, Well appearing, Well developed , Well hydrated, Well nourished, Cooperative Ears/Nose/Throat Ears/Nose/Throat Airway patent, Mucous membranes moist, Tympanic membs NL Text/Dict Notes surgical scabbing seen to the tonsilar area in the pharynx, no active bleeding. MS Neck Neck Supple, No meningismus, Full range of motion Resp/Chest Respiratory/Chest Breath sounds NL, Breath sounds = bilat, No respiratory distress Cardiovascular Cardiovascular Heart rate NL, Regular rhythm, Heart sounds NL, Cap refill not delayed, Peripheral circulation NL Abdomen/GI Abdomen/GI Soft, Non-tender, BS normoactive Skin Skin Color NL, No rash, Warm, Dry, Intact, Turgor NL, No swelling Neurologic Neurologic Oriented X3, Speech NL, No motor deficits, No sensory deficits, CN II - XII intact, Reflexes equal bilat Interpretation Diagnostics Point of Care Testing Pulse Oximetry Pulse Ox % 97 On: Room air Interpretation Interpreted by me, Pulse oximetry normal Time 1015 Patient Discharge Departure Vital Signs/Condition Vital Signs First Documented: Result Date Time Pulse Ox 97 07/22 1011 B/P 149/92 07/22 101 B/P Mean 111 07/22 101 O2 Delivery Room air 07/22 1011 Temp 36.7 07/22 1011 Pulse 85 07/22 1011 Resp 20 07/22 101 Last Documented: Result Date Time Pulse Ox 97 07/22 1011 B/P 149/92 07/22 1011 B/P Mean 111 07/22 1011 O2 Delivery Room air 07/22 1011 Temp 36.7 07/22 1011 Pulse 85 07/22 1011 Resp 20 07/22 1011 All vital signs available at the time of this entry have been reviewed. Condition Stable Clinical Impression Clinical Impression Primary Impression: Cough with hemoptysis Disposition Decision Other )( Time 1037 )( Date 07/22/20 JOSE-screened discharged Yes Discharge/Care Plan Counseled Regarding Diagnosis, Need for follow-up at 1238 RPT #:[id number] END OF REPORT [facility] 2020-07-22 10:45:00 [facility] ([facility]) EMERGENCY PROVIDER REPORT REPORT#:[id number] REPORT STATUS: Signed DATE:07/22/20 TIME: 1045 PATIENT: GRACY SAUCEDO UNIT #: [id number] ROOM/BED: AGE: 34 SEX: F PCP PHYS: No Primary or Family Physician SERVICE AUTHOR: Elise Herndon SENIOR TREASURY CONSULTANT * ALL edits or amendments must be made on the electronic/computer document * Elise Herndon 07/22/20 1045: HPI-Sore Throat General Confirmed Patient Yes PCP [facility] Presentation Chief Complaint coughed blood Hx Obtained From Patient Onset Occurred Today Symptom Duration Brief Location Pharynx Severity: Onset Mild Severity: Current Mild Associated with Reports: Cough. Denies: Fever, Headache, Reduced oral intake, Restricted neck movement. Context Related History Reports: Tonsillectomy. Free Text HPI Notes Free Text HPI Notes 34-year-old female presents emergency room states that she "coughed blood" this morning and could "feel the blood running in her throat." Patient had tonsillectomy done 2 days ago at [facility], did not call her surgeon. Reports symptoms have resolved. Review of Systems ROS Statements All systems rev neg except as marked. Focused Review of Systems Constitutional Denies: Chills, Fever. Ears/Nose/Throat Reports: Sore throat. Respiratory Reports: Cough, non-productive. Denies: Pleuritic pain, Shortness of breath, Wheezing. Past Medical History - Adult Stated Complaint throat surgery now bleeding Allergies Coded Allergies: insulin isophane (NPH) (From HUMULIN N NPH U-100 INSULIN) (Intermediate, HIVES 07/22/20) insulin regular (From HUMULIN R REGULAR U-100 INSULN) (Intermediate, HIVES 07/22) Home Medications Active Scripts ACETAMINOPHEN/CODEINE (TYLENOL WITH CODEINE #3 300/30 MG) 1 TAB PO Q4H PRN PRN ABDOMINAL CRAMPS ACETAMINOPHEN/CODEINE (TYLENOL WITH CODEINE #3 300/30 MG) 1 TAB PO Q4H PRN PRN ABDOMINAL CRAMPS #30 TABS Prov: 02/05/20 Reported Medications OMEGA-3 FATTY ACIDS (FISH OIL) 1,000 MG PO DAILY PNV WITH FE FUMARATE/FA () 1 TAB PO DAILY ASPIRIN 81 MG PO DAILY LABETALOL (TRANDATE) 100 MG PO BID INSULIN DETEMIR (LEVEMIR) 44 UNITS SUBQ BEDTIME INSULIN ASPART (NovoLOG) 65 UNITS SUBQ ASDIR Calculated suicide risk level: No risk Review of Nursing Notes Rev avail, and agree Past Medical History: Reports: Diabetes mellitus, Hypertension. Past Surgical History: Reports: Cholecystectomy, . Additional Surgical History ear tubes, cervical cerclage Smoking status for patients 13 years old or older: Current every day smoker Physical Exam Vital Signs Vital Signs First Documented: Result Date Time Pulse Ox 97 07/22 1011 B/P 149/92 07/22 1011 B/P Mean 111 07/22 1011 O2 Delivery Room air 07/22 101 Temp 36.7 07/22 1011 Pulse 85 07/22 1011 Resp 20 07/22 1011 Last Documented: Result Date Time Pulse Ox 97 07/22 1011 B/P 149/92 07/22 1011 B/P Mean 111 07/22 1011 O2 Delivery Room air 07/22 1011 Temp 36.7 07/22 1011 Pulse 85 07/22 1011 Resp 20 07/22 1011 Review of Vital Signs Reviewed Focused PE General/Const General/Const Awake, Alert, No acute distress, Well appearing, Well developed , Well hydrated, Well nourished, Cooperative Ears/Nose/Throat Ears/Nose/Throat Airway patent, Mucous membranes moist, Tympanic membs NL Text/Dict Notes surgical scabbing seen to the tonsilar area in the pharynx, no active bleeding. MS Neck Neck Supple, No meningismus, Full range of motion Resp/Chest Respiratory/Chest Breath sounds NL, Breath sounds = bilat, No respiratory distress Cardiovascular Cardiovascular Heart rate NL, Regular rhythm, Heart sounds NL, Cap refill not delayed, Peripheral circulation NL Abdomen/GI Abdomen/GI Soft, Non-tender, BS normoactive Skin Skin Color NL, No rash, Warm, Dry, Intact, Turgor NL, No swelling Neurologic Neurologic Oriented X3, Speech NL, No motor deficits, No sensory deficits, CN II - XII intact, Reflexes equal bilat Interpretation Diagnostics Point of Care Testing Pulse Oximetry Pulse Ox % 97 On: Room air Interpretation Interpreted by me, Pulse oximetry normal Time 1015 Patient Discharge Departure Vital Signs/Condition Vital Signs First Documented: Result Date Time Pulse Ox 97 07/22 1011 B/P 149/92 07/22 1011 B/P Mean 111 07/22 1011 O2 Delivery Room air 07/22 1011 Temp 36.7 07/22 1011 Pulse 85 07/22 1011 Resp 20 07/22 1011 Last Documented: Result Date Time Pulse Ox 97 07/22 1011 B/P 149/92 07/22 1011 B/P Mean 111 07/22 1011 O2 Delivery Room air 07/22 1011 Temp 36.7 07/22 1011 Pulse 85 07/22 1011 Resp 20 07/22 1011 All vital signs available at the time of this entry have been reviewed. Condition Stable Clinical Impression Clinical Impression Primary Impression: Cough with hemoptysis Disposition Decision Other )( Time 1037 )( Date 07/22/20 JOSE-screened discharged Yes Discharge/Care Plan Counseled Regarding Diagnosis, Need for follow-up Yadira Agustin 07/22/20 1623: HPI-Sore Throat General Initial Greet Date/Time 07/22/20 1015 Re-Evaluation MDM Free Text MDM Notes Free Text MDM Notes Patient had an episode of bloody mucus. She is status post tonsillectomy, patient does have a posterior scab but no active bleeding noted. She will follow-up with ENT Patient Discharge Departure Supervising Physician Note MidLv Saw Pt Alone I have reviewed the PA/SENIOR TREASURY CONSULTANT's note and plan of care. I was available for consultation as needed at all times during the patient's visit in the emergency department. I agree with the clinical impression, plan and disposition. at 1238 at 1624 RPT #:[id number] END OF REPORT [facility] 2020-02-05 09:34:00 [facility] ([facility]) Clinical Note REPORT#:[id number] REPORT STATUS: Signed DATE:02/05/20 TIME: 933 PATIENT: GRACY SAUCEDO UNIT #: [id number] ROOM/BED: [place] [address] : 86 AGE: 34 SEX: F ATTEND: Anuj Mauricio MD ADM AUTHOR: Anuj Mauricio MD * ALL edits or amendments must be made on the electronic/computer document * Clinical Note Note: [facility] website checked at 0934 RPT #:[id number] END OF REPORT [facility] 2020-02-05 09:31:00 [facility] ([facility]) OB Disch REPORT#:[id number] REPORT STATUS: Signed DATE:02/05/20 TIME: 930 PATIENT: GRACY SAUCEDO UNIT #: [id number] ROOM/BED: [place] [address] : 86 AGE: 34 SEX: F ATTEND: Anuj Mauricio MD ADM AUTHOR: Anuj Mauricio MD * ALL edits or amendments must be made on the electronic/computer document * Discharge Summary Discharge Summary Hospital course: spontaneous labor, repeat admit, nml postop/postpart care Nursing data: The data set between the solid lines has been imported from nursing documentation. Any exceptions have been noted below under Provider comments. EGA (weeks/days): 35.0 EGA at admit (weeks): Delivery date A: 02/02/20 Delivery time A: 1249 Birthweight (gm) A: 3260 Feeding preference: Gender infant A: Female 1 minute A: 5 minutes A: 10 minutes A: Provider comments on imported nursing data: [] Instructions: routine instr sheet given Diet: regular Activity and restrictions: up ad chelsey, may shower, pelvic rest, no intercourse for 6 wks, no driving Contraception discussed: abstinence for 4-6 weeks, will discuss at PP visit Prescriptions: e-prescribe Discharge condition: stable Discharge to: home Follow up in: 1 week Discharge diagnosis: pre-term labor, pre-existing diabetes, gestational diabetes Discharge management: less than 30 mins at 0932 RPT #:[id number] END OF REPORT [facility] 2020-02-05 09:30:00 [facility] ([facility]) OB Postpart Progr Note REPORT#:[id number] REPORT STATUS: Signed DATE:02/05/20 TIME: 929 PATIENT: GRACY SAUCEDO UNIT #: [id number] ROOM/BED: [place] [address] : 86 AGE: 34 SEX: F ATTEND: Anuj Mauricio MD ADM AUTHOR: Anuj Mauricio MD * ALL edits or amendments must be made on the electronic/computer document * Subjective Subjective Status/Day: post operative (d3) Patient reports: Patient reports: Yes no complaints, Yes normal lochia, Yes pain management effective, Yes tolerating po well, Yes voiding well, Yes voiding without pain, Yes tolerating ambulation, Yes flatus Objective Nursing Documentation Review Nursing Data: The data set between the solid lines has been imported from nursing documentation. Any exceptions have been noted below under Provider comments. Feeding preference: Provider comments on imported nursing data: [] General VS: Vital Signs: Date Time Temp Pulse Resp B/P B/P Pulse O2 O2 Flow FiO2 Mean Ox Delivery Rate 02/04 0420 36.7 68 16 102/57 02/03 2320 36.4 77 18 121/63 02/03 2055 36.5 77 16 130/67 02/03 1610 36.5 71 18 137/78 Patient Weight Weight (lb): 278 Weight (oz): Weight (kg): 126.099 Physical Exam Abdomen: soft, no abnormal tenderness, no guarding Incision site: well approximated edges, no drainage, no inflammation Uterus: involution appropriate, non-tender Fundus: firm, below the umbilicus Lochia: normal Lower extremities: Edema: none Romina's sign: negative Calf tenderness: negative Diagnosis, Assessment Plan Diagnosis, Assessment Plan Assessment: nml progress Plan: routine care, discharge today at 0931 RPT #:[id number] END OF REPORT [facility] 2020-02-04 11:34:00 [facility] ([facility]) OB Postpart Progr Note REPORT#:[id number] REPORT STATUS: Signed DATE:02/04/20 TIME: 1134 PATIENT: GRACY SAUCEDO UNIT #: [id number] ROOM/BED: [place] [address] : 86 AGE: 34 SEX: F ATTEND: Anuj Mauricio MD ADM AUTHOR: Anuj Mauricio MD * ALL edits or amendments must be made on the electronic/computer document * Subjective Subjective Status/Day: post operative (d2) Patient reports: Patient reports: Yes no complaints, Yes normal lochia, Yes pain management effective, Yes tolerating po well, Yes voiding well, Yes voiding without pain, Yes tolerating ambulation, Yes flatus Objective Nursing Documentation Review Nursing Data: The data set between the solid lines has been imported from nursing documentation. Any exceptions have been noted below under Provider comments. Feeding preference: Provider comments on imported nursing data: [] General VS: Vital Signs: Date Time Temp Pulse Resp B/P B/P Pulse O2 O2 Flow FiO2 Mean Ox Delivery Rate 02/03 0808 36.7 87 18 122/79 02/03 0139 80 122/71 02/02 2115 36.7 81 127/67 02/02 1800 37.3 79 18 127/71 02/02 1200 36.8 88 18 124/72 Patient Weight Weight (lb): 278 Weight (oz): Weight (kg): 126.099 Physical Exam Abdomen: soft, no abnormal tenderness, no guarding Incision site: well approximated edges, no drainage, no inflammation Uterus: involution appropriate, non-tender Fundus: firm, below the umbilicus Lochia: normal Lower extremities: Edema: none Romina's sign: negative Calf tenderness: negative Diagnosis, Assessment Plan Diagnosis, Assessment Plan Assessment: nml progress Plan: routine care, discharge tomorrow at 1134 RPT #:[id number] END OF REPORT [facility] 2020-02-03 12:36:00 [facility] ([facility]) OB Postpart Progr Note REPORT#:[id number] REPORT STATUS: Signed DATE:02/03/20 TIME: 1236 PATIENT: GRACY SAUCEDO UNIT #: [id number] ROOM/BED: [place] [address] : 86 AGE: 34 SEX: F ATTEND: Anuj Mauricio MD ADM AUTHOR: Anuj Mauricio MD * ALL edits or amendments must be made on the electronic/computer document * Subjective Subjective Status/Day: post operative (d1) Patient reports: Patient reports: Yes no complaints, Yes normal lochia, Yes pain management effective, Yes tolerating po well, Yes voiding well, Yes voiding without pain, Yes tolerating ambulation, Yes flatus Objective Nursing Documentation Review Nursing Data: The data set between the solid lines has been imported from nursing documentation. Any exceptions have been noted below under Provider comments. Feeding preference: Provider comments on imported nursing data: [] General VS: Vital Signs: Date Time Temp Pulse Resp B/P B/P Pulse O2 O2 Flow FiO2 Mean Ox Delivery Rate 05/09 0908 36.6 91 18 119/65 05/09 0400 36.6 81 16 135/72 05/09 0005 36.7 76 17 107/58 05/08 2056 36.8 83 17 115/56 05/08 1758 36.7 77 18 106/56 05/08 1629 76.0 05/08 1629 78 110/59 05/08 1522 85.0 05/08 1522 82 116/66 05/08 1520 72 98 05/08 1515 77 98 05/08 1510 79 98 05/08 1507 83.0 05/08 1507 67 115/62 05/08 1505 74 98 05/08 1500 83 100 05/08 1455 78 100 05/08 1452 86.0 05/08 1452 71 120/65 05/08 1450 76 100 05/08 1445 80 100 05/08 1440 73 100 05/08 1437 80.0 05/08 1437 66 114/60 05/08 1435 76 100 05/08 1430 76 100 05/08 1425 72 100 05/08 1422 79.0 05/08 1422 73 110/59 05/08 1420 74 100 05/08 1415 74 100 05/08 1410 70 100 05/08 1407 81.0 05/08 1407 71 111/61 05/08 1405 74 100 05/08 1400 78 100 05/08 1355 74 99 05/08 1352 80.0 05/08 1352 74 115/60 05/08 1350 83 99 05/08 1345 80 99 05/08 1340 75 100 05/08 1338 82.0 05/08 1338 82 119/63 05/08 1335 81 98 05/08 1330 103 99 05/08 1325 83 99 05/08 1320 73.0 02/01 1320 36.5 80 18 106/55 97 Patient Weight Weight (lb): 278 Weight (oz): Weight (kg): 126.099 Physical Exam Abdomen: soft, no abnormal tenderness, no guarding Incision site: well approximated edges, no drainage, no inflammation Uterus: involution appropriate, non-tender Fundus: firm, below the umbilicus Lochia: normal Lower extremities: Edema: none Romina's sign: negative Calf tenderness: negative Result Findings/Data: Laboratory Tests: 02/02 0410 2048 1752 1406 Chemistry Sodium (134 - 147 mEq/L) 141 Potassium (3.4 - 5.0 mEq/L) 4.5 Chloride (100 - 108 mEq/L) 109 H Carbon Dioxide (21 - 33 mEq/L) 26 Anion Gap (0 - 20) 11 BUN (7 - 18 mg/dL) 9 Creatinine (0.6 - 1.3 mg/dL) 0.4 L Glomerular Filtr Rate (105 - 110) 183.8 H Glucose (70 - 110 mg/dL) 92 POC Glucose (70 - 110 MG/DL) 110 149 H 106 86 Calcium (8.0 - 10.5 mg/dL) 8.4 Total Bilirubin (<1.5 MG/DL) 0.4 AST (15 - 37 IUnit/L) 19 ALT (15 - 65 IUnit/L) 21 Total Alk Phosphatase (20 - 125 IUnit/L) 57 Total Protein (6.4 - 8.2 g/dL) 5.3 L Albumin (3.4 - 5.0 g/dL) 2.10 L Hematology WBC (4.5 - 11.0 x10 3/uL) 10.28 RBC (3.54 - 5.02 x10 6/uL) 3.49 L Hgb (11.0 - 15.0 g/dL) 9.6 L Hct (33.0 - 45.0 %) 30.0 L MCV (81.0 - 99.0 fL) 86.0 MCH (27.0 - 33.0 pg) 27.5 MCHC (33.0 - 37.0 g/dL) 32.0 L RDW (11.5 - 14.5 %) 13.9 Plt Count (150 - 400 x10 3/uL) 223 MPV (7.0 - 9.0 fL) 10.2 H Neut % (Auto) (56.0 - 77.0 %) 70.5 Lymph % (Auto) (14.0 - 32.0 %) 16.1 Adams % (Auto) (4.8 - 9.0 %) 9.8 H Eos % (Auto) (0.3 - 3.7 %) 2.2 Baso % (Auto) (0.0 - 2.0 %) 0.4 Neut # (Auto) (2.0 - 7.6 x10 3/uL) 7.24 Lymph # (Auto) (1.0 - 3.8 x10 3/uL) 1.66 Adams # (Auto) (0.1 - 0.8 x10 3/uL) 1.01 H Eos # (Auto) (0.0 - 0.2 x10 3/uL) 0.23 H Baso # (Auto) (0.0 - 0.2 x10 3/uL) 0.04 Abs Immat Gran (auto) (0.00 - 0.03 0.10 H x10 3/uL) Add Manual Diff NO Immature Gran % (0.0 - 2.0 %) 1.0 Nucleated RBC % (0 - 0 %) 0.0 Nucleated RBCs # (Man) (0.0 - 0.1 0.00 x10 3/uL) 02/01 02/01 1338 1338 Blood Gas Cord Blood pH (7.18 - 7.38) 7.15 *L Cord Blood PCO2 (32 - 66 mmHg) 73 H Cord Blood PO2 (6 - 30 mmHg) 13 Cord Blood HCO3 (17 - 27 mmol/L) 26 Cord Base Excess (-8.0 - 0.0 mmol/L) -3.0 Cord O2 Saturation (72 - 77 %) 9 L Cord VBG pH (7.25 - 7.45) 7.33 Cord VBG pCO2 (27 - 49 mmHg) 43 Cord VBG pO2 (17 - 41 mmHg) 32 Cord VBG HCO3 (12 - 28 MMOL/L) 22.6 Cord VBG Base Excess (-8.0 - 0.00 mmol/L) -3.0 Cord VBG O2 Sat (%) 57 Diagnosis, Assessment Plan Diagnosis, Assessment Plan Assessment: nml progress Plan: routine care at 1236 RPT #:[id number] END OF REPORT [facility] 2020-02-03 06:28:00 [facility] ([facility]) Pain Management Progress Note REPORT#:[id number] REPORT STATUS: Signed DATE:02/03/20 TIME: 627 PATIENT: GRACY SAUCEDO UNIT #: [id number] ROOM/BED: [place] [address] : 86 AGE: 34 SEX: F ATTEND: Anuj Mauricio MD ADM AUTHOR: Sukhjinder Allen MD * ALL edits or amendments must be made on the electronic/computer document * Subjective Comments: Patient seen and examined post op day one Catheter insertion site clean, dry, intact Current pain scale 2/10 Pain relieved by epidural Current patient activity level resting No side effects noted. dc epidural today at 0629 RPT #:[id number] END OF REPORT [facility] 2020-02-02 14:22:00 [id number] [place] [id number] PATIENT NAME: GRACY SAUCEDO ADMIT DATE: 02/01/20 ACCOUNT NO: [id number] ROOM NO: [facility] AGE: 34 REPORT TYPE: OPERATIVE REPORT SEX: F ADMITTING PHYSICIAN:Anuj Mauricio MD ATTENDING PHYSICIAN:Anuj Mauricio MD OPERATION DATE: PROCEDURE: Repeat low transverse section via Pfannenstiel incision. SURGEON: Anuj Mauricio MD HIM CODER: LEONARDA Lui PREOPERATIVE DIAGNOSES: 1. Intrauterine at 35 weeks gestational age. 2. Early labor. 3. Active labor with consistent contractions. 4. Polyhydramnios. 5. Insulin-dependent diabetes; poorly controlled. 6. Essential hypertension, on medication. 7. Morbid obesity. POSTOPERATIVE DIAGNOSES: 1. Intrauterine at 35 weeks gestational age. 2. Early labor. 3. Active labor with consistent contractions. 4. Polyhydramnios. 5. Insulin-dependent diabetes; poorly controlled. 6. Essential hypertension, on medication. 7. Morbid obesity. FINDINGS: 1. Viable female infant in vertex presentation with scores 8 and 9. 2. Nuchal cord x1. 3. Copious amounts of amniotic fluid. ESTIMATED BLOOD LOSS: 500 mL. COMPLICATIONS: None. ANESTHESIA: Combined spinal epidural. PROCEDURE IN DETAIL: After discussing risks and benefits of the procedure with the patient and answering her questions, she was taken to the operating room, where anesthesia was administered and found to be adequate. The patient was prepped and draped in normal sterile fashion in a supine position with a leftward tilt. Pfannenstiel skin incision was made with a scalpel and carried down to underlying layer of fascia with the scalpel. The fascia was nicked in PATIENT NAME: GRACY SAUCEDO the midline and the fascial incision was extended bilaterally using the Kline scissors. The superior aspect of the fascial incision was grasped with 2 Bertha clamps, elevated, and underlying layer of rectus muscles were dissected off sharply with the Kline scissors. The same was repeated on the inferior aspect of the fascial incision where it was grasped with 2 Bertha clamps, elevated, and underlying layer of rectus muscles were dissected off sharply with the Kline scissors. The muscles were in the midline. The peritoneum was identified and entered bluntly. The peritoneal incision was then extended superiorly and inferiorly with good visualization of bladder. The bladder blade was inserted and the vesicouterine fascia was dissected to create the bladder flap. The bladder blade was repositioned and the lower uterine segment was incised with a scalpel in a low transverse fashion. Incision was extended bilaterally in a blunt fashion. The 's head was delivered atraumatically and the mouth and nose suctioned. The infant's torso was then delivered and the cord was clamped and cut. The infant was handed off to the waiting pediatric nurse. The placenta was delivered manually. The uterus was then exteriorized and cleared of all clots and debris. Uterine incision was then reapproximated with 0 Vicryl in a running-locked fashion with excellent hemostasis. The uterus was returned to the abdomen and the gutters were cleared of all clots and debris. The bladder blade was reinserted and the hysterotomy was re-examined and found to be hemostatic and was covered with a piece of Interceed adhesion barrier. The bladder blade was removed and the fascia was reapproximated with 0 Vicryl in a running fashion with excellent closure. The skin was closed with bess. The procedure was terminated. All laps, needles, and instrument counts were correct x2 at the end of procedure. The patient was taken to recovery room in stable condition. Dictated By: Anuj Mauricio MD WT: OP:KAEL/MAJOR/NTS Conf#: [id number]/DID#: [id number] Authenticated by Anuj Mauricio MD On 03/08/2020 09:27:54 PM at 2128 PATIENT NAME: GRACY SAUCEDO [facility] 2020-02-02 13:12:00 [facility]) Brief Op Note REPORT#:[id number] REPORT STATUS: Signed DATE:02/02/20 TIME: 131 PATIENT: GRACY SAUCEDO UNIT #: [id number] ROOM/BED: [place] [id number] : 86 AGE: 34 SEX: F ATTEND: Anuj Mauricio MD ADM AUTHOR: Anuj Mauricio MD * ALL edits or amendments must be made on the electronic/computer document * Op/Inv Proc Note - Brief Pre-procedure diagnosis: IUP at 35 GA Hx of previous c/s for repeat Early labor with persistent contractions Polyhydramnios Uncontrolled IDDM Essential Hypertention Post-procedure diagnosis: same as pre procedure dx Procedures performed: rLTCS followed by cerclage removal Primary Surgeon: Daniel [employer] Operator(s): LEONARDA Lui Findings: VFI in vtx presentation with Apgars 8/9 NML FTs and ovaries Tipton's cerclage FW 7lbs 3 oz Complications: none Estimated blood loss in ml's: 500 Specimens removed/altered: placenta, cord for gases and cerclage at 1316 RPT #:[id number] END OF REPORT [facility] 2020-02-02 13:11:00 [facility] ([facility]) Clinical Note REPORT#:[id number] REPORT STATUS: Signed DATE:02/02/20 TIME: 1311 PATIENT: GRACY SAUCEDO UNIT #: [id number] ROOM/BED: [place] [id number] : 86 AGE: 34 SEX: F ATTEND: Anuj Mauricio MD ADM AUTHOR: Anuj Mauricio MD * ALL edits or amendments must be made on the electronic/computer document * Clinical Note Note: Patient seen and examined and care records and office H P reviewed with no change at 1312 RPT #:[id number] END OF REPORT [facility] 2020-02-02 13:04:00 [facility] ([facility]) Pain Management Consult Note REPORT#:[id number] REPORT STATUS: Signed DATE:02/02/20 TIME: 1304 PATIENT: GRACY SAUCEDO UNIT #: [id number] ROOM/BED: [place] [id number] : 86 AGE: 34 SEX: F ATTEND: Anuj Mauricio MD ADM AUTHOR: Misael Kong MD * ALL edits or amendments must be made on the electronic/computer document * History of Present Illness Primary Care Physician: daniel History Past History Past family history: MOTHER (DM, HTN, STROKE, HEART DISEASE). Age 50-60. GRANDMOTHER (H/O CANCER). ; Cause: Age older than 85 years. Relation not specified for: Family History: Cancer Family History: Diabetes Family History: Heart disease Family History: Stroke Allergies: Coded Allergies: insulin isophane (NPH) (From NOVOLIN N) (RASH, BRUISE 08/14/14) insulin lispro (From HUMALOG) (BRUISE, RASH 08/14/14) insulin regular (From NOVOLIN R) (RASH, BRUISE 08/14/14) Diagnosis, Assessment Plan Free text A P: Consulted by Dr. Cruzdaniel] for post-op pain management on this patient scheduled for [c/s]. I have discussed with the patient the risks, benefits, and options and he/she wishes to proceed with the planned anesthetic. ([x]) A Combined Spinal Epidural was performed; the spinal block for the intra-operative anesthetic and the epidural catheter placed for post-op pain management. The Anesthesiology department will follow. at 1305 RPT #:[id number] END OF REPORT [facility] 2020-02-01 23:03:00 [facility] ([facility]) DT Consult Note REPORT#:[id number] REPORT STATUS: Signed DATE:02/01/20 TIME: 2302 PATIENT: GRACY SAUCEDO UNIT #: [id number] ROOM/BED: [place] [address] : 86 AGE: 34 SEX: F ATTEND: Anuj Mauricio MD ADM AUTHOR: Briseida Vu MD * ALL edits or amendments must be made on the electronic/computer document * CONSULT NOTE Note: Discussed complications of prematurity at 34 weeks; RDS, feeding issues, temperature, jaundice, apnea of prematurity. Expected length of stay aroudn 2 weeks. Expect good outcome. Briseida Vu Neonatolgoy at 2303 RPT #:[id number] END OF REPORT [facility]
--- NOTE | 2025-02-09 08:52 | RAD REPORT ---
EXAMINATION: XR Foot Left 3 View CLINICAL INDICATION: Female, 39 years old. [facility] MAIN PAIN Bed Name: TECHNIQUE: 3 view radiographs of the left foot were obtained. COMPARISON: No prior exam. FINDINGS: No evidence of fracture or dislocation. Normal alignment. No evidence of arthropathy or oth er focal bone lesion. Soft tissues are unremarkable. Enthesopathy at the Achilles tendon attachment. Small calcaneal spur. Partially fused accessory ossicle along the top of the navicular. M ild midfoot degenerative changes. IMPRESSION: No acute osseous abnormalities. Chronic findings as above.
--- NOTE | 2025-02-09 09:12 | EDPHYS ---
Physician Documentation [facility] Name: Gracy Logan Age: 39 yrs Sex: Female : 1985 Arrival Date: 02/09/2025 Time: 07:22 Bed 13 Private MD: ED Physician Bryan Huynh HPI: 02/09 07:55 This 39 yrs old Female presents to ER via Ambulatory with complaints of Ankle Injury. rt 07:55 Patient presents to the ED after rolling her ankle inward. She reports pain to the rt lateral side of the foot, denies overt ankle pain. Denies other injuries, acute complaints, symptoms are aching in nature, nonradiating, moderate in severity, no other aggravating or alleviating factors.. 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 - Infectious Disease History:: Denies. - Social history:: Smoking status: Reported history of juuling and/or vaping. - Family history:: not pertinent. ROS: 07:55 Constitutional: Negative for fever, chills, and weight loss, Cardiovascular: Negative rt for chest pain, palpitations, and edema, Respiratory: Negative for shortness of breath, cough, wheezing, and pleuritic chest pain, Abdomen/GI: Negative for abdominal pain, nausea, vomiting, diarrhea, and constipation, Skin: Negative for injury, rash, and discoloration, Neuro: Negative for headache, weakness, numbness, tingling, and seizure, 07:55 MS/extremity: Positive for pain, Negative for deformity, Exam: 07:55 Constitutional: This is a well developed, well nourished patient who is awake, alert, rt and in no acute distress. Head/Face: Normocephalic, atraumatic. Skin: Warm, dry with normal turgor. Normal color with no rashes, no lesions, and no evidence of cellulitis. Neuro: Awake and alert, GCS 15, oriented to person, place, time, and situation. Cranial nerves II-XII grossly intact. Motor strength 5/5 in all extremities. Sensory grossly intact. Cerebellar exam normal. Normal gait. Psych: Awake, alert, with orientation to person, place and time. Behavior, mood, and affect are within normal limits. 07:55 Musculoskeletal/extremity: Tenderness to the left lateral midfoot, no ankle tenderness, pulses, motor, sensation, skin intact. Vital Signs: 07:37 BP 113 / 71; Pulse 88; Resp 17; Temp 97; Pulse Ox 100% ; Weight 69.4 kg; Height 5 ft. 5 jl7 in. ; Pain 8/10; 09:34 BP 104 / 70; Pulse 66; Resp 15; Pulse Ox 100% ; jl7 07:37 Body Mass Index 25.46 (69.40 kg, 165.1 cm) [facility] 07:37 Pain Scale: Adult jl7 MDM: 07:40 Medical Screening Exam initiated rt 14:52 Differential diagnosis: fracture, sprain. Data reviewed: vital signs, nurses notes, rt radiologic studies. Independent interpretation of the following test(s) in the Emergency Department X-Ray: My interpretation is No fracture seen on interpretation of x-ray images. Care significantly affected by the following chronic conditions: Diabetes. Counseling: I had a detailed discussion with the patient and/or guardian regarding the historical points, exam findings, and any diagnostic results supporting the discharge/admit diagnosis, radiology results, the need for outpatient follow up. Response to treatment: the patient's symptoms have mildly improved after treatment. 02/09 07:43 Order name: Foot Left 3 View XRAY; Complete Time: 09:01 rt Administered Medications: No medications were administered Disposition Summary: 02/09/25 09:11 Discharge Ordered Notes: Location: Home rt Problem: new rt Symptoms: have improved rt Condition: Stable rt Diagnosis - Sprain of left foot rt Followup: rt - With: Private Physician - When: 2 - 3 days - Reason: Discharge Instructions: - Discharge Summary Sheet rt - Foot Sprain rt Forms: - Medication Reconciliation Form rt - Antibiotic Education rt - Prescription Opioid Use rt - Patient Portal Instructions rt - Leadership Thank You Letter rt Signatures: Dispatcher [employer] Radha Waddell RN RN jl7 Bryan Huynh MD MD rt
--- NOTE | 2025-02-09 09:12 | ER ---
Nurse's Notes [facility] Name: Gracy Logan Age: 39 yrs Sex: Female : 1985 Arrival Date: 02/09/2025 Time: 07:22 Bed 13 Private MD: Diagnosis: Sprain of left foot Presentation: 02/09 07:37 Chief complaint: Patient states: Rolled left foot while walking at 0530 this morning, jl7 reports pain to lateral aspect of left foot. Coronavirus screen: At this time, the client does not indicate any symptoms associated with coronavirus-19. Ebola Screen: No symptoms or risks identified at this time. Initial Sepsis Screen: Does the patient meet any 2 criteria? No. Patient's initial sepsis screen is negative. Does the patient have a suspected source of infection? No. Patient's initial sepsis screen is negative. Risk Assessment: Do you want to hurt yourself or someone else? Patient reports no desire to harm self or others. Onset of symptoms was February 09, 2025 at 05:30. 07:37 Method Of Arrival: Ambulatory [facility] 07:37 Acuity: ERNESTO 4 jl7 Triage Assessment: 07:43 General: Appears in no apparent distress. uncomfortable, Behavior is calm, cooperative, jl7 appropriate for age. Pain: Complains of pain in lateral side of left foot Pain currently is 8 out of 10 on a pain scale. Musculoskeletal: Swelling absent. CLINICAL ASST: 07:43 LMP 01/08/2025, unknown jl7 Historical: - Allergies: 07:40 insulin humalin; jl7 07:40 insulin humalog; jl7 07:40 metformin; jl7 - PMHx: 07:40 Diabetes - NIDDM; HERPES; Hypertension; Sleep Apnea; jl7 - PSHx: 07:40 Gastric Bypass (Ap); Tonsillectomy; Ligation of fallopian tube; jl7 - Immunization history:: Adult Immunizations unknown. - Infectious Disease History:: Denies. - Social history:: Smoking status: Reported history of juuling and/or vaping. - Family history:: not pertinent. Screenin:26 [facility] ED Fall Risk Assessment (Adult) History of falling in the last 3 months, jl7 including since admission Yes- single mechanical fall (1 pt) Confusion or Disorientation No (0 pts) Intoxicated or Sedated No (0 pts) Impaired Gait No (0 pts) Mobility Assist Device Used No (0 pt) Altered Elimination No (0 pt) Score/Fall Risk Level 0 - 2 = Low Risk Oriented to surroundings, Maintained a safe environment. Abuse screen: Denies threats or abuse. Denies injuries from another. Nutritional screening: No deficits noted. Tuberculosis screening: No symptoms or risk factors identified. Assessment: 09:00 Reassessment: Patient appears in no apparent distress at this time. No changes from jl7 previously documented assessment. Patient and/or family updated on plan of care and expected duration. Pain level reassessed. Patient is alert, oriented x 3, equal unlabored respirations, skin warm/dry/pink. Vital Signs: 07:37 BP 113 / 71; Pulse 88; Resp 17; Temp 97; Pulse Ox 100% ; Weight 69.4 kg; Height 5 ft. 5 jl7 in. ; Pain 8/10; 09:34 BP 104 / 70; Pulse 66; Resp 15; Pulse Ox 100% ; jl7 07:37 Body Mass Index 25.46 (69.40 kg, 165.1 cm) jl7 07:37 Pain Scale: Adult jl7 ED Course: 07:25 Patient arrived in ED. mr 07:25 Bryan Huynh MD is Attending Physician. rt 07:29 Radha Urban, ELIF is Primary Nurse. jl7 07:39 Triage completed. jl7 07:43 Arm band placed on right wrist. jl7 08:00 Patient has correct armband on for positive identification. Placed in gown. Bed in low jl7 position. Call light in reach. Side rails up X2. Provided Education on: use of call reeves. Warm blanket given. 08:21 Foot Left 3 View XRAY In Process Unspecified. EDMS 09:34 No provider procedures requiring assistance completed. Patient did not have IV access jl7 during this emergency room visit. Administered Medications: No medications were administered Medication: 08:26 VIS not applicable for this client. jl7 Outcome: 09:11 Discharge ordered by . rt 09:34 Discharged to home via wheelchair, jl7 09:34 Condition: stable 09:34 Discharge instructions given to patient, Instructed on discharge instructions, follow up and referral plans. Demonstrated understanding of instructions, follow-up care, 09:34 Patient left the ED. jl7 Signatures: Dis[facility] [place], Reg Reg mr Radha Urban, RN RN jl7 Bryan Huynh MD MD rt
[2025-02-09 09:42] VITALS: TEMP 97; O2SAT 100
[2025-02-09 09:44] VITALS: BP 104/70
== END 2025-02-09 09:34 | disposition home or self-care (01) ==
LOC: ER 07:22
DX: S93.602A Unspecified sprain of left foot, initial encounter (principal)
CPT/HCPCS: 99282

== ENCOUNTER 2025-05-14 18:01 | Emergency (ER) | payer BC ==
--- OUTSIDE RECORDS SUMMARY | 2025-05-14 18:09 | XMS REPORT | Continuity of Care Document ---
Author Name Unknown Address [address] [facility] [place] [address] [facility] [address] [facility] [place] [address] Care Team Providers Care Assistant Editor Name Role Phone PCP, UNKNOWN Primary Care Physician Unavailab Dewayne Newsome Attending Clinician Unavailable Julia Tineo Attending Clinician UnavailDOMINGO Lai Attending Clinician Unavailable Anuj Mauricio Attending Clinician UnavailGeetha Gottlieb Attending Clinician Doctor Unassigned, [place]ier Attending Clinician U navailable JESSICA GOMEZ Attending Clinician Unavailable Arnie AIRCRAFT LAY OUT WORKER, Jessica Holman Attending Clinician [phone] FRITZ ALEGRIA Attending Clinician Unavaila freddie FIGUEROA KAMRONPETR Attending Clinician Unavailable ASHLIE BARRIOS Attending Clinician Unavailable Johanna Sultana DO Attending Clinician [phone] Ashlie Barrios MD Attending Clinician [phone] Lani Garrison Attending Clinician Unavailable Aida Randolph RN Attending Clinician Unavaila WILDA Rainey Attending Clinician Unavailable Jordy AIRCRAFT LAY OUT WORKER, Wilda Attending Clinician [phone] Ebrapranav AIRCRAFT LAY OUT WORKER, Destiny Attending Clinician [phone] MUNA LIVINGSTON Attending Clinician Unavailable James Watson DO Attending Clinician [phone] Domingo Lovelace MD Attending Clinician [phone] Paradise Lou MD Attending Clinician [phone] Enoc Wilder MD Attending Clinician [phone] Licha ASENCIO, Deisy Montalvo Attending Clinician Unavailab le Only, Jadon Test Attending Clinician Unavailable KNOW, DOES_NOT Attending Clinician Unavailable SHELBY MENDOZA Attending Clinician Unavail able Dewayne Campuzano Admitting Clinician Unavailable Julia Tineo Admitting Clinician Unavaila DOMINGO Thomas Admitting Clinician Unavailable Anuj Mauricio Admitting Clinician UnavailJESSICA Ramirez Admitting Clinician Unavailable ASHLIE BARRIOS Admitting Clinician Unavailable Ashlie Barrios MD Admitting Clinician [phone] Enoc Wilder MD Admitting Clinician [phone] Domingo Lovelace MD Admitting Clinician [phone] Payers Payer Name Policy Type Policy Number Effective Date Expirati on Date Source [employer] MEDICAID [id number] 2019 00:00:00 [place] [id number] 2019 00:00:00 Problems Condition Name Condition Details Condition Category Status Onset Date Resolution Date Last Treatment Date Treating Clinician Comments Source Atypical chest pain Atypical chest pain Disease Active 05-13 00:00: 00 [facility] Elevated brain natriureti c peptide (BNP) level Elevated brain natriureti c peptide (BNP) level Disease Active 05-13 00:00: 00 [facility] Elevated brain natriureti c peptide (BNP) level Elevated brain natriureti c peptide (BNP) level Disease Active 05-13 00:00: 00 [facility] Severe pre-eclamp duyen, condition or complicati on Severe pre-eclamp duyen, condition or complicati on Disease Active 05-12 00:00: 00 [facility] SOB (shortness of breath) SOB (shortness of breath) Disease Active 05-12 00:00: 00 [facility] Anemia due to acute blood loss Anemia due to acute blood loss Disease Active 05-12 00:00: 00 Overview: Formattin g of this note might be different from the original. Post on 05/04 [facility] Tonsillar bleed Tonsillar bleed Disease Active 2019-09 0 00:00: 00 Overview: Formattin g of this note might be different from the original. Added automatic ally from request for surgery [id number] [facility] O09.299 O09.299 Active 08/31/2019 [facility] Diagnosis Active 2018-09 2 00:00: 00 2019-09-08 09:42:00 Derek Lucas UTI in UTI in Disease Active 2018-09 0 00:00: 00 Overview: Formattin g of this note might be different from the original. Pending silvia [facility] Diabetes mellitus complicati ng , antepartum Diabetes mellitus complicati ng , antepartum Disease Active 2018-09 00:00: 00 Overview: Formattin g of this note might be different from the original. Currently novolog on sliding scale [facility] Hypertensi on in , pre-existi ng, antepartum Hypertensi on in , pre-existi ng, antepartum Disease Active 2018-09 00:00: 00 Overview: Formattin g of this note might be different from the original. Currently on labetalol [facility] History of cerclage, currently History of cerclage, currently Disease Active 2018-09 00:00: 00 Overview: Formattin g of this note might be different from the original. With 2013 [facility] History of section History of section Disease Active 2018-09 00:00: 00 [facility] Multiparit y Multiparit y Disease Active 2018-09 00:00: 00 [facility] History of herpes genitalis History of herpes genitalis Disease Active 2018-09 00:00: 00 Overview: Formattin g of this note might be different from the original. suppressi on at 36 weeks [facility] Diabetes mellitus complicati ng , antepartum Diabetes mellitus complicati ng , antepartum Disease Active 2018-09 00:00: 00 Overview: Formattin g of this note might be different from the original. Currently novolog on sliding scale [facility] Cervical dysplasia Cervical dysplasia Disease Active 11-25 00:00: 00 Overview: Formattin g of this note might be different from the original. 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 Lipidosis due to diabetes mellitus Disease Active 05-11 00:00: 00 [facility] Recurrent boils Recurrent boils Disease Active 05-11 00:00: 00 [facility] Patient currently (finding) Patient currently (finding) Active Problem 09/10/2019 [facility] Problem Active 2019-09-10 23:35:57 Derek Lucas Diabetes mellitus (disorder) Diabetes mellitus (disorder) Active Problem 09/10/2019 [facility] Problem Active 2019-09-10 23:35:57 Derek Lucas Hypertensi ve disorder, systemic arterial (disorder) Hypertensi ve disorder, systemic arterial (disorder) Active Problem 09/10/2019 [facility] Problem Active 2019-09-10 23:35:57 Derek Lucas STEPHANIE (obstructi ve sleep apnea) STEPHANIE (obstructi ve sleep apnea) Disease Active Overview: Formattin g of this note might be different from the original. on BIPAP [facility] GERD (gastroeso phageal reflux disease) GERD (gastroeso phageal reflux disease) Disease Active [facility] Tobacco use in Tobacco use in Disease Active [facility] Asthma Asthma Disease Active [facility] Obesity in Obesity in Disease Resolve d 2018-0917 00:00: 00 2022-05-12 00:00:00 2022-05-12 19:07:09 [facility] Encounter for contracept girma management , unspecifie d type Encounter for contracept girma management , unspecifie d type Disease Resolve d 01-17 00:00: 00 2019-07-13 00:00:00 2019-07-13 14:18:58 [facility] Encounter for Nexplanon removal Encounter for Nexplanon removal Disease Resolve d 01-17 00:00: 00 2019-07-13 00:00:00 2019-07-13 14:19:01 [facility] Diabetes mellitus type 2, uncontroll ed, without complicati ons Diabetes mellitus type 2, uncontroll ed, without complicati ons Disease Resolve d 8-15 00:00: 00 2019-07-13 00:00:00 2022-04-12 00:19:14 Overview: Formattin g of this note might be different from the original. 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 Marketing Intern Utility [facility] Morbid obesity Morbid obesity Disease Resolve d 2019-07-13 00:00:00 2019-07-13 14:19:44 [facility] Essential hypertensi on, benign Essential hypertensi on, benign Disease Resolve d 2019-07-13 00:00:00 2019-07-13 14:19:33 [facility] Allergies, Adverse Reactions, Alerts Allergy Name Allergy Type Status Severity Reaction(s) Onset Date Inactive Date Treating Clinician Comments Source hydrocod one DA Active U Hives 2023-1 0-18 00:00: 00 [facility] acetamin ophen DA Active U Hives 1 0-18 00:00: 00 [facility] metformi n DA Active U Vomiting 1 0-18 00:00: 00 [facility] insulin lispro DA Active U Hives 1 0-18 00:00: 00 [facility] insulin regular DA Active U Hives 1 0-18 00:00: 00 [facility] metformi n DA Active U Vomiting 2022-09 0-13 00:00: 00 [facility] insulin lispro DA Active U Hives 2022-09 0-13 00:00: 00 [facility] insulin regular DA Active U Hives 2022-09 0-13 00:00: 00 [facility] hydrocod one DA Active U Hives 2022-09 0-13 00:00: 00 [facility] acetamin ophen DA Active U Hives 2022-09 0-13 00:00: 00 [facility] METFORMI N DRUG INGREDI Active Med Diarrhea 2021-09 0-18 00:00: 00 [facility] Metformi n Propensi ty to adverse reaction s Active Nausea and/or Vomiting 2021-09 0-18 00:00: 00 [facility] insulin lispro DA Active MO HIVES 2021-0 8-07 00:00: 00 [facility] insulin isophane (NPH) DA Active MO HIVES 2021-0 8-07 00:00: 00 [facility] insulin regular DA Active MO HIVES 2-0 8-07 00:00: 00 [facility] insulin lispro DA Active MO HIVES 2021-0 7-18 00:00: 00 [facility] insulin isophane (NPH) DA Active MO HIVES 2019-1 0-26 00:00: 00 [facility] insulin regular DA Active MO HIVES 2019-1 0-26 00:00: 00 [facility] insulin isophane (NPH) DA Active MO 2019-1 0-26 00:00: 00 [facility] insulin regular DA Active MO 2019-1 0-26 00:00: 00 [facility] INSULIN LISPRO DRUG INGREDI Active Rash 2013-09 00:00: 00 [facility] INSULIN NPH ISOPH U-100 HUMAN DRUG Active Rash 2013-09 00:00: 00 [facility] INSULIN REGULAR HUMAN DRUG Active Rash 2013-09 00:00: 00 [facility] Insulin Lispro Propensi ty to adverse reaction s Active Rash 2013-09 00:00: 00 [facility] Insulin Nph Isoph U-100 Human Propensi ty to adverse reaction s Active Rash 2013-09 00:00: 00 [facility] Insulin Regular Human Propensi ty to adverse reaction s Active Rash 2013-09 00:00: 00 [facility] insulin lispro DA Active U 2013-09 00:00: 00 [facility] insulin isophane (NPH) DA Active U 2013-09 00:00: 00 [facility] insulin regular DA Active U 2013-09 00:00: 00 [facility] insulin lispro DA Active U BRUISE, RASH 2013-09 00:00: 00 [facility] insulin isophane (NPH) DA Active U RASH, BRUISE 2013-09 00:00: 00 [facility] insulin regular DA Active U RASH, BRUISE 2013-09 00:00: 00 [facility] HumaLOG HumaLOG Active [facility] HumuLIN N HumuLIN N Active [facility] Social History Social Habit Start Date Stop Date Quantity Comments Source History of tobacco use 1999-07-13 00:00:00 Cigarette Smoker [facility] ASSERTION [facility] History of Social function 2023-06-18 00:00:00 2023-06-18 00:00:00 [facility] Alcohol intake 2023-04-30 00:00:00 2023-04-30 00:00:00 Current non-drinker of alcohol (finding) [facility] Exposure to SARS-CoV-2 (event) 2022-07-04 00:00:00 2022-07-14 08:20:00 Not sure [facility] Social History 2019-09-06 21:47:11 2019-09-06 21:47:11 [facility] Cigarettes smoked current (pack per day) - Reported 2011-10-13 00:00:00 2011-10-13 00:00:00 [facility] Cigarette pack-years 2011-10-13 00:00:00 2011-10-13 00:00:00 [facility] Tobacco use and exposure 2011-10-13 00:00:00 2011-10-13 00:00:00 Smokeless tobacco non-user [facility] Tobacco Comment 2011-10-13 00:00:00 2011-10-13 00:00:00 10/13/2011 -cut back to 4 cigarettes daily [facility] Alcoholic beverage intake 2011-10-13 00:00:00 2011-10-13 00:00:00 Current non-drinker of alcohol (finding) [facility] Sex assigned at 1985 00:00:00 1985 00:00:00 [facility] Smoking Status Start Date Stop Date Source Smokes tobacco daily 2011-10-13 00:00:00 [facility] Medications Ordered Medication Name Filled Medication Name Start Date Stop Date Current Medication? Ordering Clinician Indication Dosage Frequency Signature (SIG) Comments Components Source lisdexamfet amine (VYVANSE) 40 mg capsule 04-30 10:23: 27 04-30 00:00 :00 No 40mg Take 40 mg by mouth every morning. [facility] fenofibrate (TRICOR) 145 mg tablet 04-30 00:00: 00 Yes 145mg Take 1 tablet by mouth in the morning. [facility] semaglutide (OZEMPIC) 1 mg/dose (2 mg/1.5 mL) PnIj 04-30 00:00: 00 Yes inject under the skin. [facility] dextroamphe tamine-amph etamine (MYDAYIS) 12.5 mg CT24 04-30 00:00: 00 Yes Take by mouth. [facility] aspirin 81 mg chewable tablet 2021-09 08:59: 28 07-14 00:00 :00 No 81mg Take 81 mg by mouth daily. [facility] amitriptyli ne 100 mg tablet 2021-09 08:58: 36 07-14 00:00 :00 No 100mg Take 100 mg by mouth daily. [facility] Fenofibrate 160 mg tablet 2021-09 08:57: 31 07-14 00:00 :00 No Take by mouth daily. [facility] labetalol HCl (LABETALOL ORAL) 2021-09 08:56: 30 07-14 00:00 :00 No Take by mouth. [facility] lisinopriL 40 mg tablet 2021-09 08:33: 27 Yes 40mg Take 40 mg by mouth in the morning. [facility] dapaglifloz in (FARXIGA) 10 mg tablet 2021-09 00:00: 00 Yes 10mg Take 1 tablet by mouth in the morning. [facility] labetalol HCl (LABETALOL ORAL) 05-14 10:35: 04 Yes Take by mouth. [facility] Fenofibrate 160 mg tablet 05-14 10:35: 04 Yes Take by mouth daily. [facility] lisdexamfet amine (VYVANSE) 40 mg capsule 05-14 10:35: 04 Yes 40mg Take 40 mg by mouth every morning. [facility] amitriptyli ne 100 mg tablet 05-14 10:35: 04 Yes 100mg Take 100 mg by mouth daily. [facility] aspirin 81 mg chewable tablet 05-14 10:35: 04 Yes 81mg Take 81 mg by mouth daily. [facility] pioglitazon e (ACTOS) 30 mg tablet 05-14 08:58: 21 05-14 00:00 :00 No 30mg Take 30 mg by mouth daily. [facility] insulin aspart Soln injection 05-14 08:58: 21 05-14 00:00 :00 No inject under the skin before meals. [facility] dapaglifloz in (FARXIGA) 10 mg tablet 05-14 08:58: 21 05-14 00:00 :00 No Take by mouth daily. [facility] amLODIPine 5 mg tablet 05-14 00:00: 00 07-14 00:00 :00 No [id number] 5mg Take 1 tablet by mouth in the morning. [facility] butalbital- acetaminoph en-caff 50-325-40 mg tablet 05-14 00:00: 00 07-14 00:00 :00 No [id number] 1{tbl} Take 1 tablet by mouth every 4 (four) hours as needed (headaches ). [facility] ferrous sulfate 325 mg (65 mg iron) tablet 05-14 00:00: 00 07-14 00:00 :00 No [id number] 325mg Take 1 tablet by mouth in the morning and 1 tablet in the evening. [facility] glipiZIDE 5 mg tablet 05-14 00:00: 00 07-14 00:00 :00 No [id number] 2.5mg Take 0.5 tablets by mouth 2 (two) times daily before breakfast and dinner. [facility] magnesium sulfate in water for injection 20 gram/500 mL (4 %) IV infusion 05-13 17:15: 00 05-14 05:14 :00 No 2g/h 2 g/hr (50 mL/hr), IV Infusion, CONTINUOUS , Starting on Wed05/13/22 at 1215, Until Wed05/14/22 at 0014, SOM [facility] furosemide (LASIX) injection 20 mg 05-13 15:00: 00 05-13 15:03 :00 No 20mg 20 mg, Slow IV Push, ONCE, 1 dose, On Wed05/13/22 at 1000, Routine [facility] KCL (KLOR-CON M20) tablet 40 mEq 05-13 15:00: 00 05-13 15:04 :00 No 40meq 40 mEq, Oral, ONCE, 1 dose, On Wed05/13/22 at 1000, Routine [facility] amLODIPine (NORVASC) tablet 5 mg 05-13 14:00: 00 Yes 5mg 5 mg, Oral, DAILY, First dose on Wed05/13/22 at 0900, Until Discontinu ed, Routine [facility] D5W 0.45% NaCl (1/2NS) IV infusion 1,000 mL 05-13 13:15: 00 Yes 1000mL at 75 mL/hr, 1,000 mL, IV Infusion, CONTINUOUS , Starting on Wed05/13/22 at 0815, Until Discontinu ed, Routine [facility] ferrous sulfate tablet 325 mg 05-13 13:00: 00 Yes 325mg 325 mg, Oral, TID MEALS, First dose on Wed05/13/22 at 0800, Until Discontinu ed, Routine [facility] glipiZIDE (GLUCOTROL) tablet 2.5 mg 05-13 12:30: 00 Yes 2.5mg 2.5 mg, Oral, BIDAC, First dose on Wed05/13/22 at 0730, Until Discontinu ed, Routine [facility] acetaminoph en (TYLENOL) tablet 650 mg 05-13 05:26: 29 Yes 650mg 650 mg, Oral, Q6HPRN, Starting on Wed05/13/22 at 0026, Until Discontinu ed, Routine, Alternate with ibuprofen for pain scale 4-6 [facility] ibuprofen (IBU) tablet 600 mg 05-13 05:26: 29 Yes 600mg 600 mg, Oral, Q6HPRN, Starting on Wed05/13/22 at 0026, Until Discontinu ed, Routine, Pain (scale 4-6) [facility] aspirin chewable tablet 81 mg 05-13 02:45: 00 Yes 81mg 81 mg, Oral, QAM WITH BREAKFAST, First dose on Wed05/12/22 at 2145, Until Discontinu ed, Routine [facility] labetaloL (NORMODYNE) tablet 200 mg 05-13 02:45: 00 Yes 200mg 200 mg, Oral, Q6H, First dose on Wed05/12/22 at 2145, Until Discontinu ed, Routine [facility] furosemide (LASIX) injection 20 mg 05-13 02:00: 00 05-13 02:13 :00 No 20mg 20 mg, Slow IV Push, ONCE, 1 dose, On Wed05/12/22 at 2100, Routine [facility] iopamidol (ISOVUE 370-500 mL) injection 60 mL 05-13 01:47: 00 05-13 01:48 :00 No [id number] 60mL 60 mL, Intravenou s, ONCE, 1 dose, On Wed05/12/22 at 2100, Routine [facility] D5W 0.45% NaCl (1/2NS) IV infusion 1,000 mL 05-12 23:00: 00 05-13 01:10 :26 No 1000mL at 75 mL/hr, 1,000 mL, IV Infusion, CONTINUOUS , Starting on Wed05/12/22 at 1800, Until Wed05/12/22 at 2010, SOM [facility] magnesium sulfate in water for injection 20 gram/500 mL (4 %) IV infusion 05-12 23:00: 00 05-13 10:59 :00 No 2g/h 2 g/hr (50 mL/hr), IV Infusion, CONTINUOUS , Starting on Wed05/12/22 at 1800, Until Wed05/13/22 at 0559, SOM [facility] butalbital- acetaminoph en-caff (ESGIC) 50-325-40 mg tablet 1 tablet 05-12 22:54: 04 Yes 1{tbl} 1 tablet, Oral, Q4HPRN, Starting on Wed05/12/22 at 1754, Until Discontinu ed, Routine, headaches [facility] calcium gluconate 100 mg/mL (10%) injection 1,000 mg 05-12 22:50: 12 Yes 1000mg 1,000 mg, Slow IV Push, PRN - SEE INSTRUCTIO NS, Starting on Wed05/12/22 at 1750, Until Discontinu ed, Routine, magnesium toxicity [facility] magnesium sulfate 4 mEq/mL (50 %) injection 32.48 mEq 05-12 22:50: 12 Yes 4g 32.48 mEq (4 g), Slow IV Push, PRN - SEE INSTRUCTIO NS, Starting on Wed05/12/22 at 1750, Until Discontinu ed, Routine, For seizure activity (patient not on magnesium sulfate) [facility] magnesium sulfate 4 mEq/mL (50 %) injection 16.24 mEq 05-12 22:50: 12 Yes 2g 16.24 mEq (2 g), Slow IV Push, PRN - SEE INSTRUCTIO NS, 2 doses, Starting on Wed05/12/22 at 1750, Until Discontinu ed, Routine, For seizure activity (patient already on magnesium sulfate) [facility] insulin aspart Soln injection 02-03 15:11: 54 Yes inject under the skin before meals. [facility] aspirin 81 mg chewable tablet 02-03 15:11: 54 Yes 81mg Take 81 mg by mouth daily. [facility] vit/iron fum/folic ac (RIGHT STEP VITAMINS ORAL) 02-03 15:11: 54 Yes Take by mouth. [facility] labetalol HCl (LABETALOL ORAL) 02-03 15:09: 38 Yes Take by mouth. [facility] neomycin-po lymyxin-hyd rocortisone otic solution 02-03 00:00: 00 05-14 00:00 :00 No [id number] 3[drp] Place 3 Drops in right ear 4 (four) times daily. [facility] LEVEMIR FLEXTOUCH U-100 INSULN 100 unit/mL (3 mL) injection 4- 00:00: 00 05-14 00:00 :00 No INJECT 30 UNITS UNDER THE SKIN EVERY MORNING AND 35 UNITS UNDER THE SKIN EVERY EVENING. [facility] NOVOLOG FLEXPEN U-100 INSULIN 100 unit/mL (3 mL) injection 01-20 00:00: 00 05-14 00:00 :00 No INJECT 50 TO 60 UNITS UNDER THE SKIN THREE TIMES DAILY. [facility] atorvastati n (LIPITOR) tablet 40 mg 2019-09 02:00: 00 Yes 40mg 40 mg, Oral, QHS, First dose on Wed07/23/20 at 2100, Until Discontinu ed, Routine [facility] oxyCODONE-a cetaminophe n (PERCOCET) 5-325 mg per tablet 2019-09 00:00: 00 07-14 00:00 :00 No [id number] 1{tbl} Take 1 tablet by mouth every 6 (six) hours as needed for Pain (scale 7-10). Indication s: acute pain [facility] pioglitazon e (ACTOS) 30 mg tablet 2019-09 17:33: 16 Yes 30mg Take 30 mg by mouth daily. [facility] labetalol HCl (LABETALOL ORAL) 2019-09 17:33: 16 Yes Take by mouth. [facility] insulin aspart Soln injection 2019-09 17:33: 16 Yes inject under the skin before meals. [facility] Fenofibrate 160 mg tablet 2019-09 17:33: 16 Yes Take by mouth daily. [facility] lisdexamfet amine (VYVANSE) 40 mg capsule 2019-09 17:33: 16 Yes 40mg Take 40 mg by mouth every morning. [facility] dapaglifloz in (FARXIGA) 10 mg tablet 2019-09 17:33: 16 Yes Take by mouth daily. [facility] amitriptyli ne 100 mg tablet 2019-09 17:33: 16 Yes 100mg Take 100 mg by mouth daily. [facility] aspirin 81 mg chewable tablet 2019-09 17:33: 16 Yes 81mg Take 81 mg by mouth daily. [facility] LANSOPRAZOL E ORAL 2019-09 17:33: 16 Yes 15mg Take 15 mg by mouth daily. [facility] lisinopriL (PRINIVIL,Z ESTRIL) tablet 10 mg 2019-09 14:00: 00 Yes 10mg 10 mg, Oral, DAILY, First dose on Wed07/23/20 at 0900, Until Discontinu ed, Routine [facility] fenofibrate micronized (LOFIBRA) capsule 134 mg 2019-09 14:00: 00 Yes 134mg 134 mg, Oral, DAILY, First dose on Wed07/23/20 at 0900, Until Discontinu ed [facility] docusate (COLACE) capsule 100 mg 2019-09 13:00: 00 Yes 100mg 100 mg, Oral, BID, First dose on Wed07/23/20 at 0800, Until Discontinu ed, Routine [facility] heparin (porcine) injection 5,000 Units 2019-09 13:00: 00 Yes 5000U 5,000 Units, Subcutaneo us, Q12H, First dose on Wed07/23/20 at 0800, Until Discontinu ed, Routine [facility] pioglitazon e (ACTOS) 30 mg tablet 2019-09 12:33: 16 Yes 30mg Take 30 mg by mouth daily. [facility] Fenofibrate 160 mg tablet 2019-09 12:33: 16 Yes Take by mouth daily. [facility] lisdexamfet amine (VYVANSE) 40 mg capsule 2019-09 12:33: 16 Yes 40mg Take 40 mg by mouth every morning. [facility] dapaglifloz in (FARXIGA) 10 mg tablet 2019-09 12:33: 16 Yes Take by mouth daily. [facility] [facility] amitriptyli ne 100 mg tablet 2019-09 12:33: 16 Yes 100mg Take 100 mg by mouth daily. [facility] LANSOPRAZOL E ORAL 2019-09 12:33: 16 Yes 15mg Take 15 mg by mouth daily. [facility] HYDROcodone -acetaminop hen (HYCET) 7.5-325 mg/15 mL solution 5 mg 2019-09 12:15: 00 07-23 11:14 :00 No 5mg 5 mg, Oral, ONCE, 1 dose, Wed07/23/20 at 0715, Routine, PACU [facility] dexamethaso ne (DECADRON PHOSPHATE) 4 mg in NaCl 0.9% (NS) piggyback 2019-09 11:00: 00 Yes 4mg 4 mg, IV Piggyback, Q6H, First dose on Wed07/23/20 at 0600, Until Discontinu ed, 50 mL [facility] lactated ringers IV infusion 1,000 mL 2019-09 10:00: 00 Yes 1000mL at 42 mL/hr, 1,000 mL, IV Infusion, CONTINUOUS , Starting Wed07/23/20 at 0500, Until Discontinu ed, Routine, PACU [facility] HYDROmorpho ne (DILAUDID) injection 0.2 mg 2019-09 09:54: 27 Yes .2mg 0.2 mg, Slow IV Push, Q5MIN PRN, 10 doses, Starting Wed07/23/20 at 0454, Until Discontinu ed, Routine, Pain (scale 7-10), PACU
Us e approved by (Faculty): PACU USE -ANESTHESI A SERVICE-HY DROMORPHON E INJECTIONS [facility] ondansetron (ZOFRAN (PF)) injection 4 mg 2019-09 09:54: 27 Yes 4mg 4 mg, Slow IV Push, PRN, 1 dose, Starting Wed07/23/20 at 0454, Until Discontinu ed, Routine, Nausea and Vomiting (N/V), PACU [facility] FENTanyl PF (SUBLIMAZE (PF)) injection 25 mcg 2019-09 09:54: 27 07-23 10:20 :00 No 25ug 25 mcg, Slow IV Push, Q5MIN PRN, 4 doses, Starting Wed07/23/20 at 0454, Until Wed07/23/20 at 0520, Routine, Pain (scale 4-6), PACU [facility] NaCl 0.9% (NS) IV infusion 1,000 mL 2019-09 09:45: 00 Yes 1000mL at 150 mL/hr, IV Infusion, CONTINUOUS , Starting Wed07/23/20 at 0445, Until Discontinu ed, Routine [facility] morpHINE injection 2 mg 2019-09 09:36: 13 07-25 08:35 :13 No 2mg 2 mg, Slow IV Push, Q4HPRN, Starting Wed07/23/20 at 0436, Until Mildred 07/25/20 at 0335, Routine, Pain (scale 4-6), Pain (scale 7-10) [facility] oxyCODONE-a cetaminophe n (PERCOCET) 5-325 mg per tablet 1 tablet 2019-09 09:35: 07 Yes [id number] 1{tbl} 1 tablet, Oral, Q4HPRN, Starting Wed07/23/20 at 0435, Until Discontinu ed, Routine, Pain (scale 4-6) [facility] ondansetron (ZOFRAN (PF)) injection 4 mg 2019-09 09:34: 09 Yes 4mg 4 mg, Slow IV Push, Q6HPRN, Starting Wed07/23/20 at 0434, Until Discontinu ed, Routine, Nausea and Vomiting (N/V) [facility] naloxone (NARCAN) injection 0.4 mg 2019-09 09:34: 09 Yes .4mg 0.4 mg, Slow IV Push, PRN - SEE INSTRUCTIO NS, Starting Wed07/23/20 at 0434, Until Discontinu ed, Routine, Sedation/R espiratory Depression , See admin instructio ns. [facility] oxymetazoli ne (OXYMETAZOL INE HCL) 0.05 % nasal spray 2019-09 09:00: 00 Yes PRN, Starting Wed07/23/20 at 0400, Until Discontinu ed, Routine, Intra-op [facility] methylPREDN ISolone (MEDROL, EVER,) 4 mg tablets 2019-09 00:00: 00 05-14 00:00 :00 No [id number] Take by mouth SEE-INSTRU CTIONS. follow package directions [facility] pioglitazon e (ACTOS) 30 mg tablet 2019-09 18:36: 38 Yes 30mg Take 30 mg by mouth daily. [facility] labetalol HCl (LABETALOL ORAL) 2019-09 18:36: 38 Yes Take by mouth. [facility] insulin aspart Soln injection 2019-09 18:36: 38 Yes inject under the skin before meals. [facility] Fenofibrate 160 mg tablet 2019-09 18:36: 38 Yes Take by mouth daily. [facility] lisdexamfet amine (VYVANSE) 40 mg capsule 2019-09 18:36: 38 Yes 40mg Take 40 mg by mouth every morning. [facility] dapaglifloz in (FARXIGA) 10 mg tablet 2019-09 18:36: 38 Yes Take by mouth daily. [facility] amitriptyli ne 100 mg tablet 2019-09 18:36: 38 Yes 100mg Take 100 mg by mouth daily. [facility] aspirin 81 mg chewable tablet 2019-09 18:36: 38 Yes 81mg Take 81 mg by mouth daily. [facility] LANSOPRAZOL E ORAL 2019-09 18:36: 38 Yes 15mg Take 15 mg by mouth daily. [facility] HYDROcodone -acetaminop hen (NORCO 5) 5-325 mg tablet 1 tablet 2019-09 16:30: 00 07-19 17:12 :00 No 1{tbl} 1 tablet, Oral, ONCE, 1 dose, Wed07/19/20 at 1130, Routine, PACU [facility] labetaloL (NORMODYNE) injection 5 mg 2019-09 16:25: 14 Yes 5mg 5 mg, Slow IV Push, Q5MIN PRN, 2 doses, Starting Wed07/19/20 at 1125, Until Discontinu ed, Routine, For HTN SBP>160 or DBP>90 and HR>80. Treat pain to less than 5/10 first, PACU [facility] HYDROmorpho ne (DILAUDID) injection 0.2 mg 2019-09 16:25: 14 Yes .2mg 0.2 mg, Slow IV Push, Q5MIN PRN, 10 doses, Starting Wed07/19/20 at 1125, Until Discontinu ed, Routine, Pain (scale 7-10), PACU
Us e approved by (Faculty): PACU USE -ANESTHESI A SERVICE-HY DROMORPHON E INJECTIONS [facility] ondansetron (ZOFRAN (PF)) injection 4 mg 2019-09 16:25: 14 Yes 4mg 4 mg, Slow IV Push, PRN, 1 dose, Starting Wed07/19/20 at 1125, Until Discontinu ed, Routine, Nausea and Vomiting (N/V), PACU [facility] FENTanyl PF (SUBLIMAZE (PF)) injection 25 mcg 2019-09 16:25: 14 07-19 17:21 :00 No 25ug 25 mcg, Slow IV Push, Q5MIN PRN, 4 doses, Starting Wed07/19/20 at 1125, Until Wed07/19/20 at 1221, Routine, Pain (scale 4-6), PACU [facility] bacitracin 500 unit/g ointment pkt 2019-09 15:58: 00 Yes PRN, Starting Wed07/19/20 at 1058, Until Discontinu ed, Routine, Intra-op [facility] oxyCODONE-a cetaminophe n (PERCOCET) 5-325 mg per tablet 2019-09 00:00: 00 07-24 00:00 :00 No [id number] 1{tbl} Take 1 tablet by mouth every 6 (six) hours as needed for Pain (scale 7-10). Indication s: acute pain [facility] fluticasone propionate 50 mcg/actuati on nasal spray 06-25 00:00: 00 Yes [id number] 1{spray } Use 1 Casey in each nostril 2 (two) times daily. [facility] Hydralazine 2018-09 19:44: 00 No Notes: (Same as: Apresoline ) Push over 5 minutes Derek Lucas Labetalol 2018-09 19:44: 00 No 10 mg, 2 mL, Route: IVP, Drug form: INJ, Q5Min, Dosing Weight 118, kg, PRN Elevated BP, Start date: 09/08/19 13:44:00 [employer], Duration: 5 doses or times, Stop date: 09/09/19 0:00:00 [employer], 0 Derek Lucas Acetaminoph en 2018-09 19:44: 00 No Notes: Max acetaminop hen 4000 mg/day (4 gm/day). (Same as: Tylenol Extra Strength) Derek Lucas Ibuprofen 2018-09 19:44: 00 No 600 mg, Route: PO, Drug form: TAB, Q6H, Dosing Weight 118, kg, PRN Pain Score 1-3, Start date: 09/08/19 13:44:00 [employer], Duration: 30 day, Stop date: 10/08/19 13:43:00 [employer] Derek Lucas Oxycodone Hydrochlori de 5 MG [...] Nausea & Vomiting, Start date: 09/08/19 13:44:00 [employer] Derek Lucas phenylephri ne ([facility]) 2018-09 18:59: 00 No Route: IV, Drug form: INJ, ONCE, Stop date: 09/08/19 12:59:00 [employer] Derek Lucas ondansetron ([facility]) 2018-09 18:59: 00 No Route: IV, Drug form: INJ, ONCE, Stop date: 09/08/19 12:59:00 [employer] Derek Lucas dexamethaso ne ([facility]) 2018-09 18:58: 00 No Route: IV, Drug form: INJ, ONCE, Stop date: 09/08/19 12:58:00 [employer] Derek Lucas fentaNYL ([facility]) 2018-09 18:53: 00 No Route: INTRATHECA L, Drug form: INJ, ONCE, Stop date: 09/08/19 12:53:00 [employer] Derek Lucas bupivacaine ([facility]) 2018-09 18:25: 00 No Route: INTRATHECA L, Drug Form: INJ, ONCE, Stop date: 09/08/19 12:25:00 [employer] Derek Lucas Lactated Ringers Injection IV ([facility]) 1000 mL 2018-09 17:15: 00 No Route: IV, Total Volume: 1,000, Start date: 09/08/19 11:15:00 [employer], Stop date: 09/08/19 12:15:00 [employer] Derek Lucas Calcium Chloride 0.0014 MEQ/ML / Potassium Chloride 0.004 MEQ/ML / Sodium Chloride 0.103 MEQ/ML / Sodium Lactate 0.028 MEQ/ML Injectable Solution 2018-09 15:56: 00 No 1,000 mL, Rate: 75 ml/hr, Infuse over: 13.3 hr, Route: IV, Dosing Weight 118 kg, Total Volume: 1,000, Start date: 09/08/19 9:56:00 [employer], Duration: 30 day, Stop date: 10/08/19 9:55:00 [employer], 2.37, m2, 0 Derek Lucas Aspirin 81 [...] 2018-09 00:00: 00 05-14 00:00 :00 No [id number] 100mg Take 1 capsule by mouth 2 (two) times daily. [facility] pioglitazon e (ACTOS) 30 mg tablet 2018-09 18:56: 24 Yes 30mg Take 30 mg by mouth daily. [facility] labetalol HCl (LABETALOL ORAL) 2018-09 18:56: 24 Yes Take by mouth. [facility] insulin aspart Soln injection 2018-09 18:56: 24 Yes inject under the skin before meals. [facility] lancets (FREESTYLE LANCETS) 28 gauge Misc 2018-09 00:00: 00 Yes Check blood glucose 4x daily [facility] Blood-Gluco se Meter (FREESTYLE LITE METER) Kit 2018-09 00:00: 00 Yes Check blood glucose 4x daily [facility] blood sugar diagnostic (FREESTYLE LITE STRIPS) strip 2018-09 00:00: 00 Yes Check blood glucose 4x daily [facility] Blood-Gluco se Meter (FREESTYLE LITE METER) Kit 2018-09 00:00: 00 Yes [id number] Check blood glucose 4x daily [facility] blood sugar diagnostic (FREESTYLE LITE STRIPS) strip 2018-09 00:00: 00 Yes [id number] Check blood [facility]x daily [facility] Blood-Gluco se Meter (FREESTYLE LITE METER) Kit 2018-09 00:00: 00 Yes [id number] Check blood glucose 4x daily [facility] lancets (FREESTYLE LANCETS) 28 gauge Misc 2018-09 00:00: 00 05-14 00:00 :00 No [id number] Check blood glucose 4x daily [facility] traMADOL (ULTRAM) 50 mg tablet 10-23 00:00: 00 05-14 00:00 :00 No [id number] 50mg Take 1 tablet by mouth every 6 (six) hours as needed for Pain (scale 4-6). [facility] lisinopril (PRINIVIL,Z ESTRIL) 10 mg tablet 2014-09 00:00: 00 05-14 00:00 :00 No [id number] 3 daily [facility] blood sugar diagnostic (EMBRACE PRO TEST STRIPS) strip 01-03 00:00: 00 Yes bid [facility] blood sugar diagnostic (EMBRACE PRO TEST STRIPS) strip 01-03 00:00: 00 Yes bid [facility] atorvastati n (LIPITOR) 40 mg tablet 12-20 00:00: 00 07-14 00:00 :00 No 40mg Take 1 Tab by mouth at bedtime. [facility] Vital Signs Vital Name Observation Time Observation Value Comments S laurie Systolic blood pressure 2023-06-18 18:18:00 138 mm[Hg] [facility] Diastolic blood pressure 2023-06-18 18:18:00 91 mm[Hg] Sharon o [facility] Heart rate 2023-06-18 18:18:00 77 /min [facility] Body temperature 2023-06-18 18:18:00 36.78 Ann [facility] Respiratory rate 2023-06-18 18:18:00 18 /min [facility] Body height 2023-06-18 18:18:00 165.1 cm [facility] Body weight 2023-06-18 18:18:00 103.692 kg [facility] BMI 2023-06-18 18:18:00 38.04 kg/m2 [facility] Oxygen saturation in Arterial blood by Pulse oximetry 2023-06-18 18:18:00 100 /min [facility] Systolic blood pressure 2023-04-30 14:55:00 110 mm[Hg] [facility] Diastolic blood pressure 2023-04-30 14:55:00 75 mm[Hg] [facility] Heart rate 2023-04-30 14:55:00 96 /min [facility] Body temperature 2023-04-30 14:55:00 36.56 Ann [facility] Respiratory rate 2023-04-30 14:55:00 16 /min [facility] Body height 2023-04-30 14:55:00 165.1 cm [facility] Body weight 2023-04-30 14:55:00 107.049 kg [facility] BMI 2023-04-30 14:55:00 39.27 kg/m2 [facility] Oxygen saturation in Arterial blood by Pulse oximetry 2023-04-30 14:55:00 96 /min [facility] Systolic blood pressure 2022-07-14 13:38:00 122 mm[Hg] [facility] Diastolic blood pressure 2022-07-14 13:38:00 82 mm[Hg] [facility] Heart rate 2022-07-14 13:38:00 78 /min [facility] Oxygen saturation in Arterial blood by Pulse oximetry 2022-07-14 13:38:00 97 /min [facility] Systolic blood pressure 2022-05-14 12:30:00 148 mm[Hg] [facility] Diastolic blood pressure 2022-05-14 12:30:00 74 mm[Hg] [facility] Heart rate 2022-05-14 12:30:00 67 /min [facility] Body temperature 2022-05-14 12:30:00 36.61 Ann [facility] Respiratory rate 2022-05-14 12:30:00 16 /min [facility] Oxygen saturation in Arterial blood by Pulse oximetry 2022-05-14 12:30:00 95 /min [facility] Body weight 2022-05-12 21:44:00 130.182 kg [facility] BMI 2022-05-12 21:44:00 47.76 kg/m2 [facility] Systolic blood pressure 2022-03-18 14:07:00 130 mm[Hg] [facility] Diastolic blood pressure 2022-03-18 14:07:00 80 mm[Hg] [facility] Heart rate 2022-03-18 14:07:00 112 /min [facility] Body temperature 2022-03-18 14:07:00 36.94 Ann [facility] Respiratory rate 2022-03-18 14:07:00 19 /min [facility] Body height 2022-03-18 14:07:00 165.1 cm [facility] Body weight 2022-03-18 14:07:00 129.23 kg [facility] BMI 2022-03-18 14:07:00 47.41 kg/m2 [facility] Oxygen saturation in Arterial blood by Pulse oximetry 2022-03-18 14:07:00 97 /min [facility] Systolic blood pressure 2022-02-03 20:08:00 124 mm[Hg] [facility] Diastolic blood pressure 2022-02-03 20:08:00 81 mm[Hg] [facility] Heart rate 2022-02-03 20:08:00 93 /min [facility] Body temperature 2022-02-03 20:08:00 36.78 Ann [facility] Respiratory rate 2022-02-03 20:08:00 17 /min [facility] Body height 2022-02-03 20:08:00 165.1 cm [facility] Body weight 2022-02-03 20:08:00 125.788 kg [facility] BMI 2022-02-03 20:08:00 46.15 kg/m2 [facility] Oxygen saturation in Arterial blood by Pulse oximetry 2022-02-03 20:08:00 98 /min [facility] Respiratory rate 2020-07-23 16:46:00 18 /min [facility] Oxygen saturation in Arterial blood by Pulse oximetry 2020-07-23 16:46:00 97 /min [facility] Body height 2020-07-23 15:35:00 165.1 cm [facility] Body weight 2020-07-23 15:35:00 114.76 kg [facility] BMI 2020-07-23 15:35:00 42.10 kg/m2 [facility] Systolic blood pressure 2020-07-23 13:09:00 133 mm[Hg] [facility] Diastolic blood pressure 2020-07-23 13:09:00 86 mm[Hg] [facility] Heart rate 2020-07-23 13:09:00 104 /min [facility] Body temperature 2020-07-23 13:09:00 36.89 Ann [facility] Systolic blood pressure 2020-07-19 17:55:00 110 mm[Hg] [facility] Diastolic blood pressure 2020-07-19 17:55:00 60 mm[Hg] [facility] Respiratory rate 2020-07-19 17:55:00 16 /min [facility] Oxygen saturation in Arterial blood by Pulse oximetry 2020-07-19 17:55:00 96 /min [facility] Heart rate 2020-07-19 17:45:00 88 /min [facility] Body temperature 2020-07-19 16:20:00 36 Ann [facility] Body height 2020-07-19 13:38:00 165.1 cm [facility] Body weight 2020-07-19 13:38:00 114.9 kg [facility] BMI 2020-07-19 13:38:00 42.15 kg/m2 [facility] Systolic blood pressure 2020-07-19 17:55:00 110 mm[Hg] [facility] Diastolic blood pressure 2020-07-19 17:55:00 60 mm[Hg] [facility] Respiratory rate 2020-07-19 17:55:00 16 /min [facility] Oxygen saturation in Arterial blood by Pulse oximetry 2020-07-19 17:55:00 96 /min [facility] Heart rate 2020-07-19 17:45:00 88 [facility] 2020-07-19 16:20:00 36 Ann [facility] Body height 2020-07-19 13:38:00 165.1 cm [facility] Body weight 2020-07-19 13:38:00 114.9 kg [facility] BMI 2020-07-19 13:38:00 42.15 kg/m2 [facility] Body temperature 2020-06-25 14:28:00 36.67 [facility] Body height 2020-06-25 14:28:00 165.1 cm [facility] Body weight 2020-06-25 14:28:00 114.851 kg [facility] BMI 2020-06-25 14:28:00 42.13 kg/m2 [facility] Body temperature 2020-06-25 14:28:00 36.67 [facility] Body height 2020-06-25 14:28:00 165.1 cm [facility] Body weight 2020-06-25 14:28:00 114.851 kg [facility] BMI 2020-06-25 14:28:00 42.13 kg/m2 [facility] Respitory Rate 2019-09-08 20:46:00 [facility] Systolic (mm Hg) 2019-09-08 20:46:00 [facility] Diastolic (mm Hg) 2019-09-08 20:46:00 [facility] Heart Rate 2019-09-08 20:46:00 [facility] Respitory Rate 2019-09-08 20:30:00 [facility] Systolic (mm Hg) 2019-09-08 20:30:00 [facility] Diastolic (mm Hg) 2019-09-08 20:30:00 [facility] Respitory Rate 2019-09-08 20:15:00 [facility] Systolic (mm Hg) 2019-09-08 20:15:00 [facility] Diastolic (mm Hg) 2019-09-08 20:15:00 [facility] Height 2019-09-08 15:26:00 165.1 cm [facility] Weight 2019-09-08 15:26:00 [facility] BMI Calculated 2019-09-08 15:26:00 [facility] Heart Rate 2019-09-08 15:26:00 [facility] Height 2019-09-06 21:49:00 165.1 cm [facility] Weight 2019-09-06 21:49:00 [facility] BMI Calculated 2019-09-06 21:49:00 [facility] Procedures Procedure Date / Time Performed Performing Clinician Source TRANSTHORACIC ECHO (TTE) COMPLETE 2023-07-02 19:21:00 Jessica Gomez [facility] CONSENT/REFUSAL FOR DIAGNOSIS AND TREATMENT 2023-06-18 17:14:05 Doctor Unassigned, [place] [facility] TROPONIN I 2022-05-14 13:12:00 Forrest Mccarty [facility] POCT GLUCOSE (AUTOMATED) 2022-05-14 12:55:00 Ana Barrios [facility] TROPONIN I 2022-05-14 09:21:00 Forrest Mccarty [facility] BASIC METABOLIC PANEL (NA, K, CL, CO2, GLUCOSE, BUN, CREATININE, CA) 2022-05-14 09:21:00 Dorita Duffy [facility] N-TERMINAL PRO-BNP 2022-05-14 09:21:00 Fritz Alegria [facility] POCT GLUCOSE (AUTOMATED) 2022-05-14 07:10:00 Ana Barrios [facility] TROPONIN I 2022-05-14 04:53:00 Forrest Mccarty [facility] POCT GLUCOSE (AUTOMATED) 2022-05-14 02:13:00 Sophie Ana Holman [facility] TROPONIN I 2022-05-14 01:05:00 Lul fernando [facility] TROPONIN I 2022-05-13 21:42:00 Lul fernando [facility] TROPONIN I 2022-05-13 17:19:00 Forrest Mccarty [facility] TRANSTHORACIC ECHO (TTE) COMPLETE 2022-05-13 15:01:00 Forrest Mccarty [facility] TROPONIN I 2022-05-13 13:19:00 Forrest Mccarty [facility] POCT GLUCOSE (AUTOMATED) 2022-05-13 12:35:00 Sophie Ana Holman [facility] MAGNESIUM 2022-05-13 09:34:00 Lul fernando [facility] TROPONIN I 2022-05-13 09:34:00 Lul fernando [facility] COMP. METABOLIC PANEL ([id number]) 2022-05-13 09:34:00 Forrest Mccarty [facility] CBC WITH DIFF 2022-05-13 09:34:00 Forrest Mccarty [facility] N-TERMINAL PRO-BNP 2022-05-13 09:34:00 [facility] TROPONIN I 2022-05-13 05:29:00 Forrest Mccarty [facility] HB ECG ROUTINE & RHYTHM STRIP 2022-05-13 05:07:50 Forrest Mccarty [facility] PROCALCITONIN 2022-05-13 02:45:00 Forrest Mccarty [facility] CREATINE KINASE 2022-05-13 02:45:00 Forrest Mccarty [facility] TROPONIN I 2022-05-13 02:45:00 Forrest Mccarty [facility] IRON PANEL 2022-05-13 02:45:00 Lul fernando [facility] PROTHROMBIN TIME / INR 2022-05-13 02:45:00 Daniel Mccarty [facility] CT CHEST PULMONARY ANGIOGRAM 2022-05-13 01:54:51 Adum, Ashlie Holman [facility] POCT GLUCOSE (AUTOMATED) 2022-05-13 01:14:00 Adum, Ana Holman [facility] URINALYSIS 2022-05-13 00:26:00 Adum, Ashlie Holman [facility] XR CHEST 1 VW 2022-05-12 23:55:00 Adum, Ashlie Holman [facility] COVID-19 (ID NOW RAPID TESTING) 2022-05-12 23:38:00 Adum, Ashlie Holman [facility] LAB ONLY COVID INTERPRETATION 2022-05-12 23:38:00 Adum, Ashlie Holman [facility] HB ECG ROUTINE & RHYTHM STRIP 2022-05-12 23:15:33 Adum, Ashlie Holman [facility] SGOT (ASPARTATE AMINO TRANSFER) 2022-05-12 23:11:00 Adum, Ashlie Holman [facility] CREATININE 2022-05-12 23:11:00 Adum, Ashlie Holman [facility] PHOSPHORUS 2022-05-12 23:11:00 Forrest Mccarty [facility] ALANINE AMINO TRANSFERASE(SGPT 2022-05-12 23:11:00 Adum, Ashlie Holman [facility] LACTATE DEHYDROGENASE 2022-05-12 23:11:00 Adum, Ashlie Holman [facility] URIC ACID 2022-05-12 23:11:00 Adum, Ashlie Holman [facility] MAGNESIUM 2022-05-12 23:11:00 Forrest Mccarty [facility] FERRITIN SERUM 2022-05-12 23:11:00 Forrest Mccarty [facility] TROPONIN I 2022-05-12 23:11:00 Lul fernando [facility] THYROID STIMULATING HORMONE 2022-05-12 23:11:00 Forrest Mccarty [facility] BASIC METABOLIC PANEL (NA, K, CL, CO2, GLUCOSE, BUN, CREATININE, CA) 2022-05-12 23:11:00 Forrest Mccarty [facility] LIPID PANEL ([id number])(TOTAL CHOLESTEROL, TRIGLYCERIDES, HDL) 2022-05-12 23:11:00 Forrest Mccarty [facility] SEDIMENTATION RATE 2022-05-12 23:11:00 [facility] CBC WITH DIFF 2022-05-12 23:11:00 Ashlie Barrios [facility] GLYCOSYLATED HEMOGLOBIN (A1C) 2022-05-12 23:11:00 [facility] N-TERMINAL PRO-BNP 2022-05-12 23:11:00 [facility] CONSENT/REFUSAL FOR DIAGNOSIS AND TREATMENT 2022-05-12 21:34:39 Doctor Unassigned, [place] [facility] [id number] 2022-05-04 00:00:00 [facility] [id number] 2022-05-04 00:00:00 [facility] POCT MOLECULAR STREP 2022-03-18 14:23:00 Wilda Hsieh [facility] POCT TEST 2020-07-23 08:03:00 Desean Cira [facility] HB ABO GROUPING 2020-07-23 07:37:00 Cira Atnon [facility] COVID-19 (ID NOW RAPID TESTING) 2020-07-23 07:35:00 Cira Anton [facility] BASIC METABOLIC PANEL (NA, K, CL, CO2, GLUCOSE, BUN, CREATININE, CA) 2020-07-23 07:30:00 Paradise Lou [facility] CBC WITH DIFF 2020-07-23 07:30:00 Paradise Lou [facility] CONSENT/REFUSAL FOR DIAGNOSIS AND TREATMENT 2020-07-19 13:15:11 Doctor Unassigned, [place] [facility] [facility] ASSIGNMENT OF BENEFITS 2020-07-19 13:00:57 Docto r Unassigned, [place] [facility] DAY SURGERY [facility] 2020-07-19 05:01:00 Doct or Unassigned, [place] [facility] DISCLOSURE AND CONSENT, MEDICAL AND SURGICAL PROCEDURES 2020-06-25 05:01:00 Doctor Unassigned, [place] [facility] [id number] 2020-02-02 00:00:00 [facility] [id number] 2020-02-02 00:00:00 [facility] DATA GENERATION COMPLEX 2011-10-21 20:35:00 Geetha Longoria [facility] NM GASTRIC EMPTYING 2011-10-21 19:05:00 Pedro Longoria [facility] GASTRIC EMPTYING MEAL 2011-10-21 15:05:00 Lito Longoria [facility] section [facility] biopsy of cervix [facility] Encounters Start Date/Time End Date/Time Encounter Type Admission Type Attending [facility] Care Facility Care Department Encounter ID Source 2023-07-14 07:15:00 Inpatient Elective Dewayne Campuzano [facility] Surgical Service [id number] [facility] 2022-05-03 20:29:00 Inpatient Julia Silveira [facility] MEDI.01 [id number] [facility] 2021-07-26 01:11:30 Emergency [facility] [id number] [facility] 2021-07-26 01:10:30 Emergency [facility] [id number] [facility] 2021-07-25 20:02:22 Outpatient [facility] [id number] [facility] 2020-07-22 09:56:00 Inpatient HCAMN JOVANA [id number] [facility] 2020-02-01 16:55:00 Inpatient Anuj Delacruz [facility] LD [id number] [facility] 2011-10-21 00:00:00 2024-11-11 05:40:43 Orders Only Geetha Longoria [facility] 1.2.840.114 350.1.13.10 4.2.7.2.686 [id number] [facility] 2023-07-14 07:15:00 2023-07-15 13:37:00 Inpatient Elective Dewayne Campuzano [facility] Surgical Service [id number] [facility] 2023-07-06 00:00:00 2023-07-06 00:00:00 Patient Secure Msg Doctor Unassigned, [place] [facility] 1.0.114 350.1.13.10 4.2.7.2.686 [id number] [facility] 2023-07-02 13:55:11 2023-07-02 23:59:00 Outpatient R JESSICA GOMEZ [facility] [id number] [facility] 2023-07-02 13:55:11 2023-07-02 23:59:00 Hospital Encounter Jessica Gomez [facility] 1.0.114 350.1.13.10 4.2.7.2.686 [id number] [facility] 2023-06-18 13:00:00 2023-06-18 13:30:00 Office Visit Jessica Gomez [facility] 1..114 350.1.13.10 4.2.7.2.686 [id number] [facility] 2023-06-18 13:00:00 2023-06-18 13:00:00 Outpatient R JESSICA GOMEZ [facility] [id number] [facility] 2023-06-18 00:00:00 2023-06-18 00:00:00 Orders Only Doctor Unassigned, [place] [facility] 1.0.114 350.1.13.10 4.2.7.2.686 [id number] [facility] 2023-06-18 00:00:00 2023-06-18 00:00:00 Telephone Jessica Gomez [facility] 1.2840.114 350.1.13.10 4.2.7.2.686 [id number] [facility] 2023-06-18 00:00:00 2023-06-18 00:00:00 Patient Secure Msg Arnie [facility] 1.2840.114 350.1.13.10 4.2.7.2.686 [id number] [facility] 2023-04-30 10:00:00 2023-04-30 10:46:57 Outpatient R ARNIEJESSICA [facility] [id number] [facility] 2023-04-30 10:00:00 2023-04-30 10:46:57 Office Visit Arnie Jessica Holman [facility] 1..840.114 350.1.13.10 4.2.7.2.686 [id number] [facility] 2023-03-26 10:30:00 2023-03-26 10:30:00 Outpatient R AMAURY FIGUEROA [facility] [id number] [facility] 2022-07-14 08:40:00 2022-07-14 16:25:08 Outpatient R JESSICA GOMEZ [facility] [id number] [facility] 2022-07-14 08:40:00 2022-07-14 16:25:08 Office Visit ThomaspatoJessica [facility] 1..840.114 350.1.13.10 4.2.7.2.686 [id number] [facility] 2022-06-30 14:00:00 2022-06-30 14:00:00 Outpatient R FRITZ ALEGRIA [facility] [id number] [facility] 2022-05-12 16:49:00 2022-05-14 10:35:00 Outpatient X ASHLIE BARRIOS [facility] [id number] [facility] 2022-05-12 16:49:00 2022-05-14 10:35:00 Emergency Johanna Sultana Vivian [facility] ..840.114 350.1.13.10 4.2.7.2.686 [id number] [facility] 2022-05-04 14:51:00 2022-05-07 12:52:00 Inpatient EM Anuj Mauricio [facility] OBPP [id number] [facility] 2022-05-04 14:51:00 2022-05-07 12:52:00 Inpatient EM Anuj Mauricio [facility] OBPP [id number] [facility] 2022-04-13 21:27:00 2022-04-14 00:23:00 Emergency EM Lani Garrison [facility] GELA [id number] [facility] 2022-04-13 21:27:00 2022-04-13 21:27:00 Emergency EM Anuj Mauricio [facility]L HCACL [id number] [facility] 2022-03-19 00:00:00 2022-03-19 00:00:00 Telephone Aida Randolph [facility] ..840.114 350.1.13.10 4.2.7.2.686 [id number] [facility] 2022-03-18 09:00:00 2022-03-18 09:50:49 Outpatient R WILDA HSIEH [facility] [id number] [facility] 2022-03-18 09:00:00 2022-03-18 09:20:00 Urgent Care Wilda Hsieh [facility] 1..840.114 350.1.13.10 4.2.7.2.686 [id number] [facility] 2022-02-03 15:20:00 2022-02-03 15:40:00 Urgent Care Wilda Hsieh, Destiny [facility] 1.2.840.114 350.1.13.10 4.2.7.2.686 [id number] [facility] 2022-02-03 15:20:00 2022-02-03 15:20:00 Outpatient R JORDY WILDA [facility] [id number] [facility] 2020-12-27 09:40:00 2020-12-27 09:40:00 Outpatient Nely MUNA LIVINGSTON [facility] [id number] [facility] 2020-12-17 00:00:00 2020-12-17 00:00:00 Patient Outreach James Watson [facility] 1.2.840.114 350.1.13.10 4.2.7.2.686 [id number] [facility] 2020-07-24 00:00:00 2020-07-24 00:00:00 Telephone Domingo Lovelace [facility] 1.2.840.114 350.1.13.10 4.2.7.2.686 [id number] [facility] 2020-07-23 00:18:00 2020-07-23 12:33:[address] [facility] [place], Enoc Phipps [facility] 1.2840.114 350.1.13.10 4.2.7.2.686 [id number] [facility] 2020-07-22 00:00:00 2020-07-22 00:00:00 Telephone Domingo Lovelace [facility] 1.2.840.114 350.1.13.10 4.2.7.2.686 [id number] [facility] 2020-07-19 08:00:00 2020-07-19 13:15:00 Hospital Encounter [facility] 1.2.840.114 350.1.13.10 4.2.7.2.686 [id number] 2020-07-19 08:00:00 2020-07-19 13:15:00 Hospital Encounter [facility] 1.2.840.114 350.1.13.10 4.2.7.2.686 [id number] [facility] 2020-07-19 00:00:00 2020-07-19 00:00:00 Orders Only Doctor Unassigned, [place] [facility] 1.2.840.114 350.1.13.10 4.2.7.2.686 [id number] [facility] 2020-07-16 00:00:00 2020-07-16 00:00:00 Letter (Out) [facility] 1.2.840.114 350.1.13.10 4.2.7.2.686 [id number] 2020-07-16 00:00:00 2020-07-16 00:00:00 Letter (Out) [facility] 1.2.840.114 350.1.13.10 4.2.7.2.686 [id number] [id number] [facility] 2020-07-16 00:00:00 2020-07-16 00:00:00 Patient Secure Msg Doctor Unassigned, [place] [facility] 1.2.840.114 350.1.13.10 4.2.7.2.686 [id number] [facility] 2020-07-15 10:33:00 2020-07-15 10:48:00 Laboratory Only Only, Jadon Test [facility] 1.2.840.114 350.1.13.10 4.2.7.2.686 [id number] 2020-07-15 10:33:00 2020-07-15 10:48:00 Laboratory Only Only[facility] 1.2.840.114 350.1.13.10 4.2.7.2.686 [id number] [facility] 2020-07-15 10:30:00 2020-07-15 10:30:00 Outpatient Nely LOVELACE [facility] [id number] [facility] 2020-07-01 00:00:00 2020-07-01 00:00:00 [facility] 1.2.840.114 350.1.13.10 4.2.7.2.686 [id number] 2020-07-01 00:00:00 2020-07-01 00:00:00 Telephone [place] [facility] 1.2.840.114 350.1.13.10 4.2.7.2.686 [id number] [facility] 2020-06-25 09:21:31 2020-06-27 14:48:47 [facility] 1.2.840.114 350.1.13.10 4.2.7.2.686 [id number] 2020-06-25 09:21:31 2020-06-27 14:48:47 Office Visit [place] [facility] 1.2.840.114 350.1.13.10 4.2.7.2.686 [id number] [facility] 2020-06-25 09:30:00 2020-06-25 09:30:00 Outpatient Nely LOVELACE [facility] [id number] [facility] 2020-06-25 00:00:00 2020-06-25 00:00:00 Orders Only Doctor Unassigned, [place] [facility] 1.2.840.114 350.1.13.10 4.2.7.2.686 [id number] [facility] 2020-04-27 11:34:00 2020-04-27 11:34:00 Outpatient KNOW, DOES_NOT HCACL ADMI [id number] [facility] 2019-09-08 15:01:00 2019-09-09 05:59:00 Day Surgery nullFlavo r [id number] [facility] 09:01:00 2019-09-08 09:01:00 Outpatient [facility] 2019-07-13 13:30:00 2019-07-13 15:18:41 Outpatient R LAURALISA SHELBY [facility] [id number] [facility] Results Test Description Test Time Test Comments Results Result Co mments Source Glucose [id number] 10:06:00* Test Item Value Reference Range Interpretation Comme nts Glucose Fingerstick (test code = WGLUC) 175 mg/dL 70-115 ACID TESTER Mar glendy Boris Glucose Xldfdnbotbj5328-77-31 07:17:00* Test Item Value Reference Range Interpretation Comme nts Glucose Fingerstick (test code = WGLUC) 102 mg/dL 70-115 ACID TESTER Ble ssing Eshiet XR chest [id number] 12:57:00[facility] [address] [place], [place] [address] Patient Name: GRACY DE LA TORRE Medical Record#: [id number] Address: [address] [place] [address] City/State/Zip: [place] [address]: Dewayne Campuzano MD Insurance: [employer] are /Age/Sex: 1985/37/F Self Pay Admit/Reg Date: 07/07/[address]: Dewayne Campuzano MD Location: [facility]/ PCP: PCP,UNKNOWN Date of Service: 07/09/23 Order (s):XR chest 1V CPT Code: 20886 Report Number: [id number] Reason for Exam: PRE OP Location Code: [...] Tech: TSM07 cc: CHARI07; PCPUNK* PCP,UNKNOWN ; [facility] 2023-07-09 12:15:00* Test Item Value Reference Range Interpretation [...] a race coefficient. Additional information canbe found at:[id number] f ([email or web address]) [Automated message] The system [...] mg/dL 8.3-10.6 N Complete Blood Count Auto [id number] 12:15:00* Test Item Value Reference Range Interpretation [...] code = NRBCP) 0 % Prothrombin Time [id number] 12:15:00* Test Item Value Reference Range Interpretation [...] 3.5 Mechanical Heart, Intracardiac Thrombosis. Partial Thromboplastin [id number] 12:15:00* Test Item Value Reference Range Interpretation Comme nts Partial Thromboplastin Time (test code = PTT) 30.9 Seconds 23.9-32.8 N HCG, Serum Qual (LAB)2023-07-09 12:15:00* Test Item Value Reference Range Interpretation Comme nts HCG, Serum Qual (LAB) (test code = HCGQ) Negative Negative Transthoracic echo (TTE)2023-07-02 21:22:05* Test Item Value Reference Range Interpretation Comme nts Height (test code = 6798737674) 65 in Weight (test code = 8201005818) 228 lbs Systolic BP (test code = 2980288592) 124 mmHg Diastolic BP (test code = 7324645620) 74 mmHg Heart Rate (test code = 4814888573) 103 bpm BSA (test code = 5740508275) 2.09 m2 Ao root diam (test code = 3650924744) 2.90 cm Aortic root (test code = 7648759591) 2.9 cm Ao root annulus (test code = 4907842051) 2.9 cm LA size (test code = 1415262663) 3.8 cm LVIDD (test code = 5903829962) 4.20 cm Left Ventricular End Diastolic Volume by Teichholz Method (test code = 5118981) 78.2 mL IVS (test code = 6624634616) 1.04 cm Interventricular Septum Diastolic Thickness by 2D (test code = 5336211) 1.04 cm LVPWD (test code = 8356163816) 1.01 cm PW (test code = 5601874866) 1.01 cm 0.6-1.1 EF(Teich) (test code = 0080785790) 57.60 % LVIDS (test code = 9464403363) 2.90 cm Left Ventricular End Systolic Volume by Teichholz Method (test code = 4283246) 33.1 mL FS (test code = 3244440159) 30 % EF - 2D (test code = 64298818) 57.60 % LVOT diameter (test code = 6911953000) 2.02 cm LVOT area (test code = 9306127071) 3.20 cm2 MV Prop V (test code = 9697983838) 82.90 cm/s MV Peak E Nile (test code = 7594944729) 68.7 cm/s MV Peak A Nile (test code = 0266732045) 79.7 cm/s E/A ratio (test code = 6402795032) 0.86 ratio E wave decelartion time (test code = 9836097410) 0.11 s LAV(MOD-sp4) (test code = 3552093606) 38.50 mL Aortic valve mean velocity (test code = 8039351185) 99.7 cm/s Ao peak nile (test code = 1803716781) 138.4 cm/s Ao VTI (test code = 2877960202) 24.9 cm Ao max PG (test code = 1759971467) 7.70 mm[Hg] AV peak gradient (test code = 0404705491) 7.7 mmHg AV mean gradient (test code = 7988438310) 4.4 mmHg LVOT stroke volume (test code = 3266903348) 72.50 cm3 LVOT peak nile (test code = 0412809093) 123.2 cm/s LVOT mn grad (test code = 3082044833) 2.7 mmHg AV LVOT peak gradient (test code = 6826784100) 6.1 mmHg LVOT peak VTI (test code = 3906630047) 22.6 cm AV area by cont VTI (test code = 4670643822) 2.9 cm2 AV area peak nile (test code = 5994248046) 2.9 cm2 LV V1 mean (test code = 8826669270) 75.50 cm/s AV valve area (test code = 4963243252) 2.90 cm2 Tapse (test code = 9351097477) 1.97 cm Radiology Study observation (narrative) (test code = 69556-5) COLE (test code = COLE) ?Left?Ventricle: Left [...] apical, parasternal and subcostal views were obtained. [facility] GLUCOSE (AUTOMATED)2022-05-14 13:19:04* Test Item Value Reference Range Interpretation Comme nts POCT GLU (test code = 4949301378) 151 mg/dL 70-110 H Lab Interpretation (test cod e = 82163-5) Abnormal [facility] GLUCOSE (AUTOMATED)2022-05-14 07:12:21* Test Item Value Reference Range Interpretation Comme nts POCT GLU (test code = 6116455897) 138 mg/dL 70-110 H Lab Interpretation (test cod e = 24694-9) Abnormal [facility] GLUCOSE (AUTOMATED)2022-05-14 02:16:08* Test Item Value Reference Range Interpretation Comme nts POCT GLU (test code = 4939792350) 99 mg/dL 70-110 Lab Interpretation (test cod e = 67245-7) [facility]20[facility]-13 17:18:18* Test Item Value Reference Range Interpretation Comme nts Height (test code = 2914748092) in Weight (test code = 0690065949) lbs Systolic BP (test code = 0296613008) mmHg Diastolic BP (test code = 6480252156) mmHg Heart Rate (test code = 1795566638) bpm BSA (test code = 5732445509) 2.31 m2 Ao root annulus (test code = 8603382974) 3.1 cm Ao root diam (test code = 4458521856) 3.10 cm Aortic root (test code = 2986811211) 3.1 cm LVOT diameter (test code = 0231265372) 2.01 cm LVIDD (test code = 3201888193) 5.40 cm IVS (test code = 9134622212) 1.32 cm Interventricular Septum Diastolic Thickness by 2D (test code = 1677258) 1.32 cm LVPWD (test code = 7026513731) 1.33 cm PW (test code = 2261092479) 1.33 cm 0.6-1.1 EF(Teich) (test code = 3430412838) 64.60 % LVIDS (test code = 9323631649) 3.50 cm FS (test code = 7009001765) 36 % EF - 2D (test code = 47194094) 64.60 % LA size (test code = 5699479911) 3.9 cm Pulmonic Regurgitant End Max Velocity (test code = 0416588428) 119.4 cm/s LAV(MOD-sp4) (test code = 0440450383) 68.20 mL E wave decelartion time (test code = 1430024362) 0.19 s MV Peak E Nile (test code = 1275462923) 113.2 cm/s MV stenosis pressure 1/2 time (test code = 0340539392) 58.2 ms MV Peak A Nile (test code = 5983310021) 101.2 cm/s E/A ratio (test code = 4357251982) ratio MV Prop V (test code = 7914642121) 61.70 cm/s MV E/e' septal (test code = 2860027901) 10.9 cm/s Tapse (test code = 8100844708) 2.5 cm LVOT stroke volume (test code = 2131244932) 92.80 cm3 LVOT peak nile (test code = 8952086856) 146.8 cm/s LVOT mn grad (test code = 4408866197) mmHg AV LVOT peak gradient (test code = 4197436607) mmHg LVOT peak VTI (test code = 9846789711) 29.4 cm LV V1 mean (test code = 4202870417) 85.40 cm/s Aortic valve mean velocity (test code = 5106255503) 139.0 cm/s Ao peak nile (test code = 1647992365) 212.2 cm/s Ao VTI (test code = 6767988906) 42.9 cm AV area by cont VTI (test code = 1991209898) 2.2 cm2 AV area peak nile (test code = 5014721659) 2.2 cm2 Ao max PG (test code = 2692831216) 18.00 mm[Hg] AV peak gradient (test code = 2441862095) mmHg AV valve area (test code = 9452725676) 2.16 cm2 AV mean gradient (test code = 6674708037) mmHg Radiology Study observation (narrative) (test code = 52250-4) COLE (test code = COLE) Formatting of [...] 2D, color flow Doppler and spectral Doppler. [facility] 12:47:19* Test Item Value Reference Range Interpretation Comme nts POCT GLU (test code = 9114606010) 178 mg/dL 70-110 H Lab Interpretation (test cod e = 00591-1) Abnormal [facility] [id number] 06:26:48* Test Item Value Reference Range Interpretation Comments TROPONIN I (test code = 9622228726) 0.006 ng/mL See_Comment [Automated message] The system [...] of biotin. Lab Interpretation (test code = 87503-6) Normal [facility]ERR[facility] [id number] 01:57:20* Test Item Value Reference Range Interpretation Comme nts FERRITIN (test code = 4997813550) 46.4 ng/mL 6-137 COLE (test code = COLE) Biotin has been reported to cause a negative bias, interpret results relative to patient's use of biotin. Lab Interpretation (test code = 78145-3) Normal [facility]YCOSYLATED HEMOGLOBIN (A1C)2022-05-13 01:56:35* Test Item Value Reference Range Interpretation Comme nts HGB A1C (test code = 4548-4) 6.7 % 4-5.7 H COLE (test code = COLE) Reference RangesNormal: <5.7%Prediabetes: 5.7 - 6.4%Diabetes: > 6.5% Lab Interpretation (test code = 90850-1) Abnormal [facility] HospitalTHYROID STIMULATING [id number] 01:52:23 * Test Item Value Reference Range Interpretation Comme nts TSH (test code = 1166504281) See_Comment [Automated [employer]] The system which generated this result transmitted reference range: 0.45 - 4.70 mIU/L. The reference range was not used to interpret this result as normal/abnormal. Lab Interpretation (test code = 38386-1) Normal [facility] HospitalSEDIMENTATION [id number] 01:38:29* Test Item Value Reference Range Interpretation Comme nts ESR (test code = 8590358012) See_Comment H [Automated [employer]] The system which generated this result transmitted reference range: 0 - 20 mm/HR. The reference range was not used to interpret this result as normal/abnormal. Lab Interpretation (test code = 77685-1) Abnormal [facility] [id number] 01:34:20* Test Item Value Reference Range Interpretation Comments TROPONIN I (test code = 5417923223) 0.007 ng/mL See_Comment [Automated message] The system [...] of biotin. Lab Interpretation (test code = 21939-9) Normal [facility]-TERMINAL [id number]-[id number] 01:31:17* Test Item Value Reference Range Interpretation Comme nts NT-proBNP (test code = 5305698223) 436 pg/mL See_Comment H [Automated message] The system which generated this result transmitted reference range: <=125. The reference range was not used to interpret this result as normal/abnormal. COLE (test code = COLE) Biotin has been reported to cause a negative bias, interpret results relative to patient's use of biotin. Lab Interpretation (test code = 74669-1) Abnormal [facility] HospitalLIPID PANEL (02912)(TOTAL CHOLESTEROL, TRIGLYCERIDES, HDL)2022-05-13 01:22:20* Test Item Value Reference Range Interpretation Comme nts CHOL (test code = 1142129580) 172 mg/dL 120-200 HDL (test code = 0142833604) 35 mg/dL See_Comment L [Automated [employer]] The system which generated this result transmitted reference range: >=50. The reference range was not used to interpret this result as normal/abnormal. HDLC RATIO (test code = 8450094929) See_Comment H [Automated [employer]] The system which generated this result transmitted reference range: <=4.5. The reference range was not used to interpret this result as normal/abnormal. TRIG (test code = 9338121333) 322 mg/dL 30-170 H LDL CHOL (test code = 77513-4) 73 mg/dL See_Comment [Automated messa ge] The system which generated this result transmitted reference range: <=160. The reference range was not used to interpret this result as normal/abnormal. VLDL (test code = 2866583021) 64 mg/dL 5-60 H Lab Interpretation (test code = 49767-1) Abnormal [facility]2022-08-17 01:22:00* Test Item Value Reference Range Interpretation Comme nts MAGNESIUM (test code = 2564978568) 1.6 mg/dL 1.7-2.4 L Lab Interpretation (test cod e = 69773-7) Abnormal [facility] METABOLIC PANEL (NA, K, CL, CO2, GLUCOSE, BUN, CREATININE, CA)2022-05-13 01:22:00* Test Item Value Reference Range Interpretation Comme nts NA (test code = 5465263397) 139 mmol/L 135-145 K (test code = 0003889678) 4.0 mmol/L 3.5-5 CL (test code = 0030226456) 108 mmol/L 98-108 CO2 TOTAL (test code = 7774395014) 26 mmol/L 23-31 AGAP (test code = 1785632268) 2-16 BUN (test code = 0823536418) 16 mg/dL 7-23 GLUCOSE (test code = 1744322888) 109 mg/dL 70-110 CREATININE (test code = 0100719851) 0.65 mg/dL 0.5-1.04 CALCIUM (test code = 3684030939) 8.7 mg/dL 8.6-10.6 eGFR (test code = 3221824809) mL/min/1.73m2 COLE (test code = COLE) Association [...] or urine or abnormalities in imaging tests). [facility] Test Item Value Reference Range Interpretation Comme nts PHOSPHORUS (test code = 5581175532) 4.1 mg/dL 2.5-5 Lab Interpretation (test cod e = 15027-2) [facility]-13 01:16:45* Test Item Value Reference Range Interpretation Comme nts POCT GLU (test code = 0165721077) 134 mg/dL 70-110 H Lab Interpretation (test cod e = 69363-1) [facility] [id number] 00:55:21* Test Item Value Reference Range Interpretation [...] g/dL 31.6-35.1 L RDW-SD (test code = 19853-4) 42.4 fL 39-49.9 RDW-CV (test code = 788-0) 14.7 % 12-15.5 PLT (test code = 777-3) See_Comment H [Automated messa ge] The system which generated this result transmitted reference range: 166 - 358 10*3/?L. The reference range was not used to interpret this result as normal/abnormal. MPV (test code = 81353-8) 9.6 fL 9.5-12.9 NRBC/100 WBC (test code = 5278870572) See_Comment [Automated me ssage] The system which generated this result transmitted reference range: 0.0 - 10.0 /100 WBCs. The reference range was not used to interpret this result as normal/abnormal. NRBC x10^3 (test code = 1531135046) See_Comment [Automated messa ge] The system which generated this result transmitted reference range: 10*3/?L. The reference range was not used to interpret this result as normal/abnormal. SEG % (test code = 72389-1) 57 % 33-76 BAND % (test code = 00202-2) 7 % 0-1 H LYMPH % (test code = 87352-9) 21 % 14-54 MONO % (test code = 14566-2) 8 % 0-4 H EOS % (test code = 52101-2) 7 % 0-3 H ANC (test code = 753-4) 5.38 10*3/uL 1.88-7.09 POLYCHROMASIA (test code = 38416-0) 2+ See_Comment [Automated messa ge] The system which generated this result transmitted reference range: 2+. The reference range was not used to interpret this result as normal/abnormal. TOXIC CHANGES (test code = 803-7) Present A Lab Interpretation (test code = 67015-2) [facility]normal [facility]2022-[facility]-13 00:20:12 * Test Item Value Reference Range Interpretation Comme [facility] LDH (test code = 4149712980) 404 U/L 120-246 H Lab Interpretation (test cod e = 24203-3) Abnormal [facility] Hospital[facility] Acid [id number] 00:19:52* Test Item Value Reference Range Interpretation Comme [facility] URIC ACID (test code = 5797922056) 5.2 mg/dL 2.9-6 Lab Interpretation (test cod e = 10045-0) Normal [facility] (Asparate Amino Transfer)2022-05-13 00:19:52* Test Item Value Reference Range Interpretation Comme [facility] AST(SGOT) (test code = 6704263272) 32 U/L 13-40 Lab Interpretation (test cod e = 36883-3) Normal [facility] HospitalAlanine Amino Transferase (SGPT)2022-05-13 00:19:52* Test Item Value Reference Range Interpretation Comme [facility] ALTv (test code = 1742-6) 37 U/L 5-35 H Lab Interpretation (test cod e = 46594-8) Abnormal [facility] HospitalCreatinine Svbwm0553-12-45 00:19:32* Test Item Value Reference Range Interpretation Comme [facility] CREATININE (test code = 3234085916) 0.66 mg/dL 0.5-1.04 eGFR (test code = 9939350867) mL/min/1.73m2 COLE (test code = COLE) Association [...] or urine or abnormalities in imaging tests). [facility]2022-[facility] 14:11:00* Test Item Value Reference Range Interpretation Comme nts SURGICAL (test code = SR) R UN DATE: 05/06/22 [place] - LAB PAGE 1 RUN TIME: 1411 Specimen Inquiry RUN USER: INTERFACE P ATIENT: GRACY SAUCEDO LOC: [place] U #: [id number] AGE/SX: 36/F ROOM: [facility] [place] RE05[facility]04/22[facility] DR: Anuj Mauricio MD : 86 BED: 1 DIS: STATUS: ADM IN TLOC: SPEC #: [id number] RECD: 05/05/22 STATUS: GORDY PEDRO #: [id number] MARIANO: 05/04/22 DR: Anuj Mauricio MD ENTERED: 05/05/22 SP TYPE: SURGICAL OTHR DR: Julia Tineo MD ORDERED: 68765/2, 48528, ANATOMIC SPEC COPIES TO: Julia Tineo MD [address] [place] [id number] Anuj Mauricio MD [address] [facility] [address] [place] [address] PROCEDURES: 34649 (05/05/22) 91924 (05/05/22) TISSUES: 2. FALLOPIAN TUBE NOS - [...] ON NEXT PAGE R UN DATE: 05/06/22 [place] - LAB PAGE 2 RUN TIME: 1411 Specimen Inquiry RUN USER: INTERFACE S PEC #: [id number] PATIENT: GRACY SAUCEDO #[id number] (Continued) GROSS DESCRIPTION (Continued) segment is a 2.1 cm in length 1 cm in diameter fallopian tube segment (G). Technical component performed at [facility],[address] [place] [address], [place] [address] Unless gross only, the diagnosis is based [...] 05/06/22 1411 END OF REPORT COMPREHENSIVE METABOLIC [id number] 08:29:00* Test Item Value Reference Range Interpretation [...] ALKP) 87 IUnit/L 20-125 N CBC W/AUTO [id number] 07:26:00* Test Item Value Reference Range Interpretation [...] (test code = MDIFF) NO RAPID PLASMA [id number] 11:17:00* Test Item Value Reference Range Interpretation Comme nts RAPID PLASMA REAGIN (test co de = RPR) NONREACTIVE NONREACTIVE AG HEPATITIS B WVGZFEV7642-95-08 11:17:00* Test Item Value Reference Range Interpretation Comme nts AG HEPATITIS B SURFACE (test code = HBSAG) NON REACTIVE INDEX NonReactive AB HIV 1 11:17:00* Test Item Value Reference Range Interpretation Comme nts AB HIV 1 2 (test code = VPV15ZG) Nonreactive Nonreactive URINALYSIS KTHYXPEK4230-85-09 20:08:00* Test Item Value Reference Range Interpretation [...] MUCU) TRACE /LPF NONE SEEN UR PROTEIN/CREATININE [id number] 20:08:00* Test Item Value Reference Range Interpretation Comme nts UR PROTEIN RANDOM (test code = PROTU) 63 mg/dL UR CREATININE RANDOM (test code = CREATU) 98.4 mg/dL The Reference Ra nge and Method Performance specificationshave not been established for this fluid. The test resultshould be correlated into the clinical context forinterpretation. PROTEIN/CREATININE RATIO (test code = P/CRATIO) 0.64 COMPREHENSIVE METABOLIC [id number] 20:05:00* Test Item Value Reference Range Interpretation [...] = ALKP) 112 IUnit/L 20-125 N URIC [id number] 20:05:00* Test Item Value Reference Range Interpretation Comme nts URIC ACID (test code = URIC) 5.6 mg/dL 2.6-7.2 N LACTIC DEHYDROGENASE(LDH)2022-05-03 20:05:00* Test Item Value Reference Range Interpretation Comme nts LACTIC DEHYDROGENASE(LDH) (t est code = LDH) 187 IUnits/L 84-246 N CBC W/AUTO [id number] 19:48:00* Test Item Value Reference Range Interpretation [...] REQUIRED (test c ode = MDIFF) NO [id number] 23:13:00* Test Item Value Reference Range Interpretation Comme nts FIBRONECTIN (test code = FFN) NEGATIVE NEGATIVE URINALYSIS [id number] 22:31:00* Test Item Value Reference Range Interpretation [...] MUCU) TRACE /LPF NONE SEEN POCT MOLECULAR [id number] 14:30:37* Test Item Value Reference Range Interpretation Comme nts POCT Molecular Strep (test c ode = 62379-6) Negative Negative Lab Interpretation (test cod e = 22909-3) Normal [facility] HospitalType and Screen - ONCE Ykczlyp2700-35-76 08:18:24* Test Item Value Reference Range Interpretation Comme nts ABO & RH (test code = 20) O POSITIVE Performed at [facility] Laboratory Services [facility] Blood [address] Free: [phone] No. [id number] IAT (test code = 1185) Negative Performed at [facility] Laboratory Services [facility] Blood [address] Free: [phone] No. [id number] [facility] Metabolic Panel (NA, K, CL, CO2, GLUCOSE, BUN, CREATININE, CA)2020-07-23 08:06:00* Test Item Value Reference Range Interpretation Comme nts NA (test code = 1859896840) 136 mmol/L 135-145 K (test code = 3562570363) 4.9 mmol/L 3.5-5 CL (test code = 9576538971) 102 mmol/L 98-108 CO2 TOTAL (test code = 2559875213) 24 mmol/L 23-31 AGAP (test code = 1327431105) 2-16 BUN (test code = 6644871818) 14 mg/dL 7-23 GLUCOSE (test code = 6916666589) 197 mg/dL 70-110 H CREATININE (test code = 1652379730) 0.41 mg/dL 0.5-1.04 L CALCIUM (test code = 4813677661) 9.5 mg/dL 8.6-10.6 eGFR Calculation (Non-) (test code = 0712297201) mL/min/1.73m2 eGFR Calculation () (test code = 3724219817) mL/min/1.73m2 COLE (test code = COLE) Association [...] imaging tests). Lab Interpretation (test code = 90648-7) Abnormal [facility] [id number] 08:03:00* Test Item Value Reference Range Interpretation Comme nts POCT PREG (test code = 1605) Negative On board controls acceptable with C Line (test code = 3574) Present POCT PREG LOT # (test code = 3575) HCG [id number] POCT PREG TEST DATE ( test code = 3576) 09/26/2021 Lab Interpretation (test cod e = 80996-6) Normal [facility] HospitalCOVID[facility] (ID NOW RAPID TESTING)2020-07-23 08:01:00* Test Item Value Reference Range Interpretation Comme nts SARS-CoV-2 Rapid ID NOW (test code = 45129-9) Not Detected Not Detected COLE (test code = COLE) ID NOW COVID-19 As say is an isothermal nucleic acid amplification test intended for the qualitative detection of nucleic acid from SARS-CoV-2 viral RNA in nasopharyngeal (WHEEL INSTALLER) specimens. It is used under Emergency Use [...] clinically indicated. Lab Interpretation (test code = 06443-8) Normal [facility] HospitalCB with Eyraxdeycaby4032-49-13 07:37:00* Test Item Value Reference Range Interpretation [...] 34.5 g/dL 31.6-35.1 RDW-SD (test code = 87493-0) 36.6 fL 39-49.9 L RDW-CV (test code = 788-0) 12.3 % 12-15.5 PLT (test code = 777-3) See_Comment [Automated message] The system which generated this result transmitted reference range: 166 - 358 10*3/?L. The reference range was not used to interpret this result as normal/abnormal. MPV (test code = 39385-6) 9.5 fL 9.5-12.9 NRBC/100 WBC (test code = 2147281956) See_Comment [Automated message] The system which generated this result transmitted reference range: 0.0 - 10.0 /100 WBCs. The reference range was not used to interpret this result as normal/abnormal. NRBC x10^3 (test code = 1101969226) <0.01 See_Comment [Automated message] The system which generated this result transmitted reference range: 10*3/?L. The reference range was not used to interpret this result as normal/abnormal. GRAN MAT (NEUT) % (test code = 770-8) 86.1 % IMM GRAN % (test code = 3327793815) 1.10 % LYMPH % (test code = 736-9) 10.6 % MONO % (test code = 5905-5) 1.7 % EOS % (test code = 713-8) 0.2 % BASO % (test code = 706-2) 0.3 % GRAN MAT x10^3(ANC) (test code = 8003414926) 11.47 10*3/uL 1.88-7.09 H IMM GRAN x10^3 (test code = 3414953926) 0.15 10*3/uL 0-0.06 H LYMPH x10^3 (test code = 731-0) 1.42 10*3/uL 1.32-3.29 MONO x10^3 (test code = 742-7) 0.23 10*3/uL 0.33-0.92 L EOS x10^3 (test code = 711-2) 0.03 10*3/uL 0.03-0.39 BASO x10^3 (test code = 704-7) 0.04 10*3/uL 0.01-0.07 Lab Interpretation (test code = 18612-2) Abnormal [facility] HospitalRAD PLASMA [id number] 10:47:00* Test Item Value Reference Range Interpretation Comme nts RAPID PLASMA REAGIN (test co de = RPR) NONREACTIVE NONREACTIVE AG HEPATITIS B [id number] 10:47:00* Test Item Value Reference Range Interpretation Comme nts AG HEPATITIS B SURFACE (test code = HBSAG) NON REACTIVE INDEX NonReactive AB HIV 1 10:47:00* Test Item Value Reference Range Interpretation Comme nts AB HIV 1 2 (test code = VCT51OS) NONREACTIVE INDEX NONREACTIVE SIVIEQ7486-38-55 09:00:00* Test Item Value Reference Range Interpretation Comme nts GLUBED (test code = GLUBED) 110 MG/DL 70-110 N Performed by cer tified stranding machine operator at [facility] CBC W/AUTO [id number] 08:53:00* Test Item Value Reference Range Interpretation [...] (test code = MDIFF) NO COMPREHENSIVE METABOLIC [id number] 07:55:00* Test Item Value Reference Range Interpretation [...] ALKP) 57 IUnit/L 20-125 N RAPID PLASMA [id number] 22:04:00* Test Item Value Reference Range Interpretation Comme nts RAPID PLASMA REAGIN (test code = RPR) NONREACTI VE AG HEPATITIS B JXAEBVJ1579-51-57 22:04:00* Test Item Value Reference Range Interpretation Comme nts AG HEPATITIS B SURFACE (test code = HBSAG) NON REACTIVE INDEX NonReactive AB HIV 1 22:04:00* Test Item Value Reference Range Interpretation Comme nts AB HIV 1 2 (test code = WUU33TN) NONREACTIVE INDEX NONREACTIVE DJJYJK8992-45-93 21:29:00* Test Item Value Reference Range Interpretation Comme nts GLUBED (test code = GLUBED) 149 MG/DL 70-110 H Performed by cer tified stranding machine operator at [facility] PJECWH0719-33-05 18:04:00* Test Item Value Reference Range Interpretation Comme nts GLUBED (test code = GLUBED) 106 MG/DL 70-110 N Performed by cer tified stranding machine operator at [facility] IFGYQZ7022-04-59 14:19:00* Test Item Value Reference Range Interpretation Comme nts GLUBED (test code = GLUBED) 86 MG/DL 70-110 N Performed by cer tified stranding machine operator at [facility] CORD VENOUS BLOOD VQSQC0032-68-80 13:42:00* Test Item Value Reference Range Interpretation [...] = O2SCV) 57 % CORD ARTERIAL BLOOD WVNTM8602-88-46 13:39:00* Test Item Value Reference Range Interpretation [...] O2S/C) 9 % 72-77 L RAPID PLASMA LPSQBQ7576-00-29 11:42:00* Test Item Value Reference Range Interpretation Comme nts RAPID PLASMA REAGIN (test code = RPR) NONREACTI VE AG HEPATITIS B UUEFJEW9224-24-14 11:42:00* Test Item Value Reference Range Interpretation Comme nts AG HEPATITIS B SURFACE (test code = HBSAG) NON REACTIVE INDEX NonReactive AB HIV 1 11:42:00* Test Item Value Reference Range Interpretation Comme nts AB HIV 1 2 (test code = GEQ54KU) INDEX NONREACTIVE CBC W/AUTO HVEE5316-59-27 11:09:00* Test Item Value Reference Range Interpretation [...] code = MDIFF) NO Coronavirus 2019 nCoV Sdcfaij3333-02-50 10:49:00* Test Item Value Reference Range Interpretation Comme nts Coronavirus 2019 nCoV Bedsid e (test code = COVNONPUIBED) Negative Negative Acknowledged? GVBJJRPYK0531-04-47 09:53:00* Test Item Value Reference Range Interpretation Comme nts GLUBED (test code = GLUBED) 91 MG/DL 70-110 N Performed by cer tified stranding machine operator at [facility] TMWRNZ1995-39-15 08:00:00* Test Item Value Reference Range Interpretation Comme nts GLUBED (test code = GLUBED) 87 MG/DL 70-110 N Performed by cer tified stranding machine operator at [facility] VYKSHQ1559-74-13 08:00:00* Test Item Value Reference Range Interpretation Comme nts GLUBED (test code = GLUBED) 79 MG/DL 70-110 N Performed by cer tified stranding machine operator at [facility] VDXSPS0066-99-09 08:00:00* Test Item Value Reference Range Interpretation Comme nts GLUBED (test code = GLUBED) 166 MG/DL 70-110 H Performed by cer tifIngeniatrics stranding machine operator at [facility] DATA GENERATION QRERNTQ0751-37-13 21:38:00DATA GENERATION COMPLEX*.*.*.*.*.*.*.*.*.*.*.*.*.*FINAL*.*.*.*.*.*.*.*.*.*.*.*.*.*.*INDICATION: A 25 yof pmhx [...] - NORMAL VALUES (Melchor damian al, AJG 9562000;4485)Time ? Percent vitcfxlal4c ? <902h? <604h ? <10- - - [...] - - - - IMPRESSION: Unr emarkable General acute hospitalGASTRIC EMPTYING VHWUY6155-79-66 21:38:00GASTRIC EMPTYING STUDY*.*.*.*.*.*.*.*.*.*.*.*.*.*FINAL*.*.*.*.*.*.*.*.*.*.*.*.*.*.*INDICATION: A 25yof pmhx morbid [...] - NORMAL VALUES (Melchor et al, AJG 9561999;8792)Time ? Percent oxkalduvo0y ? <902h ? <604h ? <10- - [...] - - - - IMPRESSION: Unre markable General acute hospitalGASTRIC EMPTYING [id number] 21:38:00GASTRIC EMPTYING MEAL*.*.*.*.*.*.*.*.*.*.*.*.*.*FINAL*.*.*.*.*.*.*.*.*.*.*.*.*.*.*INDICATION: A 25 yof pmhx [...] (Tochristel et al, AJG 9562000;1458)Time ? Percent klzxslaum1b ? <902h ? <604h ? <10- - [...] - - - - IMPRESSION: [place] [facility] acute hospital Notes Date/Time Note Provider Source 2023-07-15 10:43:00 [facility] enter [address] [place] [address] Discharge Summary Signed Patient: Gracy De La Torre Medical Record#: [id number] : 1985 Acct:[id number] Age/Sex: 37 / F Admit/Reg Date: 07/14/23 Loc: SJM5S Room: XS949-L Report Number: [id number]: Dewayne Campuzano MD DS: Providers [...] 2 weeks - Discharge Information Print Language: Qatari Quality - Smoking Status Smoking Status: Never tobacco user Rusty Initiatives - Inpatient LOS Unforeseen circumstances resulted in INP LOS < 2 midnights: Yes Inp LOS < 2 Midnights due to:: Inpatient ONLY Procedure Dictated By: Dewayne Campuzano MD Signed By: Dewayne Campuzano MD 07/15/23 1045 DD/ 104 TD/TT: 07/15/23 1043 System Support Analyst: BENEDICTO cc: BENEDICTO; PCPNO* PcpMd [facility]; Dewayne Campuzano MD [facility] 2023-07-14 09:40:00 [facility] enter [address] [place] [address] Bariatric Surgery Op Note Signed Patient: Gracy De La Torre Medical Record#: [id number] : 1985 Acct:[id number] Age/Sex: 37 / F ADM Date: 07/14/23 Loc: [facility] Room: [place] [address] Report Number: [id number]: Dewayne Campuzano MD Bariatric Surgery Op Note Date of Procedure: 07/14/23 Pre-operative diagnosis: Morbid obesity, BMI 38, HTN, DM type 2, Dyslipidemia, Hiatal hernia, GERD Post-operative diagnosis: same as preoperative diagnosis Procedure Performed: Laparoscopic lala en y gastric bypass. Laparoscopic hiatal hernia repair Primary Surgeon: Dewayne Campuzano MD, FACS Venetian Blind Machine Operator: LEONARDA Chester (needed due to complexity [...] Campuzano MD 07/14/2344 DD/ 9 TD/TT: 07/14/23939 System Support Analyst: BENEDICTO cc: BENEDICTO; PCPNO* Pcp-Md [facility]; Dewayne Campuzano MD [facility] 2022-05-07 21:50:00 [facility] OB Disch REPORT#:[id number] REPORT STATUS: Signed DATE:05/07/22 TIME: 2149 PATIENT: GRACY SAUCEDO UNIT #: [id number] ROOM/BED: [place] [address] : [birth year] AGE: 36 SEX: F ATTEND: [...] = 30 No Refills at 2152 RPT #:[id number] END OF REPORT [facility] 2022-05-07 21:48:00 [facility] ([facility]) OB Postpart Progr Note REPORT#:[id number] REPORT STATUS: Signed DATE:05/07/22 TIME: 2147 PATIENT: GRACY SAUCEDO UNIT #: [id number] ROOM/BED: [place] [address] : 86 AGE: 36 SEX: F ATTEND: [...] routine care, discharge today at 2150 RPT #:[id number] END OF REPORT [facility] 2022-05-06 11:38:00 [facility] ([facility]) OB Postpart Progr Note REPORT#:[id number] REPORT STATUS: Signed DATE:05/06/22 TIME: 1138 PATIENT: GRACY SAUCEDO UNIT #: [id number] ROOM/BED: [place] [address] : 86 AGE: 36 SEX: F ATTEND: [...] progress Plan: routine care at 1139 RPT #:[id number] END OF REPORT [facility] 2022-05-05 16:54:00 [facility] ([facility]) OB Postpart Progr Note REPORT#:[id number] REPORT STATUS: Signed DATE:05/05/22 TIME: 1654 PATIENT: GRACY SAUCEDO UNIT #: [id number] ROOM/BED: [place] [address] : 86 AGE: 36 SEX: F ATTEND: [...] % (Auto) (14.0 - 32.0 %) 14.0 Perry % (Auto) (4.8 - 9.0 %) 7.7 Eos % (Auto) (0.3 - 3.7 %) 0.1 L Baso % (Auto) (0.0 - 2.0 %) 0.3 Neut # (Auto) (2.0 - 7.6 x10 3/uL) 10.19 H Lymph # (Auto) (1.0 - 3.8 x10 3/uL) 1.86 Perry # (Auto) (0.1 - 0.8 x10 3/uL) [...] progress Plan: routine care at 1654 RPT #:[id number] END OF REPORT [facility] 2022-05-05 08:43:00 [facility] ([facility]) Pain Management Progress Note REPORT#:[id number] REPORT STATUS: Signed DATE:05/05/22 TIME: 842 PATIENT: GRACY SAUCEDO UNIT #: [id number] ROOM/BED: [place] [address] : 86 AGE: 36 SEX: F ATTEND: [...] (oz): 8.6 Weight (kg): 133.600 at 0845 [facility] #:[id number] END OF REPORT [facility] 2022-05-04 20:42:00 [id number] [place] [address] PATIENT NAME: GRACY SAUCEDO ADMIT DATE: 05/04/22 ACCOUNT NO: [id number] ROOM NO: [facility] [place] AGE: 36 REPORT TYPE: OPERATIVE REPORT SEX: F ADMITTING PHYSICIAN:Anuj Mauricio MD ATTENDING PHYSICIAN:Anuj Mauricio MD OPERATION DATE: PROCEDURE: Repeat low transverse section with bilateral tubal ligation. SURGEON: Anuj Mauricio MD LOSS PREVENTION MANAGER: LEONARDA Evans PREOPERATIVE DIAGNOSES: 1. Intrauterine at [...] Multiparous, desires sterilization. FINDINGS: 1. Viable female in vertex presentation with scores 8 and [...] By: Anuj Mauricio MD WT: OP:KAEL/MAJOR/NTS Conf#: [id number]#: [id number] Authenticated by Anuj Mauricio MD On 05/10/2022 03:52:06 PM at 0352 PATIENT NAME: GRACY SAUCEDO [facility] 2022-05-04 20:35:00 [facility] ([facility]) Brief Op Note REPORT#:[id number] REPORT STATUS: Signed DATE:05/04/22 TIME: 2034 PATIENT: GRACY SAUCEDO UNIT #: [id number] ROOM/BED: [place] [address] : [birth year] AGE: 36 SEX: F ATTEND: Anuj Mauricio MD ADM AUTHOR: Anuj Mauricio MD * ALL edits or amendments must be made on the electronic/computer document * Op/Inv Proc Note - Brief Pre-procedure diagnosis: IUP at term Hx of c/s*2 SANDRA IDDM Sterilization Post-procedure diagnosis: same as pre procedure dx Procedures performed: LTCS with BTL Primary Surgeon: Daniel Venetian Blind Machine Operator(s): LEONARDA Evans Findings: VFI in vtx presentation FW: 4040 grams Complications: none Estimated blood loss in ml's: 400 Specimens removed/altered: Placenta and cord segment at 2040 RPT #:[id number] END OF REPORT [facility] 2022-05-04 20:30:00 [facility] ([facility]) DT History Physical REPORT#:[id number] REPORT STATUS: Signed DATE:05/04/22 TIME: 2029 PATIENT: GRACY SAUCEDO UNIT #: [id number] ROOM/BED: [place] [address] : 86 AGE: 36 SEX: F ATTEND: [...] % (Auto) (14.0 - 32.0 %) 24.7 Perry % (Auto) (4.8 - 9.0 %) 9.6 H Eos % (Auto) (0.3 - 3.7 %) 1.3 Baso % (Auto) (0.0 - 2.0 %) 0.5 Neut # (Auto) (2.0 - 7.6 x10 3/uL) 5.40 Lymph # (Auto) (1.0 - 3.8 x10 3/uL) 2.12 Perry # (Auto) (0.1 - 0.8 x10 3/uL) [...] pH (5.0 - 7.0) 6.0 Ur Specific [place] (1.005 - 1.030) 1.019 Urine Protein (NEGATIVE) [...] repeat c/s for SANDRA at 2034 RPT #:[id number] END OF REPORT [facility] 2022-05-03 18:28:00 [facility] ([facility]) OB Medical Screening Exam REPORT#:[id number] REPORT STATUS: Signed DATE:05/03/22 TIME: 1827 PATIENT: GRACY SAUCEDO UNIT #: [id number] ROOM/BED: [place] [address] : 86 AGE: 36 SEX: F ATTEND: [...] PNC with Dr. Mauricio at 2113 RPT #:[id number] END OF REPORT [facility] 2022-05-03 18:28:00 [facility] ([facility]) GELA Evaluation Note REPORT#:[id number] REPORT STATUS: Signed DATE:05/03/22 TIME: 1827 PATIENT: GRACY SAUCEDO UNIT #: [id number] ROOM/BED: [place] [address] : 86 AGE: 36 SEX: F ATTEND: [...] % (Auto) (14.0 - 32.0 %) 24.7 Perry % (Auto) (4.8 - 9.0 %) 9.6 H Eos % (Auto) (0.3 - 3.7 %) 1.3 Baso % (Auto) (0.0 - 2.0 %) 0.5 Neut # (Auto) (2.0 - 7.6 x10 3/uL) 5.40 Lymph # (Auto) (1.0 - 3.8 x10 3/uL) 2.12 Perry # (Auto) (0.1 - 0.8 x10 3/uL) [...] pH (5.0 - 7.0) 6.0 Ur Specific [place] (1.005 - 1.030) 1.019 Urine Protein (NEGATIVE) [...] with: patient, spouse/partner, nurse at 2126 RPT #:[id number] END OF REPORT [facility] 2022-04-13 22:27:00 [facility] ([facility] GELA Evaluation Note REPORT#:[id number] REPORT STATUS: Signed DATE:04/13/22 TIME: 2226 PATIENT: GRACY SAUCEDO UNIT #: [id number] ROOM/BED: : 86 AGE: 36 SEX: F [...] SVE-Cl/50%/-4 Ext-no edema toco-irregular ctxs (difficult to bean picker consistently) EFM-FHTs category I Results Findings/Data: Laboratory Tests: 04/13 2150 Urines Urine Color (YEL/STRAW) YELLOW Urine Appearance (CLEAR) SL CLOUDY Urine pH (5.0 - 7.0) 6.0 Ur Specific [place] (1.005 - 1.030) 1.020 Urine Protein (NEGATIVE) [...] answered Yvonne Garrison MD at 0018 RPT #:[id number] END OF REPORT [facility] 2022-04-13 22:26:00 [facility] ([facility]) OB Medical Screening Exam REPORT#:[id number] REPORT STATUS: Signed DATE:04/13/22 TIME: 2225 PATIENT: GRACY SAUCEDO UNIT #: [id number] ROOM/BED: : 86 AGE: 36 SEX: F [...] 2212 Yvonne Garrison MD at 0010 RPT #:[id number] END OF REPORT [facility] 2020-07-22 10:45:00 [facility] ([facility]) EMERGENCY PROVIDER REPORT REPORT#:[id number] REPORT STATUS: Signed DATE:07/22/20 TIME: 1045 PATIENT: GRACY SAUCEDO UNIT #: [id number] ROOM/BED: AGE: 34 SEX: F PCP PHYS: No Primary or Family Physician SERVICE AUTHOR: Elise Herndon WHEEL INSTALLER * ALL edits or amendments must be made on the electronic/computer document * HPI-Sore Throat General Confirmed Patient Yes Initial Greet Date/Time 07/22/20 1015 PCP [facility] Presentation Chief Complaint coughed blood Hx Obtained [...] had tonsillectomy done 2 days ago at [facility], did not call her surgeon. Reports symptoms [...] Diagnosis, Need for follow-up at 1238 RPT #:[id number] END OF REPORT [facility] 2020-07-22 10:45:00 [facility] ([facility]) EMERGENCY PROVIDER REPORT REPORT#:[id number] REPORT STATUS: Signed DATE:07/22/20 TIME: 1045 PATIENT: GRACY SAUCEDO UNIT #: [id number] ROOM/BED: AGE: 34 SEX: F PCP PHYS: No Primary or Family Physician SERVICE AUTHOR: Elise Herndon WHEEL INSTALLER * ALL edits or amendments must be made on the electronic/computer document * Elise Herndon 07/22/20 1045: HPI-Sore Throat General Confirmed Patient Yes PCP [facility] Presentation Chief Complaint coughed blood Hx Obtained [...] had tonsillectomy done 2 days ago at [facility], did not call her surgeon. Reports symptoms [...] Saw Pt Alone I have reviewed the PA/WHEEL INSTALLER's note and plan of care. I was available for consultation as needed at all times during the patient's visit in the emergency department. I agree with the clinical impression, plan and disposition. at 1238 at 1624 RPT #:[id number] END OF REPORT [facility] 2020-02-05 09:34:00 [facility] ([facility]) Clinical Note REPORT#:[id number] REPORT STATUS: Signed DATE:02/05/20 TIME: 933 PATIENT: GRACY SAUCEDO UNIT #: [id number] ROOM/BED: [place] [address] : 86 AGE: 34 SEX: F ATTEND: Anuj Mauricio MD ADM AUTHOR: Anuj Mauricio MD * ALL edits or amendments must be made on the electronic/computer document * Clinical Note Note: [facility] website checked at 0934 RPT #:[id number] END OF REPORT [facility] 2020-02-05 09:31:00 [facility] ([facility]) OB Disch REPORT#:[id number] REPORT STATUS: Signed DATE:02/05/20 TIME: 930 PATIENT: GRACY SAUCEDO UNIT #: [id number] ROOM/BED: [place] [address] : 86 AGE: 34 SEX: F ATTEND: [...] A: Female 1 minute A: 5 minutes infant A: 10 minutes infant A: Provider comments on imported nursing data: [...] less than 30 mins at 0932 RPT #:[id number] END OF REPORT [facility] 2020-02-05 09:30:00 [facility] ([facility]) OB Postpart Progr Note REPORT#:[id number] REPORT STATUS: Signed DATE:02/05/20 TIME: 929 PATIENT: GRACY SAUCEDO UNIT #: [id number] ROOM/BED: [place] [address] : 86 AGE: 34 SEX: F ATTEND: [...] routine care, discharge today at 0931 RPT #:[id number] END OF REPORT [facility] 2020-02-04 11:34:00 [facility] ([facility]) OB Postpart Progr Note REPORT#:[id number] REPORT STATUS: Signed DATE:02/04/20 TIME: 1134 PATIENT: GRACY SAUCEDO UNIT #: [id number] ROOM/BED: [place] [address] : 86 AGE: 34 SEX: F ATTEND: [...] routine care, discharge tomorrow at 1134 RPT #:[id number] END OF REPORT [facility] 2020-02-03 12:36:00 [facility] ([facility]) OB Postpart Progr Note REPORT#:[id number] REPORT STATUS: Signed DATE:02/03/20 TIME: 1236 PATIENT: GRACY SAUCEDO UNIT #: [id number] ROOM/BED: [place] [address] : 86 AGE: 34 SEX: F ATTEND: [...] % (Auto) (14.0 - 32.0 %) 16.1 Perry % (Auto) (4.8 - 9.0 %) 9.8 H Eos % (Auto) (0.3 - 3.7 %) 2.2 Baso % (Auto) (0.0 - 2.0 %) 0.4 Neut # (Auto) (2.0 - 7.6 x10 3/uL) 7.24 Lymph # (Auto) (1.0 - 3.8 x10 3/uL) 1.66 Perry # (Auto) (0.1 - 0.8 x10 3/uL) [...] progress Plan: routine care at 1236 RPT #:[id number] END OF REPORT [facility] 2020-02-03 06:28:00 [facility] ([facility]) Pain Management Progress Note REPORT#:[id number] REPORT STATUS: Signed DATE:02/03/20 TIME: 627 PATIENT: GRACY SAUCEDO UNIT #: [id number] ROOM/BED: [place] [address] : 86 AGE: 34 SEX: F ATTEND: [...] noted. dc epidural today at 0629 RPT #:[id number] END OF REPORT [facility] 2020-02-02 14:22:00 [id number] [place] [id number] PATIENT NAME: GRACY SAUCEDO ADMIT DATE: 02/01/20 ACCOUNT NO: [id number] ROOM NO: [facility] AGE: 34 REPORT TYPE: OPERATIVE REPORT SEX: F ADMITTING PHYSICIAN:Anuj Mauricio MD ATTENDING PHYSICIAN:Anuj Mauricio MD OPERATION DATE: PROCEDURE: Repeat low transverse section via Pfannenstiel incision. SURGEON: Anuj Mauricio MD LOSS PREVENTION MANAGER: LEONARDA Lui PREOPERATIVE DIAGNOSES: 1. Intrauterine at [...] 7. Morbid obesity. FINDINGS: 1. Viable female in vertex presentation with scores 8 and [...] By: Anuj Mauricio MD WT: OP:KAEL/MAJOR/NTS Conf#: [id number]/DID#: [id number] Authenticated by Anuj Mauricio MD On 03/08/2020 09:27:54 PM at 2128 PATIENT NAME: GRACY SAUCEDO [facility] 2020-02-02 13:12:00 [facility]) Brief Op Note REPORT#:[id number] REPORT STATUS: Signed DATE:02/02/20 TIME: 131 PATIENT: GRACY SAUCEDO UNIT #: [id number] ROOM/BED: [place] [address] : 86 AGE: 34 SEX: F ATTEND: [...] followed by cerclage removal Primary Surgeon: Daniel Venetian Blind Machine Operator(s): LEONARDA Lui Findings: VFI in vtx presentation with Apgars 8/9 NML FTs and ovaries Tipton's cerclage FW 7lbs 3 oz Complications: none Estimated blood loss in ml's: 500 Specimens removed/altered: placenta, cord for gases and cerclage at 1316 RPT #:[id number] END OF REPORT [facility] 2020-02-02 13:11:00 [facility] ([facility]) Clinical Note REPORT#:[id number] REPORT STATUS: Signed DATE:02/02/20 TIME: 1311 PATIENT: GRACY SAUCEDO UNIT #: [id number] ROOM/BED: [place] [address] : 86 AGE: 34 SEX: F ATTEND: Anuj Mauricio MD ADM AUTHOR: Anuj Mauricio MD * ALL edits or amendments must be made on the electronic/computer document * Clinical Note Note: Patient seen and examined and care records and office H P reviewed with no change at 1312 RPT #:[id number] END OF REPORT [facility] 2020-02-02 13:04:00 [facility] ([facility]) Pain Management Consult Note REPORT#:[id number] REPORT STATUS: Signed DATE:02/02/20 TIME: 1304 PATIENT: GRACY SAUCEDO UNIT #: [id number] ROOM/BED: [place] [address] : 86 AGE: 34 SEX: F ATTEND: [...] Anesthesiology department will follow. at 1305 RPT #:[id number] END OF REPORT [facility] 2020-02-01 23:03:00 [facility] ([facility]) DT Consult Note REPORT#:[id number] REPORT STATUS: Signed DATE:02/01/20 TIME: 2302 PATIENT: GRACY SAUCEDO UNIT #: [id number] ROOM/BED: [place] [address] : 86 AGE: 34 SEX: F ATTEND: Anuj Mauricio MD ADM AUTHOR: Briseida Vu MD * ALL edits or amendments must be made on the electronic/computer document * CONSULT NOTE Note: Discussed complications of prematurity at 34 weeks; RDS, feeding issues, temperature, jaundice, apnea of prematurity. Expected length of stay aroudn 2 weeks. Expect good outcome. Briseida Vu Neonatolgoy at 2303 RPT #:[id number] END OF REPORT [facility]
[2025-05-14 18:47] LABS: Absolute Lymphocytes (CBC) 1.8 K/uL (0.7-4.9); Hematocrit 31.6 % (36.0-45.0); Hemoglobin 10.6 g/dL (12.0-15.0); MCH 26.7 pg (27.0-35.0); MCHC 33.5 g/dL (32.0-36.0); MCV 79.7 fL (80-100); MPV 7.5 fL (7.6-11.3); Nucleated RBC Absolute Count 0.0 (0-0); Nucleated Red Blood Cells % 0.1 % (0-0); RBC Red Blood Cell Count 3.97 M/uL (3.86-4.86); White Blood Count 4.40 thou/uL (4.3-10.9)
[2025-05-14 19:04] LABS: ALT/SGPT 36 U/L (13-56); AST/SGOT 20 U/L (15-37); Albumin 3.4 g/dL (3.4-5.0); Albumin/Globulin Ratio 1.3 (1.1-1.8); Alkaline Phosphatase 44 U/L (45-117); Anion Gap 9.5 mEq/L (5.0-15.0); BUN Blood Urea Nitrogen 10 mg/dL (7-18); Globulin 2.6 g/dL (2.3-3.5); Glucose Level 128 mg/dL (74-106); HCG, Quantitative < 1 mIU/mL (1-3); Potassium 3.5 mEq/L (3.5-5.1)
--- NOTE | 2025-05-14 20:17 | EDPHYS ---
Physician Documentation [facility] Name: Gracy Logan Age: 39 yrs Sex: Female : 1985 Arrival Date: 05/14/2025 Time: 18:01 Bed 15 Private MD: ED Physician Carlos Ramos HPI: 05/14 19:06 This 39 yrs old Female presents to ER via Ambulatory with complaints of dr5 Abdominal Cramping, No period. 19:06 Patient is a 39-year-old female with history of diabetes, hypertension, herpes coming dr5 in for 3 weeks of intermittent abdominal cramping. Patient reports that she has not had a period since 02/19/25. Patient reports that she has regular menstrual cycles. Patient states that she took a test last month and is concerned she might be with a tubal or ectopic .. PIE BOTTOMER: 18:11 LMP 02/19/2025, unknown iw Historical: - Allergies: 18:10 insulin humalin; iw 18:10 insulin humalog; iw 18:10 metformin; iw - PMHx: 18:10 Diabetes - NIDDM; HERPES; Hypertension; Sleep Apnea; iw - PSHx: 18:10 Gastric Bypass; Ligation of fallopian tube; Tonsillectomy; iw - Immunization history:: Adult Immunizations not up to date. - Infectious Disease History:: Denies. - Social history:: Smoking status: Reported history of juuling and/or vaping. ROS: 19:06 Constitutional: as per hpi dr5 Exam: 19:06 Constitutional: This is a well developed, well nourished patient who is awake, alert, dr5 and in no acute distress. Head/Face: Normocephalic, atraumatic. ENT: Nares patent. No nasal discharge, no septal abnormalities noted. Tympanic membranes are normal and external auditory canals are clear. Oropharynx with no redness, swelling, or masses, exudates, or evidence of obstruction, uvula midline. Mucous membranes moist. Chest/axilla: Normal chest wall appearance and motion. Nontender with no deformity. No lesions are appreciated. Cardiovascular: Regular rate and rhythm with a normal S1 and S2. Normal PMI, no JVD. No pulse deficits. Respiratory: Lungs have equal breath sounds bilaterally, clear to auscultation. No rales, rhonchi or wheezes noted. No increased work of breathing, no retractions or nasal flaring. Back: No spinal tenderness. No costovertebral tenderness. Full range of motion. Skin: Warm, dry with normal turgor. Normal color with no rashes, no lesions, and no evidence of cellulitis. MS/ Extremity: Pulses equal, no cyanosis. Neurovascular intact. Full, normal range of motion. Neuro: Awake and alert, GCS 15, oriented to person, place, time, and situation. Cranial nerves II-XII grossly intact. Motor strength 5/5 in all extremities. Sensory grossly intact. Cerebellar exam normal. Normal gait. Vital Signs: 18:08 BP 116 / 76; Pulse 98; Resp 18; Temp 98.4(O); Pulse Ox 98% on R/A; Weight 67.59 kg; iw Height 5 ft. 5 in. ; Pain 0/10; 18:11 BP 116 / 76; Pulse 98; Resp 18; Temp 98.4(O); Pulse Ox 98% on R/A; iw 19:00 BP 105 / 75; Pulse 80; Resp 16; Pulse Ox 100% ; me1 20:00 BP 105 / 71; Pulse 81; Resp 16; Temp 98.3; Pulse Ox 100% ; me1 18:08 Body Mass Index 24.79 (67.59 kg, 165.1 cm) iw 18:08 Pain Scale: Adult iw MDM: 18:04 Medical Screening Exam initiated dr5 19:47 Differential diagnosis: Ovarian cyst, , electrolyte normality, hormonal issue. dr5 Data reviewed: vital signs, nurses notes, lab test result(s), Beta HCG: Less than 1 CBC, white blood cell count, hemoglobin, hematocrit, platelets, electrolytes, sodium, potassium, chloride, serum bicarbonate, BUN, creatinine, serum glucose, radiologic studies, ultrasound. Consideration of Admission/Observation Escalation of care including admission/observation considered. Consider admission patient found to have ectopic . I considered the following discharge prescriptions or medication management in the emergency department I discussed and recommended Over The Counter medications. Care significantly affected by the following chronic conditions: Diabetes, Hypertension. Care significantly affected by the following Social Determinants of Health: Poor access to healthcare and/or lack of insurance, Poor access to transportation, Problems related to employment. Counseling: I had a detailed discussion with the patient and/or guardian regarding the historical points, exam findings, and any diagnostic results supporting the discharge/admit diagnosis, the presence of at least one elevated blood pressure reading (>120/80) during this emergency department visit, the need for outpatient follow up, for definitive care, a family practitioner, an OB/Gyne specialist, to return to the emergency department if symptoms worsen or persist or if there are any questions or concerns that arise at home. 20:22 Special discussion: I discussed with the patient/guardian in detail that at this point dr5 there is no indication for admission to the hospital. It is understood, however, that if the symptoms persist or worsen the patient needs to return immediately for re-evaluation. Based on the history and exam findings, there is no indication for further emergent testing or inpatient evaluation. I discussed with the patient/guardian the need to see the OB Gyne specialist for further evaluation of the symptoms. ED course: Patient abdominal pain has improved. Will have patient follow up with Infectious Waste Technician for further management. No obvious issues noted on US. Patient is agreeable to plan. Strict ER precautions given. 05/14 18:10 Order name: CBC with Diff; Complete Time: 18:55 dr5 05/14 18:10 Order name: CMP; Complete Time: 19:06 dr5 05/14 18:10 Order name: HCG-Quantitative; Complete Time: 19:06 dr5 05/14 18:55 Order name: US Transvaginal Study (Probe); Complete Time: 10:38 dr5 Administered Medications: No medications were administered Disposition: 20:01 I was immediately available on-site in the Emergency Department for consultation in the ms3 care of the patient. Disposition Summary: 05/14/25 20:17 Discharge Ordered Notes: Location: Home dr5 Condition: Stable dr5 Diagnosis - Cramp and spasm dr5 - Abdominal pain, Generalized dr5 Followup: dr5 - With: Emergency Department - When: As needed - Reason: Worsening of condition Followup: dr5 - With: Private Physician - When: 1 - 2 days - Reason: Recheck today's complaints, Continuance of care, Re-evaluation by your physician Discharge Instructions: - Discharge Summary Sheet dr5 - Abdominal Pain, Adult dr5 Forms: - Medication Reconciliation Form dr5 - Prescription Opioid Use dr5 - Patient Portal Instructions dr5 - Leadership Thank You Letter dr5 Prescriptions: - Zofran 4 mg Oral Tablet - take 1 tablet ORAL route every 12 hours As needed; 20 tablet; Refills: 0, dr5 Product Selection Permitted - Tramadol 50 mg Oral Tablet - take 1 tablet ORAL route every 8 hours as needed; 12 tablet; Refills: 0, dr5 Product Selection Permitted Signatures: DispAnastasiya Gould RN RN iw Sims, Marcus, DO DO ms3 Rick Garrison, RAHAT-C TRAINING AND DEVELOPMENT REP-Cdr5
--- NOTE | 2025-05-14 20:17 | ER ---
Nurse's Notes [facility] Name: Gracy Logan Age: 39 yrs Sex: Female : 1985 Arrival Date: 05/14/2025 Time: 18:01 Bed 15 Private MD: Diagnosis: Cramp and spasm;Abdominal pain, Generalized Presentation: 05/14 18:08 Chief complaint: Patient states: reports having abdominal cramping x4 quadrants on and iw off for the past 3 weeks. Coronavirus screen: At this time, the client does not indicate any symptoms associated with coronavirus-19. Ebola Screen: Patient denies travel to an Ebola-affected area in the 21 days before illness onset. No symptoms or risks identified at this time. Initial Sepsis Screen: Does the patient meet any 2 criteria? No. Patient's initial sepsis screen is negative. Does the patient have a suspected source of infection? No. Patient's initial sepsis screen is negative. Risk Assessment: Do you want to hurt yourself or someone else? Patient reports no desire to harm self or others. 18:08 Method Of Arrival: Ambulatory iw 18:08 Acuity: ERNESTO 3 iw Triage Assessment: 18:10 General: Appears uncomfortable, ill, Behavior is calm, cooperative, appropriate for iw age. Pain: Denies pain. 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 - Infectious Disease History:: Denies. - Social history:: Smoking status: Reported history of juuling and/or vaping. Screenin:15 [facility] ED Fall Risk Assessment (Adult) History of falling in the last 3 months, me1 including since admission No falls in past 3 months (0 pts) Confusion or Disorientation No (0 pts) Intoxicated or Sedated No (0 pts) Impaired Gait No (0 pts) Mobility Assist Device Used No (0 pt) Altered Elimination No (0 pt) Score/Fall Risk Level 0 - 2 = Low Risk Maintained a safe environment, Provided non-skid footwear, Hourly rounding (assess needs \T\ fall precautionary measures) done. Abuse screen: Denies threats or abuse. Nutritional screening: No deficits noted. Tuberculosis screening: No symptoms or risk factors identified. Assessment: 18:15 General: Appears uncomfortable, well groomed, well developed, well nourished, Behavior me1 is calm, cooperative, appropriate for age, Reports reports having abdominal cramping x4 quadrants on and off for the past 3 weeks. Pain: Complains of pain in abdomen Pain does not radiate. Pain currently is 7 out of 10 on a pain scale. Quality of pain is described as crampy, Pain began about 3 weeks ago Is intermittent. Neuro: Level of Consciousness is awake, alert, obeys commands, Oriented to person, place, time, situation, Appropriate for age. Cardiovascular: Patient's skin is warm and dry. Respiratory: Airway is patent Respiratory effort is even, unlabored, Respiratory pattern is regular, symmetrical. GI: Abdomen is non-distended, Bowel sounds present X 4 quads. Abd is soft X 4 quads. : No signs and/or symptoms were reported regarding the genitourinary system. EENT: No signs and/or symptoms were reported regarding the EENT system. Derm: Skin is intact, is healthy with good turgor, Skin is pink, warm \T\ dry. Musculoskeletal: No signs and/or symptoms reported regarding the musculoskeletal system. Circulation, motion, and sensation intact. Range of motion: intact in all extremities. Vital Signs: 18:08 BP 116 / 76; Pulse 98; Resp 18; Temp 98.4(O); Pulse Ox 98% on R/A; Weight 67.59 kg; iw Height 5 ft. 5 in. ; Pain 0/10; 18:11 BP 116 / 76; Pulse 98; Resp 18; Temp 98.4(O); Pulse Ox 98% on R/A; iw 19:00 BP 105 / 75; Pulse 80; Resp 16; Pulse Ox 100% ; me1 20:00 BP 105 / 71; Pulse 81; Resp 16; Temp 98.3; Pulse Ox 100% ; me1 18:08 Body Mass Index 24.79 (67.59 kg, 165.1 cm) iw 18:08 Pain Scale: Adult iw ED Course: 18:03 Patient arrived in ED. im 18:03 Carlos Ramos DO is Attending Physician. ms3 18:04 Rick Garrison FNP-C is PHCP. dr5 18:10 Triage completed. iw 18:14 Joyce Friedman, RN is Primary Nurse. me1 18:15 No provider procedures requiring assistance completed. me1 18:15 Patient has correct armband on for positive identification. Call light in reach. Side me1 rails up X2. Provided Education on: POC. Verbalized understanding. . Client placed on continuous cardiac and pulse oximetry monitoring. NIBP monitoring applied. Pulse ox on. NIBP on. 18:15 Arm band placed on Patient placed in an exam room. me1 18:32 Initial lab(s) drawn, by me, sent to lab. Inserted saline lock: 22 gauge in left me1 antecubital area, using aseptic technique. 20:07 US Transvaginal Study (Probe) In Process Unspecified. EDMS 20:40 IV discontinued, intact, bleeding controlled, No redness/swelling at site. Pressure me1 dressing applied. Administered Medications: No medications were administered Medication: 18:15 VIS not applicable for this client. me1 Outcome: 20:17 Discharge ordered by MD. dr5 20:40 Discharged to home ambulatory, me1 20:40 Condition: stable 20:40 Discharge instructions given to patient, Instructed on discharge instructions, follow up and referral plans. medication usage, Demonstrated understanding of instructions, follow-up care, medications, Prescriptions given X 2, 20:40 Patient left the ED. me1 Signatures: Dispatcher [employer] Anastasiya Arrington, RN RN Carlos Ramos DO DO ms3 Sheron Tello oJyce Friedman, ELIF RN me1 Rick Garrison FNP-C CHIROPRACTIC TEACHER-Cdr5 Corrections: (The following items were deleted from the chart) 18:16 18:08 Chief complaint: Patient states: reports having abdominal cramping x4 quadrants me1 on and off for the past 3 weeks iw 18:49 18:08 Chief complaint: Patient states: reports having abdominal cramping x4 quadrants me1 on and off for the past 3 weeks me1
--- NOTE | 2025-05-14 21:22 | RAD REPORT ---
EXAMINATION: Transvaginal Study Probe CLINICAL INDICATION: Pelvic pain TECHNIQUE: Real-time ultrasonography of the pelvis was performed transvaginally. Color and spectral D oppler evaluation of the ovaries was performed. COMPARISON: No prior exam. FINDINGS: The uterus measures 9 x 6 x 6 cm. A fibroid is not seen The endometrial stripe measures 1.6 cm. Right ovary normal in size and echotexture. Left ovary normal in size and echotexture. Left ovarian simple cyst 2.6 cm is benign. No follow-up re commended. Right and left adnexa unremarkable No significant free fluid IMPRESSION: 2.6 cm simple cyst left kidney without significant free fluid.
[2025-05-15 02:33] VITALS: O2SAT 100
[2025-05-15 02:34] VITALS: BP 105/71; TEMP 98.3
== END 2025-05-14 20:40 | disposition home or self-care (01) ==
LOC: ER 18:01
DX: R25.2 Cramp and spasm (principal); R10.84 Generalized abdominal pain
CPT/HCPCS: 36415; 76830; 80053; 84702; 85025; 99284